=== PATIENT | male | born 1955 | race African-American/Black ===

== ENCOUNTER 2017-11-04 11:37 | Observation (INO) | payer OTHER ==
[2017-11-04] VITALS (8 sets, daily range): BP systolic 78–215; BP diastolic 49–110; PULSE 68–92; RESP 16–18; TEMP 98.7; O2SAT 96–99
[~2017-11-04 11:37] MED LIST: AMLO10 PO; BISA10SU8 PR; CIPR500T4 PO; DOCU1CAP39 PO
--- NOTE | 2017-11-04 13:06 | PD ---
HPI Chief Complaint: Pain: Acute or Chronic Time Seen by Provider: 13:04 Travel History International Travel<30 days: No Contact w/Intl Traveler<30days: No Traveled to known affect area: No History of Present Illness HPI 62-year-old male presents to the emergency department accompanied by his sister with complaint of discoloration in his toes and discoloration of his big toenails 5 months. Also reports foot pain for the last 5 months. He is a patient at the [facility] and has followed up in regards to this complaint. He said he received injections into his feet for his pain which helped. He tried to make an appointment at the [facility] today and was told to come to the ER. Denies injury. Is ambulatory on the affected extremities. Has a callus on his left foot at the joint of the first toe that he says is painful and worse when he wears shoes when it rubs up against the shoe. He denies paresthesias, loss of sensation, decreased range of motion, decreased strength to bilateral lower extremities. Denies history of neuropathy or diabetes. Has not taken any medication or tried any treatments to alleviate his symptoms. Worse with ambulation. Better at rest. Symptoms are mild in severity. History of stroke 4 years ago, cardiac stents, hypertension. His blood pressure is elevated in triage and he denies chest pain, shortness of breath, abdominal pain, vomiting, change in vision, diaphoresis, syncope. Says he has not been taking any of his medications for the past 5-6 months because his doctor told him to stop taking it. His primary care provider is Dr. Hua at the [facility]. No known allergies. Has no other medical complaints. No other modifying factors or associated signs and symptoms. PFSH Past Medical History Arthritis: No Asthma: No Autoimmune Disease: No Blood Disorders: No Heart Rhythm Problems: No Cancer: No Cardiac Catheterization: Yes Cardiovascular Problems: Yes High Cholesterol: Yes Chemotherapy: No Congestive Heart Failure: No COPD: No Cerebrovascular Accident: Yes Diabetes: Yes Diminished Hearing: No Endocrine: No Gastrointestinal Disorders: Yes GERD: No Genitourinary: Yes (BPH) Hiatal Hernia: No Hypertension: Yes Immune Disorder: No Kidney Stones: No Musculoskeletal: No Neurologic: No Psychiatric: No Reproductive: No Respiratory: No Myocardial Infarction: Yes Radiation Therapy: No Renal Failure: No Sickle Cell Disease: No Sleep Apnea: No Thyroid Disease: No Ulcer: No Past Surgical History Abdominal Surgery: No AICD: No Cardiac Surgery: Yes (angioplasty/stent) Coronary Stent: Yes Ear Surgery: No Endocrine Surgery: No Eye Surgery: No Genitourinary Surgery: No Gynecologic Surgery: No Insulin Pump: No Joint Replacement: No Oral Surgery: No Pacemaker: No Thoracic Surgery: No Other Surgery: Yes Social History Alcohol Use: No Tobacco Use: No (QUIT JUNE 2013) Substance Use: No Allergies-Medications (Allergen,Severity, Reaction): Coded Allergies: No Known Allergies (Verified Allergy, Unknown, 11/04/17) Reported Meds & Prescriptions Reported Meds & Active Scripts Active Review of Systems Except as stated in HPI: all other systems reviewed are Neg Physical Exam Narrative GENERAL: Thin, elderly, black male patient, in no acute distress SKIN: Warm and dry. HEAD: Atraumatic. Normocephalic. EYES: Pupils equal and round. No scleral icterus. No injection or drainage. ENT: Mucosa pink and moist. Airway patent. NECK: Trachea midline. CARDIOVASCULAR: Regular rate and rhythm. No murmur appreciated. RESPIRATORY: No accessory muscle use. Clear to auscultation. Breath sounds equal bilaterally. GASTROINTESTINAL: Abdomen soft, non-tender, nondistended. Hepatic and splenic margins not palpable. Bowel sounds are active 4 quadrants. MUSCULOSKELETAL: Bilateral feet are nonedematous, nonerythematous and without ecchymosis; without tenderness on palpation; toes are warm and was sensory intact; no cyanosis; 2+ pedal pulses; onychomycosis noted to bilateral great toenails. No obvious deformities. No clubbing. No cyanosis. No edema. NEUROLOGICAL: Awake and alert. Oriented 3. No obvious cranial nerve deficits. Motor grossly within normal limits. Normal speech. PSYCHIATRIC: Appropriate mood and affect; insight and judgment normal. Data Data Last Documented VS Vital Signs Date Time Temp Pulse Resp B/P (MAP) Pulse Ox O2 Delivery O2 Flow Rate FiO2 11/04/17 18:00 68 113/72 (86) 11/04/17 17:00 17 97 Room Air 11/04/17 12:19 98.7 Orders Orders Basic Metabolic Panel (Bmp) (11/04/17 13:47) Complete Blood Count With Diff (11/04/17 13:47) Iv Access Insert/Monitor (11/04/17 13:47) Sodium Chloride 0.9% Flush (Ns Flush) (11/04/17 14:00) Orthostatic Vital Signs (11/04/17 13:47) Magnesium (Mg) (11/04/17 13:47) Sodium Chlor 0.9% 1000 Ml Inj (Ns 1000 M (11/04/17 16:30) Admit Order (Ed Use Only) (11/04/17 17:58) Consult Podiatry (11/04/17 ) Labs Laboratory Tests Test 11/04/17 14:45 White Blood Count 8.3 TH/MM3 Red Blood Count 5.24 MIL/MM3 Hemoglobin 13.1 GM/DL Hematocrit 40.0 % Mean Corpuscular Volume 76.2 FL Mean Corpuscular Hemoglobin 25.0 PG Mean Corpuscular Hemoglobin Concent 32.9 % Red Cell Distribution Width 16.2 % Platelet Count 232 TH/MM3 Mean Platelet Volume 7.8 FL Neutrophils (%) (Auto) 66.2 % Lymphocytes (%) (Auto) 24.1 % Monocytes (%) (Auto) 8.4 % Eosinophils (%) (Auto) 0.5 % Basophils (%) (Auto) 0.8 % Neutrophils # (Auto) 5.5 TH/MM3 Lymphocytes # (Auto) 2.0 TH/MM3 Monocytes # (Auto) 0.7 TH/MM3 Eosinophils # (Auto) 0.0 TH/MM3 Basophils # (Auto) 0.1 TH/MM3 CBC Comment DIFF FINAL Differential Comment Blood Urea Nitrogen 24 MG/DL Creatinine 1.23 MG/DL Random Glucose 86 MG/DL Calcium Level 8.8 MG/DL Magnesium Level 2.4 MG/DL Sodium Level 141 MEQ/L Potassium Level 4.0 MEQ/L Chloride Level 107 MEQ/L Carbon Dioxide Level 29.2 MEQ/L Anion Gap 5 MEQ/L Estimat Glomerular Filtration Rate 72 ML/MIN [facility] Medical Decision Making Medical Screen Exam Complete: Yes Emergency Medical Condition: Yes Medical Record Reviewed: Yes Differential Diagnosis neuropathy, plantar fasciitis, callus, bunion, onychomycosis, orthostatic hypotension Narrative Course 62-year-old male with bilateral foot pain, onychomycosis, and a callus to the left foot. His blood pressure is elevated in triage and he is asymptomatic. On blood pressure recheck his blood pressure readings were right upper extremity 82/52; left upper extremity 71/43. He reports history of hypertension and says he has not taken any of his medications for the past 5-6 months. He denies lightheadedness, dizziness, syncope. I discussed the patient with Dr. Thomas and he recommended CBC, BMP, orthostatic vital signs. With orthostatic vital signs the patient blood pressure remains low and when he stands up reports dizziness. This was discussed with Dr. Thomas and he recommended a fluid bolus and recheck orthostatic vital signs after bolus and if continues to feel dizzy with standing up then to admit the patient for observation. Normal saline bolus ordered. 1614: CBC unremarkable. BMP unremarkable. BUN 24. Magnesium 2.4. 1757: I spoke with SABA Turcios and the patient will be admitted for 23 observation for hypotension. Report given. Consult podiatry ordered. Physician Communication Physician Communication SABA Turcios Diagnosis Primary Impression: Hypotension Qualified Codes: I95.9 - Hypotension, unspecified Additional Impressions: Foot pain, bilateral Callus of foot Onychomycosis of left great toe Onychomycosis of right great toe Admitting Information Admitting Physician Requests: Observation Referrals: [employer] Order Filler Roxie Angel Nov 04, 2017 13:06
[2017-11-04] MEDS ORDERED: SODIUM CHLORIDE 0.9% FLUSH 10 ML FLUSH IV FLUSH PRN ×2 (14:00→18:45)
[2017-11-04 15:28] LABS: AUTOMATED NEUTROPHIL # 5.5 TH/MM3 (1.8-7.7); BASOPHIL # 0.1 TH/MM3 (0-0.2); BASOPHIL % 0.8 % (0.0-2.0); EOSINOPHIL % 0.5 % (0.0-4.0); HEMOGLOBIN 13.1 GM/DL (13.0-17.0); LYMPH % 24.1 % (9.0-44.0); MEAN CELL VOLUME 76.2 FL (80.0-100.0); MEAN CORPUSCULAR HGB CONC 32.9 % (32.0-36.0); MEAN PLATELET VOLUME 7.8 FL (7.0-11.0); MONO % 8.4 % (0.0-8.0); MONOCYTE # 0.7 TH/MM3 (0-0.9); NEUT % 66.2 % (16.0-70.0); PLATELET COUNT 232 TH/MM3 (150-450); RED BLOOD COUNT 5.24 MIL/MM3 (4.50-5.90); RED CELL DISTRIBUTION WIDTH 16.2 % (11.6-17.2); WHITE BLOOD COUNT 8.3 TH/MM3 (4.0-11.0)
[2017-11-04 15:46] LABS: BICARBONATE 29.2 MEQ/L (21.0-32.0); CALCIUM 8.8 MG/DL (8.5-10.1); CREATININE 1.23 MG/DL (0.60-1.30); MAGNESIUM 2.4 MG/DL (1.5-2.5)
[2017-11-04] MEDS ORDERED: SODIUM CHLOR 0.9% 1000 ML INJ 1,000 ML IV ONE (16:30)
[2017-11-04] MEDS ORDERED: NALOXONE HCL 0.4 MG/ML AMP IV PUSH PRN (18:45)
[2017-11-04] MEDS ORDERED: SENNOSIDES 8.6 MG TAB PO PRN (18:45)
[2017-11-04] MEDS ORDERED: ONDANSETRON HCL 4 MG/2 ML VIAL IVP PRN (18:45)
[2017-11-04] MEDS ORDERED: ACETAMINOPHEN 325 MG TAB PO PRN (18:45)
[2017-11-04] MEDS ORDERED: LACTULOSE SYRUP 20 GM/30 ML CUP PO PRN (18:45)
[2017-11-04] MEDS ORDERED: BISACODYL 10 MG SUPP RECTAL PRN (18:45)
[2017-11-04] MEDS ORDERED: MAGNESIUM HYDROXIDE SUSP 30 ML CUP PO PRN (18:45)
[2017-11-04] MEDS: DOCUSATE SODIUM 50 MG/SENNA 8.6 MG TAB PO SCH (20:07)
[2017-11-04] MEDS: SODIUM CHLORIDE 0.9% FLUSH 10 ML FLUSH IV FLUSH SCH (20:07)
[2017-11-04] MEDS: SODIUM CHLOR 0.9% 1000 ML INJ 1,000 ML IV SCH (20:07)
[2017-11-04] MEDS ORDERED: LORazepam 2 MG/ML VIAL IV PUSH PRN ×4 (21:45)
[2017-11-04] MEDS ORDERED: LORazepam 2 MG TAB PO PRN (21:45)
[2017-11-04] MEDS ORDERED: FLUMAZENIL 0.5 MG/5 ML VIAL IV PUSH PRN (21:45)
[2017-11-04] MEDS ORDERED: LORazepam 1 MG TAB PO PRN (21:45)
--- NOTE | 2017-11-04 21:51 | HHI.HP ---
[facility] Service [facility] Primary Care Physician [facility] Admission Diagnosis Hypotension, bilateral foot pain Diagnoses: Travel History International Travel<30 Days: No Contact w/Intl Traveler <30 Da: No Traveled to Known Affected Are: No History of Present Illness 62-year-old male with a past medical history of previous CVA, CAD, history of hypertension presents to the emergency department for evaluation of bilateral foot pain. The patient reports that he has pain on the medial side of his left foot, worse near his toe and on the fifth digit of his right foot. He states the pain has gotten so great that he came to the emergency department for further evaluation. Upon arrival to the emergency department he was found to be hypertensive in triage. The patient was previously treated for hypertension however he reports he has not taken any antihypertensives and 4-5 months. In the emergency department he was found to be hypotensive with a blood pressure of 78/49. Multiple repeated measures were in the 80s systolic. The patient reports dizziness upon standing. He denies any chest pain, shortness of breath , nausea/vomiting, lateralizing signs/symptoms. 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 No fever/chills. Review of Systems Except as stated in HPI: all other systems reviewed are Neg Past Family Social History Past Medical History CVA in June 2014 Coronary artery disease History of hypertension Past Surgical History Stent placement in 1991 Reported Medications Reported Meds & Active Scripts Active Allergies: Coded Allergies: No Known Allergies (Verified Allergy, Unknown, 11/04/17) Family History Mother with diabetes mellitus Social History Sox proximally 1.5 packs per day. Drinks a 4 pack of 16 ounce beers daily. Denies illicit drugs. Physical Exam Vital Signs Vital Signs Date Time Temp Pulse Resp B/P (MAP) Pulse Ox O2 Delivery O2 Flow Rate FiO2 11/04/17 19:41 80 16 108/69 (82) 99 11/04/17 18:00 68 113/72 (86) 11/04/17 17:30 72 94/73 (80) 11/04/17 17:00 86 17 78/49 (59) 97 Room Air 11/04/17 16:00 74 17 102/82 (89) 98 Room Air 11/04/17 14:45 86 90/65 (73) 82 88/61 (70) 103 80/62 (68) 11/04/17 12:19 98.7 92 18 215/110 (145) 96 Physical Exam GENERAL: male lying in bed SKIN: No rashes, ecchymoses or lesions. Cool and dry. HEAD: Atraumatic. Normocephalic. No temporal or scalp tenderness. EYES: Pupils equal round and reactive. Extraocular motions intact. No scleral icterus. No injection or drainage. ENT: Nose without bleeding, purulent drainage or septal hematoma. Throat without erythema, tonsillar hypertrophy or exudate. Uvula midline. Airway patent. NECK: Trachea midline. No JVD or lymphadenopathy. Supple, nontender, no meningeal signs. CARDIOVASCULAR: Regular rate and rhythm without murmurs, gallops, or rubs. RESPIRATORY: Clear to auscultation. Breath sounds equal bilaterally. No wheezes , rales, or rhonchi. GASTROINTESTINAL: Abdomen soft, non-tender, nondistended. No hepato-splenomegaly , or palpable masses. No guarding. MUSCULOSKELETAL: Extremities without clubbing, cyanosis, or edema. No joint tenderness, effusion, or edema noted. No calf tenderness. Negative Homans sign bilaterally. NEUROLOGICAL: Awake and alert. Cranial nerves II through XII intact. Motor and sensory grossly within normal limits. Five out of 5 muscle strength in all muscle groups. Slurred speech, at baseline. Laboratory Laboratory Tests Test 11/04/17 14:45 White Blood Count 8.3 Red Blood Count 5.24 Hemoglobin 13.1 Hematocrit 40.0 Mean Corpuscular Volume 76.2 Mean Corpuscular Hemoglobin 25.0 Mean Corpuscular Hemoglobin Concent 32.9 Red Cell Distribution Width 16.2 Platelet Count 232 Mean Platelet Volume 7.8 Neutrophils (%) (Auto) 66.2 Lymphocytes (%) (Auto) 24.1 Monocytes (%) (Auto) 8.4 Eosinophils (%) (Auto) 0.5 Basophils (%) (Auto) 0.8 Neutrophils # (Auto) 5.5 Lymphocytes # (Auto) 2.0 Monocytes # (Auto) 0.7 Eosinophils # (Auto) 0.0 Basophils # (Auto) 0.1 CBC Comment DIFF FINAL Differential Comment Blood Urea Nitrogen 24 Creatinine 1.23 Random Glucose 86 Calcium Level 8.8 Magnesium Level 2.4 Sodium Level 141 Potassium Level 4.0 Chloride Level 107 Carbon Dioxide Level 29.2 Anion Gap 5 Estimat Glomerular Filtration Rate 72 Result Diagram: 11/04/17 1445 11/04/17 1445 Caprini VTE Risk Assessment Caprini VTE Risk Assessment: Mod/High Risk (score >= 2) Caprini Risk Assessment Model Point Value = 1 Point Value = 2 Point Value = 3 Point Value = 5 Age 41-60 Minor surgery BMI > 25 kg/m2 Swollen legs Varicose veins or History of unexplained or recurrent spontaneous Oral contraceptives or hormone replacement Sepsis (< 1 month) Serious lung disease, including pneumonia (< 1 month) Abnormal pulmonary function Acute myocardial infarction Congestive heart failure (< 1 month) History of inflammatory bowel disease Medical patient at bed rest Age 61-74 Arthroscopic surgery Major open surgery (> 45 min) Laparoscopic surgery (> 45 min) Malignancy Confined to bed (> 72 hours) Immobilizing plaster cast Central venous access Age >= 75 History of VTE Family history of VTE Factor V Leiden Prothrombin [id number] Lupus anticoagulant Anticardiolipin antibodies Elevated serum homocysteine Heparin-induced thrombocytopenia Other congenital or acquired thrombophilia Stroke (< 1 month) Elective arthroplasty Hip, pelvis, or leg fracture Acute spinal cord injury (< 1 month) Prophylaxis Regimen Total Risk Factor Score Risk Level Prophylaxis Regimen 0-1 Low Early ambulation 2 Moderate Order ONE of the following: *Sequential Compression Device (SCD) *Heparin 5000 units SQ BID 3-4 Higher Order ONE of the following medications: *Heparin 5000 units SQ TID *Enoxaparin/Lovenox 40 mg SQ daily (WT < 150 kg, CrCl > 30 mL/min) *Enoxaparin/Lovenox 30 mg SQ daily (WT < 150 kg, CrCl > 10-29 mL/min) *Enoxaparin/Lovenox 30 mg SQ BID (WT < 150 kg, CrCl > 30 mL/min) AND/OR *Sequential Compression Device (SCD) 5 or more Highest Order ONE of the following medications: *Heparin 5000 units SQ TID (Preferred with Epidurals) *Enoxaparin/Lovenox 40 mg SQ daily (WT < 150 kg, CrCl > 30 mL/min) *Enoxaparin/Lovenox 30 mg SQ daily (WT < 150 kg, CrCl > 10-29 mL/min) *Enoxaparin/Lovenox 30 mg SQ BID (WT < 150 kg, CrCl > 30 mL/min) AND *Sequential Compression Device (SCD) Assessment and Plan Assessment and Plan Assessment/plan: 1. Symptomatic hypotension Unclear etiology - may be secondary to alcohol abuse and dehydration Orthostatics pending PT consulted, appreciate recommendations IV fluids 2. Bilateral foot pain X-rays pending Podiatry consulted, appreciate recommendations 3. CAD Patient will follow-up with his PCP 4. Alcohol abuse Cessation counseling provided Thiamine/folate/multivitamin CIWA protocol FEN NS at 100 cc/hr Heart healthy diet Electrolytes: monitor and replete prn Heparin Grisel Torres MD Nov 04, 2017 21:51
--- NOTE | 2017-11-04 22:40 | RADRPT ---
EXAM DATE/TIME: 11/04/2017 21:52 [facility] COMPARISON: No previous studies available for comparison. INDICATIONS : Left foot pain with no injury for 2 weeks. MEDICAL HISTORY : Hypertension. Hypercholesterolemia. Myocardial infarction. CVA. SURGICAL HISTORY : Coronary artery stent. ENCOUNTER: Initial ACUITY: 2 weeks PAIN SCORE: 4/10 LOCATION: Left foot. FINDINGS: Three view examination of the left foot demonstrates no soft tissue swelling, dislocation, or fractur e. The tarsal bones appear intact. The interphalangeal and metatarsophalangeal joints are intact. Mild hallux obvious deformity with some sclerosis at the articular surface. The calcaneus is intact . Bony mineralization is normal. CONCLUSION: Mild hallux valgus. Otherwise negative exam. Tristan Cook MD on November 04, 2017 at 22:38 Board Certified Radiologist. This report was verified electronically.
--- NOTE | 2017-11-04 22:41 | RADRPT ---
EXAM DATE/TIME: 11/04/2017 21:57 [facility] COMPARISON: No previous studies available for comparison. INDICATIONS : Right foot pain with no injury for 2 week. MEDICAL HISTORY : Hypertension. Hypercholesterolemia. Myocardial infarction. CVA. SURGICAL HISTORY : Coronary artery stent. ENCOUNTER: Initial ACUITY: 2 weeks PAIN SCORE: 4/10 LOCATION: Right foot. FINDINGS: Three view examination of the right foot demonstrates no soft tissue swelling, dislocation, or fractu re. The tarsal bones appear intact. The interphalangeal and metatarsophalangeal joints are intact. The calcaneus is intact. Bony mineralization is mildly decreased. CONCLUSION: Negative exam. Tristan Cook MD on November 04, 2017 at 22:39 Board Certified Radiologist. This report was verified electronically.
[2017-11-04] MEDS: HEPARIN SODIUM - SQ 10,000 UNITS/ML VIAL SQ SCH (22:42)
[2017-11-05 03:21] VITALS: BP 110/86; PULSE 88; RESP 18; TEMP 98.5; O2SAT 99
[2017-11-05 04:17] LABS: AUTOMATED NEUTROPHIL # 3.9 TH/MM3 (1.8-7.7); BASOPHIL # 0.1 TH/MM3 (0-0.2); BASOPHIL % 1.4 % (0.0-2.0); EOSINOPHIL # 0.1 TH/MM3 (0-0.4); EOSINOPHIL % 0.9 % (0.0-4.0); HEMATOCRIT 36.1 % (39.0-51.0); HEMOGLOBIN 11.8 GM/DL (13.0-17.0); LYMPH % 35.1 % (9.0-44.0); LYMPHOCYTE # 2.6 TH/MM3 (1.0-4.8); MEAN CELL VOLUME 75.2 FL (80.0-100.0); MEAN CORPUSCULAR HEMOGLOBIN 24.6 PG (27.0-34.0); MEAN CORPUSCULAR HGB CONC 32.7 % (32.0-36.0); MEAN PLATELET VOLUME 7.3 FL (7.0-11.0); MONO % 9.5 % (0.0-8.0); MONOCYTE # 0.7 TH/MM3 (0-0.9); NEUT % 53.1 % (16.0-70.0); PLATELET COUNT 193 TH/MM3 (150-450); RED CELL DISTRIBUTION WIDTH 15.8 % (11.6-17.2); WHITE BLOOD COUNT 7.3 TH/MM3 (4.0-11.0)
[2017-11-05 04:35] LABS: ALBUMIN 3.2 GM/DL (3.4-5.0); ALT (GPT) 13 U/L (12-78); AST (GOT) 10 U/L (15-37); BICARBONATE 26.4 MEQ/L (21.0-32.0); BLOOD UREA NITROGEN 18 MG/DL (7-18); CALCIUM 8.4 MG/DL (8.5-10.1); CHLORIDE 112 MEQ/L (98-107); CREATININE 1.03 MG/DL (0.60-1.30); GLOMERULAR FILTRATION RATE 88 ML/MIN (>89); GLUCOSE,RANDOM 84 MG/DL (74-106); SODIUM (NA) 143 MEQ/L (136-145)
[2017-11-05 04:36] LABS: ALKALINE PHOSPHATASE 96 U/L (45-117); TOTAL BILIRUBIN ADULT 0.3 MG/DL (0.2-1.0); TOTAL PROTEIN 6.5 GM/DL (6.4-8.2)
[2017-11-05] MEDS: SODIUM CHLOR 0.9% 1000 ML INJ 1,000 ML IV SCH (05:06)
[2017-11-05] MEDS: HEPARIN SODIUM - SQ 10,000 UNITS/ML VIAL SQ SCH (05:08)
[2017-11-05 07:25] VITALS: BP 114/73; PULSE 81; RESP 20; TEMP 98.3; O2SAT 98
[2017-11-05] MEDS ORDERED: FOLIC ACID 1 MG TAB PO SCH (09:00)
[2017-11-05] MEDS ORDERED: THIAMINE HCL 100 MG TAB PO SCH (09:00)
[2017-11-05] MEDS ORDERED: MULTIVITAMINS/MINERALS THERAPEUTIC TAB PO SCH (09:00)
--- NOTE | 2017-11-05 09:00 | HHI.DCPOC ---
Discharge Care Plan Diagnosis: (1) Foot pain, bilateral (2) Hypotension Goals to Promote Your Health * To prevent worsening of your condition and complications * To maintain your health at the optimal level Directions to Meet Your Goals Take your medications as prescribed Follow your dietary instruction Follow activity as directed Keep your appointments as scheduled Take your immunizations and boosters as scheduled If your symptoms worsen call your PCP, if no PCP go to Urgent Care Center or Emergency Room Smoking is Dangerous to Your Health. Avoid second hand smoke Call the 24-hour hour crisis hotline for domestic abuse at Sofia Forde PA-C Nov 05, 2017 09:00
[2017-11-05] MEDS: DOCUSATE SODIUM 50 MG/SENNA 8.6 MG TAB PO SCH (09:21)
[2017-11-05] MEDS: SODIUM CHLORIDE 0.9% FLUSH 10 ML FLUSH IV FLUSH SCH (09:22)
[2017-11-05] MEDS ORDERED: INFLUENZA VIRUS VACCINE (QUADRIVALENT) 0.5 ML SYR IM ONE (10:00)
[2017-11-05 12:08] VITALS: BP 106/58; PULSE 74; RESP 20; TEMP 98.7; O2SAT 99
--- NOTE | 2017-11-05 13:47 | HHI.PR ---
Subjective Remarks Follow-up foot pain and hypotension. Patient has chronic bilateral foot pain from left bunion and right fifth toe. Dw RN Objective Vitals Vital Signs Date Time Temp Pulse Resp B/P (MAP) Pulse Ox O2 Delivery O2 Flow Rate FiO2 11/05/17 12:08 98.7 74 20 106/58 (74) 99 11/05/17 07:25 98.3 81 20 114/73 (87) 98 11/05/17 03:21 98.5 88 18 110/86 (94) 99 11/04/17 23:22 98.7 89 18 101/64 (76) 97 11/04/17 19:41 80 16 108/69 (82) 99 11/04/17 18:00 68 113/72 (86) 11/04/17 17:30 72 94/73 (80) 11/04/17 17:00 86 17 78/49 (59) 97 Room Air 11/04/17 16:00 74 17 102/82 (89) 98 Room Air 11/04/17 14:45 86 90/65 (73) 82 88/61 (70) 103 80/62 (68) Result Diagram: 11/05/17 0351 11/05/17 0351 Imaging Last Impressions Foot X-Ray 11/04/17 0000 Signed Impressions: Service Date/Time: Saturday, November 04, 2017 21:57 - CONCLUSION: Negative exam. Tristan Cook MD Objective Remarks GENERAL: male lying in bed SKIN: No rashes, ecchymoses or lesions. Cool and dry. CARDIOVASCULAR: Regular rate and rhythm without murmurs, gallops, or rubs. RESPIRATORY: Clear to auscultation. Breath sounds equal bilaterally. No wheezes , rales, or rhonchi. GASTROINTESTINAL: Abdomen soft, non-tender, nondistended. No guarding. MUSCULOSKELETAL: Extremities without clubbing, cyanosis, or edema. No joint tenderness, effusion, or edema noted. No calf tenderness. Negative Homans sign bilaterally. Bunion left foot and onychomycosis right fifth toenail which is digging into the skin no signs of cellulitis NEUROLOGICAL: Awake and alert. Cranial nerves II through XII intact. Motor and sensory grossly within normal limits. Five out of 5 muscle strength in all muscle groups. Slurred speech, at baseline. Procedures none A/P Problem List: (1) Hypotension ICD Code: I95.9 - Hypotension Status: Acute Assessment and Plan 1. Symptomatic hypotension from dehydration secondary to intermittent loose stools for 1 month. This is improved after IV hydration. Obtain stool studies. PT has cleared patient for discharge 2. Bilateral foot pain. X-rays negative for bony injuries. He has bunion on the left and onychomycosis involving the right fifth small toe. Will cancel podiatry consult patient can be seen outpatient 3. CAD. Stable 4. Alcohol abuse. Counseled Discharge Planning Discharge patient to home if stool studies negative and no diarrhea for 24 hours (none overnight) Condition on discharge: Improved Regular Diet as tolerated Ad Melva activity Rx written: None Follow-up with primary care physician and podiatry Problem Qualifiers (1) Hypotension: Qualified Codes: I95.9 - Hypotension, unspecified Daniel Pineda MD Nov 05, 2017 13:47
== END 2017-11-05 13:04 | disposition home or self-care (01) ==
LOC: NEPD 11:37 → NEDA 18:00 → NEPFCDU 20:05
PROVIDERS: ADMIT Internal Medicine; ATTEND Internal Medicine
DX: I95.9 Hypotension, unspecified (principal); M79.671 Pain in right foot; M79.672 Pain in left foot; L84 Corns and callosities; M21.612 Bunion of left foot; B35.1 Tinea unguium; E86.0 Dehydration; E11.9 Type 2 diabetes mellitus without complications; I10 Essential (primary) hypertension; I25.10 Atherosclerotic heart disease of native coronary artery without angina pectoris; N40.0 Benign prostatic hyperplasia without lower urinary tract symptoms; I25.2 Old myocardial infarction; F10.10 Alcohol abuse, uncomplicated; E78.00 Pure hypercholesterolemia, unspecified; Z86.73 Personal history of transient ischemic attack (TIA), and cerebral infarction without residual deficits; Z95.5 Presence of coronary angioplasty implant and graft; Z23 Encounter for immunization
CPT/HCPCS: 73630; 80048; 80053; 83735; 85025; 96360; 96361; 96372; 97162; 99285; G0008; G0378; G8987; G8988; J1644; J7030; Q2038; 90471; 90686

== ENCOUNTER 2018-01-17 17:59 | Inpatient (IN) | payer OTHER ==
[~2018-01-17] VITALS: Ht 165.1 cm; Wt 58.3 kg
[2018-01-17] MEDS ORDERED: GADODIAMIDE PF 287 MG/ML 5 ML VIAL (for RAD MRI) IVCONTRAST ONE (18:00)
[2018-01-17 18:16] VITALS: BP 100/54; PULSE 98; RESP 18; TEMP 98.6; O2SAT 99
[2018-01-17] MEDS ORDERED: SODIUM CHLORIDE 0.9% FLUSH 10 ML FLUSH IV FLUSH PRN (21:30)
[2018-01-17] MEDS ORDERED: CLINDAMYCIN 900 MG/NS PREMIX 50 ML IV ONE (21:30)
--- NOTE | 2018-01-17 21:35 | PD ---
HPI Chief Complaint: Skin Problem Time Seen by Provider: 21:20 Travel History International Travel<30 days: No Contact w/Intl Traveler<30days: No Traveled to known affect area: No History of Present Illness HPI 62-year-old male with history of CVA with left-sided weakness, here with his home health custom stock maker for evaluation of pain and swelling to left foot with purulent drainage. The patient has had pain to the base of his left great toe for over a month now. Pain significantly worsened since yesterday and today there is purulent drainage at the site. He was seen at the [place] and was advised to present to the emergency department for evaluation. Patient rates the pain is 15 out of 10, constant, sharp/pressure, worse with movements and palpation. He denies fevers or chills. No known trauma. He smokes about half pack of cigarettes daily. He was on antihypertensives, however no longer takes any medications. PFSH Past Medical History Arthritis: No Asthma: No Autoimmune Disease: No Blood Disorders: No Heart Rhythm Problems: No Cancer: No Cardiac Catheterization: Yes Cardiovascular Problems: Yes High Cholesterol: Yes Chemotherapy: No Chest Pain: Yes (few months ago) Congestive Heart Failure: No COPD: No Cerebrovascular Accident: Yes Diabetes: Yes Diminished Hearing: No Endocrine: No Gastrointestinal Disorders: Yes GERD: No Genitourinary: Yes (BPH) Headaches: Yes Hiatal Hernia: No Hypertension: Yes Immune Disorder: No Kidney Stones: No Musculoskeletal: No Neurologic: No Psychiatric: No Reproductive: No Respiratory: No Myocardial Infarction: Yes Radiation Therapy: No Renal Failure: No Seizures: Yes (cva) Sickle Cell Disease: No Sleep Apnea: No Thyroid Disease: No Ulcer: No Past Surgical History Abdominal Surgery: No AICD: No Arteriovenous Shunt: Yes (cardiac stent 1991) Cardiac Surgery: Yes (angioplasty/stent) Coronary Stent: Yes Ear Surgery: No Endocrine Surgery: No Eye Surgery: No Genitourinary Surgery: No Gynecologic Surgery: No Insulin Pump: No Joint Replacement: No Oral Surgery: No Pacemaker: No Thoracic Surgery: No Other Surgery: Yes Social History Alcohol Use: No Tobacco Use: No (QUIT JUNE 2013) Substance Use: No Allergies-Medications (Allergen,Severity, Reaction): Coded Allergies: No Known Allergies (Verified Allergy, Unknown, 11/04/17) Reported Meds & Prescriptions Reported Meds & Active Scripts Active Hydrocodone-Acetaminophen 5-325 mg Tab 1 Tab PO Q6H PRN Clindamycin (Clindamycin HCl) 150 Mg Cap 450 Mg PO Q6H 10 Days Review of Systems Except as stated in HPI: all other systems reviewed are Neg Physical Exam Narrative GENERAL: Well-developed, well-nourished, awake, alert, comfortable, no apparent distress. SKIN: Focused skin assessment warm/dry. Medial aspect of the base of the left great toe there is moderate edema with overlying warmth with moderate purulent drainage. This area is significantly tender. There is no crepitus. HEAD: Atraumatic. Normocephalic. EYES: Pupils equal and round. No scleral icterus. No injection or drainage. ENT: Mucous membranes pink and moist. NECK: Trachea midline. No JVD. CARDIOVASCULAR: Regular rate and rhythm. 1+ bilateral dorsalis pedis pulses. RESPIRATORY: No accessory muscle use. Clear to auscultation. Breath sounds equal bilaterally. GASTROINTESTINAL: Abdomen soft, non-tender, nondistended. MUSCULOSKELETAL: Skin exam as above. The rest of his joints and extremities are without deformity, without tenderness, with normal range of motion. NEUROLOGICAL: Awake and alert. No obvious cranial nerve deficits. Motor grossly within normal limits. Normal speech. PSYCHIATRIC: Appropriate mood and affect; insight and judgment normal. Data Data Last Documented VS Vital Signs Date Time Temp Pulse Resp B/P (MAP) Pulse Ox O2 Delivery O2 Flow Rate FiO2 01/18/18 01:32 98.9 88 20 170/68 (102) 99 Room Air Orders Orders Complete Blood Count With Diff (01/17/18 21:30) Comprehensive Metabolic Panel (01/17/18 21:30) Prothrombin Time / Inr (Pt) (01/17/18 21:30) Act Partial Throm Time (Ptt) (01/17/18 21:30) Iv Access Insert/Monitor (01/17/18 21:30) Ecg Monitoring (01/17/18 21:30) Oximetry (01/17/18 21:30) Sodium Chloride 0.9% Flush (Ns Flush) (01/17/18 21:30) Westergren Sedimentation Rate (01/17/18 21:30) C-Reactive Protein (Crp) (01/17/18 21:30) Blood Culture (01/17/18 21:30) Wound Culture And Gram Stain (01/17/18 21:30) Foot, Complete ([id number]) (01/17/18 ) Clindamycin 900 Mg/Ns Premix (Cleocin 90 (01/17/18 21:30) Morphine Inj (Morphine Inj) (01/17/18 22:00) Sodium Chlor 0.9% 1000 Ml Inj (Ns 1000 M (01/17/18 22:00) Mri Foot W&W/O Contrast (01/17/18 ) Morphine Inj (Morphine Inj) (01/17/18 23:45) Gadodiamide Pf Inj (Omniscan Pf Inj) (01/17/18 18:00) Labs Laboratory Tests Test 01/17/18 21:40 White Blood Count 14.5 TH/MM3 Red Blood Count 5.70 MIL/MM3 Hemoglobin 13.5 GM/DL Hematocrit 42.2 % Mean Corpuscular Volume 74.1 FL Mean Corpuscular Hemoglobin 23.8 PG Mean Corpuscular Hemoglobin Concent 32.1 % Red Cell Distribution Width 16.5 % Platelet Count 204 TH/MM3 Mean Platelet Volume 8.4 FL Neutrophils (%) (Auto) 70.6 % Lymphocytes (%) (Auto) 16.6 % Monocytes (%) (Auto) 11.8 % Eosinophils (%) (Auto) 0.2 % Basophils (%) (Auto) 0.8 % Neutrophils # (Auto) 10.3 TH/MM3 Lymphocytes # (Auto) 2.4 TH/MM3 Monocytes # (Auto) 1.7 TH/MM3 Eosinophils # (Auto) 0.0 TH/MM3 Basophils # (Auto) 0.1 TH/MM3 CBC Comment DIFF FINAL Differential Comment Erythrocyte Sedimentation Rate 4 mm/hr Prothrombin Time 10.9 SEC Prothromb Time International Ratio 1.1 RATIO Activated Partial Thromboplast Time 23.6 SEC Blood Urea Nitrogen 14 MG/DL Creatinine 1.18 MG/DL Random Glucose 80 MG/DL Total Protein 8.0 GM/DL Albumin 4.4 GM/DL Calcium Level 9.2 MG/DL Alkaline Phosphatase 80 U/L Aspartate Amino Transf (AST/SGOT) 32 U/L Alanine Aminotransferase (ALT/SGPT) 19 U/L Total Bilirubin 1.0 MG/DL Sodium Level 143 MEQ/L Potassium Level 4.0 MEQ/L Chloride Level 105 MEQ/L Carbon Dioxide Level 27.2 MEQ/L Anion Gap 11 MEQ/L Estimat Glomerular Filtration Rate 76 ML/MIN C-Reactive Protein 2.00 MG/DL MDM Medical Decision Making Medical Screen Exam Complete: Yes Emergency Medical Condition: Yes Differential Diagnosis Osteomyelitis, abscess, cellulitis, gouty arthritis Narrative Course Initial vital signs show heart rate 98, blood pressure 100/54, pulse ox 99% on room air, oral temperature 98.6F. CBC: WBC 14.5, hemoglobin 13.5, hematocrit 42.2, platelets 204, neutrophils 71%. CMP is unremarkable. CRP is 2. ESR is 4. Left foot x-ray: CONCLUSION: Suspected chronic deformity of the hindfoot. Patient was made aware of all findings. He still complaining of significant pain in his left forefoot medially at the base of his great toe despite receiving 4 mg of IV morphine. He was also provided 600 mg of clindamycin. He has significant tenderness and swelling with purulent drainage and a small open wound. MRI will be performed to evaluate for possible osteomyelitis. MRI of the left foot: CONCLUSION: 1. No definite evidence for osteomyelitis. No discrete abscess. 2. Unusual multifocal subchondral marrow edema throughout the left foot and ankle as above. The finding is nonspecific. It can be related to immobilization of the foot or limited use of the foot. Patient and the patient's custom stock maker were made aware of all findings. He is resting comfortably. Pain is improved with morphine. He was given a dose of 900 mg of clindamycin here in the emergency department. On initial presentation the patient has an area of tenderness and mild edema to the left medial foot at the base of the first toe with small amount of purulent drainage from a superficial/circular wound that is approximately 2 mm in diameter. There is no crepitus. No fluctuance or induration. The left foot seems well perfused. The patient and the patient's custom stock maker report that this drainage started today. He is afebrile. His ESR is less than 4. At this point he more than likely has cellulitis and less likely has osteomyelitis. The multifocal subchondral marrow edema makes sense as the patient has history of CVA with left upper and left lower extremity weakness as well as limited mobility secondary to the stroke, requiring home health care. Patient is stable for discharge home, the patient's custom stock maker feels comfortable taking care of him at home with strict return instructions. I will give her the information to the on -call payroll tax analyst with him to follow-up with this week. The patient can also follow-up with his primary care physician at the [place] [facility] this week. They were advised on when to return to the emergency department. They verbalized understanding and agreement with plan. Upon discharge the patient complains of worsening pain to his left foot particularly over the first MTP joint medially where he has the warmth and erythema as well as small open wound that presented initially with purulent drainage. Because of ongoing pain, the patient will be admitted for further antibiotic therapy for left foot infection/cellulitis, rule out osteomyelitis. Case discussed with hospitalist Dr. Saab who will admit the patient to her service. Diagnosis Primary Impression: Cellulitis of left foot Additional Impressions: Intractable pain R/O Osteomyelitis Admitting Information Admitting Physician Requests: Observation Referrals: Noah Hood DPM 3 days [facility] Primary Care Physician 3 days Additional Instructions: Follow-up with your primary care physician this week. Follow-up with payroll tax analyst Dr. Hood or a payroll tax analyst of your choice this week. Take antibiotic as prescribed. Return to the emergency department for worsening symptoms or any other concerns. Scripts Hydrocodone-Acetaminophen (Hydrocodone-Acetaminophen) 5-325 mg Tab 1 TAB PO Q6H Y for PAIN, #15 TAB 0 Refills Prov: Roberth Valdez MD 01/18/18 Clindamycin (Clindamycin) 150 Mg Cap 450 MG PO Q6H for Infection for 10 Days, #120 CAP 0 Refills Prov: Roberth Valdez MD 01/18/18 Roberth Valdez MD January 17, 2018 21:35
[2018-01-17 21:59] LABS: AUTOMATED NEUTROPHIL # 10.3 TH/MM3 (1.8-7.7); BASOPHIL # 0.1 TH/MM3 (0-0.2); BASOPHIL % 0.8 % (0.0-2.0); EOSINOPHIL % 0.2 % (0.0-4.0); HEMATOCRIT 42.2 % (39.0-51.0); HEMOGLOBIN 13.5 GM/DL (13.0-17.0); LYMPH % 16.6 % (9.0-44.0); LYMPHOCYTE # 2.4 TH/MM3 (1.0-4.8); MEAN CELL VOLUME 74.1 FL (80.0-100.0); MEAN CORPUSCULAR HEMOGLOBIN 23.8 PG (27.0-34.0); MEAN CORPUSCULAR HGB CONC 32.1 % (32.0-36.0); MEAN PLATELET VOLUME 8.4 FL (7.0-11.0); MONO % 11.8 % (0.0-8.0); MONOCYTE # 1.7 TH/MM3 (0-0.9); NEUT % 70.6 % (16.0-70.0); PLATELET COUNT 204 TH/MM3 (150-450); RED CELL DISTRIBUTION WIDTH 16.5 % (11.6-17.2); WHITE BLOOD COUNT 14.5 TH/MM3 (4.0-11.0)
[2018-01-17] MEDS ORDERED: SODIUM CHLOR 0.9% 1000 ML INJ 1,000 ML IV ONE (22:00)
[2018-01-17] MEDS ORDERED: MORPHINE SULFATE 4 MG/ML INJ IV PUSH ONE ×2 (22:00→23:45)
[2018-01-17 22:31] LABS: INTERNATIONAL NORMALIZED RATIO 1.1 RATIO; PROTHROMBIN TIME - PATIENT 10.9 SEC (9.8-11.6)
--- NOTE | 2018-01-17 22:31 | RADRPT ---
EXAM DATE/TIME: 01/17/2018 21:46 [facility] COMPARISON: FOOT LEFT COMPLETE ([id number]), November 04, 2017, 21:52. INDICATIONS : Pain. MEDICAL HISTORY : Hypertension. Hypercholesterolemia. Myocardial infarction. CVA. SURGICAL HISTORY : Coronary artery stent. ENCOUNTER: Initial ACUITY: 1 week PAIN SCORE: 5/10 LOCATION: Left entire foot. FINDINGS: The sub-talar joint is not visualized. Some degree of collapse of the calcaneus may be present. The c onfiguration of the hindfoot is unchanged from the prior exam. The mid and forefoot appear grossly no rmal. There is a minimal hallux valgus deformity. CONCLUSION: Suspected chronic deformity of the hindfoot. Lonnie Cordon MD on January 17, 2018 at 22:27 Board Certified Radiologist. This report was verified electronically.
[2018-01-17 22:35] LABS: ALT (GPT) 19 U/L (12-78)
[2018-01-17 22:37] LABS: ALKALINE PHOSPHATASE 80 U/L (45-117)
[2018-01-17 22:38] LABS: ALBUMIN 4.4 GM/DL (3.4-5.0); AST (GOT) 32 U/L (15-37); BICARBONATE 27.2 MEQ/L (21.0-32.0); BLOOD UREA NITROGEN 14 MG/DL (7-18); CALCIUM 9.2 MG/DL (8.5-10.1); CHLORIDE 105 MEQ/L (98-107); CREATININE 1.18 MG/DL (0.60-1.30); GLOMERULAR FILTRATION RATE 76 ML/MIN (>89); GLUCOSE,RANDOM 80 MG/DL (74-106); SODIUM (NA) 143 MEQ/L (136-145)
--- NOTE | 2018-01-18 01:14 | RADRPT ---
EXAM DATE/TIME: 01/18/2018 00:12 [facility] COMPARISON: No previous studies available for comparison. INDICATIONS : Osteomyelitis. Left medial great toe wound by MTPJ. CONTRAST: 10 cc Omniscan (gadodiamide) IV MEDICAL HISTORY : Myocardial infarction. Stroke Hypertension. SURGICAL HISTORY : Coronary artery stent. ENCOUNTER: Initial ACUITY: 2 day PAIN SCORE: 10/10 LOCATION: Left great toe TECHNIQUE: Multiplanar, multisequence MRI examination was performed without contrast and after the intravenous a dministration of gadolinium. FINDINGS: There is multifocal subchondral bone marrow edema in the ankle and left foot. This includes in the di stal tibia and fibula and to a lesser extent in the talar dome. There is also focal involvement of th e proximal first metatarsal and minimally in the proximal second metatarsal. There is also multifocal edema involving the phalanges in the subchondral regions and in the second, third, fourth and fifth metatarsal heads. 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 Postcontrast images reveal some very minimal contrast enhancement in these areas of edema. No focal intense contrast-enhancement is identified at the first MCP. No definite evidence for osteomyelitis. CONCLUSION: 1. No definite evidence for osteomyelitis. No discrete abscess. 2. Unusual multifocal subchondral marrow edema throughout the left foot and ankle as above. The findi ng is nonspecific. It can be related to immobilization of the foot or limited use of the foot. Dewey Ramirez MD on January 18, 2018 at 0:52 Board Certified Radiologist. This report was verified electronically.
[2018-01-18] MEDS ORDERED: HYDR-3516 PO (01:26)
[2018-01-18] MEDS ORDERED: CLIN150C14 PO (01:26)
[2018-01-18 01:32] VITALS: BP 170/68; PULSE 88; RESP 20; TEMP 98.9; O2SAT 99
[2018-01-18] MEDS ORDERED: METOCLOPRAMIDE HCL 10 MG/2 ML VIAL IV PUSH PRN (02:00)
[2018-01-18] MEDS ORDERED: SODIUM CHLORIDE 0.9% FLUSH 10 ML FLUSH IV FLUSH PRN (02:00)
[2018-01-18] MEDS ORDERED: ACETAMINOPHEN 325 MG TAB PO PRN (02:00)
[2018-01-18] MEDS ORDERED: LACTULOSE SYRUP 20 GM/30 ML CUP PO PRN (02:00)
[2018-01-18] MEDS ORDERED: BISACODYL 10 MG SUPP RECTAL PRN (02:00)
[2018-01-18] MEDS ORDERED: MAGNESIUM HYDROXIDE SUSP 30 ML CUP PO PRN (02:00)
[2018-01-18] MEDS ORDERED: SENNOSIDES 8.6 MG TAB PO PRN (02:00)
[2018-01-18] MEDS ORDERED: MORPHINE SULFATE 4 MG/ML INJ IV PUSH PRN (02:15)
--- NOTE | 2018-01-18 03:11 | HHI.HP ---
[facility] Service [facility] Primary Care Physician [facility] Admission Diagnosis Left foot cellulitis, intractable foot pain, R/O osteomyelitis Diagnoses: (1) Cellulitis of left foot Diagnosis: Principal (2) Intractable pain Diagnosis: Principal Travel History International Travel<30 Days: No Contact w/Intl Traveler <30 Da: No Traveled to Known Affected Are: No History of Present Illness This is a 62-year-old male with a PMH of HTN, Hyperlipidemia, BPH and h/o CVA w / Left-Sided Weakness who was brought to the ER for left foot pain and swelling. Notes ongoing swelling and tenderness to left great toe for approx 1mo, however symptoms progressively worse since yesterday. Now w/ foul- smelling drainage. Pain is constant, severe, 8/10, non-radiating, worse w/ ambulation. Seen at the [place] and referred to the ER for evaluation. Denies fever or chills. On arrival, BP 100/54, HR 98, O2 sat 99% RA, Afebrile. WBC 14.5. Chemistry unremarkable. CRP 2.0. INR 1.1. Foot X-ray suspected chronic deformity of hindfoot. MRI Foot with no definitive evidence of osteomyelitis however unusual multifocal marrow edema throughout left foot and ankle, nonspecific. S/p Clinda in ER in addition to multiple doses of pain medication w/ minimal improvement. Review of Systems Except as stated in HPI: all other systems reviewed are Neg ROS: 14 point review of systems otherwise negative. Past Family Social History Past Medical History PMH: HTN, Hyperlipidemia, BPH and h/o CVA w/ Left-Sided Weakness Past Surgical History PAST SURGICAL HISTORY: Cardiac Stent Allergies: Coded Allergies: No Known Allergies (Verified Allergy, Unknown, 11/04/17) Family History PAST FAMILY HISTORY: Reviewed. No h/o DM or CAD Social History PAST SOCIAL HISTORY: Negative for alcohol, tobacco or drugs. Physical Exam Vital Signs Vital Signs Date Time Temp Pulse Resp B/P (MAP) Pulse Ox O2 Delivery O2 Flow Rate FiO2 01/18/18 02:42 01/18/18 01:32 98.9 88 20 170/68 (102) 99 Room Air 01/17/18 18:16 98.6 98 18 100/54 (69) 99 Physical Exam PE: GENERAL: Very pleasant middle-aged black male in no acute distress. HEENT: PERRLA, EOMI. No scleral icterus or conjunctival pallor. No lid lag or facial droop. CARDIOVASCULAR: Regular rate and rhythm. No obvious murmurs to auscultation. No chest tenderness to palpation. RESPIRATORY: No obvious rhonchi or wheezing. Clear to auscultation. Breath sounds equal bilaterally. GASTROINTESTINAL: Abdomen soft, non-tender, nondistended. BS normal. MUSCULOSKELETAL: Extremities without clubbing, cyanosis, or edema. No obvious deformities. Left foot w/ +edema/warmth, +purulent drainage, +tenderness to palpation. NEUROLOGICAL: Awake, alert and oriented x4. No focal neurologic deficits. Moving both upper and lower extremities spontaneously. Laboratory Laboratory Tests Test 01/17/18 21:40 White Blood Count 14.5 Red Blood Count 5.70 Hemoglobin 13.5 Hematocrit 42.2 Mean Corpuscular Volume 74.1 Mean Corpuscular Hemoglobin 23.8 Mean Corpuscular Hemoglobin Concent 32.1 Red Cell Distribution Width 16.5 Platelet Count 204 Mean Platelet Volume 8.4 Neutrophils (%) (Auto) 70.6 Lymphocytes (%) (Auto) 16.6 Monocytes (%) (Auto) 11.8 Eosinophils (%) (Auto) 0.2 Basophils (%) (Auto) 0.8 Neutrophils # (Auto) 10.3 Lymphocytes # (Auto) 2.4 Monocytes # (Auto) 1.7 Eosinophils # (Auto) 0.0 Basophils # (Auto) 0.1 CBC Comment DIFF FINAL Differential Comment Erythrocyte Sedimentation Rate 4 Prothrombin Time 10.9 Prothromb Time International Ratio 1.1 Activated Partial Thromboplast Time 23.6 Blood Urea Nitrogen 14 Creatinine 1.18 Random Glucose 80 Total Protein 8.0 Albumin 4.4 Calcium Level 9.2 Alkaline Phosphatase 80 Aspartate Amino Transf (AST/SGOT) 32 Alanine Aminotransferase (ALT/SGPT) 19 Total Bilirubin 1.0 Sodium Level 143 Potassium Level 4.0 Chloride Level 105 Carbon Dioxide Level 27.2 Anion Gap 11 Estimat Glomerular Filtration Rate 76 C-Reactive Protein 2.00 Date/Time Source Procedure Growth Status 01/17/18 21:40 Blood Peripheral Aerobic Blood Culture Pending Received 01/17/18 21:40 Blood Peripheral Anaerobic Blood Culture Pending Received 01/17/18 21:30 Wound Foot Gram Stain Pending Received 01/17/18 21:30 Wound Foot Wound Culture Pending Received Result Diagram: 01/17/18213901/[id number]/182139 Timurrini VTE Risk Assessment Caprini VTE Risk Assessment: No/Low Risk (score <= 1) Caprini Risk Assessment Model Point Value = 1 Point Value = 2 Point Value = 3 Point Value = 5 Age 41-60 Minor surgery BMI > 25 kg/m2 Swollen legs Varicose veins or History of unexplained or recurrent spontaneous Oral contraceptives or hormone replacement Sepsis (< 1 month) Serious lung disease, including pneumonia (< 1 month) Abnormal pulmonary function Acute myocardial infarction Congestive heart failure (< 1 month) History of inflammatory bowel disease Medical patient at bed rest Age 61-74 Arthroscopic surgery Major open surgery (> 45 min) Laparoscopic surgery (> 45 min) Malignancy Confined to bed (> 72 hours) Immobilizing plaster cast Central venous access Age >= 75 History of VTE Family history of VTE Factor V Leiden Prothrombin [id number] Lupus anticoagulant Anticardiolipin antibodies Elevated serum homocysteine Heparin-induced thrombocytopenia Other congenital or acquired thrombophilia Stroke (< 1 month) Elective arthroplasty Hip, pelvis, or leg fracture Acute spinal cord injury (< 1 month) Prophylaxis Regimen Total Risk Factor Score Risk Level Prophylaxis Regimen 0-1 Low Early ambulation 2 Moderate Order ONE of the following: *Sequential Compression Device (SCD) *Heparin 5000 units SQ BID 3-4 Higher Order ONE of the following medications: *Heparin 5000 units SQ TID *Enoxaparin/Lovenox 40 mg SQ daily (WT < 150 kg, CrCl > 30 mL/min) *Enoxaparin/Lovenox 30 mg SQ daily (WT < 150 kg, CrCl > 10-29 mL/min) *Enoxaparin/Lovenox 30 mg SQ BID (WT < 150 kg, CrCl > 30 mL/min) AND/OR *Sequential Compression Device (SCD) 5 or more Highest Order ONE of the following medications: *Heparin 5000 units SQ TID (Preferred with Epidurals) *Enoxaparin/Lovenox 40 mg SQ daily (WT < 150 kg, CrCl > 30 mL/min) *Enoxaparin/Lovenox 30 mg SQ daily (WT < 150 kg, CrCl > 10-29 mL/min) *Enoxaparin/Lovenox 30 mg SQ BID (WT < 150 kg, CrCl > 30 mL/min) AND *Sequential Compression Device (SCD) Assessment and Plan Problem List: (1) Cellulitis of left foot ICD Code: L03.116 - Cellulitis of left lower limb Status: Acute (2) Intractable pain ICD Code: R52 - Pain, unspecified Status: Acute Assessment and Plan A/P: 1. Left Foot Cellulitis: x1 month, X-ray w/ suspected chronic deformity hindfoot, MRI Foot w/ no definite osteomyelitis, however unusual marrow edema throughout left foot and ankle, images reviewed by me. Consult Podiatry for further evaluation, possible intervention. S/p Clinda in ER, will continue w/ IV Abx. 2. Intractable Pain: secondary to above, continue analgesics/antiemetics as needed. 3. DVT Prophylaxis: Mechanical contraindication secondary to wound/cellulitis 4. Social work for d/c planning as needed. 5. Case discussed w/ ER physician at length, labs/records/imaging reviewed by me. Aga Saab MD January 18, 2018 03:11
[2018-01-18 03:14] VITALS: BP 116/68; PULSE 68; RESP 18; TEMP 99.1
[2018-01-18] MEDS ORDERED: CLINDAMYCIN 900 MG/NS PREMIX 50 ML IV SCH (06:00)
[2018-01-18 08:30] VITALS: BP 124/66; PULSE 68; RESP 16; TEMP 98; O2SAT 98
[2018-01-18] MEDS: DOCUSATE SODIUM 50 MG/SENNA 8.6 MG TAB PO SCH ×2 (09:00→20:36)
--- NOTE | 2018-01-18 09:13 | HHI.PR ---
Subjective Remarks Follow up for left foot wound/infection. The patient reports continue pain throughout the entire left foot, worse at the wound on the medial first MTP joint. Denies fevers/chills. He reports some white purulent drainage from the wound yesterday but none today. He reports some associated swelling and warmth of the left foot. Denies any other medical complaints. Objective Vitals Vital Signs Date Time Temp Pulse Resp B/P (MAP) Pulse Ox O2 Delivery O2 Flow Rate FiO2 01/18/18 08:30 98.0 68 16 124/66 (85) 98 01/18/18 03:14 99.1 68 18 116/68 (84) 01/18/18 02:42 01/18/18 01:32 98.9 88 20 170/68 (102) 99 Room Air 01/17/18 18:16 98.6 98 18 100/54 (69) 99 Result Diagram: 01/17/18213901/17/182139 Imaging Last Impressions Foot X-Ray 01/17/18 0000 Signed Impressions: Service Date/Time: Wednesday, January 17, 2018 21:46 - CONCLUSION: Suspected chronic deformity of the hindfoot. Lonnie Cordon MD Foot MRI 01/17/18 0000 Signed Impressions: Service Date/Time: Thursday, January 18, 2018 00:12 - CONCLUSION: 1. No definite evidence for osteomyelitis. No discrete abscess. 2. Unusual multifocal subchondral marrow edema throughout the left foot and ankle as above. The finding is nonspecific. It can be related to immobilization of the foot or limited use of the foot. Dewey Ramirez MD Objective Remarks GENERAL: Well-nourished, well-developed male patient in [facility]. SKIN: Warm and dry. No rash. HEENT: Normocephalic. Atraumatic. Pupils equal and round. Mucous membranes pink and moist. CARDIOVASCULAR: Regular rate and rhythm. No murmur appreciated. RESPIRATORY: No accessory muscle use. Clear to auscultation. Breath sounds equal bilaterally. GASTROINTESTINAL: Abdomen soft, non-tender, nondistended. Normoactive bowel sounds x4. MUSCULOSKELETAL: Superficial 1.5cm ulcer at left first medial MTP with induration and scabbed centrally. Left foot diffusely tender to touch with mild diffuse warmth and edema. NEUROLOGICAL: Awake and alert. No obvious cranial nerve deficits. Motor grossly within normal limits. Moving all extremities spontaneously. Normal speech. PSYCHIATRIC: Appropriate mood and affect; insight and judgment normal. Medications and IVs Current Medications Medications (Trade) Dose Ordered Sig/Ernesto Route Start Time Stop Time Status Last Admin (NS Flush) 2 ml UNSCH PRN IV FLUSH 01/18/18 02:00 (NS Flush) 2 ml BID IV FLUSH 01/18/18 09:00 01/18/18 12:06 (Reglan Inj) 5 mg Q6H PRN IV PUSH 01/18/18 02:00 (Tylenol) 650 mg Q6H PRN PO 01/18/18 02:00 ([place] 5-325 Mg) 1 tab Q4H PRN PO 01/18/18 02:00 (Morphine Inj) 2 mg Q3H PRN IV PUSH 01/18/18 02:15 01/18/18 12:07 (Janice-Colace) 1 tab BID PO 01/18/18 09:00 (Milk Of Magnesia Liq) 30 ml Q12H PRN PO 01/18/18 02:00 (Senokot) 17.2 mg Q12H PRN PO 01/18/18 02:00 (Dulcolax Supp) 10 mg DAILY PRN RECTAL 01/18/18 02:00 (Lactulose Liq) 30 ml DAILY PRN PO 01/18/18 02:00 Pharmacy Profile Note 0 ml @ 0 mls/hr UNSCH OTHER 01/18/18 10:45 Vancomycin HCl 1000 mg/Sodium Chloride 250 ml @ 250 mls/hr Q24H IV 01/18/18 12:00 01/18/18 12:07 ([facility] Ordered Lab Info) SPECIFIC LAB TO BE ... ONCE ONCE .XX 01/21/18 11:45 01/21/18 11:46 A/P Problem List: (1) Cellulitis of left foot ICD Code: L03.116 - Cellulitis of left lower limb Status: Acute (2) Intractable pain ICD Code: R52 - Pain, unspecified Status: Acute Assessment and Plan 62-year-old male with a PMH of HTN, HLD, BPH and h/o CVA w/ Left-Sided Weakness who was brought to the ER for left foot pain and swelling. Sepsis with Left Foot Cellulitis: Concern for septic joint vs osteomyelitis. Symptoms x1 month with worsening wound at left medial MTP and diffuse pain/ warmth/edema. WBC 14.5K, tachycardic, with suspected source-cellulitis vs septic joint. -X-ray reviewed, shows suspected chronic deformity hindfoot -MRI Foot reviewed, no definite osteomyelitis, however unusual marrow edema throughout left foot and ankle -Blood cultures collect with NGTD -Wound culture collected and pending -Consult Podiatry for further evaluation, possible intervention. -Discussed with Dr. Hood, recommends changing antibiotics from IV Clinda to IV Vanco (pharmacy consulted) -Check arterial doppler, uric acid, RF, TRISHA screen -Admit to inpatient, will continue to monitor Intractable Pain: secondary to above -continue analgesics/antiemetics as needed. All other medical conditions stable, continue home meds as appropriate. DVT Prophylaxis: Mechanical contraindication secondary to wound/cellulitis. Chemoprophylaxis on hold with possible upcoming procedure Sofia Forde PA-C January 18, 2018 09:13
[2018-01-18] MEDS ORDERED: Vancomycin Consult Pharmacy 1 EA OTHER SCH (10:45)
--- NOTE | 2018-01-18 10:57 | MB ---
cc: Noah Hood DPM DATE: 01/18/2018 REASON FOR CONSULTATION: Left first MPJ pain, cellulitis, rule out osteomyelitis. HISTORY OF PRESENT ILLNESS: This is a 62-year-old male who has a history of increasing pain for the greater part of 1 month of the left great toe. The pain is constant; however, it is decreased over the last 24 hours since he has been in the hospital. The patient's caregiver serves as a historian. Apparently, they were worked up for gout, cannot remember if there is any blood work, but that the pain has only been worsening up until just recently. PAST MEDICAL HISTORY: Positive for left-sided weakness, cardiac stenting, BPH, and CVA. ALLERGIES: NO KNOWN DRUG ALLERGIES. INPATIENT MEDICATIONS: Reviewed. The patient is receiving Clindamycin. PHYSICAL EXAMINATION: VITAL SIGNS: Temperature 98, pulse rate 68, respiratory rate 16, blood pressure 124/66. He is sating 98% on room air. GENERAL: This is an alert and oriented gentleman. It appears that he has somewhat slurred speech, but per caregiver, this is baseline. EXTREMITIES: The patient has mild contractures of the left foot and ankle. There appears to be significant pain. Mild induration of skin and a shallow scabbed superficial ulcer of the medial aspect of the first MPJ. Upon trying to touch this area, it is significantly tender. Upon palpating the midfoot, hindfoot and ankle, there is no obvious focal tenderness, erythema, inflammation or ulceration. Pulses are hard to palpate, but they are audible via Doppler. Sensation appears to be intact to light touch and deep pressure. There is limited range of motion of the hindfoot and ankle. Right lower extremity, there are no obvious open lesions of concern. LABORATORY STUDIES: WBC 14. Hemoglobin and hematocrit, 13 and 42. Platelet count 204. Chem-7: Sodium 143, potassium 4.0, chloride 105, CO2 of 27.2. BUN is 14. Random glucose is 80, creatinine 1.18. Coagulation profile: PT 10.9, INR 1.1. Microbial findings: Wound culture appears to show gram-positive cocci in pairs and clusters. Blood culture ordered and pending. IMAGING FINDINGS: Foot x-ray appears to be relatively within normal limits, without any obvious bony erosive process; however, there is obliteration of the subtalar joint, possible some kind of hindfoot fusion or coalition of some kind. MRI is more impressive. It shows significant edema, more multifocal within the distal tibia, base of the first metatarsal; metatarsal heads 2, 3, and 4. At the level of concern clinically, the first MPJ there is a very small pinhole ulcer that may communicate with the joint capsule, but at this level there is no obvious significant enhancement to show signs of a septic first MPJ or bony edema of the first MPJ. It is more a finding consistent with arthritis. ASSESSMENT AND PLAN: Left first metatarsophalangeal joint cellulitis, superficial wound. My recommendation is routine blood work, rule out gout and other rheumatoid type process. Continue IV antibiotics. Consider switching to vancomycin. We will discuss with medicine. A segmental arterial Doppler ordered. I do not anticipate the patient will need any debridement; however, early capsulitis or capsular infection or early septic first MPJ cannot be excluded at this point. I will continue to follow the patient. I will see him within the next day or so to monitor his clinical progress and advise. NANCY Stephens/AJITH , 09:58 AM , 10:56 AM VICTORIA
[2018-01-18] MEDS: SODIUM CHLORIDE 0.9% FLUSH 10 ML FLUSH IV FLUSH SCH ×2 (12:06→20:37)
[2018-01-18] MEDS: VANCOMYCIN 1,000 MG/NS 250 ML IV SCH ×2 (12:07)
--- NOTE | 2018-01-18 12:42 | RADRPT ---
EXAM DATE/TIME: 01/18/2018 00:00 [place] COMPARISON: No previous studies available for comparison. INDICATIONS : Left foot cellulitis TECHNIQUE: Five-station segmental examination of the lower extremities was performed. Pulsed-cuff waveform tracings and pressures were recorded. Ankle-brachial indices and toe-brachial indices were calculated. PRESSURES (mmHg): Brachial (arm): Right IV SITE Left 71 Lower Thigh: Right 60 Left 74 Calf: Right 32 Left 63 Ankle: Right 40 Left 54 Toe: Right 0 Left 0 [place]: Right 0.56 Left 0.76 TBI: Right 0.00 Left 0.00 PULSED CUFF WAVEFORMS: Severely reduced amplitude throughout the lower extremities, more pronounced on the right. CONCLUSION: 1. Findings consistent with severe right and moderate left lower extremity peripheral arterial disedenise Fontenot MD on January 18, 2018 at 12:39 Board Certified Radiologist. This report was verified electronically.
[2018-01-18 15:26] LABS: C-REACTIVE PROTEIN 12.1 MG/DL (0.00-0.30)
[2018-01-18 15:28] LABS: RHEUMATOID FACTOR SCREEN NEGATIVE (NEGATIVE)
[2018-01-18 15:30] VITALS: BP 95/51; PULSE 105; RESP 16; TEMP 98; O2SAT 98
[2018-01-18] MEDS: ACETAMINOPHEN/HYDROcodone 325 MG/5 MG TAB PO PRN ×2 (15:38→21:58)
[2018-01-18 20:01] VITALS: BP 96/69; PULSE 80; RESP 18; TEMP 99.7; O2SAT 98
[2018-01-18 20:18] VITALS: BP 105/59; PULSE 92; RESP 18; TEMP 99.4; O2SAT 95
[2018-01-19] VITALS (7 sets, daily range): BP systolic 83–113; BP diastolic 52–68; PULSE 67–94; RESP 17–20; TEMP 98.6–100.5; O2SAT 97–98
[2018-01-19] MEDS: ACETAMINOPHEN/HYDROcodone 325 MG/5 MG TAB PO PRN ×2 (04:52→10:55)
[2018-01-19 05:52] LABS: ALBUMIN 3.6 GM/DL (3.4-5.0); ALKALINE PHOSPHATASE 65 U/L (45-117); ALT (GPT) 15 U/L (12-78); AST (GOT) 19 U/L (15-37); BICARBONATE 25.5 MEQ/L (21.0-32.0); BLOOD UREA NITROGEN 16 MG/DL (7-18); CALCIUM 8.5 MG/DL (8.5-10.1); CHLORIDE 105 MEQ/L (98-107); CREATININE 1.08 MG/DL (0.60-1.30); GLOMERULAR FILTRATION RATE 84 ML/MIN (>89); GLUCOSE,RANDOM 87 MG/DL (74-106); SODIUM (NA) 140 MEQ/L (136-145); TOTAL BILIRUBIN ADULT 1.1 MG/DL (0.2-1.0); TOTAL PROTEIN 7.1 GM/DL (6.4-8.2)
[2018-01-19 07:08] LABS: AUTOMATED NEUTROPHIL # 11.7 TH/MM3 (1.8-7.7); BASOPHIL # 0.1 TH/MM3 (0-0.2); BASOPHIL % 0.4 % (0.0-2.0); EOSINOPHIL % 0.2 % (0.0-4.0); HEMATOCRIT 35.5 % (39.0-51.0); HEMOGLOBIN 11.7 GM/DL (13.0-17.0); LYMPHOCYTE # 2.4 TH/MM3 (1.0-4.8); MEAN CELL VOLUME 73.8 FL (80.0-100.0); MEAN CORPUSCULAR HEMOGLOBIN 24.4 PG (27.0-34.0); MEAN PLATELET VOLUME 8.2 FL (7.0-11.0); MONO % 11.2 % (0.0-8.0); MONOCYTE # 1.8 TH/MM3 (0-0.9); NEUT % 73.2 % (16.0-70.0); PLATELET COUNT 162 TH/MM3 (150-450); RED CELL DISTRIBUTION WIDTH 16.7 % (11.6-17.2)
[2018-01-19] MEDS: DOCUSATE SODIUM 50 MG/SENNA 8.6 MG TAB PO SCH ×2 (08:38→21:00)
[2018-01-19] MEDS: SODIUM CHLORIDE 0.9% FLUSH 10 ML FLUSH IV FLUSH SCH ×2 (08:38→22:22)
--- NOTE | 2018-01-19 11:20 | HHI.PR ---
Subjective Remarks This is a 62-year-old male with a PMH of HTN, Hyperlipidemia, BPH and h/o CVA w / Left-Sided Weakness who was brought to the ER for left foot pain and swelling. Notes ongoing swelling and tenderness to left great toe for approx 1mo, however symptoms progressively worse since yesterday. Now w/ foul- smelling drainage. Pain is constant, severe, 8/10, non-radiating, worse w/ ambulation. Seen at the [place] and referred to the ER for evaluation. Denies fever or chills. On arrival, BP 100/54, HR 98, O2 sat 99% RA, Afebrile. WBC 14.5. Chemistry unremarkable. CRP 2.0. INR 1.1. Foot X-ray suspected chronic deformity of hindfoot. MRI Foot with no definitive evidence of osteomyelitis however unusual multifocal marrow edema throughout left foot and ankle, nonspecific. S/p Clinda in ER in addition to multiple doses of pain medication w/ minimal improvement. 5-19 Follow up for left foot wound/infection. The patient reports continue pain throughout the entire left foot, worse at the wound on the medial first MTP joint. Denies fevers/chills. He reports some white purulent drainage from the wound yesterday but none today. He reports some associated swelling and warmth of the left foot. Denies any other medical complaints. 5-20 SEEN BY PODIATRY YESTERDAY [facility] AND RN AND PT [facility] STILL HAS PAIN IN LEFT FOOT AREA COMPLAINS OF LEFT FOOT PAIN Objective Vitals Vital Signs Date Time Temp Pulse Resp B/P (MAP) Pulse Ox O2 Delivery O2 Flow Rate FiO2 01/19/18 08:56 Room Air 01/19/18 08:00 98.6 67 20 113/64 (80) 98 01/19/18 04:00 99.3 93 19 109/68 (82) 97 01/19/18 00:01 99.6 88 19 111/67 (82) 97 01/19/18 00:00 Room Air 01/18/18 20:18 99.4 92 18 105/59 (74) 95 01/18/18 20:01 99.7 80 18 96/69 (78) 98 01/18/18 15:30 98.0 105 16 95/51 (66) 98 I/O 5/19/18 5/01/18/18 01/19/18 01/19/18 01/19/18 07:00 15:00 23:00 07:00 15:00 23:00 Intake Total 500 ml Balance 500 ml Intake Oral 500 ml # Voids 4 3 Result Diagram: 01/19/18 0416 01/19/18 0416 Other Results Laboratory Tests Test 01/17/18 21:40 01/18/18 13:54 01/19/18 04:16 White Blood Count 14.5 TH/MM3 16.0 TH/MM3 Red Blood Count 5.70 MIL/MM3 4.80 MIL/MM3 Hemoglobin 13.5 GM/DL 11.7 GM/DL Hematocrit 42.2 % 35.5 % Mean Corpuscular Volume 74.1 FL 73.8 FL Mean Corpuscular Hemoglobin 23.8 PG 24.4 PG Mean Corpuscular Hemoglobin Concent 32.1 % 33.0 % Red Cell Distribution Width 16.5 % 16.7 % Platelet Count 204 TH/MM3 162 TH/MM3 Mean Platelet Volume 8.4 FL 8.2 FL Neutrophils (%) (Auto) 70.6 % 73.2 % Lymphocytes (%) (Auto) 16.6 % 15.0 % Monocytes (%) (Auto) 11.8 % 11.2 % Eosinophils (%) (Auto) 0.2 % 0.2 % Basophils (%) (Auto) 0.8 % 0.4 % Neutrophils # (Auto) 10.3 TH/MM3 11.7 TH/MM3 Lymphocytes # (Auto) 2.4 TH/MM3 2.4 TH/MM3 Monocytes # (Auto) 1.7 TH/MM3 1.8 TH/MM3 Eosinophils # (Auto) 0.0 TH/MM3 0.0 TH/MM3 Basophils # (Auto) 0.1 TH/MM3 0.1 TH/MM3 CBC Comment DIFF FINAL DIFF FINAL Differential Comment Erythrocyte Sedimentation Rate 4 mm/hr Prothrombin Time 10.9 SEC Prothromb Time International Ratio 1.1 RATIO Activated Partial Thromboplast Time 23.6 SEC Blood Urea Nitrogen 14 MG/DL 16 MG/DL Creatinine 1.18 MG/DL 1.08 MG/DL Random Glucose 80 MG/DL 87 MG/DL Total Protein 8.0 GM/DL 7.1 GM/DL Albumin 4.4 GM/DL 3.6 GM/DL Calcium Level 9.2 MG/DL 8.5 MG/DL Alkaline Phosphatase 80 U/L 65 U/L Aspartate Amino Transf (AST/SGOT) 32 U/L 19 U/L Alanine Aminotransferase (ALT/SGPT) 19 U/L 15 U/L Total Bilirubin 1.0 MG/DL 1.1 MG/DL Sodium Level 143 MEQ/L 140 MEQ/L Potassium Level 4.0 MEQ/L 3.9 MEQ/L Chloride Level 105 MEQ/L 105 MEQ/L Carbon Dioxide Level 27.2 MEQ/L 25.5 MEQ/L Anion Gap 11 MEQ/L 10 MEQ/L Estimat Glomerular Filtration Rate 76 ML/MIN 84 ML/MIN C-Reactive Protein 2.00 MG/DL 12.10 MG/DL Uric Acid 5.3 MG/DL Rheumatoid Factor Screen NEGATIVE Rheumatoid Factor Titer IU/ML Imaging Last Impressions Foot X-Ray 01/17/18 0000 Signed Impressions: Service Date/Time: Wednesday, January 17, 2018 21:46 - CONCLUSION: Suspected chronic deformity of the hindfoot. Lonnie Cordon MD Foot MRI 01/17/18 0000 Signed Impressions: Service Date/Time: Thursday, January 18, 2018 00:12 - CONCLUSION: 1. No definite evidence for osteomyelitis. No discrete abscess. 2. Unusual multifocal subchondral marrow edema throughout the left foot and ankle as above. The finding is nonspecific. It can be related to immobilization of the foot or limited use of the foot. Dewey Ramirez MD Objective Remarks GENERAL: AWAKE alert and oriented 3 talkative and cooperative SKIN: Warm and dry. Some darker spots on the medial malleoli of the left foot HEAD: Atraumatic. Normocephalic. EYES: Pupils equal and round. No scleral icterus. No injection or drainage. Extraocular muscles intact ENT: No nasal bleeding or discharge. Mucous membranes pink and moist. Tongue is midline NECK: Trachea midline. No JVD. Supple CARDIOVASCULAR: Regular rate and rhythm. S1-S2 no S3 or S4 RESPIRATORY: No accessory muscle use. Clear to auscultation. Breath sounds equal bilaterally. GASTROINTESTINAL: Abdomen soft, non-tender, nondistended. Hepatic and splenic margins not palpable. MUSCULOSKELETAL: Extremities without clubbing, cyanosis, or edema. No obvious deformities. Tender left foot area NEUROLOGICAL: Awake and alert. No obvious cranial nerve deficits. Motor grossly within normal limits. Five out of 5 muscle strength in the arms and legs. Normal speech. PSYCHIATRIC: Appropriate mood and affect; insight and judgment normal. Medications and IVs Current Medications Sodium Chloride (NS Flush) 2 ml UNSCH PRN IV FLUSH FLUSH AFTER USING IV ACCESS ; Start 01/17/18 at 21:30; Stop 01/18/18 at 02:05; Status DC Clindamycin/ Sodium Chloride 50 ml @ 100 mls/hr ONCE ONCE IV Last administered on 01/17/18at 22:28; Start 01/17/18 at 21:30; Stop 01/17/18 at 21:59 ; Status DC Morphine Sulfate (Morphine Inj) 4 mg ONCE ONCE IV PUSH Last administered on at 22:18; Start 01/17/18 at 22:00; Stop 01/17/18 at 22:01; Status DC Sodium Chloride 1,000 ml @ 999 mls/hr BOLUS ONCE IV Last administered on 01/17at 22:18; Start 01/17/18 at 22:00; Stop 01/17/18 at 23:01; Status DC Morphine Sulfate (Morphine Inj) 4 mg ONCE ONCE IV PUSH Last administered on at 23:35; Start 01/17/18 at 23:45; Stop 01/17/18 at 23:46; Status DC Gadodiamide (Omniscan Pf Inj) 10 ml STK-MED ONCE IVCONTRAST Last administered on 01/18/18at 00:36; Start 01/17/18 at 18:00; Stop 01/18/18 at 00:35; Status DC Clindamycin/ Sodium Chloride 50 ml @ 100 mls/hr Q8H IV Last administered on at 05:50; Start 01/18/18 at 06:00; Stop 01/18/18 at 10:37; Status DC Sodium Chloride (NS Flush) 2 ml UNSCH PRN IV FLUSH FLUSH AFTER USING IV ACCESS ; Start 01/18/18 at 02:00 Sodium Chloride (NS Flush) 2 ml BID IV FLUSH Last administered on 01/19/18at 08: 38; Start 01/18/18 at 09:00 Metoclopramide HCl (Reglan Inj) 5 mg Q6H PRN IV PUSH NAUSEA OR VOMITING; Start 01/18/18 at 02:00 Acetaminophen (Tylenol) 650 mg Q6H PRN PO FEVER/PAIN SCALE 1 TO 2; Start at 02:00 Acetaminophen/ Hydrocodone Bitart ([place] 5-325 Mg) 1 tab Q4H PRN PO PAIN SCALE 3 TO 5 Last administered on 01/19/18at 10:55; Start 01/18/18 at 02:00 Morphine Sulfate (Morphine Inj) 2 mg Q3H PRN IV PUSH Pain 6-10 Last administered on 01/18/18at 12:07; Start 01/18/18 at 02:15 Senna/Docusate Sodium (Janice-Colace) 1 tab BID PO ; Start 01/18/18 at 09:00 Magnesium Hydroxide (Milk Of Magnesia Liq) 30 ml Q12H PRN PO Mild constipation ; Start 01/18/18 at 02:00 Sennosides (Senokot) 17.2 mg Q12H PRN PO Moderate constipation; Start 01/18/18 at 02:00 Bisacodyl (Dulcolax Supp) 10 mg DAILY PRN RECTAL SEVERE CONSITIPATION; Start at 02:00 Lactulose (Lactulose Liq) 30 ml DAILY PRN PO SEVERE CONSITIPATION; Start at 02:00 Pharmacy Profile Note 0 ml @ 0 mls/hr UNSCH OTHER ; Start 01/18/18 at 10:45 Vancomycin HCl 1000 mg/Sodium Chloride 250 ml @ 250 mls/hr Q24H IV Last administered on 01/18/18at 12:07; Start 01/18/18 at 12:00 Miscellaneous Information ([facility] Ordered Lab Info) SPECIFIC LAB TO BE ... ONCE ONCE .XX ; Start 01/21/18 at 11:45; Stop 01/21/18 at 11:46 A/P Problem List: (1) Cellulitis of left foot ICD Code: L03.116 - Cellulitis of left lower limb Status: Acute (2) Intractable pain ICD Code: R52 - Pain, unspecified Status: Acute Assessment and Plan 62-year-old male with a PMH of HTN, HLD, BPH and h/o CVA w/ Left-Sided Weakness who was brought to the ER for left foot pain and swelling. Sepsis with Left Foot Cellulitis: Concern for septic joint vs osteomyelitis. Symptoms x1 month with worsening wound at left medial MTP and diffuse pain/ warmth/edema. WBC 14.5K, tachycardic, with suspected source-cellulitis vs septic joint. -X-ray reviewed, shows suspected chronic deformity hindfoot -MRI Foot reviewed, no definite osteomyelitis, however unusual marrow edema throughout left foot and ankle -Blood cultures collect with NGTD -Wound culture collected and pending -Consult Podiatry for further evaluation, possible intervention. -Discussed with Dr. Hood, recommends changing antibiotics from IV Clinda to IV Vanco (pharmacy consulted) -Check arterial doppler, uric acid, RF, TRISHA screen -Admit to inpatient, will continue to monitor Intractable Pain: secondary to above -continue analgesics/antiemetics as needed. All other medical conditions stable, continue home meds as appropriate. DVT Prophylaxis: Mechanical contraindication secondary to wound/cellulitis. Chemoprophylaxis on hold with possible upcoming procedure Staph aureus. Per cultures await sensitivities Not seen by infectious disease yet we await their evaluate Discharge Planning Pending podiatry clearance and improvement of the foot Willis Lazo DO January 19, 2018 11:20
[2018-01-19] MEDS: VANCOMYCIN 1,000 MG/NS 250 ML IV SCH ×2 (11:48)
--- NOTE | 2018-01-19 13:54 | PD.POD ---
Subjective Pain score: 5 Remarks Left foot pain continues only some improvement no events overnight Past Med/Surg/Social History Past Medical History Cardiovascular: REPORTS HX OF: Hypertension Psychiatric: REPORTS HX OF: Other psychiatric history (substance abuse) Social History Smoking Status: Current Every Day Smoker Objective Vital Signs Vital Signs Date Time Temp Pulse Resp B/P (MAP) Pulse Ox O2 Delivery O2 Flow Rate FiO2 01/19/18 08:56 Room Air 01/19/18 08:00 98.6 67 20 113/64 (80) 98 01/19/18 04:00 99.3 93 19 109/68 (82) 97 01/19/18 00:01 99.6 88 19 111/67 (82) 97 01/19/18 00:00 Room Air 01/18/18 20:18 99.4 92 18 105/59 (74) 95 01/18/18 20:01 99.7 80 18 96/69 (78) 98 01/18/18 15:30 98.0 105 16 95/51 (66) 98 Coded Allergies: No Known Allergies (Verified Allergy, Unknown, 11/04/17) Medications and IVs Administered Medications Medications (Trade) Dose Ordered Sig/Ernesto Route PRN Reason Start Time Stop Time Status Last Admin Dose Admin Sodium Chloride (NS Flush) 2 ml BID IV FLUSH 01/18/18 09:00 01/19/18 08:38 Acetaminophen/ Hydrocodone Bitart ([place] 5-325 Mg) 1 tab Q4H PRN PO PAIN SCALE 3 TO 5 01/18/18 02:00 01/19/18 10:55 Morphine Sulfate (Morphine Inj) 2 mg Q3H PRN IV PUSH Pain 6-10 01/18/18 02:15 01/18/18 12:07 Vancomycin HCl 1000 mg/Sodium Chloride 250 ml @ 250 mls/hr Q24H IV 01/18/18 12:00 01/19/18 11:48 Other Results Laboratory Tests Test 01/17/18 21:40 01/19/18 04:16 White Blood Count 14.5 TH/MM3 16.0 TH/MM3 Red Blood Count 5.70 MIL/MM3 4.80 MIL/MM3 Hemoglobin 13.5 GM/DL 11.7 GM/DL Hematocrit 42.2 % 35.5 % Mean Corpuscular Volume 74.1 FL 73.8 FL Mean Corpuscular Hemoglobin 23.8 PG 24.4 PG Mean Corpuscular Hemoglobin Concent 32.1 % 33.0 % Red Cell Distribution Width 16.5 % 16.7 % Platelet Count 204 TH/MM3 162 TH/MM3 Mean Platelet Volume 8.4 FL 8.2 FL Neutrophils (%) (Auto) 70.6 % 73.2 % Lymphocytes (%) (Auto) 16.6 % 15.0 % Monocytes (%) (Auto) 11.8 % 11.2 % Eosinophils (%) (Auto) 0.2 % 0.2 % Basophils (%) (Auto) 0.8 % 0.4 % Neutrophils # (Auto) 10.3 TH/MM3 11.7 TH/MM3 Lymphocytes # (Auto) 2.4 TH/MM3 2.4 TH/MM3 Monocytes # (Auto) 1.7 TH/MM3 1.8 TH/MM3 Eosinophils # (Auto) 0.0 TH/MM3 0.0 TH/MM3 Basophils # (Auto) 0.1 TH/MM3 0.1 TH/MM3 CBC Comment DIFF FINAL DIFF FINAL Differential Comment Erythrocyte Sedimentation Rate 4 mm/hr Laboratory Tests Test 01/17/18 21:40 01/18/18 13:54 01/19/18 04:16 Blood Urea Nitrogen 14 MG/DL 16 MG/DL Creatinine 1.18 MG/DL 1.08 MG/DL Random Glucose 80 MG/DL 87 MG/DL Total Protein 8.0 GM/DL 7.1 GM/DL Albumin 4.4 GM/DL 3.6 GM/DL Calcium Level 9.2 MG/DL 8.5 MG/DL Alkaline Phosphatase 80 U/L 65 U/L Aspartate Amino Transf (AST/SGOT) 32 U/L 19 U/L Alanine Aminotransferase (ALT/SGPT) 19 U/L 15 U/L Total Bilirubin 1.0 MG/DL 1.1 MG/DL Sodium Level 143 MEQ/L 140 MEQ/L Potassium Level 4.0 MEQ/L 3.9 MEQ/L Chloride Level 105 MEQ/L 105 MEQ/L Carbon Dioxide Level 27.2 MEQ/L 25.5 MEQ/L Anion Gap 11 MEQ/L 10 MEQ/L Estimat Glomerular Filtration Rate 76 ML/MIN 84 ML/MIN C-Reactive Protein 2.00 MG/DL 12.10 MG/DL Uric Acid 5.3 MG/DL Microbiology Date/Time Source Procedure Growth Status 01/18/18 17:24 Blood Peripheral Aerobic Blood Culture - Preliminary NO GROWTH IN 1 DAY Resulted 01/18/18 17:24 Blood Peripheral Anaerobic Blood Culture - Preliminary NO GROWTH IN 1 DAY Resulted 01/17/18 21:40 Blood Peripheral Aerobic Blood Culture - Preliminary NO GROWTH IN 2 DAYS Resulted 01/17/18 21:40 Anaerobic Blood Culture - Preliminary Staphylococcus Aureus Resulted 01/17/18 21:30 Blood Peripheral Aerobic Blood Culture - Preliminary NO GROWTH IN 2 DAYS Resulted 01/17/18 21:30 Blood Peripheral Anaerobic Blood Culture - Preliminary NO GROWTH IN 2 DAYS Resulted 01/17/18 21:30 Wound Foot Gram Stain - Final Complete 01/17/18 21:30 Wound Culture - Final Staphylococcus Aureus Complete Last 72 hours Impressions Foot X-Ray 01/17/18 0000 Signed Impressions: Service Date/Time: Wednesday, January 17, 2018 21:46 - CONCLUSION: Suspected chronic deformity of the hindfoot. Lonnie Cordon MD Foot MRI 01/17/18 0000 Signed Impressions: Service Date/Time: Thursday, January 18, 2018 00:12 - CONCLUSION: 1. No definite evidence for osteomyelitis. No discrete abscess. 2. Unusual multifocal subchondral marrow edema throughout the left foot and ankle as above. The finding is nonspecific. It can be related to immobilization of the foot or limited use of the foot. MD ROSALBA Dominique,RAFA PINEDA JR Signed EXAM DATE/TIME: 01/18/2018 00:00 [facility] COMPARISON: No previous studies available for comparison. INDICATIONS : Left foot cellulitis TECHNIQUE: Five-station segmental examination of the lower extremities was performed. Pulsed-cuff waveform tracings and pressures were recorded. Ankle-brachial indices and toe-brachial indices were calculated. PRESSURES (mmHg): Brachial (arm): Right IV SITE Left 71 Lower Thigh: Right 60 Left 74 Calf: Right 32 Left 63 Ankle: Right 40 Left 54 Toe: Right 0 Left 0 [place]A: Right 0.56 Left 0.76 TBI: Right 0.00 Left 0.00 PULSED CUFF WAVEFORMS: Severely reduced amplitude throughout the lower extremities, more pronounced on the right. CONCLUSION: 1. Findings consistent with severe right and moderate left lower extremity peripheral arterial disease. Jasvir Fontenot MD on January 18, 2018 at 12:39 Board Certified Radiologist. This report was verified electronically. Exam-Podiatry Remarks Left foot moderate swelling mild darkness of the medial first MPJ slight decrease in swelling no obvious drainage limited range of motion of the foot and ankle pulses hard to palpate sensation appears to be intact, mild clinical improvement noted Physical Exam General appearance: uncomfortable Nutritional status: underweight Orientation: alert and oriented x3 Neck: FINDINGS: normal Chest appearance: normal Respiratory effort: FINDINGS: normal Mental status: grossly normal Affect: normal Assessment & Plan A/P Left foot first MPJ capsulitis with likely infection some improvement, PVD. Patient's clinical findings show some improvement however laboratory findings are concerning increasing WBC with MSSA . Continue IV antibiotics recommend vascular evaluation. Will hold off on any surgical intervention at this time continue to follow. Will Follow 2-3 days- Dr Camacho to follow. Noah Hood DPM January 19, 2018 13:54
--- NOTE | 2018-01-19 15:04 | PD.CAR.PN ---
CVT Progress Note Subjective/Hospital Course: Patient seen Full consult dictated CTA with runoff ordered and pending Thanks J Objective: Vital Signs Date Time Temp Pulse Resp B/P (MAP) Pulse Ox O2 Delivery O2 Flow Rate FiO2 01/19/18 08:56 Room Air 01/19/18 08:00 98.6 67 20 113/64 (80) 98 01/19/18 04:00 99.3 93 19 109/68 (82) 97 01/19/18 00:01 99.6 88 19 111/67 (82) 97 01/19/18 00:00 Room Air 01/18/18 20:18 99.4 92 18 105/59 (74) 95 01/18/18 20:01 99.7 80 18 96/69 (78) 98 01/18/18 15:30 98.0 105 16 95/51 (66) 98 Labs: Laboratory Tests Test 01/19/18 04:16 White Blood Count 16.0 TH/MM3 (4.0-11.0) Red Blood Count 4.80 MIL/MM3 (4.50-5.90) Hemoglobin 11.7 GM/DL (13.0-17.0) Hematocrit 35.5 % (39.0-51.0) Mean Corpuscular Volume 73.8 FL (80.0-100.0) Mean Corpuscular Hemoglobin 24.4 PG (27.0-34.0) Mean Corpuscular Hemoglobin Concent 33.0 % (32.0-36.0) Red Cell Distribution Width 16.7 % (11.6-17.2) Platelet Count 162 TH/MM3 (150-450) Mean Platelet Volume 8.2 FL (7.0-11.0) Neutrophils (%) (Auto) 73.2 % (16.0-70.0) Lymphocytes (%) (Auto) 15.0 % (9.0-44.0) Monocytes (%) (Auto) 11.2 % (0.0-8.0) Eosinophils (%) (Auto) 0.2 % (0.0-4.0) Basophils (%) (Auto) 0.4 % (0.0-2.0) Neutrophils # (Auto) 11.7 TH/MM3 (1.8-7.7) Lymphocytes # (Auto) 2.4 TH/MM3 (1.0-4.8) Monocytes # (Auto) 1.8 TH/MM3 (0-0.9) Eosinophils # (Auto) 0.0 TH/MM3 (0-0.4) Basophils # (Auto) 0.1 TH/MM3 (0-0.2) CBC Comment DIFF FINAL Differential Comment Blood Urea Nitrogen 16 MG/DL (7-18) Creatinine 1.08 MG/DL (0.60-1.30) Random Glucose 87 MG/DL (74-106) Total Protein 7.1 GM/DL (6.4-8.2) Albumin 3.6 GM/DL (3.4-5.0) Calcium Level 8.5 MG/DL (8.5-10.1) Alkaline Phosphatase 65 U/L (45-117) Aspartate Amino Transf (AST/SGOT) 19 U/L (15-37) Alanine Aminotransferase (ALT/SGPT) 15 U/L (12-78) Total Bilirubin 1.1 MG/DL (0.2-1.0) Sodium Level 140 MEQ/L (136-145) Potassium Level 3.9 MEQ/L (3.5-5.1) Chloride Level 105 MEQ/L (98-107) Carbon Dioxide Level 25.5 MEQ/L (21.0-32.0) Anion Gap 10 MEQ/L (5-15) Estimat Glomerular Filtration Rate 84 ML/MIN (>89) Result Diagram: 01/19/18 0416 01/19/18 0416 Karine Lamb MD January 19, 2018 15:04
--- NOTE | 2018-01-19 15:37 | MB ---
cc: Karine Lamb MD DATE: 01/19/2018 REASON FOR CONSULTATION: Ischemia of both legs, coronary artery disease, hypertension, peripheral vascular disease and incipient gangrene of the left toe. HISTORY OF PRESENT ILLNESS: This unfortunate 62-year-old black male with multiple medical problems presents to the hospital with several weeks of left foot pain and swelling over the left hallux. The patient states that this is getting worse for the last few days and some foul drainage from it is noted. Questions arise about his vascular status and hence the consultation. PAST MEDICAL HISTORY: Hypertension, hyperlipidemia, stroke with left-sided hemiparesis, coronary artery disease. PAST SURGICAL HISTORY: Coronary artery angioplasty and stenting. MEDICATIONS: Can be found in the record. SOCIAL HISTORY: The patient is home. He smoked about a pack a day most of his adult life. 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 In addition, it should be noted that the patient is not mobile outside home. He can move himself from bed to chair and from chair to a wheelchair and walks several steps with a walker; however, has not walked outside, according to himself, for about 3 years. PHYSICAL EXAMINATION: GENERAL: Reveals pleasant 62-year-old. HEENT: Normocephalic. No trauma the head. Pupils are equal, reactive. Extraocular muscles intact. NECK: Supple. Bilateral carotid pulses. No bruits. CHEST: Bilateral breath sounds, decreased over both lung lane, consistent with moderate degree of COPD and moderate degree of pulmonary cachexia with chest wall musculature loss. HEART: Regular rate and rhythm. ABDOMEN: Soft, patulous. No rebound, no guarding, no masses. EXTREMITIES: The patient has weak palpable left femoral pulse, no palpable right femoral pulse and also very calcified vessels, which feel like lead to pipes in the groin. Distal pulses are not palpable; however, I can Doppler bilateral weak popliteal pulses and then left posterior tibial, and right dorsalis pedis pulse. The patient indeed has a draining ulcer of the left hallux at the metatarsophalangeal junction and some white milky white fluid is escaping. NEUROLOGIC: The patient is impaired due to previous stroke. He has a left-sided hemiparesis, although moves his arms and legs. IMPRESSION AND RECOMMENDATION: I reviewed laboratory and diagnostic procedures. The patient has a significant degree of vascular disease based on exam. He has never had a CTA with runoff, but his segmental Doppler confirms the same with ABIs which are critically decreased. In my opinion patient probably has a very significant inflow disease especially on the right and outflow disease on both sides probably just about equal with likely SFA occlusions and one vessel runoff to the foot on each side. CTA with runoff is ordered. We will see what the patient has and how we can help him. Obviously, everything we do has to be within the reason what the patient can tolerate and be tailored specifically to his care. Thank you very much for referral. I will continue to follow the patient with you. MD ARYA Treviño/AJITH , 02:59 PM , 03:36 PM VICTORIA
[2018-01-19] MEDS ORDERED: IOHEXOL 350 MG/ML 10 ML VIAL (for RAD DIAG) IVCONTRAST ONE (17:19)
--- NOTE | 2018-01-19 19:36 | PD.ID.CON ---
History of Present Illness Service ID Consult Requested By Dr Forde Reason for Consult MSSA bacteremia and foot infection Primary Care Physician [facility] Diagnoses: History of Present Illness 62 yo male tobacco+, poor historian, h/o stroke he told me yolanda t he has a wound on L 1st metatarsal area for a while he presented with worsnening pain, swelling redness and inability to weight bear on his L foot He grew MSSA from the wound asnd from 09/05 blood clx MRI not cw osteo Arterila studies with severe right and moderate left lower extremity peripheral arterial disease. Dr Lamb is planning CTA Review of Systems ROS Limitations: Poor Historian Past Family Social History Allergies: Coded Allergies: No Known Allergies (Verified Allergy, Unknown, 11/04/17) Past Medical History CVA with residual left-sided weakness, cardiac stenting, BPH, and CVA. Past Surgical History cardiac stents Active Ordered Medications Medications where reviewed in EMR Antibiotics Include: vancomycin Family History poor historian Social History + tobacco positive 09/03 ppd no ETOH' no drugs no IVDU Physical Exam Vital Signs Vital Signs Date Time Temp Pulse Resp B/P (MAP) Pulse Ox O2 Delivery O2 Flow Rate FiO2 01/19/18 16:56 108/67 (81) 01/19/18 16:00 100.5 75 20 108/67 (81) 97 01/19/18 12:00 98.7 94 20 83/52 (62) 97 01/19/18 08:56 Room Air 01/19/18 08:00 98.6 67 20 113/64 (80) 98 01/19/18 04:00 99.3 93 19 109/68 (82) 97 01/19/18 00:01 99.6 88 19 111/67 (82) 97 01/19/18 00:00 Room Air 01/18/18 20:18 99.4 92 18 105/59 (74) 95 01/18/18 20:01 99.7 80 18 96/69 (78) 98 Physical Exam CONSTITUTIONAL/GENERAL: This is a thin elderly male patient, in no apparent distress. TUBES/LINES/DRAINS: SKIN: No jaundice, rashes, or lesions. Ecchymoses on upper extremities. No wounds seen anteriorly. Skin temperature appropriate. Not diaphoretic. HEAD: Atraumatic. Normocephalic. EYES: Pupils equal and round and reactive. Extraocular motions intact. No scleral icterus. No injection or drainage. Fundi not examined. ENT: Hearing grossly normal. Nose without bleeding or purulent drainage. Throat without visible erythema, exudates, masses, or lesions. NECK: Trachea midline. Supple, nontender. No palpable thyroid enlargement or nodularity. CARDIOVASCULAR: Regular rate and rhythm without murmurs, gallops, or rubs. No JVD. Peripheral pulses symmetric. RESPIRATORY/CHEST: Symmetric, unlabored respirations. Clear to auscultation. Breath sounds equal bilaterally. No wheezes, rales, or rhonchi. GASTROINTESTINAL: Abdomen soft, non-tender, nondistended. No hepato-splenomegaly , or palpable masses. No guarding. Bowel sounds present. GENITOURINARY: Without palpable bladder distension. MUSCULOSKELETAL: Extremities without clubbing, cyanosis, L foot with prominent edema of great toe and 1 st MT area, dark discoloratiom, prominent tenderness to palpatio and open wound with no active draiange. Forefoot is milfldly edematous, but no ascending cellulitis, lymphangitis Pedal pulses non palpable No joint tenderness or effusion noted. No calf tenderness. No mottling or clubbing. LYMPHATICS: No palpable cervical or supraclavicular adenopathy. NEUROLOGICAL: Awake and alert. Baseline L hemiparesis . Follows commands. Confused. Moves all extremities. PSYCHIATRIC: No obvious anxiety/depression. no apparent hallucinations or other psychotic thought process. Laboratory Laboratory Tests Test 01/19/18 04:16 White Blood Count 16.0 Red Blood Count 4.80 Hemoglobin 11.7 Hematocrit 35.5 Mean Corpuscular Volume 73.8 Mean Corpuscular Hemoglobin 24.4 Mean Corpuscular Hemoglobin Concent 33.0 Red Cell Distribution Width 16.7 Platelet Count 162 Mean Platelet Volume 8.2 Neutrophils (%) (Auto) 73.2 Lymphocytes (%) (Auto) 15.0 Monocytes (%) (Auto) 11.2 Eosinophils (%) (Auto) 0.2 Basophils (%) (Auto) 0.4 Neutrophils # (Auto) 11.7 Lymphocytes # (Auto) 2.4 Monocytes # (Auto) 1.8 Eosinophils # (Auto) 0.0 Basophils # (Auto) 0.1 CBC Comment DIFF FINAL Differential Comment Blood Urea Nitrogen 16 Creatinine 1.08 Random Glucose 87 Total Protein 7.1 Albumin 3.6 Calcium Level 8.5 Alkaline Phosphatase 65 Aspartate Amino Transf (AST/SGOT) 19 Alanine Aminotransferase (ALT/SGPT) 15 Total Bilirubin 1.1 Sodium Level 140 Potassium Level 3.9 Chloride Level 105 Carbon Dioxide Level 25.5 Anion Gap 10 Estimat Glomerular Filtration Rate 84 Date/Time Source Procedure Growth Status 01/18/18 17:24 Blood Peripheral Aerobic Blood Culture - Preliminary NO GROWTH IN 1 DAY Resulted 01/18/18 17:24 Blood Peripheral Anaerobic Blood Culture - Preliminary NO GROWTH IN 1 DAY Resulted 01/17/18 21:30 Wound Foot Gram Stain - Final Complete 01/17/18 21:30 Wound Culture - Final Staphylococcus Aureus Complete Result Diagram: 01/19/18 0416 01/19/18 0416 Imaging Last Impressions Foot X-Ray 01/17/18 0000 Signed Impressions: Service Date/Time: Wednesday, January 17, 2018 21:46 - CONCLUSION: Suspected chronic deformity of the hindfoot. Lonnie Cordon MD Foot MRI 01/17/18 0000 Signed Impressions: Service Date/Time: Thursday, January 18, 2018 00:12 - CONCLUSION: 1. No definite evidence for osteomyelitis. No discrete abscess. 2. Unusual multifocal subchondral marrow edema throughout the left foot and ankle as above. The finding is nonspecific. It can be related to immobilization of the foot or limited use of the foot. Dewey Ramirez MD Assessment and Plan Assessment and Plan MSSA infected 1st MT wound ? gout MSSA sepsis - 2/2 foot infection Underlying moderate to severe PVD cefaozlin dc vancomycin repeat BC 2 D echo Olya Stokes MD January 19, 2018 19:36
--- NOTE | 2018-01-19 21:06 | RADRPT ---
EXAM DATE/TIME: 01/19/2018 17:02 [facility] COMPARISON: No previous studies available for comparison. INDICATIONS : Left foot pain for one year. IV CONTRAST: 99 cc Omnipaque 350 (iohexol) IV RADIATION DOSE: 17.32 CTDIvol (mGy) MEDICAL HISTORY : Stroke. Hypertension. Cardiovascular disease SURGICAL HISTORY : AV shunt placement, angioplasty, stent placement ENCOUNTER: Initial ACUITY: 1 yr PAIN SCALE: 7/10 LOCATION: Left foot TECHNIQUE: Volumetric scanning was performed using a multi-row detector CT scanner. The data was post processed with a variety of visualization algorithms including full volume maximum intensity projection, multi -planar sliding thin slab reformation, curved planar reformation, and surface rendering techniques. Using automated exposure control and adjustment of the mA and/or kV according to patient size, radiat ion dose was kept as low as reasonably achievable to obtain optimal diagnostic quality images. DICO M format image data is available electronically for review and comparison. FINDINGS: AORTA: Moderate distal aortic calcifications without significant flow-limiting stenosis. VISCERAL ARTERIES: Single bilateral renal arteries without significant stenosis. Moderate stenosis of the celiac origin. SMA is patent. PATRICK is patent. RIGHT LEG: INFLOW: Occlusion of the proximal right common iliac artery just beyond the origin. Reconstitution of the rig ht common femoral artery via inferior epigastric and circumflex collaterals. Heavily calcified distal common femoral artery at the bifurcation with resultant severe distal stenosis. OUTFLOW: Critical stenosis of the profunda origin. Severe stenosis versus focal occlusion of the SFA origin se condary to heavy calcified plaque. SFA is diffusely diseased in the mid to distal thigh with multiple tandem severe stenoses particularly at the adductor canal. Popliteal artery is patent. RUNOFF: Anterior tibial artery is the dominant runoff vessel. The appear truncated heavily diseased and likel y occluded distally. There is reconstitution of the posterior to the artery at the origin which exten ds to the plantar arch. Peroneal artery is occluded. LEFT LEG: INFLOW: Heavily calcified common iliac artery with long segment oderate stenosis. Internal iliac is patent bu t diffusely diseased. Moderate stenosis of the proximal external iliac artery secondary to mixed plaq ue. Bulky calcifications in the distal common femoral artery with resultant tandem moderate stenoses. OUTFLOW: Diffusely diseased profunda with severe stenosis at the origin. Diffusely diseased SFA with short seg ment occlusion in the distal thigh near the adductor canal. Popliteal artery is patent. RUNOFF: Anterior tibial artery is occluded just beyond the origin. Tibioperoneal trunk is patent. There is mo derate to severe focal stenosis of the posterior tibial artery origin secondary to eccentric plaque. Posterior tibial artery extends to the plantar arch. GENERAL FINDINGS: Visualized lung bases are clear. Evaluation of the abdominal viscera is limited due to arterial phase technique. Liver, spleen, adrenal glands, gallbladder, and pancreas are grossly unremarkable. Kidney s demonstrate symmetrical enhancement without evidence for radiopaque renal calculi or hydronephrosis . No significant renal mass. The bowel appears unremarkable without evidence for obstruction. No sign ificant free fluid or drainable fluid collection. Bladder is severely distended. Prostate and seminal vesicles are within normal limits. Degenerative s pondylosis of the lumbar spine. CONCLUSION: 1. Bladder is severely distended which may reflect bladder outlet obstruction or neurogenic bladder. Patient may benefit from [place] decompression. 2. No significant aortic stenosis. 3. Occluded right common iliac origin with reconstitution of the common femoral artery. 4. Moderate long segment stenosis of the left common iliac artery and proximal left external iliac ar yemi. 5. Heavily calcified common femoral bifurcations bilaterally with diffusely diseased profunda. 6. Diffusely diseased bilateral SFA with multiple severe stenoses of the right SFA in the mid to dist al thigh and short segment occlusion of the left SFA at the adductor canal. 7. Limited two-vessel runoff bilaterally, as above. Jasvir Fontenot MD on January 19, 2018 at 20:54 Board Certified Radiologist. This report was verified electronically.
[2018-01-19] MEDS: ceFAZolin 2 GM PREMIX 100 ML IV SCH (22:23)
[2018-01-20] VITALS (7 sets, daily range): BP systolic 93–130; BP diastolic 42–74; PULSE 66–98; RESP 15–20; TEMP 98–99.4; O2SAT 96–100
[2018-01-20] MEDS: ACETAMINOPHEN/HYDROcodone 325 MG/5 MG TAB PO PRN ×2 (01:00→22:19)
[2018-01-20 03:23] LABS: AUTOMATED NEUTROPHIL # 10.5 TH/MM3 (1.8-7.7); BASOPHIL # 0.2 TH/MM3 (0-0.2); BASOPHIL % 1.1 % (0.0-2.0); EOSINOPHIL # 0.1 TH/MM3 (0-0.4); EOSINOPHIL % 0.5 % (0.0-4.0); HEMATOCRIT 36.6 % (39.0-51.0); HEMOGLOBIN 12.2 GM/DL (13.0-17.0); LYMPH % 17.2 % (9.0-44.0); LYMPHOCYTE # 2.5 TH/MM3 (1.0-4.8); MEAN CELL VOLUME 73.2 FL (80.0-100.0); MEAN CORPUSCULAR HEMOGLOBIN 24.3 PG (27.0-34.0); MEAN CORPUSCULAR HGB CONC 33.2 % (32.0-36.0); MONO % 10.5 % (0.0-8.0); MONOCYTE # 1.6 TH/MM3 (0-0.9); NEUT % 70.7 % (16.0-70.0); PLATELET COUNT 172 TH/MM3 (150-450); RED CELL DISTRIBUTION WIDTH 16.5 % (11.6-17.2); WHITE BLOOD COUNT 14.8 TH/MM3 (4.0-11.0)
[2018-01-20 03:49] LABS: ALBUMIN 3.4 GM/DL (3.4-5.0); ALT (GPT) 18 U/L (12-78); AST (GOT) 19 U/L (15-37); BLOOD UREA NITROGEN 13 MG/DL (7-18); CALCIUM 8.8 MG/DL (8.5-10.1); CHLORIDE 104 MEQ/L (98-107); CREATININE 1.11 MG/DL (0.60-1.30); GLOMERULAR FILTRATION RATE 81 ML/MIN (>89); GLUCOSE,RANDOM 100 MG/DL (74-106); MAGNESIUM 2.1 MG/DL (1.5-2.5); PHOSPHORUS 3.9 MG/DL (2.5-4.9); SODIUM (NA) 140 MEQ/L (136-145)
[2018-01-20 03:58] LABS: ALKALINE PHOSPHATASE 63 U/L (45-117); FREE T4 1.15 NG/DL (0.76-1.46); TOTAL BILIRUBIN ADULT 0.4 MG/DL (0.2-1.0); TOTAL PROTEIN 7.3 GM/DL (6.4-8.2)
[2018-01-20] MEDS: ceFAZolin 2 GM PREMIX 100 ML IV SCH ×3 (05:17→20:16)
[2018-01-20] MEDS: DOCUSATE SODIUM 50 MG/SENNA 8.6 MG TAB PO SCH (08:16)
[2018-01-20] MEDS: SODIUM CHLORIDE 0.9% FLUSH 10 ML FLUSH IV FLUSH SCH ×2 (08:17→20:17)
--- NOTE | 2018-01-20 08:51 | HHI.PR ---
Subjective Remarks in no acute distress. pain is controlled. Tmax 100.5. d/w the RN and no acute issues over night. Objective Vitals Vital Signs Date Time Temp Pulse Resp B/P (MAP) Pulse Ox O2 Delivery O2 Flow Rate FiO2 01/20/18 04:00 98.0 66 15 118/74 (89) 99 01/20/18 00:00 98.6 90 16 115/61 (79) 98 01/19/18 20:00 100.0 81 17 97/68 (78) 98 01/19/18 20:00 Room Air 01/19/18 16:56 108/67 (81) 01/19/18 16:00 100.5 75 20 108/67 (81) 97 01/19/18 12:00 98.7 94 20 83/52 (62) 97 01/19/18 08:56 Room Air I/O 01/19/18 01/19/18 01/19/18 01/20/18 01/20/18 01/20/18 07:00 15:00 23:00 07:00 15:00 23:00 Intake Total 600 ml 420 ml Balance 600 ml 420 ml Intake Oral 600 ml 420 ml # Voids 3 2 2 # Bowel Movements 0 3 Result Diagram: 01/20/18 0311 01/20/18 0311 Imaging Last Impressions Aorta w/Runoff CTA 01/19/18 0000 Signed Impressions: Service Date/Time: Friday, January 19, 2018 17:02 - CONCLUSION: 1. Bladder is severely distended which may reflect bladder outlet obstruction or neurogenic bladder. Patient may benefit from Quesada decompression. 2. No significant aortic stenosis. 3. Occluded right common iliac origin with reconstitution of the common femoral artery. 4. Moderate long segment stenosis of the left common iliac artery and proximal left external iliac artery. 5. Heavily calcified common femoral bifurcations bilaterally with diffusely diseased profunda. 6. Diffusely diseased bilateral SFA with multiple severe stenoses of the right SFA in the mid to distal thigh and short segment occlusion of the left SFA at the adductor canal. 7. Limited two-vessel runoff bilaterally, as above. Jasvir Fontenot MD Foot X-Ray 01/17/18 0000 Signed Impressions: Service Date/Time: Wednesday, January 17, 2018 21:46 - CONCLUSION: Suspected chronic deformity of the hindfoot. Lonnie Cordon MD Foot MRI 01/17/18 0000 Signed Impressions: Service Date/Time: Thursday, January 18, 2018 00:12 - CONCLUSION: 1. No definite evidence for osteomyelitis. No discrete abscess. 2. Unusual multifocal subchondral marrow edema throughout the left foot and ankle as above. The finding is nonspecific. It can be related to immobilization of the foot or limited use of the foot. Dewey Ramirez MD Objective Remarks GENERAL: This is a well-nourished, well-developed patient, in no apparent distress. CARDIOVASCULAR: Regular rate and regular rhythm without murmurs, gallops, or rubs. RESPIRATORY: Clear to auscultation. Breath sounds equal bilaterally. No wheezes , rales, or rhonchi. GASTROINTESTINAL: Abdomen soft, non-tender, nondistended. Normal, active bowel sounds MUSCULOSKELETAL: left foot is swollen. NEURO: Alert & Oriented x4 to person, place, time, situation. Moves all ext x4 Medications and IVs Inpatient Medications Acetaminophen (Tylenol) 650 mg Q6H PRN PO FEVER/PAIN SCALE 1 TO 2; Start at 02:00 Acetaminophen/ Hydrocodone Bitart ([place] 5-325 Mg) 1 tab Q4H PRN PO PAIN SCALE 3 TO 5 Last administered on 01/20/18at 01:00; Start 01/18/18 at 02:00 Bisacodyl (Dulcolax Supp) 10 mg DAILY PRN RECTAL SEVERE CONSITIPATION; Start at 02:00 Cefazolin/Sodium Chloride 100 ml @ 200 mls/hr Q8H IV Last administered on 01/20at 05:17; Start 01/19/18 at 20:00 Clindamycin/ Sodium Chloride 50 ml @ 100 mls/hr Q8H IV Last administered on at 05:50; Start 01/18/18 at 06:00; Stop 01/18/18 at 10:37; Status DC Lactulose (Lactulose Liq) 30 ml DAILY PRN PO SEVERE CONSITIPATION; Start at 02:00 Magnesium Hydroxide (Milk Of Magnesia Liq) 30 ml Q12H PRN PO Mild constipation ; Start 01/18/18 at 02:00 Metoclopramide HCl (Reglan Inj) 5 mg Q6H PRN IV PUSH NAUSEA OR VOMITING; Start 01/18/18 at 02:00 Miscellaneous Information ([facility] Ordered Lab Info) SPECIFIC LAB TO BE ... ONCE ONCE .XX ; Start 01/21/18 at 11:45; Stop 01/21/18 at 11:45; Status DC Morphine Sulfate (Morphine Inj) 2 mg Q3H PRN IV PUSH Pain 6-10 Last administered on 01/18/18at 12:07; Start 01/18/18 at 02:15 Pharmacy Profile Note 0 ml @ 0 mls/hr UNSCH OTHER ; Start 01/18/18 at 10:45; Stop 01/19/18 at 19:38; Status DC Senna/Docusate Sodium (Janice-Colace) 1 tab BID PO ; Start 01/18/18 at 09:00 Sennosides (Senokot) 17.2 mg Q12H PRN PO Moderate constipation; Start 01/18/18 at 02:00 Sodium Chloride (NS Flush) 2 ml BID IV FLUSH Last administered on 01/20/18at 08: 17; Start 01/18/18 at 09:00 Vancomycin HCl 1000 mg/Sodium Chloride 250 ml @ 250 mls/hr Q24H IV Last administered on 01/19/18at 11:48; Start 01/18/18 at 12:00; Stop 01/19/18 at 19:38 ; Status DC A/P Problem List: (1) Cellulitis of left foot ICD Code: L03.116 - Cellulitis of left lower limb Status: Acute (2) Intractable pain ICD Code: R52 - Pain, unspecified Status: Acute Assessment and Plan Sepsis with Left Foot Cellulitis: Concern for septic joint vs osteomyelitis. Symptoms x1 month with worsening wound at left medial MTP and diffuse pain/ warmth/edema. WBC 14.5K, tachycardic, with suspected source-cellulitis vs septic joint. -X-ray reviewed, shows suspected chronic deformity hindfoot -MRI Foot reviewed, no definite osteomyelitis, however unusual marrow edema throughout left foot and ankle -initial Blood cultures with one bottle positive for staph Aureus -Wound culture with MSSA -podiatry consult appreciated and no plan for surgical intervention at this time. -will follow the repeated blood cultures and echo. -ID following. PVD - CTA runoff as noted above. -awaiting vascular surgery evaluation/recommendations. All other medical conditions stable, continue home meds as appropriate. DVT Prophylaxis: Mechanical contraindication secondary to wound/cellulitis. Chemoprophylaxis on hold with possible upcoming procedure Anuj Cabrera MD January 20, 2018 08:51
--- NOTE | 2018-01-20 15:13 | PD.CAR.PN ---
CVT Progress Note Subjective/Hospital Course: Patient seen Full consult dictated CTA with runoff ordered and pending Thanks Carola 01/20/2018 CTA with a runoff was performed and reviewed it. CTA confirms the clinical findings and gives more detail as to the nature of patient's disease Patient has severe peripheral vascular disease with inflow and outflow occlusive problems. Right common iliac artery is occluded and then reconstitutes as external iliac artery to run into the groin. Right common iliac profunda and SFA are occluded proximally and then there are several narrowings distally in the SFA Patient has one-vessel runoff to the foot on the right the anterior tibial artery Left external iliac is significantly stenosed but patent and then in the groin there is common femoral deep femoral and SFA near occlusion Distal SFA is occluded in the adductor canal and patient has again one-vessel runoff to the foot via a posterior tibial Summarized patient has severe peripheral vascular disease bilateral and in a deal case scenario patient with undergo aortobifemoral bypass with femoral endarterectomies and possible angioplasties of SFA. Patient is clearly not a candidate for a surgical procedure of this size and extent. Therefore patient will be taken to the operating room for a bilateral femoral endarterectomy and femorofemoral bypass with left external iliac balloon angioplasty and stent and left SFA balloon angioplasty We will take patient to the operating room on Saturday and I have explained the risks and benefits to the patient. Objective: Vital Signs Date Time Temp Pulse Resp B/P (MAP) Pulse Ox O2 Delivery O2 Flow Rate FiO2 01/20/18 12:30 98.5 76 18 130/71 (90) 100 01/20/18 08:20 98.9 98 20 126/60 (82) 100 01/20/18 08:00 Room Air 01/20/18 04:00 98.0 66 15 118/74 (89) 99 01/20/18 00:00 98.6 90 16 115/61 (79) 98 01/19/18 20:00 100.0 81 17 97/68 (78) 98 01/19/18 20:00 Room Air 01/19/18 16:56 108/67 (81) 01/19/18 16:00 100.5 75 20 108/67 (81) 97 Result Diagram: 01/20/181 01/20/18310 Karine Lamb MD January 20, 2018 15:13
[2018-01-20 15:45] LABS: HEMOGLOBIN A1C 5.8 % (4.3-6.0)
[2018-01-21] MEDS: ceFAZolin 2 GM PREMIX 100 ML IV SCH ×3 (04:00→20:46)
[2018-01-21 04:15] VITALS: BP 117/64; PULSE 75; RESP 16; TEMP 99; O2SAT 98
[2018-01-21] MEDS: SODIUM CHLORIDE 0.9% FLUSH 10 ML FLUSH IV FLUSH SCH ×2 (07:00→20:46)
[2018-01-21 08:20] VITALS: BP 98/55; PULSE 63; RESP 20; TEMP 98; O2SAT 99
--- NOTE | 2018-01-21 11:27 | HHI.PR ---
Subjective Remarks in no acute distress. denies pain. no fever. no new complaints. Objective Vitals Vital Signs Date Time Temp Pulse Resp B/P (MAP) Pulse Ox O2 Delivery O2 Flow Rate FiO2 01/21/18 08:20 98.0 63 20 98/55 (69) 99 01/21/18 04:15 99.0 75 16 117/64 (81) 98 01/20/18 23:50 98.9 66 16 129/61 (83) 99 01/20/18 23:33 18 01/20/18 20:32 99.2 91 16 109/42 (64) 96 01/20/18 20:00 Room Air 01/20/18 16:19 99.4 98 18 93/58 (70) 98 01/20/18 12:30 98.5 76 18 130/71 (90) 100 I/O 01/20/18 01/20/18 01/20/18 01/21/18 01/21/18 01/21/18 07:00 15:00 23:00 07:00 15:00 23:00 Intake Total 420 ml 100 ml 600 ml 320 ml Output Total 100 ml Balance 420 ml 100 ml 600 ml 220 ml Intake Oral 420 ml 600 ml 120 ml IV Total 100 ml 200 ml Output Urine Total 100 ml # Voids 2 2 # Bowel Movements 3 2 1 Result Diagram: 01/20/18 0311 01/20/18 0311 Imaging Last Impressions Aorta w/Runoff CTA 01/19/18 0000 Signed Impressions: Service Date/Time: Friday, January 19, 2018 17:02 - CONCLUSION: 1. Bladder is severely distended which may reflect bladder outlet obstruction or neurogenic bladder. Patient may benefit from Quesada decompression. 2. No significant aortic stenosis. 3. Occluded right common iliac origin with reconstitution of the common femoral artery. 4. Moderate long segment stenosis of the left common iliac artery and proximal left external iliac artery. 5. Heavily calcified common femoral bifurcations bilaterally with diffusely diseased profunda. 6. Diffusely diseased bilateral SFA with multiple severe stenoses of the right SFA in the mid to distal thigh and short segment occlusion of the left SFA at the adductor canal. 7. Limited two-vessel runoff bilaterally, as above. Jasvir Fontenot MD Foot X-Ray 01/17/18 0000 Signed Impressions: Service Date/Time: Antony, January 17, 2018 21:46 - CONCLUSION: Suspected chronic deformity of the hindfoot. Lonnie Cordon MD Foot MRI 01/17/18 0000 Signed Impressions: Service Date/Time: Thursday, January 18, 2018 00:12 - CONCLUSION: 1. No definite evidence for osteomyelitis. No discrete abscess. 2. Unusual multifocal subchondral marrow edema throughout the left foot and ankle as above. The finding is nonspecific. It can be related to immobilization of the foot or limited use of the foot. Dewey Ramirez MD Objective Remarks GENERAL: This is a well-nourished, well-developed patient, in no apparent distress. CARDIOVASCULAR: Regular rate and regular rhythm without murmurs, gallops, or rubs. RESPIRATORY: Clear to auscultation. Breath sounds equal bilaterally. No wheezes , rales, or rhonchi. GASTROINTESTINAL: Abdomen soft, non-tender, nondistended. Normal, active bowel sounds MUSCULOSKELETAL: left foot is swollen. NEURO: Alert & Oriented x4 to person, place, time, situation. Moves all ext x4 Medications and IVs Inpatient Medications Acetaminophen (Tylenol) 650 mg Q6H PRN PO FEVER/PAIN SCALE 1 TO 2; Start at 02:00 Acetaminophen/ Hydrocodone Bitart ([place] 5-325 Mg) 1 tab Q4H PRN PO PAIN SCALE 3 TO 5 Last administered on 01/20/18at 22:19; Start 01/18/18 at 02:00 Bisacodyl (Dulcolax Supp) 10 mg DAILY PRN RECTAL SEVERE CONSITIPATION; Start at 02:00 Cefazolin/Sodium Chloride 100 ml @ 200 mls/hr Q8H IV Last administered on 01/21at 04:00; Start 01/19/18 at 20:00 Clindamycin/ Sodium Chloride 50 ml @ 100 mls/hr Q8H IV Last administered on at 05:50; Start 01/18/18 at 06:00; Stop 01/18/18 at 10:37; Status DC Lactulose (Lactulose Liq) 30 ml DAILY PRN PO SEVERE CONSITIPATION; Start at 02:00 Magnesium Hydroxide (Milk Of Magnesia Liq) 30 ml Q12H PRN PO Mild constipation ; Start 01/18/18 at 02:00 Metoclopramide HCl (Reglan Inj) 5 mg Q6H PRN IV PUSH NAUSEA OR VOMITING; Start 01/18/18 at 02:00 Miscellaneous Information ([facility] Ordered Lab Info) SPECIFIC LAB TO BE ... ONCE ONCE .XX ; Start 01/21/18 at 11:45; Stop 01/21/18 at 11:45; Status DC Morphine Sulfate (Morphine Inj) 2 mg Q3H PRN IV PUSH Pain 6-10 Last administered on 01/18/18at 12:07; Start 01/18/18 at 02:15 Pharmacy Profile Note 0 ml @ 0 mls/hr UNSCH OTHER ; Start 01/18/18 at 10:45; Stop 01/19/18 at 19:38; Status DC Senna/Docusate Sodium (Janice-Colace) 1 tab BID PO ; Start 01/18/18 at 09:00; Status Future Hold Sennosides (Senokot) 17.2 mg Q12H PRN PO Moderate constipation; Start 01/18/18 at 02:00 Sodium Chloride (NS Flush) 2 ml BID IV FLUSH Last administered on 01/21/18at 07: 00; Start 01/18/18 at 09:00 Vancomycin HCl 1000 mg/Sodium Chloride 250 ml @ 250 mls/hr Q24H IV Last administered on 01/19/18at 11:48; Start 01/18/18 at 12:00; Stop 01/19/18 at 19:38 ; Status DC A/P Problem List: (1) Cellulitis of left foot ICD Code: L03.116 - Cellulitis of left lower limb Status: Acute (2) Intractable pain ICD Code: R52 - Pain, unspecified Status: Acute Assessment and Plan Sepsis with Left Foot Cellulitis: Concern for septic joint vs osteomyelitis. Symptoms x1 month with worsening wound at left medial MTP and diffuse pain/ warmth/edema. WBC 14.5K, tachycardic, with suspected source-cellulitis vs septic joint. -X-ray reviewed, shows suspected chronic deformity hindfoot -MRI Foot reviewed, no definite osteomyelitis, however unusual marrow edema throughout left foot and ankle -initial Blood cultures with one bottle positive for staph Aureus -Wound culture with MSSA -podiatry consult appreciated and no plan for surgical intervention at this time. -will follow the repeated blood cultures and echo. -ID following. PVD - CTA runoff as noted above. -vascular surgery f/u appreciated and plan for vascular intervention tomorrow. All other medical conditions stable, continue home meds as appropriate. DVT Prophylaxis: Mechanical contraindication secondary to wound/cellulitis. Chemoprophylaxis on hold with upcoming procedure Discharge Planning for vascular intervention tomorrow. Anuj Cabrera MD January 21, 2018 11:27
[2018-01-21] MEDS ORDERED: PHARMACY ORDERED LAB ONE (11:45)
[2018-01-21 12:22] VITALS: BP 91/63; PULSE 86; RESP 20; TEMP 97.6; O2SAT 98
[2018-01-21 16:05] VITALS: BP 103/56; PULSE 81; RESP 20; TEMP 98.8; O2SAT 97
--- NOTE | 2018-01-21 16:32 | EKG ---
Date Performed: 01/20/2018 Time Performed: 16:12:56 PTAGE: 62 years EKG: Sinus rhythm POSSIBLE RIGHT ATRIAL ENLARGEMENT POSSIBLE LEFT ATRIAL ENLARGEMENT POSSIBLE RIGHT VENTRICULAR CONDUC TION DELAY LEFT ANTERIOR FASCICULAR BLOCK POSSIBLE SEPTAL MYOCARDIAL INFARCTION , OF INDETERMINATE AG E MODERATE T-WAVE ABNORMALITY, CONSIDER LATERAL ISCHEMIA MODERATE T-WAVE ABNORMALITY, CONSIDER INFERI OR ISCHEMIA ABNORMAL ECG compared to prior ekg, right bundle branch block is no longer present. PREVIOUS TRACING : 11/11/2014 17.29 DOCTOR: Lalitha Andres Interpretating Date/Time 01/21/2018 16:30:36
--- NOTE | 2018-01-21 17:46 | PD.CAR.PN ---
CVT Progress Note Subjective/Hospital Course: Patient seen Full consult dictated CTA with runoff ordered and pending Thanks Carola 01/20/2018 CTA with a runoff was performed and reviewed it. CTA confirms the clinical findings and gives more detail as to the nature of patient's disease Patient has severe peripheral vascular disease with inflow and outflow occlusive problems. Right common iliac artery is occluded and then reconstitutes as external iliac artery to run into the groin. Right common iliac profunda and SFA are occluded proximally and then there are several narrowings distally in the SFA Patient has one-vessel runoff to the foot on the right the anterior tibial artery Left external iliac is significantly stenosed but patent and then in the groin there is common femoral deep femoral and SFA near occlusion Distal SFA is occluded in the adductor canal and patient has again one-vessel runoff to the foot via a posterior tibial Summarized patient has severe peripheral vascular disease bilateral and in a deal case scenario patient with undergo aortobifemoral bypass with femoral endarterectomies and possible angioplasties of SFA. Patient is clearly not a candidate for a surgical procedure of this size and extent. Therefore patient will be taken to the operating room for a bilateral femoral endarterectomy and femorofemoral bypass with left external iliac balloon angioplasty and stent and left SFA balloon angioplasty We will take patient to the operating room on Saturday and I have explained the risks and benefits to the patient. 01/21/2018 As above noted patient has right common iliac occlusion and reconstitution distal to it while on the left side which is symptomatic patient has a severe stenosis throughout the short segment occlusion of SFA We will take to the operating room tomorrow for femoral endarterectomy and common external iliac balloon angioplasty stents and SFA angioplasty Objective: Vital Signs Date Time Temp Pulse Resp B/P (MAP) Pulse Ox O2 Delivery O2 Flow Rate FiO2 01/21/18 16:05 98.8 81 20 103/56 (72) 97 01/21/18 12:22 97.6 86 20 91/63 (72) 98 01/21/18 08:20 98.0 63 20 98/55 (69) 99 01/21/18 04:15 99.0 75 16 117/64 (81) 98 01/20/18 23:50 98.9 66 16 129/61 (83) 99 01/20/18 23:33 18 01/20/18 20:32 99.2 91 16 109/42 (64) 96 5/21/18 20:00 Room Air Result Diagram: 01/20/18 0311 01/20/18 0311 Karine Lamb MD January 21, 2018 17:46
--- NOTE | 2018-01-21 19:01 | HHI.IDPN ---
Subjective Subjective Remarks Pt was found to have right common iliac occlusion and reconstitution distal to it while on the left side which is symptomatic patient has a severe stenosis throughout the short segment occlusion of SFA He will be taken to operating room tomorrow for femoral endarterectomy and common external iliac balloon angioplasty stents and SFA angioplasty MSSA in blood, L foot wound Repeat blood clx are negative Antibiotics cefazoline Allergies: Coded Allergies: No Known Allergies (Verified Allergy, Unknown, 11/04/17) Objective . Vital Signs Date Time Temp Pulse Resp B/P (MAP) Pulse Ox O2 Delivery O2 Flow Rate FiO2 01/21/18 16:05 98.8 81 20 103/56 (72) 97 01/21/18 12:22 97.6 86 20 91/63 (72) 98 01/21/18 08:20 98.0 63 20 98/55 (69) 99 01/21/18 04:15 99.0 75 16 117/64 (81) 98 01/20/18 23:50 98.9 66 16 129/61 (83) 99 01/20/18 23:33 18 01/20/18 20:32 99.2 91 16 109/42 (64) 96 01/20/18 20:00 Room Air . Laboratory Tests Test 01/20/18 03:11 White Blood Count 14.8 TH/MM3 Red Blood Count 5.00 MIL/MM3 Hemoglobin 12.2 GM/DL Hematocrit 36.6 % Mean Corpuscular Volume 73.2 FL Mean Corpuscular Hemoglobin 24.3 PG Mean Corpuscular Hemoglobin Concent 33.2 % Red Cell Distribution Width 16.5 % Platelet Count 172 TH/MM3 Mean Platelet Volume 8.0 FL Neutrophils (%) (Auto) 70.7 % Lymphocytes (%) (Auto) 17.2 % Monocytes (%) (Auto) 10.5 % Eosinophils (%) (Auto) 0.5 % Basophils (%) (Auto) 1.1 % Neutrophils # (Auto) 10.5 TH/MM3 Lymphocytes # (Auto) 2.5 TH/MM3 Monocytes # (Auto) 1.6 TH/MM3 Eosinophils # (Auto) 0.1 TH/MM3 Basophils # (Auto) 0.2 TH/MM3 CBC Comment DIFF FINAL Differential Comment Laboratory Tests Test 01/20/18 03:11 Blood Urea Nitrogen 13 MG/DL Creatinine 1.11 MG/DL Random Glucose 100 MG/DL Total Protein 7.3 GM/DL Albumin 3.4 GM/DL Calcium Level 8.8 MG/DL Phosphorus Level 3.9 MG/DL Magnesium Level 2.1 MG/DL Alkaline Phosphatase 63 U/L Aspartate Amino Transf (AST/SGOT) 19 U/L Alanine Aminotransferase (ALT/SGPT) 18 U/L Total Bilirubin 0.4 MG/DL Sodium Level 140 MEQ/L Potassium Level 3.9 MEQ/L Chloride Level 104 MEQ/L Carbon Dioxide Level 27.0 MEQ/L Anion Gap 9 MEQ/L Estimat Glomerular Filtration Rate 81 ML/MIN Hemoglobin A1c 5.8 % Lactic Acid Level 0.9 mmol/L Free Thyroxine 1.15 NG/DL Thyroid Stimulating Hormone 3rd Gen 1.020 uIU/ML Microbiology Date/Time Source Procedure Growth Status 01/20/18 03:28 Blood Peripheral Aerobic Blood Culture - Preliminary NO GROWTH IN 1 DAY Resulted 01/20/18 03:28 Blood Peripheral Anaerobic Blood Culture - Preliminary NO GROWTH IN 1 DAY Resulted 01/20/18 03:11 Blood Peripheral Aerobic Blood Culture - Preliminary NO GROWTH IN 1 DAY Resulted 01/20/18 03:11 Blood Peripheral Anaerobic Blood Culture - Preliminary NO GROWTH IN 1 DAY Resulted Imaging Last Impressions Aorta w/Runoff CTA 01/19/18 0000 Signed Impressions: Service Date/Time: Friday, January 19, 2018 17:02 - CONCLUSION: 1. Bladder is severely distended which may reflect bladder outlet obstruction or neurogenic bladder. Patient may benefit from Quesada decompression. 2. No significant aortic stenosis. 3. Occluded right common iliac origin with reconstitution of the common femoral artery. 4. Moderate long segment stenosis of the left common iliac artery and proximal left external iliac artery. 5. Heavily calcified common femoral bifurcations bilaterally with diffusely diseased profunda. 6. Diffusely diseased bilateral SFA with multiple severe stenoses of the right SFA in the mid to distal thigh and short segment occlusion of the left SFA at the adductor canal. 7. Limited two-vessel runoff bilaterally, as above. Jasvir Fontenot MD Foot X-Ray 01/17/18 0000 Signed Impressions: Service Date/Time: Wednesday, January 17, 2018 21:46 - CONCLUSION: Suspected chronic deformity of the hindfoot. Lonnie Cordon MD Foot MRI 01/17/18 0000 Signed Impressions: Service Date/Time: Thursday, January 18, 2018 00:12 - CONCLUSION: 1. No definite evidence for osteomyelitis. No discrete abscess. 2. Unusual multifocal subchondral marrow edema throughout the left foot and ankle as above. The finding is nonspecific. It can be related to immobilization of the foot or limited use of the foot. Dewey Ramirez MD Physical Exam CONSTITUTIONAL/GENERAL: This is a thin elderly male patient, in no apparent distress. TUBES/LINES/DRAINS: SKIN: No jaundice, rashes, or lesions. Ecchymoses on upper extremities. No wounds seen anteriorly. Skin temperature appropriate. Not diaphoretic. CARDIOVASCULAR: Regular rate and rhythm without murmurs, gallops, or rubs. No JVD. Peripheral pulses symmetric. RESPIRATORY/CHEST: Symmetric, unlabored respirations. Clear to auscultation. Breath sounds equal bilaterally. No wheezes, rales, or rhonchi. GASTROINTESTINAL: Abdomen soft, non-tender, nondistended. No hepato-splenomegaly , or palpable masses. No guarding. Bowel sounds present. GENITOURINARY: Without palpable bladder distension. MUSCULOSKELETAL: Extremities without clubbing, cyanosis, L foot with prominent edema of great toe and 1 st MT area, dark discoloratiom, prominent tenderness to palpatio and open wound with no active draiange. Forefoot is milfldly edematous, but no ascending cellulitis, lymphangitis Very tender. Essentailly unchanged Pedal pulses non palpable No joint tenderness or effusion noted. No calf tenderness. No mottling or clubbing. NEUROLOGICAL: Awake and alert. Baseline L hemiparesis . Follows commands. Confused. Moves all extremities. PSYCHIATRIC: No obvious anxiety/depression. no apparent hallucinations or other psychotic thought process. Assessment & Plan Remarks MSSA infected 1st MT wound ? gout MSSA sepsis - 2/2 foot infection Underlying moderate to severe PVD ? Bladder outlet obstruction cont cefaozlin fu repeat BC 2 D echo post void residuals Olya Stokes MD January 21, 2018 19:01
[2018-01-21 20:39] VITALS: BP 96/61; PULSE 81; RESP 16; TEMP 98.6; O2SAT 100
[2018-01-21 23:48] VITALS: BP 138/73; PULSE 113; RESP 16; TEMP 98.5; O2SAT 99
[2018-01-22 04:07] VITALS: BP 106/77; PULSE 76; RESP 16; TEMP 98.5; O2SAT 100
[2018-01-22] MEDS: ceFAZolin 2 GM PREMIX 100 ML IV SCH ×2 (04:34→12:00)
[2018-01-22] MEDS: SODIUM CHLORIDE 0.9% FLUSH 10 ML FLUSH IV FLUSH SCH ×2 (07:15→21:00)
--- NOTE | 2018-01-22 07:33 | HHI.PR ---
Subjective Remarks in no acute distress. resting comfortably. no fever. awaiting vascular intervention today. Objective Vitals Vital Signs Date Time Temp Pulse Resp B/P (MAP) Pulse Ox O2 Delivery O2 Flow Rate FiO2 01/22/18 04:07 98.5 76 16 106/77 (87) 100 01/21/18 23:48 98.5 113 16 138/73 (94) 99 01/21/18 20:39 98.6 81 16 96/61 (73) 100 01/21/18 20:30 Room Air 01/21/18 16:05 98.8 81 20 103/56 (72) 97 01/21/18 12:22 97.6 86 20 91/63 (72) 98 01/21/18 08:20 98.0 63 20 98/55 (69) 99 I/O 01/21/18 01/21/18 01/21/18 01/22/18 01/22/18 01/22/18 07:00 15:00 23:00 07:00 15:00 23:00 Intake Total 320 ml 940 ml 340 ml Output Total 100 ml 200 ml 600 ml Balance 220 ml 740 ml -260 ml Intake Oral 120 ml 840 ml 240 ml IV Total 200 ml 100 ml 100 ml Output Urine Total 100 ml 200 ml 600 ml # Voids 1 # Bowel Movements 1 1 4 Result Diagram: 01/20/18 0311 01/20/18 0311 Imaging Last Impressions Aorta w/Runoff CTA 01/19/18 0000 Signed Impressions: Service Date/Time: Friday, January 19, 2018 17:02 - CONCLUSION: 1. Bladder is severely distended which may reflect bladder outlet obstruction or neurogenic bladder. Patient may benefit from Quesada decompression. 2. No significant aortic stenosis. 3. Occluded right common iliac origin with reconstitution of the common femoral artery. 4. Moderate long segment stenosis of the left common iliac artery and proximal left external iliac artery. 5. Heavily calcified common femoral bifurcations bilaterally with diffusely diseased profunda. 6. Diffusely diseased bilateral SFA with multiple severe stenoses of the right SFA in the mid to distal thigh and short segment occlusion of the left SFA at the adductor canal. 7. Limited two-vessel runoff bilaterally, as above. Jasvir Fontenot MD Foot X-Ray 01/17/18 0000 Signed Impressions: Service Date/Time: Wednesday, January 17, 2018 21:46 - CONCLUSION: Suspected chronic deformity of the hindfoot. Lonnie Cordon MD Foot MRI 01/17/18 0000 Signed Impressions: Service Date/Time: Thursday, January 18, 2018 00:12 - CONCLUSION: 1. No definite evidence for osteomyelitis. No discrete abscess. 2. Unusual multifocal subchondral marrow edema throughout the left foot and ankle as above. The finding is nonspecific. It can be related to immobilization of the foot or limited use of the foot. Dewey Ramirez MD Objective Remarks GENERAL: This is a well-nourished, well-developed patient, in no apparent distress. CARDIOVASCULAR: Regular rate and regular rhythm without murmurs, gallops, or rubs. RESPIRATORY: Clear to auscultation. Breath sounds equal bilaterally. No wheezes , rales, or rhonchi. GASTROINTESTINAL: Abdomen soft, non-tender, nondistended. Normal, active bowel sounds MUSCULOSKELETAL: left foot is swollen. NEURO: Alert & Oriented x4 to person, place, time, situation. Moves all ext x4 Medications and IVs Inpatient Medications Acetaminophen (Tylenol) 650 mg Q6H PRN PO FEVER/PAIN SCALE 1 TO 2; Start at 02:00 Acetaminophen/ Hydrocodone Bitart ([place] 5-325 Mg) 1 tab Q4H PRN PO PAIN SCALE 3 TO 5 Last administered on 01/20/18at 22:19; Start 01/18/18 at 02:00 Bisacodyl (Dulcolax Supp) 10 mg DAILY PRN RECTAL SEVERE CONSITIPATION; Start at 02:00 Cefazolin/Sodium Chloride 100 ml @ 200 mls/hr Q8H IV Last administered on 01/22at 04:34; Start 01/19/18 at 20:00 Clindamycin/ Sodium Chloride 50 ml @ 100 mls/hr Q8H IV Last administered on at 05:50; Start 01/18/18 at 06:00; Stop 01/18/18 at 10:37; Status DC Lactulose (Lactulose Liq) 30 ml DAILY PRN PO SEVERE CONSITIPATION; Start at 02:00 Magnesium Hydroxide (Milk Of Magnesia Liq) 30 ml Q12H PRN PO Mild constipation ; Start 01/18/18 at 02:00 Metoclopramide HCl (Reglan Inj) 5 mg Q6H PRN IV PUSH NAUSEA OR VOMITING; Start 01/18/18 at 02:00 Miscellaneous Information ([facility] [place] [place] [facility] Ordered Lab Info) SPECIFIC LAB TO BE ... ONCE ONCE .XX ; Start 01/21/18 at 11:45; Stop 01/21/18 at 11:45; Status DC Morphine Sulfate (Morphine Inj) 2 mg Q3H PRN IV PUSH Pain 6-10 Last administered on 01/18/18at 12:07; Start 01/18/18 at 02:15 Pharmacy Profile Note 0 ml @ 0 mls/hr UNSCH OTHER ; Start 01/18/18 at 10:45; Stop 01/19/18 at 19:38; Status DC Senna/Docusate Sodium (Janice-Colace) 1 tab BID PO ; Start 01/18/18 at 09:00; Status Future Hold Sennosides (Senokot) 17.2 mg Q12H PRN PO Moderate constipation; Start 01/18/18 at 02:00 Sodium Chloride (NS Flush) 2 ml BID IV FLUSH Last administered on 01/22/18at 07: 15; Start 01/18/18 at 09:00 Vancomycin HCl 1000 mg/Sodium Chloride 250 ml @ 250 mls/hr Q24H IV Last administered on 01/19/18at 11:48; Start 01/18/18 at 12:00; Stop 01/19/18 at 19:38 ; Status DC A/P Problem List: (1) Cellulitis of left foot ICD Code: L03.116 - Cellulitis of left lower limb Status: Acute (2) Intractable pain ICD Code: R52 - Pain, unspecified Status: Acute Assessment and Plan Sepsis with Left Foot Cellulitis: Concern for septic joint vs osteomyelitis. Symptoms x1 month with worsening wound at left medial MTP and diffuse pain/ warmth/edema. WBC 14.5K, tachycardic, with suspected source-cellulitis vs septic joint. -X-ray reviewed, shows suspected chronic deformity hindfoot -MRI Foot reviewed, no definite osteomyelitis, however unusual marrow edema throughout left foot and ankle -initial Blood cultures with one bottle positive for staph Aureus -Wound culture with MSSA -podiatry consult appreciated and no plan for surgical intervention at this time. -will follow the repeated blood cultures and echo. -ID following. PVD - CTA runoff as noted above. -vascular surgery f/u appreciated and plan for vascular intervention today. All other medical conditions stable, continue home meds as appropriate. DVT Prophylaxis: Mechanical contraindication secondary to wound/cellulitis. Chemoprophylaxis on hold with upcoming procedure Discharge Planning for vascular intervention today. Anuj Cabrera MD January 22, 2018 07:33
[2018-01-22 08:08] VITALS: BP 113/88; PULSE 86; RESP 17; TEMP 98.1; O2SAT 100
[2018-01-22] MEDS ORDERED: LIDOCAINE HCL 1% PF 5 ML SYRINGE OTHER ONE (12:00)
[2018-01-22] MEDS ORDERED: NEOSTIGMINE 5 MG/5 ML SYRINGE IV PUSH ONE (12:00)
[2018-01-22] MEDS ORDERED: PHENYLEPHRINE HCL 10 MG/ML VIAL IV ONE (12:00)
[2018-01-22] MEDS ORDERED: PHENYLEPH/NS 1000 MCG/10 ML SYR IV ONE (12:00)
[2018-01-22] MEDS ORDERED: GLYCOPYRROLATE 1 MG/5 ML SYRINGE IV PUSH ONE (12:00)
[2018-01-22] MEDS ORDERED: ROCURONIUM INJ 50 MG/5 ML SYRINGE IV PUSH ONE (12:00)
[2018-01-22] MEDS ORDERED: ONDANSETRON HCL 4 MG/2 ML VIAL IV PUSH ONE (12:00)
[2018-01-22] MEDS ORDERED: PROPOFOL 200 MG/20 ML AMP IV ONE (12:00)
[2018-01-22] MEDS ORDERED: METOPROLOL TARTRATE 5 MG/5 ML VIAL IV ONE (12:00)
[2018-01-22] MEDS ORDERED: ePHEDrine/NS 25 MG/5 ML SYRINGE IV ONE (12:00)
[2018-01-22] MEDS ORDERED: HEPARIN SODIUM - IV 10,000 UNITS/10 ML VIAL ONE (12:44)
[2018-01-22] MEDS ORDERED: PROTAMINE SULFATE 50 MG/5 ML VIAL ONE (12:44)
[2018-01-22] MEDS ORDERED: HEPARIN-NS/PF INJ 500 ML ONE (12:45)
[2018-01-22] MEDS ORDERED: BUPIVACAINE/EPINEPHRINE 0.5% PF 30 ML VIAL ONE (12:45)
[2018-01-22] MEDS ORDERED: ceFAZolin 2 GM PREMIX 50 ML ONE (12:45)
[2018-01-22] MEDS ORDERED: DO NOT ADM ANY ANTICOAGULANT DRUGS PRN (18:42)
[2018-01-22] MEDS ORDERED: MIDAZOLAM HCL 2 MG/2 ML VIAL ONE (18:56)
[2018-01-22] MEDS ORDERED: fentaNYL CITRATE 250 MCG/5 ML AMP ONE (18:57)
[2018-01-22] MEDS ORDERED: MORPHINE SULFATE 4 MG/ML INJ ONE (18:57)
[2018-01-22 20:00] VITALS: BP 88/62; PULSE 74; RESP 12; TEMP 97.6; O2SAT 100
[2018-01-22] MEDS: CLOPIDOGREL 75 MG TAB PO SCH (20:58)
--- NOTE | 2018-01-22 21:10 | HHI.PR ---
Subjective Remarks Patient seen bedside with family present. Reports mild pain to left first MPJ Objective Vital Signs Date Time Temp Pulse Resp B/P (MAP) Pulse Ox O2 Delivery O2 Flow Rate FiO2 01/22/18 19:30 97.5 83 17 97/60 (72) 99 Nasal Cannula 2 01/22/18 19:15 82 15 98/54 (69) 99 Nasal Cannula 2 01/22/18 19:00 75 23 113/58 (76) 99 Nasal Cannula 2 01/22/18 18:46 73 15 126/75 (92) 98 Nasal Cannula 2 01/22/18 18:45 96.4 73 15 119/89 (99) 97 Nasal Cannula 2 01/22/18 08:08 98.1 86 17 113/88 (96) 100 01/22/18 04:07 98.5 76 16 106/77 (87) 100 01/21/18 23:48 98.5 113 16 138/73 (94) 99 I/O 01/21/18 01/21/18 01/21/18 01/22/18 01/22/18 01/22/18 07:00 15:00 23:00 07:00 15:00 23:00 Intake Total 320 ml 940 ml 340 ml 1400 ml Output Total 100 ml 200 ml 600 ml 450 ml Balance 220 ml 740 ml -260 ml 950 ml Intake Oral 120 ml 840 ml 240 ml IV Total 200 ml 100 ml 100 ml Other 1400 ml Output Urine Total 100 ml 200 ml 600 ml 400 ml Estimated Blood Loss 50 ml # Voids 1 # Bowel Movements 1 1 4 Result Diagram: 01/20/18 0311 01/20/18 0311 Imaging Last Impressions Aorta w/Runoff CTA 01/19/18 0000 Signed Impressions: Service Date/Time: Friday, January 19, 2018 17:02 - CONCLUSION: 1. Bladder is severely distended which may reflect bladder outlet obstruction or neurogenic bladder. Patient may benefit from Quesada decompression. 2. No significant aortic stenosis. 3. Occluded right common iliac origin with reconstitution of the common femoral artery. 4. Moderate long segment stenosis of the left common iliac artery and proximal left external iliac artery. 5. Heavily calcified common femoral bifurcations bilaterally with diffusely diseased profunda. 6. Diffusely diseased bilateral SFA with multiple severe stenoses of the right SFA in the mid to distal thigh and short segment occlusion of the left SFA at the adductor canal. 7. Limited two-vessel runoff bilaterally, as above. Jasvir Fontenot MD Foot X-Ray 01/17/18 0000 Signed Impressions: Service Date/Time: Wednesday, January 17, 2018 21:46 - CONCLUSION: Suspected chronic deformity of the hindfoot. Lonnie Cordon MD Foot MRI 01/17/18 0000 Signed Impressions: Service Date/Time: Thursday, January 18, 2018 00:12 - CONCLUSION: 1. No definite evidence for osteomyelitis. No discrete abscess. 2. Unusual multifocal subchondral marrow edema throughout the left foot and ankle as above. The finding is nonspecific. It can be related to immobilization of the foot or limited use of the foot. Dewey Ramirez MD Other Results Microbiology Date/Time Source Procedure Growth Status 01/20/18 03:28 Blood Peripheral Aerobic Blood Culture - Preliminary NO GROWTH IN 2 DAYS Resulted 01/20/18 03:28 Blood Peripheral Anaerobic Blood Culture - Preliminary NO GROWTH IN 2 DAYS Resulted 01/17/18 21:30 Wound Foot Gram Stain - Final Complete 01/17/18 21:30 Wound Culture - Final Staphylococcus Aureus Complete Objective Remarks Left first MPJ with noted discoloration, no erythema noted, edema noted, superficial medial eminence wound noted with fibronecrotic base, no drainage noted, no purulent drainage upon compression, reported mild pain on range of motion and palpation. No clinical signs of infection. Medications and IVs Current Medications Medications (Trade) Dose Ordered Sig/Ernesto Route Start Time Stop Time Status Last Admin (NS Flush) 2 ml UNSCH PRN IV FLUSH 01/18/18 02:00 01/20/18 05:18 (NS Flush) 2 ml BID IV FLUSH 01/18/18 09:00 01/22/18 21:00 (Reglan Inj) 5 mg Q6H PRN IV PUSH 01/18/18 02:00 (Tylenol) 650 mg Q6H PRN PO 01/18/18 02:00 ([place] 5-325 Mg) 1 tab Q4H PRN PO 01/18/18 02:00 01/20/18 22:19 (Morphine Inj) 2 mg Q3H PRN IV PUSH 01/18/18 02:15 01/18/18 12:07 (Janice-Colace) 1 tab BID PO 01/18/18 09:00 Future Hold (Milk Of Magnesia Liq) 30 ml Q12H PRN PO 01/18/18 02:00 (Senokot) 17.2 mg Q12H PRN PO 01/18/18 02:00 (Dulcolax Supp) 10 mg DAILY PRN RECTAL 01/18/18 02:00 (Lactulose Liq) 30 ml DAILY PRN PO 01/18/18 02:00 ([facility] [place] [facility] [place]) ALL NURSING DEPARTME... UNSCH PRN .XX 01/22/18 18:42 01/23/18 18:41 (Plavix) 75 mg DAILY PO 01/22/18 20:00 01/22/18 20:58 Cefazolin Sodium/ Dextrose 50 ml @ 100 mls/hr Q8H IV 01/22/18 21:00 Assessment and Plan Assessment and Plan 61-year-old male status post revascularization with left medial eminence superficial ulcer Patient examined evaluated with all questions answered Apply Betadine and dry sterile dressing to first MPJ Recommended accommodative diabetic shoes although patient is not diabetic to avoid pressure ulcer to medial eminence of left foot Discussed with family at bedside Follow-up with [place] [facility] Stable per podiatry -okay to DC per Reconsult as needed Armida Camacho DPM January 22, 2018 21:10
[2018-01-22] MEDS: SODIUM CHLOR 0.9% 1000 ML INJ 1,000 ML IV SCH (21:45)
[2018-01-22] MEDS: ceFAZolin 2 GM PREMIX 50 ML IV SCH (21:49)
--- NOTE | 2018-01-22 21:56 | MP ---
cc: Karine Lamb MD, Slobodan MD DATE OF OPERATION: 01/22/2018 PREOPERATIVE DIAGNOSIS: Ischemia of both legs, occlusion of the right common iliac artery, near occlusion of the left common iliac and external iliac arteries, near occlusion of the bilateral common femoral arteries and left superficial femoral artery distal occlusion. POSTOPERATIVE DIAGNOSIS: Ischemia of both legs, occlusion of the right common iliac artery, near occlusion of the left common iliac and external iliac arteries, near occlusion of the bilateral common femoral arteries and left superficial femoral artery distal occlusion. OPERATIVE PROCEDURE: Left common iliac and external iliac balloon angioplasty and stent, left SFA [place] 1 endarterectomy and balloon angioplasty, left external iliac and common femoral endarterectomy patch angioplasty, right external iliac and common femoral endarterectomy with patch angioplasty and femoral-femoral bypass. SURGEON: Karine Lamb INTERNAL RADIOLOGIST AND CO-SURGEON: Dr. Angus Sanchez. ANESTHESIA: General. ESTIMATED BLOOD LOSS: 200 mL PROCEDURE IN DETAIL: The patient was prepped and draped in usual fashion and both groins are exposed through oblique incisions. Common femoral deep and superficial femoral arteries are isolated, as arteries like lead. These are filled with plaque and very firm. There is barely any pulse in the right common femoral artery and the left has a very weak pulse as well. Vessel loops are placed around each vessel respectively. The patient is given 5000 units of heparin and now retrograde the common femoral artery is cannulated into the external iliac by placing first a needle then a Glidewire. Over the Glidewire, the 7 sheath is placed. Arteriogram is obtained. Arteriogram reveals stenosis of the common femoral and external iliac arteries as noted above and this was seen by the CT angiogram. A Glidewire is now passed into the aorta and then position is checked with superimposed imaging. The 8 mm x 6 cm stent is now introduced and deployed. Arteriogram is obtained. There is one area of narrow stent and this one is balloon dilated. The final x-ray is obtained and there is excellent flow down into the external iliac artery and the groin. The 7-[place]and[place] introducer sheath and the dilator are now reversed and placed downward into the superficial femoral artery and then a Glidewire is passed down. The patient has an arteriogram obtained. The patient has an occlusion of the superficial femoral artery in the adductor canal with some large branches coming off. The occlusion is crossed with a roadrunner wire and then the Hulk 1 arthrectomy device is used to clean this vessel out. A large amount of debris is withdrawn into the basket. This is done about 3 times and then the final arteriogram is obtained which shows excellent flow through the vessel. A 5 mm x 4 cm balloon is introduced and vessel is tapped down where the atherectomy was performed and final arteriogram shows excellent flow. This terminated this part of the procedure. The open part of the procedure was done by me. For the endovascular part of the procedure, see details by Dr. Sanchez. Open part of the procedure is now performed. The left common femoral and external iliac artery is exposed and then observed. Clamps applied Satinsky proximally. profunda clamp to profunda and distally the superficial femoral artery vessel is opened longitudinally with Martins scissors and observe. The patient has a huge plaque in the left common femoral and external iliac artery, which is rock hard. This one is dissected in the media plane with a freer dissector and then removed. The surface of the vessel is smoothened out with heparinized saline. Small debris is removed. The right common femoral and external iliac arteries are now attended. Again, Satinsky clamp is placed fairly high on the vessel where it is nice and soft and the vessel is opened with Martins scissors. There is a huge plaque in there that is worse on the right than on the left, almost occludes the vessel completely. This one is dissected in a media plane and removed in 2 pieces. Profundoplasty performed which results in nice backbleeding. Again, vessel is irrigated with copious amounts of heparinized saline and washed out. Small debris is removed. An 8 mm ringed [place] graft is now passed through suprapubic tunnel from right to left [facility] tunneler and then cut to size, first on the right groin under very steep angle to use the distal anastomosis in the form of patch angioplasty. The graft is sewn into the vessel and anastomosis created with 5-0 running Prolene. Then, the clamps are removed from the vessel. The graft is flushed with heparinized saline and then clamp applied only to the graft allowing the blood flow in the right leg to continue. The graft is now cut to size under oblique angle with an 11-blade and used again to create anastomosis, which at the same time serves as patch angioplasty. Graft is sewn in with a running 5-0 Prolene and then blood flow reestablished. At the end of procedure, the patient has bounding pulses in both groins and feet readily warm up. Area irrigated with saline. A piece of Surgicel placed on each side. Incision closed with 0 Vicryl in layers with 4-0 Monocryl. The patient tolerated the procedure well. MD ARYA Treviño/ , 09:22 PM , 09:55 PM
[2018-01-22 22:00] VITALS: PULSE 88
[2018-01-23] VITALS (12 sets, daily range): BP systolic 72–100; BP diastolic 50–63; PULSE 68–96; RESP 12–24; TEMP 98.1–99.5; O2SAT 98–100
[2018-01-23] MEDS ORDERED: ALBUMIN 5% INJ 500 ML IV SCH (01:45)
[2018-01-23] MEDS: ceFAZolin 2 GM PREMIX 50 ML IV SCH ×3 (05:21→20:46)
[2018-01-23] MEDS: SODIUM CHLORIDE 0.9% FLUSH 10 ML FLUSH IV FLUSH SCH ×2 (08:54→20:47)
[2018-01-23] MEDS: SODIUM CHLOR 0.9% 1000 ML INJ 1,000 ML IV SCH (08:54)
[2018-01-23] MEDS: CLOPIDOGREL 75 MG TAB PO SCH (08:55)
--- NOTE | 2018-01-23 11:23 | PD.CAR.PN ---
CVT Progress Note Subjective/Hospital Course: Patient seen Full consult dictated CTA with runoff ordered and pending Thanks Carola 01/20/2018 CTA with a runoff was performed and reviewed it. CTA confirms the clinical findings and gives more detail as to the nature of patient's disease Patient has severe peripheral vascular disease with inflow and outflow occlusive problems. Right common iliac artery is occluded and then reconstitutes as external iliac artery to run into the groin. Right common iliac profunda and SFA are occluded proximally and then there are several narrowings distally in the SFA Patient has one-vessel runoff to the foot on the right the anterior tibial artery Left external iliac is significantly stenosed but patent and then in the groin there is common femoral deep femoral and SFA near occlusion Distal SFA is occluded in the adductor canal and patient has again one-vessel runoff to the foot via a posterior tibial Summarized patient has severe peripheral vascular disease bilateral and in a deal case scenario patient with undergo aortobifemoral bypass with femoral endarterectomies and possible angioplasties of SFA. Patient is clearly not a candidate for a surgical procedure of this size and extent. Therefore patient will be taken to the operating room for a bilateral femoral endarterectomy and femorofemoral bypass with left external iliac balloon angioplasty and stent and left SFA balloon angioplasty We will take patient to the operating room on Saturday and I have explained the risks and benefits to the patient. 01/21/2018 As above noted patient has right common iliac occlusion and reconstitution distal to it while on the left side which is symptomatic patient has a severe stenosis throughout the short segment occlusion of SFA We will take to the operating room tomorrow for femoral endarterectomy and common external iliac balloon angioplasty stents and SFA angioplasty 01/23/2018 Patient status post revascularization of the left leg by balloon angioplasty stenting of the inflow and outflow tracts, SFA arthrectomy and right leg endarterectomy and femorofemoral bypass Patient is awake alert oriented Excellent palpable femoral pulses bilateral Incisions are clean and dry Feet are nice and warm Patient can be transferred to floor from my point and further care per Dr. Camacho, and medicine Objective: Vital Signs Date Time Temp Pulse Resp B/P (MAP) Pulse Ox O2 Delivery O2 Flow Rate FiO2 01/23/18 10:00 87 01/23/18 08:00 68 01/23/18 08:00 99.5 94 23 72/54 (60) 100 Automatic Cuff 01/23/18 07:00 100 Room Air 01/23/18 06:00 94 01/23/18 04:00 98.5 86 16 89/52 (64) 100 01/23/18 04:00 86 01/23/18 02:00 96 01/23/18 00:00 90 01/23/18 00:00 98.1 90 12 86/63 (71) 98 01/22/18 22:00 88 01/22/18 20:00 74 01/22/18 20:00 97.6 74 12 88/62 (71) 100 01/22/18 19:30 97.5 83 17 97/60 (72) 99 Nasal Cannula 2 01/22/18 19:15 82 15 98/54 (69) 99 Nasal Cannula 2 01/22/18 19:00 75 23 113/58 (76) 99 Nasal Cannula 2 01/22/18 19:00 97 Nasal Cannula 2.00 01/22/18 18:46 73 15 126/75 (92) 98 Nasal Cannula 2 01/22/18 18:45 96.4 73 15 119/89 (99) 97 Nasal Cannula 2 Result Diagram: 01/20/1831001/20/18310 Karine Lamb MD January 23, 2018 11:23
--- NOTE | 2018-01-23 12:04 | HHI.PR ---
Subjective Remarks in no acute distress. pain is controlled. no fever. BP trend noted but the patient is asymptomatic. d/w the RN. Objective Vitals Vital Signs Date Time Temp Pulse Resp B/P (MAP) Pulse Ox O2 Delivery O2 Flow Rate FiO2 01/23/18 10:00 87 01/23/18 08:00 68 01/23/18 08:00 99.5 94 23 72/54 (60) 100 Automatic Cuff 01/23/18 07:00 100 Room Air 01/23/18 06:00 94 01/23/18 04:00 98.5 86 16 89/52 (64) 100 01/23/18 04:00 86 01/23/18 02:00 96 01/23/18 00:00 90 01/23/18 00:00 98.1 90 12 86/63 (71) 98 01/22/18 22:00 88 01/22/18 20:00 74 01/22/18 20:00 97.6 74 12 88/62 (71) 100 01/22/18 19:30 97.5 83 17 97/60 (72) 99 Nasal Cannula 2 01/22/18 19:15 82 15 98/54 (69) 99 Nasal Cannula 2 01/22/18 19:00 75 23 113/58 (76) 99 Nasal Cannula 2 01/22/18 19:00 97 Nasal Cannula 2.00 01/22/18 18:46 73 15 126/75 (92) 98 Nasal Cannula 2 01/22/18 18:45 96.4 73 15 119/89 (99) 97 Nasal Cannula 2 I/O 01/22/18 01/22/18 01/22/18 01/23/18 01/23/18 01/23/18 07:00 15:00 23:00 07:00 15:00 23:00 Intake Total 340 ml 1450 ml 790 ml 487 ml Output Total 600 ml 450 ml 500 ml Balance -260 ml 1000 ml 290 ml 487 ml Intake Oral 240 ml 240 ml IV Total 100 ml 50 ml 550 ml 487 ml Other 1400 ml Output Urine Total 600 ml 400 ml 500 ml Estimated Blood Loss 50 ml # Bowel Movements 4 0 Result Diagram: 01/20/18 0311 01/20/18 0311 Imaging Last Impressions Aorta w/Runoff CTA 01/19/18 0000 Signed Impressions: Service Date/Time: Friday, January 19, 2018 17:02 - CONCLUSION: 1. Bladder is severely distended which may reflect bladder outlet obstruction or neurogenic bladder. Patient may benefit from Quesada decompression. 2. No significant aortic stenosis. 3. Occluded right common iliac origin with reconstitution of the common femoral artery. 4. Moderate long segment stenosis of the left common iliac artery and proximal left external iliac artery. 5. Heavily calcified common femoral bifurcations bilaterally with diffusely diseased profunda. 6. Diffusely diseased bilateral SFA with multiple severe stenoses of the right SFA in the mid to distal thigh and short segment occlusion of the left SFA at the adductor canal. 7. Limited two-vessel runoff bilaterally, as above. Jasvir Fontenot MD Foot X-Ray 01/17/18 0000 Signed Impressions: Service Date/Time: Wednesday, January 17, 2018 21:46 - CONCLUSION: Suspected chronic deformity of the hindfoot. Lonnie Cordon MD Foot MRI 01/17/18 0000 Signed Impressions: Service Date/Time: Thursday, January 18, 2018 00:12 - CONCLUSION: 1. No definite evidence for osteomyelitis. No discrete abscess. 2. Unusual multifocal subchondral marrow edema throughout the left foot and ankle as above. The finding is nonspecific. It can be related to immobilization of the foot or limited use of the foot. Dewey Ramirez MD Objective Remarks GENERAL: This is a well-nourished, well-developed patient, in no apparent distress. CARDIOVASCULAR: Regular rate and regular rhythm without murmurs, gallops, or rubs. RESPIRATORY: Clear to auscultation. Breath sounds equal bilaterally. No wheezes , rales, or rhonchi. GASTROINTESTINAL: Abdomen soft, non-tender, nondistended. Normal, active bowel sounds MUSCULOSKELETAL: left foot is swollen-seems to be improving. NEURO: Alert & Oriented x4 to person, place, time, situation. Moves all ext x4 Procedures Left common iliac and external iliac balloon angioplasty and stent, left SFA Hawk 1 endarterectomy and balloon angioplasty, left external iliac and common femoral endarterectomy patch angioplasty, right external iliac and common femoral endarterectomy with patch angioplasty and femoral-femoral bypass. Medications and IVs Inpatient Medications Acetaminophen (Tylenol) 650 mg Q6H PRN PO FEVER/PAIN SCALE 1 TO 2; Start at 02:00 Acetaminophen/ Hydrocodone Bitart ([place] 5-325 Mg) 1 tab Q4H PRN PO PAIN SCALE 3 TO 5 Last administered on 01/20/18at 22:19; Start 01/18/18 at 02:00 Albumin Human 500 ml @ 250 mls/hr NOW IV Last administered on 01/23/18at 01:39 ; Start 01/23/18 at 01:45; Stop 01/23/18 at 03:44; Status DC Bisacodyl (Dulcolax Supp) 10 mg DAILY PRN RECTAL SEVERE CONSITIPATION; Start at 02:00 Cefazolin Sodium/ Dextrose 50 ml @ 100 mls/hr Q8H IV Last administered on 01/23at 05:21; Start 01/22/18 at 21:00 Cefazolin/Sodium Chloride 100 ml @ 200 mls/hr Q8H IV Last administered on 01/22at 04:34; Start 01/19/18 at 20:00; Stop 01/22/18 at 21:06; Status DC Clindamycin/ Sodium Chloride 50 ml @ 100 mls/hr Q8H IV Last administered on at 05:50; Start 01/18/18 at 06:00; Stop 01/18/18 at 10:37; Status DC Clopidogrel Bisulfate (Plavix) 75 mg DAILY PO Last administered on 01/23/18at 08 :55; Start 01/22/18 at 20:00 Lactulose (Lactulose Liq) 30 ml DAILY PRN PO SEVERE CONSITIPATION; Start at 02:00 Magnesium Hydroxide (Milk Of Magnesia Liq) 30 ml Q12H PRN PO Mild constipation ; Start 01/18/18 at 02:00 Metoclopramide HCl (Reglan Inj) 5 mg Q6H PRN IV PUSH NAUSEA OR VOMITING; Start 01/18/18 at 02:00 Miscellaneous Information ([facility] Nursing Information) ALL NURSING DEPARTME... UNSCH PRN .XX SEE LABEL COMMENTS; Start 01/22/18 at 18:42; Stop 01/23/18 at 18: 41 Miscellaneous Information ([facility] Ordered Lab Info) SPECIFIC LAB TO BE LOLIS... ONCE ONCE .XX ; Start 01/21/18 at 11:45; Stop 01/21/18 at 11:45; Status DC Morphine Sulfate (Morphine Inj) 2 mg Q3H PRN IV PUSH Pain 6-10 Last administered on 01/18/18at 12:07; Start 01/18/18 at 02:15 Pharmacy Profile Note 0 ml @ 0 mls/hr UNSCH OTHER ; Start 01/18/18 at 10:45; Stop 01/19/18 at 19:38; Status DC Senna/Docusate Sodium (Janice-Colace) 1 tab BID PO ; Start 01/18/18 at 09:00; Status Future Hold Sennosides (Senokot) 17.2 mg Q12H PRN PO Moderate constipation; Start 01/18/18 at 02:00 Sodium Chloride 1,000 ml @ 100 mls/hr Q10H IV Last administered on 01/23/18at 08:54; Start 01/22/18 at 21:45 Sodium Chloride (NS Flush) 2 ml BID IV FLUSH Last administered on 01/22/18at 21: 00; Start 01/18/18 at 09:00 Vancomycin HCl 1000 mg/Sodium Chloride 250 ml @ 250 mls/hr Q24H IV Last administered on 01/19/18at 11:48; Start 01/18/18 at 12:00; Stop 01/19/18 at 19:38 ; Status DC A/P Problem List: (1) Cellulitis of left foot ICD Code: L03.116 - Cellulitis of left lower limb Status: Acute (2) Intractable pain ICD Code: R52 - Pain, unspecified Status: Acute Assessment and Plan Sepsis with Left Foot Cellulitis: Concern for septic joint vs osteomyelitis. Symptoms x1 month with worsening wound at left medial MTP and diffuse pain/ warmth/edema. WBC 14.5K, tachycardic, with suspected source-cellulitis vs septic joint. -X-ray reviewed, shows suspected chronic deformity hindfoot -MRI Foot reviewed, no definite osteomyelitis, however unusual marrow edema throughout left foot and ankle -initial Blood cultures with one bottle positive for staph Aureus -Wound culture with MSSA -podiatry consult appreciated and no plan for surgical intervention at this time. -will follow the repeated blood cultures and echo. -ID following. PVD - CTA runoff as noted above. -s/p vascular intervention as noted above; management per vascular surgery. low BP's- continue with IV fluid- will monitor. All other medical conditions stable, continue home meds as appropriate. DVT Prophylaxis: Mechanical contraindication secondary to wound/cellulitis. Chemoprophylaxis on hold with upcoming procedure Anuj Cabrera MD January 23, 2018 12:03
[2018-01-23 12:42] LABS: AUTOMATED NEUTROPHIL # 8.6 TH/MM3 (1.8-7.7); BASOPHIL # 0.1 TH/MM3 (0-0.2); BASOPHIL % 0.7 % (0.0-2.0); EOSINOPHIL % 0.2 % (0.0-4.0); HEMOGLOBIN 9.8 GM/DL (13.0-17.0); LYMPHOCYTE # 1.4 TH/MM3 (1.0-4.8); MEAN CELL VOLUME 72.7 FL (80.0-100.0); MEAN CORPUSCULAR HEMOGLOBIN 23.7 PG (27.0-34.0); MEAN CORPUSCULAR HGB CONC 32.6 % (32.0-36.0); MEAN PLATELET VOLUME 7.7 FL (7.0-11.0); MONO % 8.9 % (0.0-8.0); NEUT % 77.2 % (16.0-70.0); PLATELET COUNT 187 TH/MM3 (150-450); RED BLOOD COUNT 4.13 MIL/MM3 (4.50-5.90); RED CELL DISTRIBUTION WIDTH 16.1 % (11.6-17.2); WHITE BLOOD COUNT 11.1 TH/MM3 (4.0-11.0)
[2018-01-23 13:10] LABS: BICARBONATE 25.1 MEQ/L (21.0-32.0); CALCIUM 8.4 MG/DL (8.5-10.1); CREATININE 1.1 MG/DL (0.60-1.30)
--- NOTE | 2018-01-23 17:26 | ECHRPT ---
Indication: AORTIC ILIAC OCCLUSION, PRE OP WORK UP CONCLUSIONS Normal left ventricular size. EF@65% Mild concentric left ventricular hypertrophy. The left ventricular systolic function is grossly normal on limited imaging. mild mitral valve regurgitation. There is trace tricuspid valve regurgitation. The estimated pulmonary arterial pressure is 33.6 mmHg. BP: 113 / 88 HR: 86 Rhythm: Sinus MEASUREMENTS (Male / Female) Normal Values Technical Quality:Fair 2D ECHO LV Diastolic Diameter PLAX 4.3 cm 4.2 - 5.9 / 3.9 - 5.3 cm LV Systolic Diameter PLAX 2.8 cm IVS Diastolic Thickness 1.2 cm 0.6 - 1.0 / 0.6 - 0.9 cm LVPW Diastolic Thickness 1.2 cm 0.6 - 1.0 / 0.6 - 0.9 cm LV Relative Wall Thickness 0.6 RV Internal Dim ED PLAX 2.2 cm LVOT Diameter 2.1 cm Aortic Root Diameter 3.1 cm LA Systolic Diameter LX 2.7 cm 3.0 - 4.0 / 2.7 - 3.8 cm M-MODE AV Cusp Separation MM 1.7 cm DOPPLER AV Peak Velocity 125.0 cm/s AV Peak Gradient 6.3 mmHg AV Mean Gradient 3.0 mmHg AV Velocity Time Integral 19.5 cm LVOT Peak Velocity 94.0 cm/s LVOT Peak Gradient 3.5 mmHg LVOT Velocity Time Integral 16.0 cm AV Area Cont Eq vti 2.8 cm AV Area Cont Eq pk 2.6 cm Mitral E Point Velocity 81.9 cm/s Mitral A Point Velocity 79.5 cm/s Mitral E to A Ratio 1.0 LV E' Lateral Velocity 8.3 cm/s Mitral E to LV E' Lateral Ratio 9.9 LV E' Septal Velocity 7.0 cm/s Mitral E to LV E' Septal Ratio 11.7 TR Peak Velocity 243.0 cm/s TR Peak Gradient 23.6 mmHg Right Atrial Pressure 10.0 mmHg Pulmonary Artery Systolic Pressu 33.6 mmHg Right Ventricular Systolic Press 33.6 mmHg PV Peak Velocity 82.7 cm/s PV Peak Gradient 2.7 mmHg FINDINGS LEFT VENTRICLE Normal left ventricular size. Mild concentric left ventricular hypertrophy. The left ventricular systolic function is grossly normal on limited imaging. RIGHT VENTRICLE Normal right ventricular size and systolic function. LEFT ATRIUM The left atrial size is normal. RIGHT ATRIUM The right atrial size is normal. ATRIAL SEPTUM No atrial level shunt is demonstrated by color flow Doppler interrogation. AORTA The aortic root and proximal ascending aorta are not well visualized. MITRAL VALVE [id number] mitral valve regurgitation. AORTIC VALVE Trileaflet aortic valve. No aortic valve stenosis or regurgitation. TRICUSPID VALVE There is trace tricuspid valve regurgitation. The estimated pulmonary arterial pressure is 33.6 mmHg. PULMONARY VALVE No pulmonary valve regurgitation or stenosis. VESSELS The inferior vena cava is normal in size. PERICARDIUM No pericardial effusion. Sanford Stokes MD, FACC, [facility] (Electronically Signed) Final Date:23 Jan 2018 17:24
[2018-01-24] VITALS (9 sets, daily range): BP systolic 114–145; BP diastolic 62–93; PULSE 80–96; RESP 15–26; TEMP 98.1–100.2; O2SAT 98–100
[2018-01-24] MEDS: ceFAZolin 2 GM PREMIX 50 ML IV SCH ×3 (05:01→21:01)
[2018-01-24] MEDS: CLOPIDOGREL 75 MG TAB PO SCH (09:19)
[2018-01-24] MEDS: SODIUM CHLORIDE 0.9% FLUSH 10 ML FLUSH IV FLUSH SCH ×2 (09:20→21:02)
--- NOTE | 2018-01-24 10:58 | HHI.PR ---
Subjective Remarks in no acute distress. pain is controlled. no fever. BP trend noted. d/w the RN. Objective Vitals Vital Signs Date Time Temp Pulse Resp B/P (MAP) Pulse Ox O2 Delivery O2 Flow Rate FiO2 01/24/18 06:00 82 01/24/18 04:00 82 01/24/18 04:00 98.6 82 23 115/73 (87) 100 01/24/18 02:00 80 01/24/18 00:00 98.7 86 25 114/66 (82) 98 01/24/18 00:00 86 01/23/18 22:00 90 01/23/18 20:00 98.4 84 24 100/55 (70) 99 01/23/18 20:00 84 01/23/18 19:00 98 Room Air 01/23/18 18:00 83 01/23/18 16:00 99.2 88 22 98/56 (70) 100 01/23/18 16:00 95 01/23/18 14:00 93 01/23/18 12:00 88 01/23/18 12:00 98.8 88 19 75/50 (58) 99 Arterial Line I/O 01/23/18 01/23/18 01/23/18 01/24/18 01/24/18 01/24/18 07:00 15:00 23:00 07:00 15:00 23:00 Intake Total 790 ml 487 ml 600 ml 350 ml Output Total 500 ml 50 ml 300 ml Balance 290 ml 487 ml 550 ml 50 ml Intake Oral 240 ml 500 ml 300 ml IV Total 550 ml 487 ml 100 ml 50 ml Output Urine Total 500 ml 50 ml 300 ml # Bowel Movements 0 0 0 Result Diagram: 01/23/18 1201 01/23/18 1201 Imaging Last Impressions Aorta w/Runoff CTA 01/19/18 0000 Signed Impressions: Service Date/Time: Friday, January 19, 2018 17:02 - CONCLUSION: 1. Bladder is severely distended which may reflect bladder outlet obstruction or neurogenic bladder. Patient may benefit from Quesada decompression. 2. No significant aortic stenosis. 3. Occluded right common iliac origin with reconstitution of the common femoral artery. 4. Moderate long segment stenosis of the left common iliac artery and proximal left external iliac artery. 5. Heavily calcified common femoral bifurcations bilaterally with diffusely diseased profunda. 6. Diffusely diseased bilateral SFA with multiple severe stenoses of the right SFA in the mid to distal thigh and short segment occlusion of the left SFA at the adductor canal. 7. Limited two-vessel runoff bilaterally, as above. Jasvir Fontenot MD Foot X-Ray 01/17/18 0000 Signed Impressions: Service Date/Time: Wednesday, January 17, 2018 21:46 - CONCLUSION: Suspected chronic deformity of the hindfoot. Lonnie Cordon MD Foot MRI 01/17/18 0000 Signed Impressions: Service Date/Time: Thursday, January 18, 2018 00:12 - CONCLUSION: 1. No definite evidence for osteomyelitis. No discrete abscess. 2. Unusual multifocal subchondral marrow edema throughout the left foot and ankle as above. The finding is nonspecific. It can be related to immobilization of the foot or limited use of the foot. Dewey Ramirez MD Objective Remarks GENERAL: This is a well-nourished, well-developed patient, in no apparent distress. CARDIOVASCULAR: Regular rate and regular rhythm without murmurs, gallops, or rubs. RESPIRATORY: Clear to auscultation. Breath sounds equal bilaterally. No wheezes , rales, or rhonchi. GASTROINTESTINAL: Abdomen soft, non-tender, nondistended. Normal, active bowel sounds MUSCULOSKELETAL: left foot is swollen-seems to be improving. NEURO: Alert & Oriented x4 to person, place, time, situation. Moves all ext x4 Procedures Left common iliac and external iliac balloon angioplasty and stent, left SFA Hawk 1 endarterectomy and balloon angioplasty, left external iliac and common femoral endarterectomy patch angioplasty, right external iliac and common femoral endarterectomy with patch angioplasty and femoral-femoral bypass. Medications and IVs Inpatient Medications Acetaminophen (Tylenol) 650 mg Q6H PRN PO FEVER/PAIN SCALE 1 TO 2; Start at 02:00 Acetaminophen/ Hydrocodone Bitart ([place] 5-325 Mg) 1 tab Q4H PRN PO PAIN SCALE 3 TO 5 Last administered on 01/20/18at 22:19; Start 01/18/18 at 02:00 Albumin Human 500 ml @ 250 mls/hr NOW IV Last administered on 01/23/18at 01:39 ; Start 01/23/18 at 01:45; Stop 01/23/18 at 03:44; Status DC Bisacodyl (Dulcolax Supp) 10 mg DAILY PRN RECTAL SEVERE CONSITIPATION; Start at 02:00 Cefazolin Sodium/ Dextrose 50 ml @ 100 mls/hr Q8H IV Last administered on 01/24at 05:01; Start 01/22/18 at 21:00 Cefazolin/Sodium Chloride 100 ml @ 200 mls/hr Q8H IV Last administered on 01/22at 04:34; Start 01/19/18 at 20:00; Stop 01/22/18 at 21:06; Status DC Clindamycin/ Sodium Chloride 50 ml @ 100 mls/hr Q8H IV Last administered on at 05:50; Start 01/18/18 at 06:00; Stop 01/18/18 at 10:37; Status DC Clopidogrel Bisulfate (Plavix) 75 mg DAILY PO Last administered on 01/24/18at 09 :19; Start 01/22/18 at 20:00 Lactulose (Lactulose Liq) 30 ml DAILY PRN PO SEVERE CONSITIPATION; Start at 02:00 Magnesium Hydroxide (Milk Of Magnesia Liq) 30 ml Q12H PRN PO Mild constipation ; Start 01/18/18 at 02:00 Metoclopramide HCl (Reglan Inj) 5 mg Q6H PRN IV PUSH NAUSEA OR VOMITING; Start 01/18/18 at 02:00 Miscellaneous Information ([facility] Information) ALL NURSING DEPARTME... UNSCH PRN .XX SEE LABEL COMMENTS; Start 01/22/18 at 18:42; Stop 01/23/18 at 18: 41; Status DC Miscellaneous Information ([facility] Ordered Lab Info) SPECIFIC LAB TO BE ... ONCE ONCE .XX ; Start 01/21/18 at 11:45; Stop 01/21/18 at 11:45; Status DC Morphine Sulfate (Morphine Inj) 2 mg Q3H PRN IV PUSH Pain 6-10 Last administered on 01/18/18at 12:07; Start 01/18/18 at 02:15 Pharmacy Profile Note 0 ml @ 0 mls/hr UNSCH OTHER ; Start 01/18/18 at 10:45; Stop 01/19/18 at 19:38; Status DC Senna/Docusate Sodium (Janice-Colace) 1 tab BID PO ; Start 01/18/18 at 09:00; Status Future Hold Sennosides (Senokot) 17.2 mg Q12H PRN PO Moderate constipation; Start 01/18/18 at 02:00 Sodium Chloride 1,000 ml @ 100 mls/hr Q10H IV Last administered on 01/23/18at 08:54; Start 01/22/18 at 21:45; Stop 01/23/18 at 14:16; Status DC Sodium Chloride (NS Flush) 2 ml BID IV FLUSH Last administered on 01/24/18at 09: 20; Start 01/18/18 at 09:00 Vancomycin HCl 1000 mg/Sodium Chloride 250 ml @ 250 mls/hr Q24H IV Last administered on 01/19/18at 11:48; Start 01/18/18 at 12:00; Stop 01/19/18 at 19:38 ; Status DC A/P Problem List: (1) Cellulitis of left foot ICD Code: L03.116 - Cellulitis of left lower limb Status: Acute (2) Intractable pain ICD Code: R52 - Pain, unspecified Status: Acute Assessment and Plan Sepsis with Left Foot Cellulitis: Concern for septic joint vs osteomyelitis. Symptoms x1 month with worsening wound at left medial MTP and diffuse pain/ warmth/edema. WBC 14.5K, tachycardic, with suspected source-cellulitis vs septic joint. -X-ray reviewed, shows suspected chronic deformity hindfoot -MRI Foot reviewed, no definite osteomyelitis, however unusual marrow edema throughout left foot and ankle -initial Blood cultures with one bottle positive for MSSA -Wound culture with MSSA -podiatry consult appreciated and no plan for surgical intervention at this time. -repeated blood cultures negative and echo with no vegetation -ID following. PVD - CTA runoff as noted above. -s/p vascular intervention as noted above; management per vascular surgery. low BP's-BP improved- will monitor. All other medical conditions stable, continue home meds as appropriate. DVT Prophylaxis: Mechanical contraindication secondary to wound/cellulitis. chemical prophylaxis when ok with surgery. for transfer to floor. Discharge Planning when cleared by ID and vascular surgery. Anuj Cabrera MD January 24, 2018 10:58
--- NOTE | 2018-01-24 15:39 | PD.CAR.PN ---
CVT Progress Note Subjective/Hospital Course: Patient seen Full consult dictated CTA with runoff ordered and pending Thanks Carola 01/20/2018 CTA with a runoff was performed and reviewed it. CTA confirms the clinical findings and gives more detail as to the nature of patient's disease Patient has severe peripheral vascular disease with inflow and outflow occlusive problems. Right common iliac artery is occluded and then reconstitutes as external iliac artery to run into the groin. Right common iliac profunda and SFA are occluded proximally and then there are several narrowings distally in the SFA Patient has one-vessel runoff to the foot on the right the anterior tibial artery Left external iliac is significantly stenosed but patent and then in the groin there is common femoral deep femoral and SFA near occlusion Distal SFA is occluded in the adductor canal and patient has again one-vessel runoff to the foot via a posterior tibial Summarized patient has severe peripheral vascular disease bilateral and in a deal case scenario patient with undergo aortobifemoral bypass with femoral endarterectomies and possible angioplasties of SFA. Patient is clearly not a candidate for a surgical procedure of this size and extent. Therefore patient will be taken to the operating room for a bilateral femoral endarterectomy and femorofemoral bypass with left external iliac balloon angioplasty and stent and left SFA balloon angioplasty We will take patient to the operating room on Saturday and I have explained the risks and benefits to the patient. 01/21/2018 As above noted patient has right common iliac occlusion and reconstitution distal to it while on the left side which is symptomatic patient has a severe stenosis throughout the short segment occlusion of SFA We will take to the operating room tomorrow for femoral endarterectomy and common external iliac balloon angioplasty stents and SFA angioplasty 01/23/2018 Patient status post revascularization of the left leg by balloon angioplasty stenting of the inflow and outflow tracts, SFA arthrectomy and right leg endarterectomy and femorofemoral bypass Patient is awake alert oriented Excellent palpable femoral pulses bilateral Incisions are clean and dry Feet are nice and warm Patient can be transferred to floor from my point and further care per Dr. Camacho, and medicine 01/24/2018 Status post bilateral open and endovascular leg revascularization femorofemoral bypass Incisions clean and dry Patient doing very well at this time Can be discharged from my point any time Objective: Vital Signs Date Time Temp Pulse Resp B/P (MAP) Pulse Ox O2 Delivery O2 Flow Rate FiO2 01/24/18 07:00 97 Room Air 5/25/18 06:00 82 01/24/18 04:00 82 01/24/18 04:00 98.6 82 23 115/73 (87) 100 01/24/18 02:00 80 01/24/18 00:00 98.7 86 25 114/66 (82) 98 01/24/18 00:00 86 01/23/18 22:00 90 01/23/18 20:00 98.4 84 24 100/55 (70) 99 01/23/18 20:00 84 01/23/18 19:00 98 Room Air 01/23/18 18:00 83 01/23/18 16:00 99.2 88 22 98/56 (70) 100 01/23/18 16:00 95 Result Diagram: 01/23/18 1201 01/23/18 1201 Karine Lamb MD January 24, 2018 15:39
--- NOTE | 2018-01-24 18:30 | RADRPT ---
EXAM DATE: 01/24/2018 4:59 PM EDT AGE/SEX: 62 years / Male INDICATIONS: Patient with history of bilateral peripheral vascular disease in need of angiogram with interventions. CLINICAL DATA: This is the patient's initial encounter. Patient reports that signs and symptoms have been present for 4 - 6 days and indicates a pain score of 7/10. MEDICAL/SURGICAL HISTORY: Stroke. Hypertension. Cardiovascular disease. HLD GERD BPH Coronar y angioplasty and stent COMPARISON: No prior [facility] exams available for comparison. IMAGE SERIES: 11 ACCESS SITE: Anesthesia and pain control was provided by the Anesthesia department. DEVICE(S): Left common iliac artery stent (self expanding) 8MM Left popliteal artery atherectomy device Silver hawk Left popliteal artery FURNITURE MECHANIC balloon 5MM Left superficial femoral artery atherectomy device Silver hawk Left superficial femoral artery FURNITURE MECHANIC balloon 5MM Left popliteal artery SpideRX embolic protection . . PROCEDURE : 1. Angiography of the left common iliac 2. Angiography of the left SFA/popliteal 3. Stent and balloon angioplasty, left common iliac. 4. LS atherectomy and 5 mm balloon angioplasty, left SFA/above-knee popliteal The risks, benefits and alternatives to the procedure were explained and verbal and written consent w as obtained. The site was prepped in sterile fashion. Full sterile technique was used, including ca p, mask, sterile gloves and gown and a large sterile sheet. Hand hygiene and 2% chlorhexidine and/or betadine/alcohol prep was utilized per protocol for cutaneous antisepsis. Procedure was done in conjunction with Dr. Karine Lamb MD. from the vascular service. Dr. Amina pena performed cutdowns on the common femoral arteries bilaterally in preparation for an extra xavier omic femorofemoral bypass graft. However, patient had sequential stenosis in the left common/external iliac artery with short segment high-grade stenosis and occlusions in the adductor hiatus at the SFA /popliteal junction also in the left lower extremity. Initially, a retrograde access was obtained with a 21-gauge micropuncture needle. The L1 8 wire was a dvanced through the needle over which the 3-4 dilator was placed. Through the outer 4 Romanian dilator, an 035 wire was advanced into the distal aorta. 7 Romanian side port sheath was advanced over the wire , contrast injection showed atherosclerotic irregularity of the mid common iliac and proximal externa l iliac artery with stenosis approaching 50%. Since this was going to be sole supply to both lower ex tremities, we felt to be prudent to maximize inflow. Therefore, an 8 mm x 6 cm self-expanding stent w as placed across the areas of stenosis and balloon angioplastied to 7 mm with an excellent angiograph ic result. With Dr. Lamb's assistance, the 7 Romanian sheath was removed and replaced in a antegrade fashion. Contrast injection confirmed the short segment occlusion and high-grade stenosis near the adductor h iatus in the distal SFA and proximal popliteal. The abnormal area was successfully traversed with a h ockey-stick catheter and Roadrunner wire. Through the hockey-stick catheter, a 5 mm spider-X basket w as advanced into the juxta-articular portion of the popliteal. Multiple passes with the LS atherectom y device were then performed with marked improvement in the luminal diameter. The area was then ballo on dilated to 5 mm. Final angiographic run showed shinto of brisk flow through the SFA/popliteal with no embolic event. Dominant runoff is via the posterior tibial and peroneal proximal occlusion of the anterior tibial. The spider X basket was removed with the removal sheath provided. The puncture site was closed with manual pressure and hemostasis was obtained. The patient tolerated the procedure well and there were no complications. Anesthesia was provided by the anesthesia department. CONCLUSION: 1. Segmental inflow stenosis in the left common iliac and proximal external iliac treated with 8 mm stent and 7 mm balloon angioplasty. 2. Short segment occlusion with multiple segments of high-grade stenosis at the adductor hiatus brid ging the distal SFA and proximal above-knee popliteal. This area was successfully treated with LS ath erectomy and 5 mm balloon angioplasty as detailed above. Electronically signed by: Angus Sanchez MD 01/24/2018 6:29 PM EDT
--- NOTE | 2018-01-24 19:31 | HHI.IDPN ---
Subjective Subjective Remarks doing fimne tolerates abx OK no c/o arfebrile Antibiotics cefazoline Allergies: Coded Allergies: No Known Allergies (Verified Allergy, Unknown, 11/04/17) Objective . Vital Signs Date Time Temp Pulse Resp B/P (MAP) Pulse Ox O2 Delivery O2 Flow Rate FiO2 01/24/18 07:00 97 Room Air 01/24/18 06:00 82 01/24/18 04:00 82 01/24/18 04:00 98.6 82 23 115/73 (87) 100 01/24/18 02:00 80 01/24/18 00:00 98.7 86 25 114/66 (82) 98 01/24/18 00:00 86 01/23/18 22:00 90 01/23/18 20:00 98.4 84 24 100/55 (70) 99 01/23/18 20:00 84 . Laboratory Tests Test 01/23/18 12:01 White Blood Count 11.1 TH/MM3 Red Blood Count 4.13 MIL/MM3 Hemoglobin 9.8 GM/DL Hematocrit 30.0 % Mean Corpuscular Volume 72.7 FL Mean Corpuscular Hemoglobin 23.7 PG Mean Corpuscular Hemoglobin Concent 32.6 % Red Cell Distribution Width 16.1 % Platelet Count 187 TH/MM3 Mean Platelet Volume 7.7 FL Neutrophils (%) (Auto) 77.2 % Lymphocytes (%) (Auto) 13.0 % Monocytes (%) (Auto) 8.9 % Eosinophils (%) (Auto) 0.2 % Basophils (%) (Auto) 0.7 % Neutrophils # (Auto) 8.6 TH/MM3 Lymphocytes # (Auto) 1.4 TH/MM3 Monocytes # (Auto) 1.0 TH/MM3 Eosinophils # (Auto) 0.0 TH/MM3 Basophils # (Auto) 0.1 TH/MM3 CBC Comment DIFF FINAL Differential Comment Laboratory Tests Test 01/23/18 12:01 Blood Urea Nitrogen 8 MG/DL Creatinine 1.10 MG/DL Random Glucose 129 MG/DL Calcium Level 8.4 MG/DL Sodium Level 140 MEQ/L Potassium Level 3.7 MEQ/L Chloride Level 106 MEQ/L Carbon Dioxide Level 25.1 MEQ/L Anion Gap 9 MEQ/L Estimat Glomerular Filtration Rate 82 ML/MIN Imaging Last Impressions Lower Extremity Angiography 01/22/18 0000 Signed Impressions: CONCLUSION: 1. Segmental inflow stenosis in the left common iliac and proximal external il iac treated with 8 mm stent and 7 mm balloon angioplasty. 2. Short segment occlusion with multiple segments of high-grade stenosis at th e adductor hiatus bridging the distal SFA and proximal above-knee popliteal. Th is area was successfully treated with LS atherectomy and 5 mm balloon angioplas ty as detailed above. Aorta w/Runoff CTA 01/19/18 0000 Signed Impressions: Service Date/Time: Friday, January 19, 2018 17:02 - CONCLUSION: 1. Bladder is severely distended which may reflect bladder outlet obstruction or neurogenic bladder. Patient may benefit from Quesada decompression. 2. No significant aortic stenosis. 3. Occluded right common iliac origin with reconstitution of the common femoral artery. 4. Moderate long segment stenosis of the left common iliac artery and proximal left external iliac artery. 5. Heavily calcified common femoral bifurcations bilaterally with diffusely diseased profunda. 6. Diffusely diseased bilateral SFA with multiple severe stenoses of the right SFA in the mid to distal thigh and short segment occlusion of the left SFA at the adductor canal. 7. Limited two-vessel runoff bilaterally, as above. Jasvir Fontenot MD Foot X-Ray 01/17/18 0000 Signed Impressions: Service Date/Time: Wednesday, January 17, 2018 21:46 - CONCLUSION: Suspected chronic deformity of the hindfoot. Lonnie Cordon MD Foot MRI 01/17/18 0000 Signed Impressions: Service Date/Time: Thursday, January 18, 2018 00:12 - CONCLUSION: 1. No definite evidence for osteomyelitis. No discrete abscess. 2. Unusual multifocal subchondral marrow edema throughout the left foot and ankle as above. The finding is nonspecific. It can be related to immobilization of the foot or limited use of the foot. Dewey Ramirez MD Physical Exam CONSTITUTIONAL/GENERAL: This is a thin elderly male patient, in no apparent distress. TUBES/LINES/DRAINS: SKIN: No jaundice, rashes, or lesions. Ecchymoses on upper extremities. No wounds seen anteriorly. Skin temperature appropriate. Not diaphoretic. CARDIOVASCULAR: Regular rate and rhythm without murmurs, gallops, or rubs. No JVD. Peripheral pulses symmetric. RESPIRATORY/CHEST: Symmetric, unlabored respirations. Clear to auscultation. Breath sounds equal bilaterally. No wheezes, rales, or rhonchi. GASTROINTESTINAL: Abdomen soft, non-tender, nondistended. No hepato-splenomegaly , or palpable masses. No guarding. Bowel sounds present. GENITOURINARY: Without palpable bladder distension. MUSCULOSKELETAL: Extremities without clubbing, cyanosis, Fett are warm Non tender ! MT lesion is dry, edema , erythema resolved NEUROLOGICAL: Awake and alert. Baseline L hemiparesis . Follows commands. Confused. Moves all extremities. PSYCHIATRIC: No obvious anxiety/depression. no apparent hallucinations or other psychotic thought process. Assessment & Plan Remarks MSSA infected 1st MT wound ? gout MSSA sepsis - 2/2 foot infection 2 D echo w/o vegetations Underlying moderate to severe PVD ? Bladder outlet obstruction cont cefazolin fu repeat BC post void residuals complete 4 weeks of abx Olya Stokes MD January 24, 2018 19:31
--- NOTE | 2018-01-24 19:32 | HHI.FF ---
Infusion Therapy Location of Infusion Therapy: Home [facility] IV Infusion Order Patient Information Patient Weight 59.9 kg Diagnosis: Coded Allergies: No Known Allergies (Verified Allergy, Unknown, 11/04/17) Administer Medication Cefazolin 2 grams IV q 8 hours Start Treatment: January 24, 2018 Stop Treatment: Feb 14, 2018 Additional Information Venous access: PICC Line Additional Instructions [x] Peripheral flush and dressing changes per protocol [x] Implanted port and central track liner operator: * Implanted port: 10 ml Normal Saline followed by 5 ml Heparin 100 units/ml Heparin flush after each use and monthly to maintain. [] May leave port accessed during therapy. [] May leave peripheral site accessed for duration of therapy. [x] If patient has SOB or respiratory distress, check oxygen saturation. If less than 90% or clinical signs of respiratory distress, administer oxygen at 2 L/min. via nasal cannula and notify physician. [x] Anaphylaxis/Reaction orders: * Stop infusion. * Keep IV line open with saline flush. * Notify physician. * Monitor vital signs every 15 minutes until symptoms resolve. * Check Oxygen saturation; Oxygen at 2 L/min. via nasal cannula if less than 90% or clinical signs of respiratory distress. * Administer diphenhydramine (Benadryl) 25 mg IV STAT, (unless patient has received as pre-med). May repeat once, if necessary. * Solu-Cortef 250 mg IVP over 30-60 seconds, use 100 mg vials for each dissolution. * Epinephrine (1mg/1 ml) 0.3 mg subcutaneously or IVP now with any signs of respiratory distress. * Check with physician for new additional pre-med orders if patient is re- challenged or re-treated. [x] May remove PICC line when treatment complete, after confirming with Physician. [x] If the patient is admitted to the hospital, the ED, or transferred via [facility] , complete transfer form including medication reconciliation order sheet. Laboratory Tests Weekly Labs: CBC w/diff, Creatinine Olya Stokes MD January 24, 2018 19:32
[2018-01-24] MEDS ORDERED: EPIN1INJ21 IV PUSH (19:34)
[2018-01-24] MEDS ORDERED: SOLU250I IV PUSH (19:34)
[2018-01-24] MEDS ORDERED: EPIN1INJ21 SQ (19:34)
[2018-01-24] MEDS ORDERED: CEFA2SOL IV (19:34)
[2018-01-25] VITALS (8 sets, daily range): BP systolic 87–128; BP diastolic 50–72; PULSE 75–97; RESP 18; TEMP 98.3–99.2; O2SAT 98–99
[2018-01-25] MEDS: ceFAZolin 2 GM PREMIX 50 ML IV SCH ×3 (06:14→20:10)
[2018-01-25] MEDS: SODIUM CHLORIDE 0.9% FLUSH 10 ML FLUSH IV FLUSH SCH ×2 (08:57→20:10)
[2018-01-25] MEDS: ACETAMINOPHEN/HYDROcodone 325 MG/5 MG TAB PO PRN (08:58)
[2018-01-25] MEDS: CLOPIDOGREL 75 MG TAB PO SCH (08:58)
[2018-01-25] MEDS ORDERED: SODIUM CHLORID 0.9% IV STA (12:19)
--- NOTE | 2018-01-25 12:21 | HHI.PR ---
Subjective Remarks No overnight events, however has been hypotensive for the last 3 hours. Asymptomatic, no headache, dizziness or lightheadedness. Objective Vitals Vital Signs Date Time Temp Pulse Resp B/P (MAP) Pulse Ox O2 Delivery O2 Flow Rate FiO2 01/25/18 11:50 87/54 (65) 01/25/18 11:49 99.1 91 18 88/50 (63) 99 01/25/18 09:06 Room Air 01/25/18 07:43 98.3 78 18 98/72 (81) 99 01/25/18 04:30 98.8 75 18 128/53 (78) 98 01/25/18 00:50 98.9 01/24/18 22:50 Room Air 01/24/18 22:00 100.2 85 17 133/78 (96) 100 01/24/18 20:00 86 01/24/18 20:00 98.5 86 26 139/93 (108) 100 01/24/18 19:00 100 Room Air 01/24/18 16:00 98.1 94 15 131/86 (101) 99 01/24/18 16:00 94 I/O 01/24/18 01/24/18 01/24/18 01/25/18 01/25/18 01/25/18 07:00 15:00 23:00 07:00 15:00 23:00 Intake Total 350 ml 520 ml 400 ml Output Total 300 ml 1125 ml 1000 ml Balance 50 ml -605 ml -600 ml Intake Oral 300 ml 520 ml 400 ml IV Total 50 ml Output Urine Total 300 ml 1125 ml 1000 ml Bladder Scan Volume Amount 555 ml # Bowel Movements 0 0 0 Result Diagram: 01/23/18 1201 01/23/18 1201 Imaging Last Impressions Lower Extremity Angiography 01/22/18 0000 Signed Impressions: CONCLUSION: 1. Segmental inflow stenosis in the left common iliac and proximal external il iac treated with 8 mm stent and 7 mm balloon angioplasty. 2. Short segment occlusion with multiple segments of high-grade stenosis at th e adductor hiatus bridging the distal SFA and proximal above-knee popliteal. Th is area was successfully treated with LS atherectomy and 5 mm balloon angioplas ty as detailed above. Aorta w/Runoff CTA 01/19/18 0000 Signed Impressions: Service Date/Time: Friday, January 19, 2018 17:02 - CONCLUSION: 1. Bladder is severely distended which may reflect bladder outlet obstruction or neurogenic bladder. Patient may benefit from Quesada decompression. 2. No significant aortic stenosis. 3. Occluded right common iliac origin with reconstitution of the common femoral artery. 4. Moderate long segment stenosis of the left common iliac artery and proximal left external iliac artery. 5. Heavily calcified common femoral bifurcations bilaterally with diffusely diseased profunda. 6. Diffusely diseased bilateral SFA with multiple severe stenoses of the right SFA in the mid to distal thigh and short segment occlusion of the left SFA at the adductor canal. 7. Limited two-vessel runoff bilaterally, as above. Jasvir Fontenot MD Foot X-Ray 01/17/18 0000 Signed Impressions: Service Date/Time: Wednesday, January 17, 2018 21:46 - CONCLUSION: Suspected chronic deformity of the hindfoot. Lonnie Cordon MD Foot MRI 01/17/18 0000 Signed Impressions: Service Date/Time: Thursday, January 18, 2018 00:12 - CONCLUSION: 1. No definite evidence for osteomyelitis. No discrete abscess. 2. Unusual multifocal subchondral marrow edema throughout the left foot and ankle as above. The finding is nonspecific. It can be related to immobilization of the foot or limited use of the foot. Dewey Rmairez MD Objective Remarks GENERAL: This is a well-nourished, well-developed patient, in no apparent distress. CARDIOVASCULAR: Regular rate and regular rhythm without murmurs, gallops, or rubs. RESPIRATORY: Clear to auscultation. Breath sounds equal bilaterally. No wheezes , rales, or rhonchi. GASTROINTESTINAL: Abdomen soft, non-tender, nondistended. Normal, active bowel sounds MUSCULOSKELETAL: Left foot swelling improved, bilateral inguinal area, no significant hematoma. NEURO: Alert & Oriented x4 to person, place, time, situation. Moves all ext x4 Procedures Left common iliac and external iliac balloon angioplasty and stent, left SFA Hawk 1 endarterectomy and balloon angioplasty, left external iliac and common femoral endarterectomy patch angioplasty, right external iliac and common femoral endarterectomy with patch angioplasty and femoral-femoral bypass. A/P Problem List: (1) Cellulitis of left foot ICD Code: L03.116 - Cellulitis of left lower limb Status: Acute (2) Intractable pain ICD Code: R52 - Pain, unspecified Status: Acute Assessment and Plan Sepsis with Left Foot Cellulitis: Concern for septic joint vs osteomyelitis. Symptoms x1 month with worsening wound at left medial MTP and diffuse pain/ warmth/edema. WBC 14.5K, tachycardic, with suspected source-cellulitis vs septic joint. -X-ray reviewed, shows suspected chronic deformity hindfoot -MRI Foot reviewed, no definite osteomyelitis, however unusual marrow edema throughout left foot and ankle -initial Blood cultures with one bottle positive for MSSA -Wound culture with MSSA -podiatry consult appreciated and no plan for surgical intervention at this time. -repeated blood cultures negative and echo with no vegetation -ID following, continue cefazolin for 4 weeks. PVD - CTA runoff as noted above. -s/p bilateral femoral-femoral bypass, treated with vascular surgery. Continue Plavix. Hypotension-unknown etiology, rule out sepsis, check lactic acid, recheck CBC, recheck blood cultures, check urinalysis. Could also be secondary to bladder outlet obstruction, insert Quesada catheter / straight cath, start normal saline 500 cc bolus. All other medical conditions stable, continue home meds as appropriate. DVT Prophylaxis: Mechanical contraindication secondary to wound/cellulitis. chemical prophylaxis tomorrow when stable. John Nowak MD January 25, 2018 12:21
[2018-01-25] MEDS ORDERED: SODIUM CHLORID 0.9% IV ONE (12:30)
[2018-01-25 13:15] LABS: AUTOMATED NEUTROPHIL # 10.2 TH/MM3 (1.8-7.7); BASOPHIL # 0.1 TH/MM3 (0-0.2); BASOPHIL % 0.6 % (0.0-2.0); EOSINOPHIL # 0.1 TH/MM3 (0-0.4); EOSINOPHIL % 0.7 % (0.0-4.0); HEMATOCRIT 30.6 % (39.0-51.0); HEMOGLOBIN 9.9 GM/DL (13.0-17.0); LYMPH % 13.2 % (9.0-44.0); LYMPHOCYTE # 1.8 TH/MM3 (1.0-4.8); MEAN CELL VOLUME 73.1 FL (80.0-100.0); MEAN CORPUSCULAR HEMOGLOBIN 23.7 PG (27.0-34.0); MEAN CORPUSCULAR HGB CONC 32.4 % (32.0-36.0); MEAN PLATELET VOLUME 7.4 FL (7.0-11.0); MONO % 9.5 % (0.0-8.0); MONOCYTE # 1.3 TH/MM3 (0-0.9); PLATELET COUNT 249 TH/MM3 (150-450); RED BLOOD COUNT 4.18 MIL/MM3 (4.50-5.90); RED CELL DISTRIBUTION WIDTH 16.2 % (11.6-17.2); WHITE BLOOD COUNT 13.4 TH/MM3 (4.0-11.0)
[2018-01-25 13:36] LABS: ALBUMIN 2.9 GM/DL (3.4-5.0); AST (GOT) 19 U/L (15-37); BICARBONATE 28.5 MEQ/L (21.0-32.0); BLOOD UREA NITROGEN 13 MG/DL (7-18); CALCIUM 8.3 MG/DL (8.5-10.1); CHLORIDE 106 MEQ/L (98-107); CREATININE 0.99 MG/DL (0.60-1.30); GLOMERULAR FILTRATION RATE 93 ML/MIN (>89); GLUCOSE,RANDOM 133 MG/DL (74-106); SODIUM (NA) 142 MEQ/L (136-145)
[2018-01-25 13:38] LABS: ALKALINE PHOSPHATASE 62 U/L (45-117); ALT (GPT) 11 U/L (12-78); TOTAL BILIRUBIN ADULT 0.4 MG/DL (0.2-1.0); TOTAL PROTEIN 6.8 GM/DL (6.4-8.2)
[2018-01-25 15:28] LABS: BILIRUBIN, URINE NEG (NEG); BLOOD, URINE SMALL (NEG); GLUCOSE,URINE NEG (NEG); KETONE, URINE NEG (NEG); NITRITE,URINE NEG (NEG); SQUAMOUS EPITHELIAL CELL URINE 3 /hpf (0-5); URINE COLOR YELLOW (YELLW/STRAW); URINE LEUKOCYTE ESTERASE MOD (NEG)
[2018-01-26] VITALS (8 sets, daily range): BP systolic 81–137; BP diastolic 52–95; PULSE 78–95; RESP 18; TEMP 97.4–99.6; O2SAT 95–99
[2018-01-26] MEDS: ceFAZolin 2 GM PREMIX 50 ML IV SCH ×3 (04:54→21:15)
[2018-01-26 07:32] LABS: HEMATOCRIT 32.6 % (39.0-51.0); HEMOGLOBIN 10.4 GM/DL (13.0-17.0); MEAN CELL VOLUME 73.4 FL (80.0-100.0); MEAN CORPUSCULAR HEMOGLOBIN 23.5 PG (27.0-34.0); MEAN PLATELET VOLUME 7.5 FL (7.0-11.0); PLATELET COUNT 288 TH/MM3 (150-450); RED BLOOD COUNT 4.44 MIL/MM3 (4.50-5.90); RED CELL DISTRIBUTION WIDTH 16.3 % (11.6-17.2); WHITE BLOOD COUNT 11.4 TH/MM3 (4.0-11.0)
[2018-01-26] MEDS: CLOPIDOGREL 75 MG TAB PO SCH (08:00)
[2018-01-26] MEDS: SODIUM CHLORIDE 0.9% FLUSH 10 ML FLUSH IV FLUSH SCH ×2 (08:58→21:16)
--- NOTE | 2018-01-26 11:23 | HHI.PR ---
Subjective Remarks Follow-up for hypertension, urinary retention Yesterday, patient was hypotensive in the 80s systolic, improved to 100s after fluid bolus and urinary drainage. Bladder scan was done showed 550 cc of urine , a Quesada catheter was inserted, 1100 cc of bloody urine was drained, intermittent irrigation was done, urine is now more clear, yellowish. Patient denies any suprapubic point at this point, no fever or chills. Hemoglobin is stable. Objective Vitals Vital Signs Date Time Temp Pulse Resp B/P (MAP) Pulse Ox O2 Delivery O2 Flow Rate FiO2 01/26/18 08:02 97.4 78 18 107/69 (82) 98 01/26/18 07:15 Room Air 01/26/18 05:53 99.0 90 18 123/95 (104) 99 01/26/18 00:39 99.0 91 18 105/75 (85) 98 01/25/18 20:10 Room Air 01/25/18 20:05 99.2 97 18 112/62 (79) 99 01/25/18 16:03 98.9 77 18 100/66 (77) 99 01/25/18 13:51 99/64 (76) 01/25/18 11:50 87/54 (65) 01/25/18 11:49 99.1 91 18 88/50 (63) 99 I/O 01/25/18 01/25/18 01/25/18 01/26/18 01/26/18 01/26/18 07:00 15:00 23:00 07:00 15:00 23:00 Intake Total 400 ml 550 ml Output Total 1000 ml 1325 ml 550 ml 575 ml Balance -600 ml 550 ml -1325 ml -550 ml -575 ml Intake Oral 400 ml IV Total 550 ml Output Urine Total 1000 ml 1325 ml 550 ml 575 ml Bladder Scan Volume Amount 555 ml # Bowel Movements 0 1 6 Result Diagram: 01/26/18 0700 01/25/18 1300 Objective Remarks GENERAL: Not in distress CARDIOVASCULAR: Regular rate and regular rhythm without murmurs, gallops, or rubs. RESPIRATORY: Clear to auscultation. Breath sounds equal bilaterally. No wheezes , rales, or rhonchi. GASTROINTESTINAL: Abdomen soft, mild suprapubic tenderness, Quesada catheter in place, draining yellowish urine, previously bloody. MUSCULOSKELETAL: Left foot swelling improved, bilateral inguinal area, no significant hematoma. NEURO: Alert & Oriented x4 to person, place, time, situation. Left hemiparesis , Procedures Left common iliac and external iliac balloon angioplasty and stent, left SFA Hawk 1 endarterectomy and balloon angioplasty, left external iliac and common femoral endarterectomy patch angioplasty, right external iliac and common femoral endarterectomy with patch angioplasty and femoral-femoral bypass. A/P Problem List: (1) Cellulitis of left foot ICD Code: L03.116 - Cellulitis of left lower limb Status: Acute (2) Intractable pain ICD Code: R52 - Pain, unspecified Status: Acute Assessment and Plan This is a 62-year-old male with a PMH of HTN, Hyperlipidemia, BPH and h/o CVA w / Left-Sided Weakness who was brought to the ER for left foot pain and swelling. Sepsis with Left Foot Cellulitis: Concern for septic joint vs osteomyelitis. Symptoms x1 month with worsening wound at left medial MTP and diffuse pain/ warmth/edema. X-ray reviewed, shows suspected chronic deformity hindfoot. MRI Foot reviewed, no definite osteomyelitis, however unusual marrow edema throughout left foot and ankle. Wound culture and blood culture grew MSSA. Podiatry was consulted, no surgical intervention at this point. Infectious disease was consulted, recommended cefazolin for 4 weeks. PVD-secondary to concern of peripheral vascular disease, vascular surgery was consulted, CTA runoff was done, showed occluded right common iliac origin, moderate long segment stenosis of the left common iliac artery and proximal left external iliac with heavy calcification of the common femoral bifurcation bilaterally. Patient went for bilateral femoral-femoral bypass, started on Plavix. Hypotension-unknown etiology, rule out worsening sepsis, blood cultures were repeated, CBC was unremarkable, WBC elevated but unchanged. Lactic acid was normal. Urinalysis was suspicious, follow-up urine culture. Blood pressure is now better, continue cefazolin, will discuss with infectious disease. Acute urinary retention-bladder scan showed urinary retention about 500 cc, after Quesada catheter placement, there was 1100 cc of drainable urine, mostly bloody, intermittent irrigation was done, urine is now more clear, consult urology. Recent CT scan of the abdomen was done, bladder distention was noted, will defer further imaging to urology. All other medical conditions stable, continue home meds as appropriate. DVT Prophylaxis: Mechanical contraindication secondary to wound/cellulitis. chemical prophylaxis when bleeding from the urinary tract is stable. John Nowak MD January 26, 2018 11:23
[2018-01-26] MEDS ORDERED: POTASSIUM CHLORIDE 20 MEQ PWD PACKET PO ONE (11:45)
[2018-01-27 00:56] VITALS: BP 98/58; PULSE 81; RESP 18; TEMP 99.4; O2SAT 97
[2018-01-27 04:53] VITALS: BP 103/57; PULSE 78; RESP 18; TEMP 98.8; O2SAT 98
[2018-01-27] MEDS: ceFAZolin 2 GM PREMIX 50 ML IV SCH ×3 (06:29→22:09)
[2018-01-27 07:31] LABS: AUTOMATED NEUTROPHIL # 5.7 TH/MM3 (1.8-7.7); BASOPHIL % 0.4 % (0.0-2.0); EOSINOPHIL # 0.1 TH/MM3 (0-0.4); EOSINOPHIL % 1.3 % (0.0-4.0); HEMATOCRIT 33.4 % (39.0-51.0); LYMPH % 27.6 % (9.0-44.0); LYMPHOCYTE # 2.7 TH/MM3 (1.0-4.8); MEAN CORPUSCULAR HEMOGLOBIN 23.9 PG (27.0-34.0); MEAN CORPUSCULAR HGB CONC 32.7 % (32.0-36.0); MEAN PLATELET VOLUME 7.4 FL (7.0-11.0); MONO % 11.6 % (0.0-8.0); MONOCYTE # 1.1 TH/MM3 (0-0.9); NEUT % 59.1 % (16.0-70.0); PLATELET COUNT 304 TH/MM3 (150-450); RED BLOOD COUNT 4.58 MIL/MM3 (4.50-5.90); RED CELL DISTRIBUTION WIDTH 16.1 % (11.6-17.2); WHITE BLOOD COUNT 9.6 TH/MM3 (4.0-11.0)
[2018-01-27 09:00] VITALS: BP 119/80; PULSE 76; RESP 15; TEMP 98.1; O2SAT 99
--- NOTE | 2018-01-27 10:25 | MB ---
cc: Joshua Arroyo MD DATE: 01/27/2018 REASON FOR CONSULTATION: 1. Urinary retention. 2. Benign prostatic hypertrophy. HISTORY OF PRESENT ILLNESS: The patient is a 62-year-old male with a history of a previous stroke in the past and known BPH, who was admitted to [facility] on 01/18/2018 with increasing pain for over a month of his left great toe. During evaluation, he had a CTA with runoff, which showed a severely distended bladder, but no evidence of any hydronephrosis. His urine had been intermittent on and off for the last 8 days a week. He has been wearing a condom catheter with decreasing output. Eventually, due to the CT scan findings, he had a Quesada catheter placed with over 1100 mL of pink-tinged urine returned. However, once his catheter was placed, the patient states he initially felt some relief in his lower abdominal area. The patient states he has had trouble voiding for months urinating quite frequently, especially at night going 4-5 times with a weak stream and occasionally leaking on himself. He denies a history of hematuria, dysuria, fevers, chills, abdominal pain, or flank pain. Denies a history of kidney stones or urinary tract infections. He denies prior surgery on his prostate as well. REVIEW OF SYSTEMS: See HPI, otherwise all systems reviewed, otherwise were negative. PAST MEDICAL HISTORY: Significant for hypertension, hyperlipidemia, BPH, history of stroke with left-sided weakness. PAST SURGICAL HISTORY: He has had cardiac stents and circumcision. ALLERGIES: NO KNOWN DRUG ALLERGIES. FAMILY HISTORY: Denies urolithiasis or genitourinary malignancy. SOCIAL HISTORY: Negative for alcohol, tobacco or illicit drugs. MEDICATIONS: 1. Plavix 75 mg daily. 2. Reglan 5 mg IV. 3. Hydrocodone. 4. Ancef. PHYSICAL EXAMINATION: VITAL SIGNS: Temperature 98.1, pulse 76, respiration rate 15, BP 119/80, saturating 99% on room air. GENERAL: He is alert and oriented x 3 in no apparent distress, pleasant and cooperative gentleman who appears his stated age. HEAD: head is normocephalic, atraumatic. NECK: Supple. Trachea is midline. No JVD. EYES: No sclerae icterus. Extraocular muscles intact. External auditory hearing is normal. External nares are normal. LUNGS: Clear to auscultation bilaterally. No wheezes, rales, rhonchi. HEART: Regular rhythm. No murmurs, gallops or rubs. ABDOMEN: Soft, nontender, nondistended, positive bowel sounds. GENITOURINARY: His penis is circumcised. Testes descended bilaterally, normal size and consistency without mass. Quesada catheter draining clear yellow urine. RECTAL: Exam not indicated. EXTREMITIES: Nontender. No clubbing, cyanosis or edema. NEUROLOGIC: Cranial nerves II through XII intact. Strength 3/5 in the left upper and lower extremities, 5/5 in right upper and lower extremities. SKIN: No ulcers or rashes visible. Mucus membranes are warm and moist. PSYCHIATRIC: Slightly flat affect. Answers questions appropriately. LABORATORY DATA: White count 9.6, hemoglobin 11.0, hematocrit 33.4, platelet count 304. Sodium 142, potassium 3.3, chloride 106, bicarbonate 28.5, BUN 13, creatinine 0.99, glucose 133, calcium 8.3. His urine showed small blood. IMAGING STUDIES: CTA with runoff images were reviewed and interpreted on my own. He does have a severely distended bladder with a thickened muscular wall, but no evidence of any hydronephrosis, no evidence of any kidney stones or renal masses. ASSESSMENT: The patient is a 62-year-old male with a history of a stroke in the past with residual left-sided weakness, BPH with lower urinary tract symptoms who presents with urinary retention. PLAN: We will start the patient on Flomax 0.4 mg daily. Recommend continuing the Quesada catheter and will void trial on an outpatient basis. He will possibly need urodynamics and a cystoscopy in the future due to his prior history of neurologic disease. Thank you for this consult. Please call with any questions. I will be available as needed. MD PATRICIO Mora/PJ , 09:58 AM , 10:24 AM
[2018-01-27] MEDS: SODIUM CHLORIDE 0.9% FLUSH 10 ML FLUSH IV FLUSH SCH ×2 (11:31→22:09)
[2018-01-27] MEDS: CLOPIDOGREL 75 MG TAB PO SCH (11:31)
[2018-01-27] MEDS: TAMSULOSIN HCL 0.4 MG CAP PO SCH (11:37)
[2018-01-27 12:00] VITALS: BP 129/73; PULSE 89; RESP 18; TEMP 97.7; O2SAT 99
--- NOTE | 2018-01-27 13:04 | HHI.IDPN ---
Subjective Subjective Remarks afebrile 555 bladder residuals, now with sanchez BMs 6-7 BC with Strep spp in 1/4 bottles, had fever 2 days ago Antibiotics cefazoline Allergies: Coded Allergies: No Known Allergies (Verified Allergy, Unknown, 11/04/17) Objective . Vital Signs Date Time Temp Pulse Resp B/P (MAP) Pulse Ox O2 Delivery O2 Flow Rate FiO2 01/27/18 12:04 Room Air 01/27/18 09:00 98.1 76 15 119/80 (93) 99 01/27/18 04:53 98.8 78 18 103/57 (72) 98 01/27/18 00:56 99.4 81 18 98/58 (71) 97 01/26/18 21:15 Room Air 01/26/18 20:30 99.6 89 18 120/60 (80) 97 01/26/18 17:07 137/72 (93) 01/26/18 15:48 98.4 95 18 81/52 (62) 95 . Laboratory Tests Test 01/25/18 13:00 01/26/18 07:00 01/27/18 06:28 White Blood Count 13.4 TH/MM3 11.4 TH/MM3 9.6 TH/MM3 Red Blood Count 4.18 MIL/MM3 4.44 MIL/MM3 4.58 MIL/MM3 Hemoglobin 9.9 GM/DL 10.4 GM/DL 11.0 GM/DL Hematocrit 30.6 % 32.6 % 33.4 % Mean Corpuscular Volume 73.1 FL 73.4 FL 73.0 FL Mean Corpuscular Hemoglobin 23.7 PG 23.5 PG 23.9 PG Mean Corpuscular Hemoglobin Concent 32.4 % 32.0 % 32.7 % Red Cell Distribution Width 16.2 % 16.3 % 16.1 % Platelet Count 249 TH/MM3 288 TH/MM3 304 TH/MM3 Mean Platelet Volume 7.4 FL 7.5 FL 7.4 FL Neutrophils (%) (Auto) 76.0 % 59.1 % Lymphocytes (%) (Auto) 13.2 % 27.6 % Monocytes (%) (Auto) 9.5 % 11.6 % Eosinophils (%) (Auto) 0.7 % 1.3 % Basophils (%) (Auto) 0.6 % 0.4 % Neutrophils # (Auto) 10.2 TH/MM3 5.7 TH/MM3 Lymphocytes # (Auto) 1.8 TH/MM3 2.7 TH/MM3 Monocytes # (Auto) 1.3 TH/MM3 1.1 TH/MM3 Eosinophils # (Auto) 0.1 TH/MM3 0.1 TH/MM3 Basophils # (Auto) 0.1 TH/MM3 0.0 TH/MM3 CBC Comment DIFF FINAL DIFF FINAL Differential Comment Laboratory Tests Test 01/25/18 13:00 Blood Urea Nitrogen 13 MG/DL Creatinine 0.99 MG/DL Random Glucose 133 MG/DL Total Protein 6.8 GM/DL Albumin 2.9 GM/DL Calcium Level 8.3 MG/DL Alkaline Phosphatase 62 U/L Aspartate Amino Transf (AST/SGOT) 19 U/L Alanine Aminotransferase (ALT/SGPT) 11 U/L Total Bilirubin 0.4 MG/DL Sodium Level 142 MEQ/L Potassium Level 3.3 MEQ/L Chloride Level 106 MEQ/L Carbon Dioxide Level 28.5 MEQ/L Anion Gap 8 MEQ/L Estimat Glomerular Filtration Rate 93 ML/MIN Lactic Acid Level 1.5 mmol/L Microbiology Date/Time Source Procedure Growth Status 01/25/18 15:08 Blood Peripheral Aerobic Blood Culture - Preliminary Streptococcus Species Resulted 01/25/18 15:08 Blood Peripheral Anaerobic Blood Culture - Preliminary NO GROWTH IN 2 DAYS Resulted 01/25/18 15:00 Blood Peripheral Aerobic Blood Culture - Preliminary NO GROWTH IN 2 DAYS Resulted 01/25/18 15:00 Blood Peripheral Anaerobic Blood Culture - Preliminary NO GROWTH IN 2 DAYS Resulted 01/25/18 14:30 Urine Clean Catch Urine Culture - Final NO GROWTH IN 48 HOURS. Complete Imaging Last Impressions Lower Extremity Angiography 01/22/18 0000 Signed Impressions: CONCLUSION: 1. Segmental inflow stenosis in the left common iliac and proximal external il iac treated with 8 mm stent and 7 mm balloon angioplasty. 2. Short segment occlusion with multiple segments of high-grade stenosis at th e adductor hiatus bridging the distal SFA and proximal above-knee popliteal. Th is area was successfully treated with LS atherectomy and 5 mm balloon angioplas ty as detailed above. Aorta w/Runoff CTA 01/19/18 0000 Signed Impressions: Service Date/Time: Friday, January 19, 2018 17:02 - CONCLUSION: 1. Bladder is severely distended which may reflect bladder outlet obstruction or neurogenic bladder. Patient may benefit from Sanchez decompression. 2. No significant aortic stenosis. 3. Occluded right common iliac origin with reconstitution of the common femoral artery. 4. Moderate long segment stenosis of the left common iliac artery and proximal left external iliac artery. 5. Heavily calcified common femoral bifurcations bilaterally with diffusely diseased profunda. 6. Diffusely diseased bilateral SFA with multiple severe stenoses of the right SFA in the mid to distal thigh and short segment occlusion of the left SFA at the adductor canal. 7. Limited two-vessel runoff bilaterally, as above. Jasvir Fontenot MD Foot X-Ray 01/17/18 0000 Signed Impressions: Service Date/Time: Wednesday, January 17, 2018 21:46 - CONCLUSION: Suspected chronic deformity of the hindfoot. Lonnie Cordon MD Foot MRI 01/17/18 0000 Signed Impressions: Service Date/Time: Thursday, January 18, 2018 00:12 - CONCLUSION: 1. No definite evidence for osteomyelitis. No discrete abscess. 2. Unusual multifocal subchondral marrow edema throughout the left foot and ankle as above. The finding is nonspecific. It can be related to immobilization of the foot or limited use of the foot. Dewey Ramirez MD Physical Exam CONSTITUTIONAL/GENERAL: This is a thin elderly male patient, in no apparent distress. TUBES/LINES/DRAINS: SKIN: No jaundice, rashes, or lesions. Ecchymoses on upper extremities. No wounds seen anteriorly. Skin temperature appropriate. Not diaphoretic. CARDIOVASCULAR: Regular rate and rhythm without murmurs, gallops, or rubs. No JVD. Peripheral pulses symmetric. RESPIRATORY/CHEST: Symmetric, unlabored respirations. Clear to auscultation. Breath sounds equal bilaterally. No wheezes, rales, or rhonchi. GASTROINTESTINAL: Abdomen soft, non-tender, nondistended. No hepato-splenomegaly , or palpable masses. No guarding. Bowel sounds present. GENITOURINARY: Without palpable bladder distension. sanchez in place with clear yellow uyrine MUSCULOSKELETAL: Extremities without clubbing, cyanosis, Fett are warm Non tender Lt MT lesion is dry, edema , erythema resolved; today more tener with some thin blister with purulence NEUROLOGICAL: Awake and alert. Baseline L hemiparesis . Follows commands. Confused. Moves all extremities. PSYCHIATRIC: No obvious anxiety/depression. no apparent hallucinations or other psychotic thought process. Assessment & Plan Remarks MSSA infected 1st MT wound , left ? gout MSSA sepsis - 2/2 foot infection 2 D echo w/o vegetations Underlying moderate to severe PVD Bladder outlet obstruction - sanchez placed - UA/C+S not cw inf New strep bacteremia ? significance More pain, purulence of Lt 1 MT abx associated diarrhea cont cefazolin fu repeat BC ID on strep complete 4 weeks of abx reconsult podiatry chk stool forn C.diff Olya Stokes MD January 27, 2018 13:03
--- NOTE | 2018-01-27 14:28 | PD.POD ---
Subjective Podiatric Problems 61-year-old male status post revascularization with left medial foot ulcer Pain score: 5 Past Med/Surg/Social History Past Medical History Cardiovascular: REPORTS HX OF: Hypertension Psychiatric: REPORTS HX OF: Other psychiatric history (substance abuse) Social History Smoking Status: Current Every Day Smoker Objective Vital Signs Vital Signs Date Time Temp Pulse Resp B/P (MAP) Pulse Ox O2 Delivery O2 Flow Rate FiO2 01/27/18 12:04 Room Air 01/27/18 09:00 98.1 76 15 119/80 (93) 99 01/27/18 04:53 98.8 78 18 103/57 (72) 98 01/27/18 00:56 99.4 81 18 98/58 (71) 97 01/26/18 21:15 Room Air 01/26/18 20:30 99.6 89 18 120/60 (80) 97 01/26/18 17:07 137/72 (93) 01/26/18 15:48 98.4 95 18 81/52 (62) 95 Coded Allergies: No Known Allergies (Verified Allergy, Unknown, 11/04/17) Assessment & Plan A/P Left foot wound, increased pain Ordered repeat MRI Left foot with/without contrast to further evaluate/ compare Will discuss further treatment with patient based on results Jaron Villeda DPM January 27, 2018 14:28
--- NOTE | 2018-01-27 15:52 | HHI.PR ---
Subjective Remarks Mr. Frank is doing well today. No complaints. His foot has gradually improved. He does have hematuria which is still present and not stable for discharge. Objective Vital Signs Date Time Temp Pulse Resp B/P (MAP) Pulse Ox O2 Delivery O2 Flow Rate FiO2 01/27/18 12:04 Room Air 01/27/18 12:00 97.7 89 18 129/73 (91) 99 01/27/18 09:00 98.1 76 15 119/80 (93) 99 01/27/18 04:53 98.8 78 18 103/57 (72) 98 01/27/18 00:56 99.4 81 18 98/58 (71) 97 01/26/18 21:15 Room Air 01/26/18 20:30 99.6 89 18 120/60 (80) 97 01/26/18 17:07 137/72 (93) 01/26/18 15:48 98.4 95 18 81/52 (62) 95 I/O 01/26/18 01/26/18 01/26/18 01/27/18 01/27/18 01/27/18 06:59 14:59 22:59 06:59 14:59 22:59 Intake Total 50 ml Output Total 550 ml 575 ml 375 ml 300 ml Balance -550 ml -525 ml -375 ml -300 ml IV Total 50 ml Output Urine Total 550 ml 575 ml 375 ml 300 ml # Bowel Movements 6 Result Diagram: 01/27/18 0628 01/25/18 1300 Objective Remarks GENERAL: NAD, A&Ox3 HEAD: Normocephalic. NECK: Supple, trachea midline. No lymphadenopathy. EYES: No scleral icterus. No injection or drainage. CARDIOVASCULAR: Regular rate and rhythm without murmurs, gallops, or rubs. RESPIRATORY: Breath sounds equal bilaterally. No accessory muscle use. GASTROINTESTINAL: Abdomen soft, non-tender, nondistended. MUSCULOSKELETAL: No cyanosis, or edema. SKIN: Warm and dry. NEURO: No focal neurological deficitis. A/P Problem List: (1) Cellulitis of left foot ICD Code: L03.116 - Cellulitis of left lower limb Status: Acute (2) Hypotension ICD Code: I95.9 - Hypotension Status: Acute (3) Hematuria, gross ICD Code: R31.0 - Hematuria, gross Status: Acute Assessment and Plan 62-year-old male admitted for left foot pain and swelling. Sepsis Resolved Left Foot Cellulitis septic joint vs osteomyelitis Continue cefazolin for 4 weeks Podiatry following ID following Peripheral vascular disease History of femorofemoral bypass PVD contributory to limb/foot disease Continue Plavix Hypotension Resolved Urinary obstruction hematuria Follow for improvement Monitor renal function DVT prophylaxis SCDs No chemoprophylaxis due to active bleeding Zachariah Vargas MD January 27, 2018 15:52
[2018-01-27 16:00] VITALS: BP_SYST 135; BP_SYST 150; BP_DIAS 66; BP_DIAS 95; PULSE 94; RESP 18; TEMP 98.2; O2SAT 100
[2018-01-27 20:00] VITALS: BP 141/77; PULSE 97; RESP 20; TEMP 98.5; O2SAT 99
[2018-01-28] VITALS: BP 141/67; PULSE 90; RESP 20; TEMP 98.4; O2SAT 100
[2018-01-28 04:00] VITALS: BP 139/83; PULSE 74; RESP 20; TEMP 98.2; O2SAT 100
[2018-01-28] MEDS: ceFAZolin 2 GM PREMIX 50 ML IV SCH ×3 (05:36→21:07)
[2018-01-28 07:14] LABS: AUTOMATED NEUTROPHIL # 5.8 TH/MM3 (1.8-7.7); BASOPHIL # 0.1 TH/MM3 (0-0.2); BASOPHIL % 0.7 % (0.0-2.0); EOSINOPHIL # 0.2 TH/MM3 (0-0.4); EOSINOPHIL % 1.9 % (0.0-4.0); HEMATOCRIT 32.2 % (39.0-51.0); HEMOGLOBIN 10.6 GM/DL (13.0-17.0); LYMPH % 25.5 % (9.0-44.0); LYMPHOCYTE # 2.4 TH/MM3 (1.0-4.8); MEAN CORPUSCULAR HEMOGLOBIN 24.3 PG (27.0-34.0); MEAN CORPUSCULAR HGB CONC 32.9 % (32.0-36.0); MEAN PLATELET VOLUME 7.6 FL (7.0-11.0); MONO % 9.8 % (0.0-8.0); MONOCYTE # 0.9 TH/MM3 (0-0.9); NEUT % 62.1 % (16.0-70.0); PLATELET COUNT 324 TH/MM3 (150-450); RED BLOOD COUNT 4.35 MIL/MM3 (4.50-5.90); RED CELL DISTRIBUTION WIDTH 16.1 % (11.6-17.2); WHITE BLOOD COUNT 9.4 TH/MM3 (4.0-11.0)
[2018-01-28 07:37] LABS: ALT (GPT) 14 U/L (12-78); BICARBONATE 25.7 MEQ/L (21.0-32.0); BLOOD UREA NITROGEN 20 MG/DL (7-18); CALCIUM 8.7 MG/DL (8.5-10.1); CHLORIDE 107 MEQ/L (98-107); GLUCOSE,RANDOM 82 MG/DL (74-106); SODIUM (NA) 142 MEQ/L (136-145)
[2018-01-28 07:39] LABS: ALKALINE PHOSPHATASE 84 U/L (45-117); AST (GOT) 27 U/L (15-37); CREATININE 0.97 MG/DL (0.60-1.30); GLOMERULAR FILTRATION RATE 95 ML/MIN (>89); TOTAL BILIRUBIN ADULT 0.3 MG/DL (0.2-1.0); TOTAL PROTEIN 7.3 GM/DL (6.4-8.2)
[2018-01-28 08:00] VITALS: BP 133/68; PULSE 73; RESP 19; TEMP 98; O2SAT 99
[2018-01-28] MEDS: SODIUM CHLORIDE 0.9% FLUSH 10 ML FLUSH IV FLUSH SCH ×2 (08:45→20:00)
[2018-01-28] MEDS: TAMSULOSIN HCL 0.4 MG CAP PO SCH (08:45)
[2018-01-28] MEDS: CLOPIDOGREL 75 MG TAB PO SCH (08:45)
--- NOTE | 2018-01-28 10:19 | HHI.PR ---
Subjective Remarks Repeat MRI and Vascular US ordered for today. Patient has a decrease in hematuria today, compared to prior day(s). No new complaints from the patient. Objective Vital Signs Date Time Temp Pulse Resp B/P (MAP) Pulse Ox O2 Delivery O2 Flow Rate FiO2 01/28/18 04:00 98.2 74 20 139/83 (101) 100 01/28/18 00:00 98.4 90 20 141/67 (91) 100 01/27/18 20:00 98.5 97 20 141/77 (98) 99 01/27/18 19:07 Room Air 01/27/18 16:00 98.2 94 18 135/95 (108) 100 01/27/18 12:04 Room Air 01/27/18 12:00 97.7 89 18 129/73 (91) 99 I/O 01/27/18 01/27/18 01/27/18 01/28/18 01/28/18 01/28/18 07:00 15:00 23:00 07:00 15:00 23:00 Intake Total 240 ml Output Total 300 ml 250 ml Balance -300 ml -10 ml Intake Oral 240 ml Output Urine Total 300 ml 250 ml Result Diagram: 01/28/18 0440 01/28/18 0640 Objective Remarks GENERAL: NAD, A&Ox3 HEAD: Normocephalic. NECK: Supple, trachea midline. No lymphadenopathy. EYES: No scleral icterus. No injection or drainage. CARDIOVASCULAR: Regular rate and rhythm without murmurs, gallops, or rubs. RESPIRATORY: Breath sounds equal bilaterally. No accessory muscle use. GASTROINTESTINAL: Abdomen soft, non-tender, nondistended. MUSCULOSKELETAL: No cyanosis, or edema. SKIN: Warm and dry. NEURO: No focal neurological deficitis. A/P Problem List: (1) Cellulitis of left foot ICD Code: L03.116 - Cellulitis of left lower limb Status: Acute (2) Hypotension ICD Code: I95.9 - Hypotension Status: Acute (3) Hematuria, gross ICD Code: R31.0 - Hematuria, gross Status: Acute Assessment and Plan 62-year-old male admitted for left foot pain and swelling. Hematuria improving. Continue to monitor CBC. Repeat imaging of foot in process. Final decisions about management of the foot infection pending. Sepsis Resolved Left Foot Cellulitis septic joint vs osteomyelitis Continue cefazolin for 4 weeks Podiatry following ID following Peripheral vascular disease History of femorofemoral bypass PVD contributory to limb/foot disease Continue Plavix Hypotension Resolved Urinary obstruction hematuria Follow for improvement Monitor renal function DVT prophylaxis SCDs No chemoprophylaxis due to active bleeding Zachariah Vargas MD January 28, 2018 10:19
[2018-01-28 12:00] VITALS: BP 141/68; PULSE 85; RESP 20; TEMP 98.2; O2SAT 98
[2018-01-28] MEDS ORDERED: PHENYLEPH/NS 1000 MCG/10 ML SYR IV ONE (12:00)
[2018-01-28] MEDS ORDERED: PROPOFOL 200 MG/20 ML AMP IV ONE (12:00)
[2018-01-28] MEDS ORDERED: ONDANSETRON HCL 4 MG/2 ML VIAL IV PUSH ONE (12:00)
[2018-01-28] MEDS ORDERED: ePHEDrine/NS 25 MG/5 ML SYRINGE IV ONE (12:00)
[2018-01-28] MEDS ORDERED: ceFAZolin INJ 1,000 MG VIAL IV ONE (12:00)
[2018-01-28] MEDS ORDERED: LIDOCAINE HCL 1% PF 5 ML SYRINGE OTHER ONE (12:00)
[2018-01-28] MEDS ORDERED: GADODIAMIDE PF 287 MG/ML 5 ML VIAL (for RAD MRI) IV PUSH ONE (14:42)
--- NOTE | 2018-01-28 15:33 | RADRPT ---
EXAM DATE: 01/28/2018 2:40 PM EDT AGE/SEX: 62 years / Male INDICATIONS: Osteomyelitis. Metatarsal phalangeal joint of the great toe wound. CLINICAL DATA: This is the patient's subsequent encounter. Patient reports that signs and symptoms h ave been present for 1 week and indicates a pain score of 4/10. MEDICAL/SURGICAL HISTORY: Hypertension. Coronary artery stent. COMPARISON: No prior exams available for comparison. TECHNIQUE: Multiplanar, multisequence MRI examination was performed without contrast and after th e intravenous administration of 11 ml Omniscan (gadodiamide) single exam dose. FINDINGS: Bones: There is an unusual pattern of edema throughout the foot. The patient has a hallux valgus defo rmity with some surrounding bony edema and significant bony edema in both of the underlying sesamoid bones. Significant edema involving the first metatarsal base almost suggesting a stress fracture. Joint Spaces: There is marked enhancement around the first MTP joint. Tendons: The flexor tendons are intact. Soft Tissues: Unremarkable. Other: The plantar fascia is intact. No signal abnormalities are seen in the plantar musculature. Post Contrast: Diffuse enhancement throughout the midfoot including around the first MTP joint. No ob vious fistulous tract is identified CONCLUSION: 1. Significant bony edema in and around the first MTP joint including both of the sesamoid bones. I suspect is related to hallux valgus deformity. 2. Linear edema and enhancement along the first metatarsal base and a pattern suggesting a stress fr acture 3. No evidence of osteomyelitis Electronically signed by: Brett Morris MD 01/28/2018 3:32 PM EDT
[2018-01-28 16:00] VITALS: BP 132/70; PULSE 83; RESP 19; TEMP 98.1; O2SAT 99
[2018-01-28] MEDS ORDERED: LACTATED RINGER'S 1000 ML IV PRN (17:45)
[2018-01-28] MEDS ORDERED: POVIDONE IODINE 5% (ANTISEPSIS KIT) 4 APPLICATIONS EACH NARE PRN (17:45)
[2018-01-28] MEDS ORDERED: SODIUM CHLORID 0.9% 500 ML IV PRN (17:45)
[2018-01-28] MEDS ORDERED: CHLORHEXIDINE GLUCONATE 2 % 1 PACK (2 CLOTHS) TOPICAL PRN (17:45)
[2018-01-28] MEDS ORDERED: BUPIVACAINE HCL PF 0.75% 10 ML VIAL ONE ×2 (21:09→21:12)
--- NOTE | 2018-01-28 21:31 | PD.POD ---
Subjective Podiatric Problems 61-year-old male status post revascularization with left medial foot ulcer Pain score: 5 Past Med/Surg/Social History Past Medical History Cardiovascular: REPORTS HX OF: Hypertension Psychiatric: REPORTS HX OF: Other psychiatric history (substance abuse) Social History Smoking Status: Current Every Day Smoker Objective Vital Signs Vital Signs Date Time Temp Pulse Resp B/P (MAP) Pulse Ox O2 Delivery O2 Flow Rate FiO2 01/28/18 16:00 98.1 83 19 132/70 (90) 99 01/28/18 12:00 98.2 85 20 141/68 (92) 98 01/28/18 10:30 Room Air 01/28/18 08:00 98.0 73 19 133/68 (89) 99 01/28/18 04:00 98.2 74 20 139/83 (101) 100 01/28/18 00:00 98.4 90 20 141/67 (91) 100 01/27/18 22:09 Room Air Coded Allergies: No Known Allergies (Verified Allergy, Unknown, 11/04/17) Assessment & Plan A/P Left foot wound, increased pain Reviewed repeat MRI Left foot and discussed with patient that with wound and drainage, I can excise wound and take bone for biopsy under wound area to confirm He agreed to move forward with bone biopsy left foot and possible joint resection 1st MTP joint. Jaron Thompson DPM January 28, 2018 21:31
--- NOTE | 2018-01-28 21:38 | HHI.PR ---
Immediate Post Op Note Procedure Date: January 28, 2018 Pre Op Diagnosis: Left foot ulcer, possible osteomyelitis left 1st metatarsal head Post Op Diagnosis: same Surgeon: Jaron Villeda DPM Field Sales Agent(s): Staff Procedure: Bone biopsy left foot Findings: Consistent with diagnosis. Left wound down to bone noted to medial 1st metatarsal head area with mild serous drainage. Incision made dorsolinear aspect of 1st MTP joint, excising wound and bone resected from medial eminence of 1st metatarsal head and sent to pathology as bone biopsy. Culture taken, followed by irrigation with normal saline and closure with 3-0 vicryl and 2-0 nylon. Dressing with xeroform, 4x4, cast padding, natalie left foot Weightbearing as tolerated left foot in surgical shoe Additional Information: No tourniquet utilized. Bled very well. Healthy appearance to tissues prior to irrigation and closure. Complications: None Specimen(s) removed: 1. bone biopsy left 1st metatarsal head 2. culture left foot Estimated blood loss: 10mL Anesthesia: General, Local (10mL 0.75% marcaine plain) Drains: None IVF Tourniquet time (min at mmHg) n/a Patient to: PACU Patient Condition: Good Date/Time of Procedure: SEE SURGICAL CARE RECORD Jaron Villeda DPM January 28, 2018 21:38
[2018-01-28] MEDS ORDERED: DO NOT ADM ANY ANTICOAGULANT DRUGS PRN (22:15)
--- NOTE | 2018-01-28 22:37 | RADRPT ---
EXAM DATE: 01/28/2018 10:05 PM EDT AGE/SEX: 62 years / Male INDICATIONS: I&D of the left foot. CLINICAL DATA: This is the patient's subsequent encounter. Patient reports that signs and symptoms h ave been present for 1 week and indicates a pain score of 5/10. MEDICAL/SURGICAL HISTORY: Hypertension. Stroke. Gastroesophageal reflux disease. Myocardial infarction. Coronary artery stent. COMPARISON: [facility] [place] COMPLETE ([id number]), 01/17/2018. . FINDINGS: Patient is status post a bunionectomy. Postsurgical changes are noted at the first metatarsal-phalang eal joint. Otherwise, the rest the bony structures are intact. No acute fracture or joint dislocation is seen. No foreign bodies are demonstrated. CONCLUSION: Postsurgical changes characteristic of a bunionectomy. Electronically signed by: Brennon Christian MD 01/28/2018 10:36 PM EDT
[2018-01-28] MEDS: ACETAMINOPHEN/HYDROcodone 325 MG/5 MG TAB PO PRN (23:59)
[2018-01-29] VITALS (8 sets, daily range): BP systolic 83–141; BP diastolic 55–72; PULSE 68–100; RESP 14–18; TEMP 97.7–99.4; O2SAT 96–98
[2018-01-29] MEDS: ceFAZolin 2 GM PREMIX 50 ML IV SCH ×3 (05:32→21:13)
[2018-01-29] MEDS: ACETAMINOPHEN/HYDROcodone 325 MG/5 MG TAB PO PRN ×3 (05:34→21:12)
[2018-01-29] MEDS: TAMSULOSIN HCL 0.4 MG CAP PO SCH (08:41)
[2018-01-29] MEDS: CLOPIDOGREL 75 MG TAB PO SCH (08:41)
[2018-01-29] MEDS: SODIUM CHLORIDE 0.9% FLUSH 10 ML FLUSH IV FLUSH SCH ×2 (08:42→21:13)
--- NOTE | 2018-01-29 10:21 | HHI.PR ---
Subjective Remarks Patient status post surgery. Awaiting bone biopsy/culture. No complaints from the patient. Objective Vital Signs Date Time Temp Pulse Resp B/P (MAP) Pulse Ox O2 Delivery O2 Flow Rate FiO2 01/29/18 09:44 98 21 01/29/18 08:00 98.3 74 16 118/66 (83) 98 01/29/18 04:00 99.4 92 18 135/60 (85) 96 01/29/18 00:00 97.7 75 14 141/68 (92) 98 01/28/18 22:10 97.8 85 16 113/79 (90) 100 Room Air 01/28/18 22:00 84 17 113/79 (90) 100 Room Air 01/28/18 21:45 97.4 96 16 102/63 (76) 100 Room Air 01/28/18 21:45 92 16 103/71 (82) 99 Room Air 01/28/18 16:00 98.1 83 19 132/70 (90) 99 01/28/18 12:00 98.2 85 20 141/68 (92) 98 01/28/18 10:30 Room Air I/O 01/28/18 01/28/18 01/28/18 01/29/18 01/29/18 01/29/18 07:00 15:00 23:00 07:00 15:00 23:00 Intake Total 240 ml 2000 ml Output Total 250 ml 1570 ml Balance -10 ml 430 ml Intake Oral 240 ml IV Total 1300 ml Other 700 ml Output Urine Total 250 ml 1550 ml Estimated Blood Loss 20 ml # Bowel Movements 1 Result Diagram: 01/28/18 0440 01/28/18 0640 Objective Remarks GENERAL: NAD, A&Ox3 HEAD: Normocephalic. NECK: Supple, trachea midline. No lymphadenopathy. EYES: No scleral icterus. No injection or drainage. CARDIOVASCULAR: Regular rate and rhythm without murmurs, gallops, or rubs. RESPIRATORY: Breath sounds equal bilaterally. No accessory muscle use. GASTROINTESTINAL: Abdomen soft, non-tender, nondistended. MUSCULOSKELETAL: No cyanosis, or edema. SKIN: Warm and dry. NEURO: No focal neurological deficitis. A/P Problem List: (1) Cellulitis of left foot ICD Code: L03.116 - Cellulitis of left lower limb Status: Acute (2) Hypotension ICD Code: I95.9 - Hypotension Status: Acute (3) Hematuria, gross ICD Code: R31.0 - Hematuria, gross Status: Acute Assessment and Plan 62-year-old male admitted for left foot pain and swelling. Hematuria resolved. Monitor for recurrence. Continue to monitor CBC. Status post foot surgery. Follow cultures for bone culture/biopsy. Sepsis Resolved Left Foot Cellulitis septic joint vs osteomyelitis Continue cefazolin for 4 weeks Podiatry following ID following Peripheral vascular disease History of femorofemoral bypass PVD contributory to limb/foot disease Continue Plavix Hypotension Resolved Urinary obstruction hematuria Follow for improvement Monitor renal function DVT prophylaxis SCDs No chemoprophylaxis due to active bleeding Zachariah Vargas MD January 29, 2018 10:21
--- NOTE | 2018-01-29 10:39 | PD.POD ---
Subjective Podiatric Problems Status Pod left foot bone bx 01/28/18 with . Pt states he is still having pain in the foot but denies any n/v/f/h/c/sob. Pain score: 4 Past Med/Surg/Social History Past Medical History Cardiovascular: REPORTS HX OF: Hypertension Psychiatric: REPORTS HX OF: Other psychiatric history (substance abuse) Social History Smoking Status: Current Every Day Smoker Objective Vital Signs Vital Signs Date Time Temp Pulse Resp B/P (MAP) Pulse Ox O2 Delivery O2 Flow Rate FiO2 01/29/18 09:44 98 21 01/29/18 08:00 98.3 74 16 118/66 (83) 98 01/29/18 04:00 99.4 92 18 135/60 (85) 96 01/29/18 00:00 97.7 75 14 141/68 (92) 98 01/28/18 22:10 97.8 85 16 113/79 (90) 100 Room Air 01/28/18 22:00 84 17 113/79 (90) 100 Room Air 01/28/18 21:45 97.4 96 16 102/63 (76) 100 Room Air 01/28/18 21:45 92 16 103/71 (82) 99 Room Air 01/28/18 16:00 98.1 83 19 132/70 (90) 99 01/28/18 12:00 98.2 85 20 141/68 (92) 98 Coded Allergies: No Known Allergies (Verified Allergy, Unknown, 11/04/17) Physical Exam Remarks Exam limited by dressings. Bandages clean, dry, and intact. No strikethrough. AROM to digits WNL. CFT < secs. Calf is supple and non tender to compression. Assessment & Plan A/P 1)s/p left foot bone bx -final bone cxs pending -Heel WBing only to left foot -likely dressing change tomorrow with -will determine d/c planning pending bx results -cont iv abx Aretha Campos DPM January 29, 2018 10:39
--- NOTE | 2018-01-29 12:42 | HHI.IDPN ---
Subjective Subjective Remarks MRI w/o osteo s/ p I+D yday, clx P c.diff negative BC with Strep spp in 1/4 bottles, had fever 2 days ago Antibiotics cefazoline Allergies: Coded Allergies: No Known Allergies (Verified Allergy, Unknown, 11/04/17) Objective . Vital Signs Date Time Temp Pulse Resp B/P (MAP) Pulse Ox O2 Delivery O2 Flow Rate FiO2 01/29/18 11:53 98.6 68 18 111/72 (85) 98 01/29/18 09:44 98 21 01/29/18 08:00 98.3 74 16 118/66 (83) 98 01/29/18 04:00 99.4 92 18 135/60 (85) 96 01/29/18 00:00 97.7 75 14 141/68 (92) 98 01/28/18 22:10 97.8 85 16 113/79 (90) 100 Room Air 01/28/18 22:00 84 17 113/79 (90) 100 Room Air 01/28/18 21:45 97.4 96 16 102/63 (76) 100 Room Air 01/28/18 21:45 92 16 103/71 (82) 99 Room Air 01/28/18 16:00 98.1 83 19 132/70 (90) 99 . Laboratory Tests Test 01/28/18 04:40 White Blood Count 9.4 TH/MM3 Red Blood Count 4.35 MIL/MM3 Hemoglobin 10.6 GM/DL Hematocrit 32.2 % Mean Corpuscular Volume 74.0 FL Mean Corpuscular Hemoglobin 24.3 PG Mean Corpuscular Hemoglobin Concent 32.9 % Red Cell Distribution Width 16.1 % Platelet Count 324 TH/MM3 Mean Platelet Volume 7.6 FL Neutrophils (%) (Auto) 62.1 % Lymphocytes (%) (Auto) 25.5 % Monocytes (%) (Auto) 9.8 % Eosinophils (%) (Auto) 1.9 % Basophils (%) (Auto) 0.7 % Neutrophils # (Auto) 5.8 TH/MM3 Lymphocytes # (Auto) 2.4 TH/MM3 Monocytes # (Auto) 0.9 TH/MM3 Eosinophils # (Auto) 0.2 TH/MM3 Basophils # (Auto) 0.1 TH/MM3 CBC Comment DIFF FINAL Differential Comment Laboratory Tests Test 01/28/18 06:40 Blood Urea Nitrogen 20 MG/DL Creatinine 0.97 MG/DL Random Glucose 82 MG/DL Total Protein 7.3 GM/DL Albumin 3.0 GM/DL Calcium Level 8.7 MG/DL Alkaline Phosphatase 84 U/L Aspartate Amino Transf (AST/SGOT) 27 U/L Alanine Aminotransferase (ALT/SGPT) 14 U/L Total Bilirubin 0.3 MG/DL Sodium Level 142 MEQ/L Potassium Level 4.0 MEQ/L Chloride Level 107 MEQ/L Carbon Dioxide Level 25.7 MEQ/L Anion Gap 9 MEQ/L Estimat Glomerular Filtration Rate 95 ML/MIN Microbiology Date/Time Source Procedure Growth Status 01/28/18 22:12 Wound Foot Gram Stain - Final Resulted 01/28/18 22:12 Wound Foot Wound Culture Pending Resulted 01/28/18 22:12 Wound Foot Fungal Smear Pending Received 01/28/18 22:12 Wound Foot Fungal Culture Pending Received 01/28/18 22:12 Wound Foot Acid Fast Stain Pending Received 01/28/18 22:12 Wound Foot Mycobacterial Culture Pending Received Imaging Last Impressions Foot X-Ray 01/28/18 0000 Signed Impressions: CONCLUSION: Postsurgical changes characteristic of a bunionectomy. Foot MRI 01/28/18 0000 Signed Impressions: CONCLUSION: 1. Significant bony edema in and around the first MTP joint including both of the sesamoid bones. I suspect is related to hallux valgus deformity. 2. Linear edema and enhancement along the first metatarsal base and a pattern suggesting a stress fracture 3. No evidence of osteomyelitis Lower Extremity Angiography 01/22/18 0000 Signed Impressions: CONCLUSION: 1. Segmental inflow stenosis in the left common iliac and proximal external il iac treated with 8 mm stent and 7 mm balloon angioplasty. 2. Short segment occlusion with multiple segments of high-grade stenosis at th e adductor hiatus bridging the distal SFA and proximal above-knee popliteal. Th is area was successfully treated with LS atherectomy and 5 mm balloon angioplas ty as detailed above. Aorta w/Runoff CTA 01/19/18 0000 Signed Impressions: Service Date/Time: Friday, January 19, 2018 17:02 - CONCLUSION: 1. Bladder is severely distended which may reflect bladder outlet obstruction or neurogenic bladder. Patient may benefit from Sanchez decompression. 2. No significant aortic stenosis. 3. Occluded right common iliac origin with reconstitution of the common femoral artery. 4. Moderate long segment stenosis of the left common iliac artery and proximal left external iliac artery. 5. Heavily calcified common femoral bifurcations bilaterally with diffusely diseased profunda. 6. Diffusely diseased bilateral SFA with multiple severe stenoses of the right SFA in the mid to distal thigh and short segment occlusion of the left SFA at the adductor canal. 7. Limited two-vessel runoff bilaterally, as above. Jasvir Fontenot MD Physical Exam CONSTITUTIONAL/GENERAL: This is a thin elderly male patient, in no apparent distress. TUBES/LINES/DRAINS: SKIN: No jaundice, rashes, or lesions. Ecchymoses on upper extremities. No wounds seen anteriorly. Skin temperature appropriate. Not diaphoretic. CARDIOVASCULAR: Regular rate and rhythm without murmurs, gallops, or rubs. No JVD. Peripheral pulses symmetric. RESPIRATORY/CHEST: Symmetric, unlabored respirations. Clear to auscultation. Breath sounds equal bilaterally. No wheezes, rales, or rhonchi. GASTROINTESTINAL: Abdomen soft, non-tender, nondistended. No hepato-splenomegaly , or palpable masses. No guarding. Bowel sounds present. GENITOURINARY: Without palpable bladder distension. sanchez in place with clear yellow uyrine MUSCULOSKELETAL: Extremities without clubbing, cyanosis, Fett are warm Non tender Lt foot with dressing in place NEUROLOGICAL: Awake and alert. Baseline L hemiparesis . Follows commands. Confused. Moves all extremities. PSYCHIATRIC: No obvious anxiety/depression. no apparent hallucinations or other psychotic thought process. Assessment & Plan Remarks MSSA infected 1st MT wound , left ? gout MSSA sepsis - 2/2 foot infection 2 D echo w/o vegetations Underlying moderate to severe PVD Bladder outlet obstruction - sanchez placed - UA/C+S not cw inf New viridans strep bacteremia ? significance - vir strep is common skin contaminant and in low grade bacteremia likely contaminastion More pain, purulence of Lt 1 MT sp I+D clx P abx associated diarrhea, c.diff negative cont cefazolin fu wound clx complete 4 weeks of abx final rec's per foot clx, bone bx results Olya Stokes MD January 29, 2018 12:42
[2018-01-30] VITALS (8 sets, daily range): BP systolic 93–137; BP diastolic 53–78; PULSE 80–118; RESP 17–19; TEMP 98–98.9; O2SAT 95–99
[2018-01-30] MEDS: ceFAZolin 2 GM PREMIX 50 ML IV SCH ×3 (05:42→20:14)
[2018-01-30] MEDS: CLOPIDOGREL 75 MG TAB PO SCH (08:56)
[2018-01-30] MEDS: TAMSULOSIN HCL 0.4 MG CAP PO SCH (08:56)
[2018-01-30] MEDS: SODIUM CHLORIDE 0.9% FLUSH 10 ML FLUSH IV FLUSH SCH ×2 (08:57→20:14)
--- NOTE | 2018-01-30 11:28 | HHI.PR ---
Subjective Remarks Doing well postop. Pain control. His reports from wound cultures and bone biopsy are pending. Objective Vital Signs Date Time Temp Pulse Resp B/P (MAP) Pulse Ox O2 Delivery O2 Flow Rate FiO2 01/30/18 08:34 98.4 80 18 103/64 (77) 95 01/30/18 05:45 98.0 89 19 99/69 (79) 98 01/30/18 00:00 98.0 88 17 100/61 (74) 98 01/29/18 21:30 99.3 100 17 97/ 97 01/29/18 17:36 98 21 01/29/18 16:00 98.8 76 16 83/55 (64) 98 01/29/18 11:53 98.6 68 18 111/72 (85) 98 I/O 01/29/18 01/29/18 01/29/18 01/30/18 01/30/18 01/30/18 07:00 15:00 23:00 07:00 15:00 23:00 Intake Total 0 ml 550 ml 954 ml Output Total 900 ml 850 ml Balance 0 ml -350 ml 104 ml Intake Oral 0 ml 550 ml 850 ml IV Total 104 ml Output Urine Total 900 ml 850 ml # Bowel Movements 0 0 Result Diagram: 01/28/18 0440 01/28/18 0640 Objective Remarks GENERAL: NAD, A&Ox3 HEAD: Normocephalic. NECK: Supple, trachea midline. No lymphadenopathy. EYES: No scleral icterus. No injection or drainage. CARDIOVASCULAR: Regular rate and rhythm without murmurs, gallops, or rubs. RESPIRATORY: Breath sounds equal bilaterally. No accessory muscle use. GASTROINTESTINAL: Abdomen soft, non-tender, nondistended. MUSCULOSKELETAL: No cyanosis, or edema. SKIN: Warm and dry. NEURO: No focal neurological deficitis. A/P Problem List: (1) Cellulitis of left foot ICD Code: L03.116 - Cellulitis of left lower limb Status: Acute (2) Hypotension ICD Code: I95.9 - Hypotension Status: Acute (3) Hematuria, gross ICD Code: R31.0 - Hematuria, gross Status: Acute Assessment and Plan 62-year-old male admitted for left foot pain and swelling. Following for report of wound culture and bone biopsy. Sepsis Resolved Left Foot Cellulitis septic joint vs osteomyelitis Continue cefazolin for 4 weeks Podiatry following ID following Peripheral vascular disease History of femorofemoral bypass PVD contributory to limb/foot disease Continue Plavix Hypotension Resolved Urinary obstruction hematuria Follow for improvement Monitor renal function DVT prophylaxis SCDs No chemoprophylaxis due to active bleeding Zachariah Vargas MD January 30, 2018 11:28
--- NOTE | 2018-01-30 21:02 | PD.POD ---
Subjective Podiatric Problems Status post bone biopsy left first metatarsal and ulcer excision left medial foot. 01/28/18 Dr Villeda Pain score: 4 Past Med/Surg/Social History Past Medical History Cardiovascular: REPORTS HX OF: Hypertension Psychiatric: REPORTS HX OF: Other psychiatric history (substance abuse) Social History Smoking Status: Current Every Day Smoker Objective Vital Signs Vital Signs Date Time Temp Pulse Resp B/P (MAP) Pulse Ox O2 Delivery O2 Flow Rate FiO2 01/30/18 20:48 98.8 94 18 96/53 (67) 96 01/30/18 16:00 98.9 118 18 137/78 (97) 96 01/30/18 14:51 99 21 01/30/18 12:42 98.2 95 18 93/54 (67) 99 01/30/18 08:34 98.4 80 18 103/64 (77) 95 01/30/18 05:45 98.0 89 19 99/69 (79) 98 01/30/18 00:00 98.0 88 17 100/61 (74) 98 01/29/18 21:30 99.3 100 17 97/ 97 Coded Allergies: No Known Allergies (Verified Allergy, Unknown, 11/04/17) Exam-Podiatry Remarks Left medial foot with sutures intact. No drainage. Mild pain. No sign of infection. Assessment & Plan A/P Status post bone biopsy left first metatarsal and ulcer excision left medial foot. 01/28/18 Dr Villeda Await bone biopsy results. Changed dressing. Ordered q5days dressing dry sterile per nursing while in- house. Needs to follow up in clinic for dressing change 1 week after discharge. Leave bandage clean, dry, intact between hospital discharge and clinic follow up 1 week later. Weightbearing as tolerated in surgical shoe left foot. OK to remove when at rest. Jaron Villeda DPM January 30, 2018 21:02
[2018-01-31 00:18] VITALS: BP 121/75; PULSE 88; RESP 18; TEMP 97.7; O2SAT 98
[2018-01-31 04:55] VITALS: BP 125/75; PULSE 76; RESP 18; TEMP 98; O2SAT 99
[2018-01-31] MEDS: ceFAZolin 2 GM PREMIX 50 ML IV SCH ×3 (05:46→21:53)
[2018-01-31] MEDS: TAMSULOSIN HCL 0.4 MG CAP PO SCH (08:23)
[2018-01-31] MEDS: CLOPIDOGREL 75 MG TAB PO SCH (08:23)
[2018-01-31] MEDS: SODIUM CHLORIDE 0.9% FLUSH 10 ML FLUSH IV FLUSH SCH ×2 (08:24→21:53)
[2018-01-31 08:25] VITALS: BP 97/80; PULSE 79; RESP 20; TEMP 97.8; O2SAT 99
--- NOTE | 2018-01-31 11:10 | HHI.PR ---
Subjective Remarks Working well with PT. Wound cultures and bone biopsy pending. Pain controlled. Objective Vital Signs Date Time Temp Pulse Resp B/P (MAP) Pulse Ox O2 Delivery O2 Flow Rate FiO2 01/31/18 10:50 21 01/31/18 08:25 97.8 79 20 97/80 (86) 99 01/31/18 04:55 98.0 76 18 125/75 (92) 99 01/31/18 00:18 97.7 88 18 121/75 (90) 98 01/30/18 22:27 96 21 01/30/18 20:48 98.8 94 18 96/53 (67) 96 01/30/18 16:00 98.9 118 18 137/78 (97) 96 01/30/18 14:51 99 21 01/30/18 12:42 98.2 95 18 93/54 (67) 99 I/O 01/30/18 01/30/18 01/30/18 01/31/18 01/31/18 01/31/18 07:00 15:00 23:00 07:00 15:00 23:00 Intake Total 954 ml 600 ml 50 ml Output Total 850 ml 800 ml 450 ml Balance 104 ml -200 ml 50 ml -450 ml Intake Oral 850 ml 600 ml IV Total 104 ml 50 ml Output Urine Total 850 ml 800 ml 450 ml # Bowel Movements 0 Result Diagram: 01/28/18 0440 01/28/18 0640 Objective Remarks GENERAL: NAD, A&Ox3 HEAD: Normocephalic. NECK: Supple, trachea midline. No lymphadenopathy. EYES: No scleral icterus. No injection or drainage. CARDIOVASCULAR: Regular rate and rhythm without murmurs, gallops, or rubs. RESPIRATORY: Breath sounds equal bilaterally. No accessory muscle use. GASTROINTESTINAL: Abdomen soft, non-tender, nondistended. MUSCULOSKELETAL: No cyanosis, or edema. SKIN: Warm and dry. NEURO: No focal neurological deficitis. A/P Problem List: (1) Cellulitis of left foot ICD Code: L03.116 - Cellulitis of left lower limb Status: Acute (2) Hypotension ICD Code: I95.9 - Hypotension Status: Acute (3) Hematuria, gross ICD Code: R31.0 - Hematuria, gross Status: Acute Assessment and Plan 62-year-old male admitted for left foot pain and swelling. Flomax continued. Plan to do a void trial 1-2 days. Following for report of wound culture and bone biopsy. Sepsis Resolved Left Foot Cellulitis septic joint vs osteomyelitis Continue cefazolin for 4 weeks Podiatry following ID following Peripheral vascular disease History of femorofemoral bypass PVD contributory to limb/foot disease Continue Plavix Hypotension Resolved Urinary obstruction hematuria Follow for improvement Monitor renal function Flomax DVT prophylaxis SCDs No chemoprophylaxis due to active bleeding Zachariah Vargas MD Jan 31, 2018 11:10
[2018-01-31 12:20] VITALS: BP 99/49; PULSE 100; RESP 20; TEMP 97.9; O2SAT 98
--- NOTE | 2018-01-31 13:55 | HHI.FF ---
Face to Face Verification Diagnosis: (1) Cellulitis of left foot Physical Therapy Order: Evaluate and Treat, Improve ambulation, Strength and gait training Occupational Therapy Order: Evaluate and Treat, Gross motor coordination, Fine motor coordination Home Health Nursing Order: Wound care and dressing changes Instructions: Gauze covering, change daily till closed. May use natalie bandages for padding. I have seen patient Maxim Patel Jr Zac on 01/31/18. My clinical findings support the need for the requested home health care services because: Ltd mobility - disease progression Deconditioned w/ increased weakness Limited ability to care for self High risk of falls I certify that my clinical findings support that this patient is homebound because: Post-op weakness Unsteady gait/balance Unsafe to leave home unassisted [id number] bed/chair Unable to use public transportation Zachariah Vargas MD Jan 31, 2018 13:55
[2018-01-31 16:00] VITALS: BP 111/63; PULSE 108; RESP 20; TEMP 98.6; O2SAT 98
[2018-01-31 21:02] VITALS: BP 108/63; PULSE 98; RESP 18; TEMP 98; O2SAT 94
[2018-02-01 00:31] VITALS: BP 133/69; PULSE 102; RESP 18; TEMP 98.2; O2SAT 100
[2018-02-01 04:48] VITALS: BP 125/77; PULSE 93; RESP 18; TEMP 98.1; O2SAT 100
[2018-02-01] MEDS: ceFAZolin 2 GM PREMIX 50 ML IV SCH ×3 (05:16→23:33)
[2018-02-01 08:00] VITALS: BP 109/73; PULSE 86; RESP 19; TEMP 98.4; O2SAT 100
[2018-02-01] MEDS: CLOPIDOGREL 75 MG TAB PO SCH (09:25)
[2018-02-01] MEDS: TAMSULOSIN HCL 0.4 MG CAP PO SCH (09:25)
[2018-02-01] MEDS: SODIUM CHLORIDE 0.9% FLUSH 10 ML FLUSH IV FLUSH SCH ×2 (09:26→23:32)
--- NOTE | 2018-02-01 09:59 | HHI.PR ---
Subjective Remarks Cultures are negative at 72 hours. Bone biopsy shows osteomyelitis. Patient has no new complaints today. Objective Vital Signs Date Time Temp Pulse Resp B/P (MAP) Pulse Ox O2 Delivery O2 Flow Rate FiO2 02/01/18 08:00 98.4 86 19 109/73 (85) 100 02/01/18 04:48 98.1 93 18 125/77 (93) 100 02/01/18 00:31 98.2 102 18 133/69 (90) 100 01/31/18 21:02 98.0 98 18 108/63 (78) 94 01/31/18 17:38 21 01/31/18 16:00 98.6 108 20 111/63 (79) 98 01/31/18 12:20 97.9 100 20 99/49 (66) 98 01/31/18 10:50 21 I/O 01/31/18 01/31/18 01/31/18 02/01/18 02/01/18 02/01/18 07:00 15:00 23:00 07:00 15:00 23:00 Intake Total 480 ml 50 ml 290 ml Output Total 450 ml 750 ml Balance -450 ml -270 ml 50 ml 290 ml Intake Oral 480 ml 240 ml IV Total 50 ml 50 ml Output Urine Total 450 ml 750 ml Result Diagram: 01/28/18 0440 01/28/18 0640 Objective Remarks GENERAL: NAD, A&Ox3 HEAD: Normocephalic. NECK: Supple, trachea midline. No lymphadenopathy. EYES: No scleral icterus. No injection or drainage. CARDIOVASCULAR: Regular rate and rhythm without murmurs, gallops, or rubs. RESPIRATORY: Breath sounds equal bilaterally. No accessory muscle use. GASTROINTESTINAL: Abdomen soft, non-tender, nondistended. MUSCULOSKELETAL: No cyanosis, or edema. SKIN: Warm and dry. NEURO: No focal neurological deficitis. A/P Problem List: (1) Cellulitis of left foot ICD Code: L03.116 - Cellulitis of left lower limb Status: Acute (2) Hypotension ICD Code: I95.9 - Hypotension Status: Acute (3) Hematuria, gross ICD Code: R31.0 - Hematuria, gross Status: Acute Assessment and Plan 62-year-old male admitted for left foot pain and swelling. Bone biopsy shows ostium mellitus. Further management to be determined. Most recent wound cultures negative at 72 hours. Antibiotic selection in process. Sepsis Resolved Left Foot Cellulitis septic joint vs osteomyelitis Continue cefazolin for 4 weeks Podiatry following ID following Peripheral vascular disease History of femorofemoral bypass PVD contributory to limb/foot disease Continue Plavix Hypotension Resolved Urinary obstruction hematuria Follow for improvement Monitor renal function Flomax DVT prophylaxis SCDs No chemoprophylaxis due to active bleeding Zachariah Vargas MD Feb 01, 2018 09:59
[2018-02-01 12:00] VITALS: BP 131/63; PULSE 90; RESP 19; TEMP 98.6; O2SAT 100
[2018-02-01 16:00] VITALS: BP 125/87; PULSE 91; RESP 19; TEMP 97.7; O2SAT 100
[2018-02-01 20:13] VITALS: BP 111/71; PULSE 87; RESP 18; TEMP 98.5; O2SAT 98
--- NOTE | 2018-02-01 22:09 | PD.POD ---
Subjective Podiatric Problems Status post bone biopsy left first metatarsal and ulcer excision left medial foot. 01/28/18 Dr Villeda Pain score: 4 Past Med/Surg/Social History Past Medical History Cardiovascular: REPORTS HX OF: Hypertension Psychiatric: REPORTS HX OF: Other psychiatric history (substance abuse) Social History Smoking Status: Current Every Day Smoker Objective Vital Signs Vital Signs Date Time Temp Pulse Resp B/P (MAP) Pulse Ox O2 Delivery O2 Flow Rate FiO2 02/01/18 20:13 98.5 87 18 111/71 (84) 98 02/01/18 16:00 97.7 91 19 125/87 (100) 100 02/01/18 12:00 98.6 90 19 131/63 (85) 100 02/01/18 08:00 98.4 86 19 109/73 (85) 100 02/01/18 04:48 98.1 93 18 125/77 (93) 100 02/01/18 00:31 98.2 102 18 133/69 (90) 100 Coded Allergies: No Known Allergies (Verified Allergy, Unknown, 11/04/17) Assessment & Plan A/P Status post bone biopsy left first metatarsal and ulcer excision left medial foot. 01/28/18 Dr Villeda Bone biopsy positive for chronic osteomyelitis. Operative cultures negative, but pre-procedure culture results likely indicate organism involved. Patient needs 6 weeks IV antibiotics per ID recommendations per original culture result. Continue q5days dressing dry sterile per nursing while in-house. Needs to follow up in clinic for dressing change 1 week after discharge. Leave bandage clean, dry, intact between hospital discharge and clinic follow up 1 week later. Weightbearing as tolerated in surgical shoe left foot. OK to remove when at rest. Podiatry signing off Jaron Villeda DPM Feb 01, 2018 22:09
[2018-02-02 00:42] VITALS: BP 124/66; PULSE 81; RESP 18; TEMP 98.5; O2SAT 99
[2018-02-02 05:04] VITALS: BP 140/81; PULSE 75; RESP 18; TEMP 97.8
[2018-02-02] MEDS: ceFAZolin 2 GM PREMIX 50 ML IV SCH ×3 (05:43→20:43)
[2018-02-02 08:00] VITALS: BP 121/72; PULSE 89; RESP 19; TEMP 98.6; O2SAT 99
[2018-02-02 08:14] LABS: BASOPHIL # 0.1 TH/MM3 (0-0.2); BASOPHIL % 0.9 % (0.0-2.0); EOSINOPHIL # 0.1 TH/MM3 (0-0.4); EOSINOPHIL % 1.1 % (0.0-4.0); HEMATOCRIT 35.7 % (39.0-51.0); HEMOGLOBIN 11.5 GM/DL (13.0-17.0); LYMPH % 31.7 % (9.0-44.0); LYMPHOCYTE # 3.3 TH/MM3 (1.0-4.8); MEAN CELL VOLUME 74.5 FL (80.0-100.0); MEAN CORPUSCULAR HEMOGLOBIN 23.9 PG (27.0-34.0); MEAN CORPUSCULAR HGB CONC 32.1 % (32.0-36.0); MEAN PLATELET VOLUME 7.3 FL (7.0-11.0); MONO % 8.4 % (0.0-8.0); MONOCYTE # 0.9 TH/MM3 (0-0.9); NEUT % 57.9 % (16.0-70.0); PLATELET COUNT 489 TH/MM3 (150-450); RED BLOOD COUNT 4.79 MIL/MM3 (4.50-5.90); RED CELL DISTRIBUTION WIDTH 16.5 % (11.6-17.2); WHITE BLOOD COUNT 10.3 TH/MM3 (4.0-11.0)
[2018-02-02 08:35] LABS: ALBUMIN 3.8 GM/DL (3.4-5.0); AST (GOT) 28 U/L (15-37); BICARBONATE 26.5 MEQ/L (21.0-32.0); BLOOD UREA NITROGEN 19 MG/DL (7-18); CALCIUM 9.8 MG/DL (8.5-10.1); CHLORIDE 104 MEQ/L (98-107); CREATININE 1.12 MG/DL (0.60-1.30); GLOMERULAR FILTRATION RATE 80 ML/MIN (>89); GLUCOSE,RANDOM 78 MG/DL (74-106); SODIUM (NA) 139 MEQ/L (136-145)
[2018-02-02 08:36] LABS: ALT (GPT) 14 U/L (12-78)
[2018-02-02 08:38] LABS: ALKALINE PHOSPHATASE 90 U/L (45-117); TOTAL BILIRUBIN ADULT 0.2 MG/DL (0.2-1.0); TOTAL PROTEIN 8.6 GM/DL (6.4-8.2)
[2018-02-02] MEDS: TAMSULOSIN HCL 0.4 MG CAP PO SCH (09:24)
[2018-02-02] MEDS: CLOPIDOGREL 75 MG TAB PO SCH (09:24)
[2018-02-02] MEDS: SODIUM CHLORIDE 0.9% FLUSH 10 ML FLUSH IV FLUSH SCH ×2 (09:24→20:46)
--- NOTE | 2018-02-02 11:15 | HHI.PR ---
Subjective Remarks Outpatient antibiotics for 6 weeks planned. Finalization in process. Patient has not been able to void after removal of catheter. Objective Vital Signs Date Time Temp Pulse Resp B/P (MAP) Pulse Ox O2 Delivery O2 Flow Rate FiO2 02/02/18 08:00 98.6 89 19 121/72 (88) 99 02/02/18 05:04 97.8 75 18 140/81 (100) 02/02/18 00:42 98.5 81 18 124/66 (85) 99 02/01/18 20:13 98.5 87 18 111/71 (84) 98 02/01/18 16:00 97.7 91 19 125/87 (100) 100 02/01/18 12:00 98.6 90 19 131/63 (85) 100 I/O 02/01/18 02/01/18 02/01/18 02/02/18 02/02/18 02/02/18 07:00 15:00 23:00 07:00 15:00 23:00 Intake Total 290 ml Output Total 950 ml Balance 290 ml -950 ml Intake Oral 240 ml IV Total 50 ml Output Urine Total 950 ml Bladder Scan Volume Amount 833 ml 584 ml 833 ml 103 ml 103 ml Result Diagram: 02/02/18 0539 02/02/18 0559 Objective Remarks GENERAL: NAD, A&Ox3 HEAD: Normocephalic. NECK: Supple, trachea midline. No lymphadenopathy. EYES: No scleral icterus. No injection or drainage. CARDIOVASCULAR: Regular rate and rhythm without murmurs, gallops, or rubs. RESPIRATORY: Breath sounds equal bilaterally. No accessory muscle use. GASTROINTESTINAL: Abdomen soft, non-tender, nondistended. MUSCULOSKELETAL: No cyanosis, or edema. SKIN: Warm and dry. NEURO: No focal neurological deficitis. A/P Problem List: (1) Cellulitis of left foot ICD Code: L03.116 - Cellulitis of left lower limb Status: Acute (2) Hypotension ICD Code: I95.9 - Hypotension Status: Acute (3) Hematuria, gross ICD Code: R31.0 - Hematuria, gross Status: Acute Assessment and Plan 62-year-old male admitted for left foot pain and swelling. Osteomyelitis on bone biopsy. 6 weeks of antibiotics plan is treatment. Outpatient IV antibiotic arrangements in process. Void trial failed. Only catheter reinserted and patient will need to follow-up with urology as an outpatient to manage this. Sepsis Resolved Left Foot Cellulitis septic joint vs osteomyelitis Continue cefazolin for 4 weeks Podiatry following ID following Peripheral vascular disease History of femorofemoral bypass PVD contributory to limb/foot disease Continue Plavix Hypotension Resolved Urinary obstruction hematuria Follow for improvement Monitor renal function Flomax DVT prophylaxis SCDs No chemoprophylaxis due to active bleeding Zachariah Vargas MD Feb 02, 2018 11:15
[2018-02-02 12:00] VITALS: BP 97/59; PULSE 101; RESP 19; TEMP 97.9; O2SAT 98
[2018-02-02 16:00] VITALS: BP 113/58; PULSE 90; RESP 19; TEMP 98.9; O2SAT 99
[2018-02-02 21:00] VITALS: BP 100/64; PULSE 88; RESP 18; TEMP 98; O2SAT 100
[2018-02-03] VITALS (7 sets, daily range): BP systolic 101–143; BP diastolic 53–79; PULSE 68–92; RESP 18–19; TEMP 97.6–98.8; O2SAT 95–100
[2018-02-03] MEDS: ceFAZolin 2 GM PREMIX 50 ML IV SCH ×3 (04:25→20:01)
[2018-02-03] MEDS: TAMSULOSIN HCL 0.4 MG CAP PO SCH (08:38)
[2018-02-03] MEDS: SODIUM CHLORIDE 0.9% FLUSH 10 ML FLUSH IV FLUSH SCH ×2 (08:38→20:01)
[2018-02-03] MEDS: CLOPIDOGREL 75 MG TAB PO SCH (08:38)
--- NOTE | 2018-02-03 09:10 | HHI.PR ---
Subjective Remarks in no acute distress. denies pain. no fever. Objective Vitals Vital Signs Date Time Temp Pulse Resp B/P (MAP) Pulse Ox O2 Delivery O2 Flow Rate FiO2 02/03/18 08:00 97.9 69 18 103/56 (72) 100 02/03/18 04:00 98.8 68 18 105/68 (80) 99 02/03/18 00:00 97.6 80 19 101/65 (77) 100 02/02/18 21:00 98.0 88 18 100/64 (76) 100 02/02/18 16:00 98.9 90 19 113/58 (76) 99 02/02/18 12:00 97.9 101 19 97/59 (72) 98 I/O 02/02/18 02/02/18 02/02/18 02/03/18 02/03/18 02/03/18 07:00 15:00 23:00 07:00 15:00 23:00 Intake Total 500 ml 800 ml Output Total 1000 ml 400 ml Balance -500 ml 400 ml Intake Oral 500 ml 800 ml Output Urine Total 1000 ml 400 ml Bladder Scan Volume Amount 833 ml 584 ml 833 ml 103 ml 103 ml # Bowel Movements 0 0 Result Diagram: 02/02/18 0539 02/02/18 0559 Imaging Last Impressions Foot X-Ray 01/28/18 0000 Signed Impressions: CONCLUSION: Postsurgical changes characteristic of a bunionectomy. Foot MRI 01/28/18 0000 Signed Impressions: CONCLUSION: 1. Significant bony edema in and around the first MTP joint including both of the sesamoid bones. I suspect is related to hallux valgus deformity. 2. Linear edema and enhancement along the first metatarsal base and a pattern suggesting a stress fracture 3. No evidence of osteomyelitis Lower Extremity Angiography 01/22/18 0000 Signed Impressions: CONCLUSION: 1. Segmental inflow stenosis in the left common iliac and proximal external il iac treated with 8 mm stent and 7 mm balloon angioplasty. 2. Short segment occlusion with multiple segments of high-grade stenosis at th e adductor hiatus bridging the distal SFA and proximal above-knee popliteal. Th is area was successfully treated with LS atherectomy and 5 mm balloon angioplas ty as detailed above. Aorta w/Runoff CTA 01/19/18 0000 Signed Impressions: Service Date/Time: Friday, January 19, 2018 17:02 - CONCLUSION: 1. Bladder is severely distended which may reflect bladder outlet obstruction or neurogenic bladder. Patient may benefit from Quesada decompression. 2. No significant aortic stenosis. 3. Occluded right common iliac origin with reconstitution of the common femoral artery. 4. Moderate long segment stenosis of the left common iliac artery and proximal left external iliac artery. 5. Heavily calcified common femoral bifurcations bilaterally with diffusely diseased profunda. 6. Diffusely diseased bilateral SFA with multiple severe stenoses of the right SFA in the mid to distal thigh and short segment occlusion of the left SFA at the adductor canal. 7. Limited two-vessel runoff bilaterally, as above. Jasvir Fontenot MD Objective Remarks GENERAL: This is a well-nourished, well-developed patient, in no apparent distress. CARDIOVASCULAR: Regular rate and regular rhythm without murmurs, gallops, or rubs. RESPIRATORY: Clear to auscultation. Breath sounds equal bilaterally. No wheezes , rales, or rhonchi. GASTROINTESTINAL: Abdomen soft, non-tender, nondistended. Normal, active bowel sounds MUSCULOSKELETAL: left foot is swollen-seems to be improving. NEURO: Alert & Oriented x4 to person, place, time, situation. Moves all ext x4 Procedures Left common iliac and external iliac balloon angioplasty and stent, left SFA Hawk 1 endarterectomy and balloon angioplasty, left external iliac and common femoral endarterectomy patch angioplasty, right external iliac and common femoral endarterectomy with patch angioplasty and femoral-femoral bypass. Medications and IVs Inpatient Medications Acetaminophen (Tylenol) 650 mg Q6H PRN PO FEVER/PAIN SCALE 1 TO 2 Last administered on 01/24/18at 22:49; Start 01/18/18 at 02:00 Acetaminophen/ Hydrocodone Bitart ([place] 5-325 Mg) 1 tab Q4H PRN PO PAIN SCALE 3 TO 5 Last administered on 01/29/18at 21:12; Start 01/18/18 at 02:00 Albumin Human 500 ml @ 250 mls/hr NOW IV Last administered on 01/23/18at 01:39 ; Start 01/23/18 at 01:45; Stop 01/23/18 at 03:44; Status DC Bisacodyl (Dulcolax Supp) 10 mg DAILY PRN RECTAL SEVERE CONSITIPATION; Start at 02:00 Cefazolin Sodium/ Dextrose 50 ml @ 100 mls/hr Q8H IV Last administered on at 04:25; Start 01/22/18 at 21:00 Cefazolin/Sodium Chloride 100 ml @ 200 mls/hr Q8H IV Last administered on 01/22at 04:34; Start 01/19/18 at 20:00; Stop 01/22/18 at 21:06; Status DC Chlorhexidine Gluconate (Chlorhexidine 2% Cloth) 3 pack SKIDWAY MAN PRN TOPICAL SEE LABEL COMMENTS; Start 01/28/18 at 17:45; Stop 01/31/18 at 17:44; Status DC Clindamycin/ Sodium Chloride 50 ml @ 100 mls/hr Q8H IV Last administered on at 05:50; Start 01/18/18 at 06:00; Stop 01/18/18 at 10:37; Status DC Clopidogrel Bisulfate (Plavix) 75 mg DAILY PO Last administered on 02/03/18at 08: 38; Start 01/22/18 at 20:00 Lactated Ringer's 1,000 ml @ 30 mls/hr Q24H PRN IV SEE LABEL COMMENTS; Start at 17:45; Stop 01/31/18 at 17:44; Status DC Lactulose (Lactulose Liq) 30 ml DAILY PRN PO SEVERE CONSITIPATION; Start at 02:00 Magnesium Hydroxide (Milk Of Magnesia Liq) 30 ml Q12H PRN PO Mild constipation ; Start 01/18/18 at 02:00 Metoclopramide HCl (Reglan Inj) 5 mg Q6H PRN IV PUSH NAUSEA OR VOMITING; Start 01/18/18 at 02:00 Miscellaneous Information ([facility] [place] Nursing Information) ALL NURSING DEPARTME... UNSCH PRN .XX SEE LABEL COMMENTS; Start 01/28/18 at 22:15; Stop 01/29/18 at 22: 14; Status DC Miscellaneous Information ([facility] [place] [facility] Ordered Lab Info) SPECIFIC LAB TO BE LOLIS... ONCE ONCE .XX ; Start 01/21/18 at 11:45; Stop 01/21/18 at 11:45; Status DC Morphine Sulfate (Morphine Inj) 2 mg Q3H PRN IV PUSH Pain 6-10 Last administered on 01/18/18at 12:07; Start 01/18/18 at 02:15 Pharmacy Profile Note 0 ml @ 0 mls/hr UNSCH OTHER ; Start 01/18/18 at 10:45; Stop 01/19/18 at 19:38; Status DC Potassium Chloride (KCl Powder) 40 meq ONCE ONCE PO Last administered on at 11:45; Start 01/26/18 at 11:45; Stop 01/26/18 at 11:46; Status DC Povidone Iodine (Betadine 5% Antisepsis Kit) 1 applic SKIDWAY MAN PRN EACH NARE SEE LABEL COMMENTS; Start 01/28/18 at 17:45; Stop 01/31/18 at 17:44; Status DC Senna/Docusate Sodium (Janice-Colace) 1 tab BID PO ; Start 01/18/18 at 09:00; Status Future Hold Sennosides (Senokot) 17.2 mg Q12H PRN PO Moderate constipation; Start 01/18/18 at 02:00 Sodium Chloride 500 ml @ 30 mls/hr [id number] PRN IV SEE LABEL COMMENTS; Start at 17:45; Stop 01/31/18 at 17:44; Status DC Sodium Chloride (NS Flush) 2 ml BID IV FLUSH Last administered on 02/03/18at 08: 38; Start 01/18/18 at 09:00 Sodium Chloride 1200 ml/Syringe / Bag 1,200 ml @ 3,600 mls/hr BOLUS STAT IV ; Start 01/25/18 at 12:19; Stop 01/25/18 at 12:23; Status DC Tamsulosin HCl (Flomax) 0.4 mg DAILY PO Last administered on 02/03/18at 08:38; Start 01/27/18 at 11:00 Vancomycin HCl 1000 mg/Sodium Chloride 250 ml @ 250 mls/hr Q24H IV Last administered on 01/19/18at 11:48; Start 01/18/18 at 12:00; Stop 01/19/18 at 19:38 ; Status DC A/P Problem List: (1) Cellulitis of left foot ICD Code: L03.116 - Cellulitis of left lower limb Status: Acute (2) Intractable pain ICD Code: R52 - Pain, unspecified Status: Acute Assessment and Plan Sepsis Resolved Left Foot Cellulitis septic joint vs osteomyelitis Continue cefazolin for 4 weeks f/u with podiatry as outpatient. ID following Peripheral vascular disease History of femorofemoral bypass PVD contributory to limb/foot disease Status post bilateral open and endovascular leg revascularization femorofemoral bypass Continue Plavix cleared by vascular surgery for discharge. Hypotension Resolved Urinary obstruction hematuria Follow for improvement Monitor renal function Flomax DVT prophylaxis SCDs No chemoprophylaxis due to active bleeding Discharge Planning dc planning to SNF when authorization has been received. Anuj Cabrera MD Feb 03, 2018 09:10
[2018-02-04] VITALS (7 sets, daily range): BP systolic 117–170; BP diastolic 59–85; PULSE 74–92; RESP 17–18; TEMP 98–98.7; O2SAT 98–100
[2018-02-04] MEDS: ceFAZolin 2 GM PREMIX 50 ML IV SCH ×3 (04:48→20:36)
[2018-02-04] MEDS: CLOPIDOGREL 75 MG TAB PO SCH (09:23)
[2018-02-04] MEDS: TAMSULOSIN HCL 0.4 MG CAP PO SCH (09:23)
[2018-02-04] MEDS: SODIUM CHLORIDE 0.9% FLUSH 10 ML FLUSH IV FLUSH SCH ×2 (09:23→20:36)
--- NOTE | 2018-02-04 10:58 | HHI.PR ---
Subjective Remarks in no acute distress. no new complaints. afebrile. Objective Vitals Vital Signs Date Time Temp Pulse Resp B/P (MAP) Pulse Ox O2 Delivery O2 Flow Rate FiO2 02/04/18 10:08 98 02/04/18 08:00 98.1 84 17 170/82 (111) 98 02/04/18 04:00 98.7 82 18 119/68 (85) 99 02/04/18 00:00 98.5 81 18 152/85 (107) 99 02/03/18 20:59 98 02/03/18 20:00 98.5 92 18 134/67 (89) 100 02/03/18 16:00 98.1 78 18 143/79 (100) 98 02/03/18 12:00 98.0 86 18 118/53 (74) 95 I/O 02/03/18 02/03/18 02/03/18 02/04/18 02/04/18 02/04/18 07:00 15:00 23:00 07:00 15:00 23:00 Intake Total 800 ml 780 ml 50 ml 50 ml Output Total 400 ml 950 ml 200 ml Balance 400 ml -170 ml 50 ml -150 ml Intake Oral 800 ml 780 ml IV Total 50 ml 50 ml Output Urine Total 400 ml 950 ml 200 ml # Bowel Movements 0 0 1 Result Diagram: 02/02/18 0539 02/02/18 0559 Imaging Last Impressions Foot X-Ray 01/28/18 0000 Signed Impressions: CONCLUSION: Postsurgical changes characteristic of a bunionectomy. Foot MRI 01/28/18 0000 Signed Impressions: CONCLUSION: 1. Significant bony edema in and around the first MTP joint including both of the sesamoid bones. I suspect is related to hallux valgus deformity. 2. Linear edema and enhancement along the first metatarsal base and a pattern suggesting a stress fracture 3. No evidence of osteomyelitis Lower Extremity Angiography 01/22/18 0000 Signed Impressions: CONCLUSION: 1. Segmental inflow stenosis in the left common iliac and proximal external il iac treated with 8 mm stent and 7 mm balloon angioplasty. 2. Short segment occlusion with multiple segments of high-grade stenosis at th e adductor hiatus bridging the distal SFA and proximal above-knee popliteal. Th is area was successfully treated with LS atherectomy and 5 mm balloon angioplas ty as detailed above. Aorta w/Runoff CTA 01/19/18 0000 Signed Impressions: Service Date/Time: Friday, January 19, 2018 17:02 - CONCLUSION: 1. Bladder is severely distended which may reflect bladder outlet obstruction or neurogenic bladder. Patient may benefit from Quesada decompression. 2. No significant aortic stenosis. 3. Occluded right common iliac origin with reconstitution of the common femoral artery. 4. Moderate long segment stenosis of the left common iliac artery and proximal left external iliac artery. 5. Heavily calcified common femoral bifurcations bilaterally with diffusely diseased profunda. 6. Diffusely diseased bilateral SFA with multiple severe stenoses of the right SFA in the mid to distal thigh and short segment occlusion of the left SFA at the adductor canal. 7. Limited two-vessel runoff bilaterally, as above. Jasvir Fontenot MD Objective Remarks GENERAL: This is a well-nourished, well-developed patient, in no apparent distress. CARDIOVASCULAR: Regular rate and regular rhythm without murmurs, gallops, or rubs. RESPIRATORY: Clear to auscultation. Breath sounds equal bilaterally. No wheezes , rales, or rhonchi. GASTROINTESTINAL: Abdomen soft, non-tender, nondistended. Normal, active bowel sounds MUSCULOSKELETAL: left foot is swollen-seems to be improving. NEURO: Alert & Oriented x4 to person, place, time, situation. Moves all ext x4 Procedures Left common iliac and external iliac balloon angioplasty and stent, left SFA [place] 1 endarterectomy and balloon angioplasty, left external iliac and common femoral endarterectomy patch angioplasty, right external iliac and common femoral endarterectomy with patch angioplasty and femoral-femoral bypass. Medications and IVs Inpatient Medications Acetaminophen (Tylenol) 650 mg Q6H PRN PO FEVER/PAIN SCALE 1 TO 2 Last administered on 01/24/18at 22:49; Start 01/18/18 at 02:00 Acetaminophen/ Hydrocodone Bitart ([place] 5-325 Mg) 1 tab Q4H PRN PO PAIN SCALE 3 TO 5 Last administered on 01/29/18at 21:12; Start 01/18/18 at 02:00 Albumin Human 500 ml @ 250 mls/hr NOW IV Last administered on 01/23/18at 01:39 ; Start 01/23/18 at 01:45; Stop 01/23/18 at 03:44; Status DC Bisacodyl (Dulcolax Supp) 10 mg DAILY PRN RECTAL SEVERE CONSITIPATION; Start at 02:00 Cefazolin Sodium/ Dextrose 50 ml @ 100 mls/hr Q8H IV Last administered on at 04:48; Start 01/22/18 at 21:00 Cefazolin/Sodium Chloride 100 ml @ 200 mls/hr Q8H IV Last administered on 01/22at 04:34; Start 01/19/18 at 20:00; Stop 01/22/18 at 21:06; Status DC Chlorhexidine Gluconate (Chlorhexidine 2% Cloth) 3 pack BECK OPERATOR PRN TOPICAL SEE LABEL COMMENTS; Start 01/28/18 at 17:45; Stop 01/31/18 at 17:44; Status DC Clindamycin/ Sodium Chloride 50 ml @ 100 mls/hr Q8H IV Last administered on at 05:50; Start 01/18/18 at 06:00; Stop 01/18/18 at 10:37; Status DC Clopidogrel Bisulfate (Plavix) 75 mg DAILY PO Last administered on 02/04/18at 09: 23; Start 01/22/18 at 20:00 Lactated Ringer's 1,000 ml @ 30 mls/hr Q24H PRN IV SEE LABEL COMMENTS; Start at 17:45; Stop 01/31/18 at 17:44; Status DC Lactulose (Lactulose Liq) 30 ml DAILY PRN PO SEVERE CONSITIPATION; Start at 02:00 Magnesium Hydroxide (Milk Of Magnesia Liq) 30 ml Q12H PRN PO Mild constipation ; Start 01/18/18 at 02:00 Metoclopramide HCl (Reglan Inj) 5 mg Q6H PRN IV PUSH NAUSEA OR VOMITING; Start 01/18/18 at 02:00 Miscellaneous Information ([facility] [place] Nursing Information) ALL NURSING DEPARTME... UNSCH PRN .XX SEE LABEL COMMENTS; Start 01/28/18 at 22:15; Stop 01/29/18 at 22: 14; Status DC Miscellaneous Information ([facility] [place] [facility] Ordered Lab Info) SPECIFIC LAB TO BE LOLIS... ONCE ONCE .XX ; Start 01/21/18 at 11:45; Stop 01/21/18 at 11:45; Status DC Morphine Sulfate (Morphine Inj) 2 mg Q3H PRN IV PUSH Pain 6-10 Last administered on 01/18/18at 12:07; Start 01/18/18 at 02:15 Pharmacy Profile Note 0 ml @ 0 mls/hr UNSCH OTHER ; Start 01/18/18 at 10:45; Stop 01/19/18 at 19:38; Status DC Potassium Chloride (KCl Powder) 40 meq ONCE ONCE PO Last administered on at 11:45; Start 01/26/18 at 11:45; Stop 01/26/18 at 11:46; Status DC Povidone Iodine (Betadine 5% Antisepsis Kit) 1 applic BECK OPERATOR PRN EACH NARE SEE LABEL COMMENTS; Start 01/28/18 at 17:45; Stop 01/31/18 at 17:44; Status DC Senna/Docusate Sodium (Janice-Colace) 1 tab BID PO ; Start 01/18/18 at 09:00; Status Future Hold Sennosides (Senokot) 17.2 mg Q12H PRN PO Moderate constipation; Start 01/18/18 at 02:00 Sodium Chloride 500 ml @ 30 mls/hr [id number] PRN IV SEE LABEL COMMENTS; Start at 17:45; Stop 01/31/18 at 17:44; Status DC Sodium Chloride (NS Flush) 2 ml BID IV FLUSH Last administered on 02/04/18at 09: 23; Start 01/18/18 at 09:00 Sodium Chloride 1200 ml/Syringe / Bag 1,200 ml @ 3,600 mls/hr BOLUS STAT IV ; Start 01/25/18 at 12:19; Stop 01/25/18 at 12:23; Status DC Tamsulosin HCl (Flomax) 0.4 mg DAILY PO Last administered on 02/04/18at 09:23; Start 01/27/18 at 11:00 Vancomycin HCl 1000 mg/Sodium Chloride 250 ml @ 250 mls/hr Q24H IV Last administered on 01/19/18at 11:48; Start 01/18/18 at 12:00; Stop 01/19/18 at 19:38 ; Status DC A/P Problem List: (1) Cellulitis of left foot ICD Code: L03.116 - Cellulitis of left lower limb Status: Acute (2) Intractable pain ICD Code: R52 - Pain, unspecified Status: Acute Assessment and Plan Sepsis Resolved Left Foot Cellulitis septic joint vs osteomyelitis Continue cefazolin for 4 weeks f/u with podiatry as outpatient. ID following Peripheral vascular disease History of femorofemoral bypass PVD contributory to limb/foot disease Status post bilateral open and endovascular leg revascularization femorofemoral bypass Continue Plavix cleared by vascular surgery for discharge. Hypotension Resolved Urinary obstruction hematuria Follow for improvement Monitor renal function voiding trial as outpatient- per urology. Flomax DVT prophylaxis SCDs No chemoprophylaxis due to active bleeding Discharge Planning dc planning to SNF when authorization has been received. Anuj Cabrera MD Feb 04, 2018 10:58
[2018-02-04] MEDS ORDERED: TAMS5CAP PO (13:32)
[2018-02-04] MEDS ORDERED: PLAV75TA29 PO (13:32)
[2018-02-04] MEDS ORDERED: HYDR-3516 PO (13:32)
[2018-02-04] MEDS: ACETAMINOPHEN/HYDROcodone 325 MG/5 MG TAB PO PRN (20:36)
[2018-02-05] VITALS: BP 112/57; PULSE 89; RESP 18; TEMP 98; O2SAT 100
[2018-02-05 04:00] VITALS: BP 123/63; PULSE 105; RESP 18; TEMP 98.4; O2SAT 100
[2018-02-05] MEDS: ceFAZolin 2 GM PREMIX 50 ML IV SCH ×3 (05:55→20:27)
[2018-02-05 08:00] VITALS: BP 153/82; PULSE 78; RESP 18; TEMP 98.2; O2SAT 100
[2018-02-05] MEDS: TAMSULOSIN HCL 0.4 MG CAP PO SCH (09:47)
[2018-02-05] MEDS: CLOPIDOGREL 75 MG TAB PO SCH (09:48)
[2018-02-05] MEDS: SODIUM CHLORIDE 0.9% FLUSH 10 ML FLUSH IV FLUSH SCH ×2 (09:48→20:32)
--- NOTE | 2018-02-05 10:30 | HHI.PR ---
Subjective Remarks in no acute distress. pain is controlled. urine looks dark. no fever. d/w the RN and no acute issues over night. Objective Vitals Vital Signs Date Time Temp Pulse Resp B/P (MAP) Pulse Ox O2 Delivery O2 Flow Rate FiO2 02/05/18 04:00 98.4 105 18 123/63 (83) 100 02/05/18 00:00 98.0 89 18 112/57 (75) 100 02/04/18 20:00 98.1 92 18 117/59 (78) 100 02/04/18 16:00 98.0 74 18 151/74 (99) 99 02/04/18 12:00 98.2 79 18 154/77 (102) 99 I/O 02/04/18 02/04/18 02/04/18 02/05/18 02/05/18 02/05/18 07:00 15:00 23:00 07:00 15:00 23:00 Intake Total 50 ml 50 ml 50 ml Output Total 200 ml 1250 ml 150 ml 500 ml Balance -150 ml -1250 ml -100 ml -450 ml IV Total 50 ml 50 ml 50 ml Output Urine Total 200 ml 1250 ml 150 ml 500 ml # Bowel Movements 1 2 Result Diagram: 02/02/18 0539 02/02/18 0559 Imaging Last Impressions Foot X-Ray 01/28/18 0000 Signed Impressions: CONCLUSION: Postsurgical changes characteristic of a bunionectomy. Foot MRI 01/28/18 0000 Signed Impressions: CONCLUSION: 1. Significant bony edema in and around the first MTP joint including both of the sesamoid bones. I suspect is related to hallux valgus deformity. 2. Linear edema and enhancement along the first metatarsal base and a pattern suggesting a stress fracture 3. No evidence of osteomyelitis Lower Extremity Angiography 01/22/18 0000 Signed Impressions: CONCLUSION: 1. Segmental inflow stenosis in the left common iliac and proximal external il iac treated with 8 mm stent and 7 mm balloon angioplasty. 2. Short segment occlusion with multiple segments of high-grade stenosis at th e adductor hiatus bridging the distal SFA and proximal above-knee popliteal. Th is area was successfully treated with LS atherectomy and 5 mm balloon angioplas ty as detailed above. Aorta w/Runoff CTA 01/19/18 0000 Signed Impressions: Service Date/Time: Friday, January 19, 2018 17:02 - CONCLUSION: 1. Bladder is severely distended which may reflect bladder outlet obstruction or neurogenic bladder. Patient may benefit from Quesada decompression. 2. No significant aortic stenosis. 3. Occluded right common iliac origin with reconstitution of the common femoral artery. 4. Moderate long segment stenosis of the left common iliac artery and proximal left external iliac artery. 5. Heavily calcified common femoral bifurcations bilaterally with diffusely diseased profunda. 6. Diffusely diseased bilateral SFA with multiple severe stenoses of the right SFA in the mid to distal thigh and short segment occlusion of the left SFA at the adductor canal. 7. Limited two-vessel runoff bilaterally, as above. Jasvir Fontenot MD Objective Remarks GENERAL: This is a well-nourished, well-developed patient, in no apparent distress. CARDIOVASCULAR: Regular rate and regular rhythm without murmurs, gallops, or rubs. RESPIRATORY: Clear to auscultation. Breath sounds equal bilaterally. No wheezes , rales, or rhonchi. GASTROINTESTINAL: Abdomen soft, non-tender, nondistended. Normal, active bowel sounds MUSCULOSKELETAL: left foot is swollen-seems to be improving. NEURO: Alert & Oriented x4 to person, place, time, situation. Moves all ext x4 Procedures Left common iliac and external iliac balloon angioplasty and stent, left SFA Hawk 1 endarterectomy and balloon angioplasty, left external iliac and common femoral endarterectomy patch angioplasty, right external iliac and common femoral endarterectomy with patch angioplasty and femoral-femoral bypass. Medications and IVs Inpatient Medications Acetaminophen (Tylenol) 650 mg Q6H PRN PO FEVER/PAIN SCALE 1 TO 2 Last administered on 01/24/18at 22:49; Start 01/18/18 at 02:00 Acetaminophen/ Hydrocodone Bitart ([place] [address] 5-325 Mg) 1 tab Q4H PRN PO PAIN SCALE 3 TO 5 Last administered on 02/04/18 20:36; Start 01/18/18 at 02:00 Albumin Human 500 ml @ 250 mls/hr NOW IV Last administered on 01/23/18at 01:39 ; Start 01/23/18 at 01:45; Stop 01/23/18 at 03:44; Status DC Bisacodyl (Dulcolax Supp) 10 mg DAILY PRN RECTAL SEVERE CONSITIPATION; Start at 02:00 Cefazolin Sodium/ Dextrose 50 ml @ 100 mls/hr Q8H IV Last administered on at 05:55; Start 01/22/18 at 21:00 Cefazolin/Sodium Chloride 100 ml @ 200 mls/hr Q8H IV Last administered on 01/22at 04:34; Start 01/19/18 at 20:00; Stop 01/22/18 at 21:06; Status DC Chlorhexidine Gluconate (Chlorhexidine 2% Cloth) 3 pack FISHER TRAWL LINE PRN TOPICAL SEE LABEL COMMENTS; Start 01/28/18 at 17:45; Stop 01/31/18 at 17:44; Status DC Clindamycin/ Sodium Chloride 50 ml @ 100 mls/hr Q8H IV Last administered on at 05:50; Start 01/18/18 at 06:00; Stop 01/18/18 at 10:37; Status DC Clopidogrel Bisulfate (Plavix) 75 mg DAILY PO Last administered on 02/05/18at 09: 48; Start 01/22/18 at 20:00 Lactated Ringer's 1,000 ml @ 30 mls/hr Q24H PRN IV SEE LABEL COMMENTS; Start at 17:45; Stop 01/31/18 at 17:44; Status DC Lactulose (Lactulose Liq) 30 ml DAILY PRN PO SEVERE CONSITIPATION; Start at 02:00 Magnesium Hydroxide (Milk Of Magnesia Liq) 30 ml Q12H PRN PO Mild constipation ; Start 01/18/18 at 02:00 Metoclopramide HCl (Reglan Inj) 5 mg Q6H PRN IV PUSH NAUSEA OR VOMITING; Start 01/18/18 at 02:00 Miscellaneous Information ([facility] Nursing Information) ALL NURSING DEPARTME... UNSCH PRN .XX SEE LABEL COMMENTS; Start 01/28/18 at 22:15; Stop 01/29/18 at 22: 14; Status DC Miscellaneous Information ([facility] Ordered Lab Info) SPECIFIC LAB TO BE LOLIS... ONCE ONCE .XX ; Start 01/21/18 at 11:45; Stop 01/21/18 at 11:45; Status DC Morphine Sulfate (Morphine Inj) 2 mg Q3H PRN IV PUSH Pain 6-10 Last administered on 01/18/18at 12:07; Start 01/18/18 at 02:15 Pharmacy Profile Note 0 ml @ 0 mls/hr UNSCH OTHER ; Start 01/18/18 at 10:45; Stop 01/19/18 at 19:38; Status DC Potassium Chloride (KCl Powder) 40 meq ONCE ONCE PO Last administered on at 11:45; Start 01/26/18 at 11:45; Stop 01/26/18 at 11:46; Status DC Povidone Iodine (Betadine 5% Antisepsis Kit) 1 applic FISHER TRAWL LINE PRN EACH NARE SEE LABEL COMMENTS; Start 01/28/18 at 17:45; Stop 01/31/18 at 17:44; Status DC Senna/Docusate Sodium (Janice-Colace) 1 tab BID PO ; Start 01/18/18 at 09:00; Status Future Hold Sennosides (Senokot) 17.2 mg Q12H PRN PO Moderate constipation; Start 01/18/18 at 02:00 Sodium Chloride 500 ml @ 30 mls/hr [id number] PRN IV SEE LABEL COMMENTS; Start at 17:45; Stop 01/31/18 at 17:44; Status DC Sodium Chloride (NS Flush) 2 ml BID IV FLUSH Last administered on 02/05/18at 09: 48; Start 01/18/18 at 09:00 Sodium Chloride 1200 ml/Syringe / Bag 1,200 ml @ 3,600 mls/hr BOLUS STAT IV ; Start 01/25/18 at 12:19; Stop 01/25/18 at 12:23; Status DC Tamsulosin HCl (Flomax) 0.4 mg DAILY PO Last administered on 02/05/18at 09:47; Start 01/27/18 at 11:00 Vancomycin HCl 1000 mg/Sodium Chloride 250 ml @ 250 mls/hr Q24H IV Last administered on 01/19/18at 11:48; Start 01/18/18 at 12:00; Stop 01/19/18 at 19:38 ; Status DC A/P Problem List: (1) Cellulitis of left foot ICD Code: L03.116 - Cellulitis of left lower limb Status: Acute (2) Intractable pain ICD Code: R52 - Pain, unspecified Status: Acute Assessment and Plan Sepsis Resolved Left Foot Cellulitis septic joint vs osteomyelitis Continue cefazolin for 4 weeks f/u with podiatry as outpatient. ID following Peripheral vascular disease History of femorofemoral bypass PVD contributory to limb/foot disease Status post bilateral open and endovascular leg revascularization femorofemoral bypass Continue Plavix cleared by vascular surgery for discharge. Hypotension Resolved Urinary obstruction hematuria repeat UA Monitor renal function voiding trial as outpatient- per urology. Flomax DVT prophylaxis SCDs No chemoprophylaxis due to active bleeding Discharge Planning dc planning to SNF when authorization has been received. f/u; pcp, ortho, vascular surgery. see med list. d/w the patient and RN. d/w the case management. time spent 35 min. Anuj Cabrera MD Feb 05, 2018 10:30
[2018-02-05 12:00] VITALS: BP 121/69; PULSE 87; RESP 16; TEMP 98.7; O2SAT 100
--- NOTE | 2018-02-05 14:01 | HHI.DS ---
Discharge Summary Admission Date January 18, 2018 at 12:49 Discharge Date: Feb 05, 2018 Admitting Diagnosis Left foot cellulitis, intractable foot pain, R/O osteomyelitis (1) Cellulitis of left foot ICD Code: L03.116 - Cellulitis of left lower limb Diagnosis: Principal Status: Acute (2) Intractable pain ICD Code: R52 - Pain, unspecified Diagnosis: Principal Status: Acute Procedures Left common iliac and external iliac balloon angioplasty and stent, left SFA Hawk 1 endarterectomy and balloon angioplasty, left external iliac and common femoral endarterectomy patch angioplasty, right external iliac and common femoral endarterectomy with patch angioplasty and femoral-femoral bypass. Brief History - From Admission This is a 62-year-old male with a PMH of HTN, Hyperlipidemia, BPH and h/o CVA w / Left-Sided Weakness who was brought to the ER for left foot pain and swelling. Notes ongoing swelling and tenderness to left great toe for approx 1mo, however symptoms progressively worse since yesterday. Now w/ foul- smelling drainage. Pain is constant, severe, 8/10, non-radiating, worse w/ ambulation. Seen at the [facility] and referred to the ER for evaluation. Denies fever or chills. On arrival, BP 100/54, HR 98, O2 sat 99% RA, Afebrile. WBC 14.5. Chemistry unremarkable. CRP 2.0. INR 1.1. Foot X-ray suspected chronic deformity of hindfoot. MRI Foot with no definitive evidence of osteomyelitis however unusual multifocal marrow edema throughout left foot and ankle, nonspecific. S/p Clinda in ER in addition to multiple doses of pain medication w/ minimal improvement. CBC/BMP: 02/02/18 0539 02/02/18 0559 Imaging Last Impressions Foot X-Ray 01/28/18 0000 Signed Impressions: CONCLUSION: Postsurgical changes characteristic of a bunionectomy. Foot MRI 01/28/18 0000 Signed Impressions: CONCLUSION: 1. Significant bony edema in and around the first MTP joint including both of the sesamoid bones. I suspect is related to hallux valgus deformity. 2. Linear edema and enhancement along the first metatarsal base and a pattern suggesting a stress fracture 3. No evidence of osteomyelitis Lower Extremity Angiography 01/22/18 0000 Signed Impressions: CONCLUSION: 1. Segmental inflow stenosis in the left common iliac and proximal external il iac treated with 8 mm stent and 7 mm balloon angioplasty. 2. Short segment occlusion with multiple segments of high-grade stenosis at th e adductor hiatus bridging the distal SFA and proximal above-knee popliteal. Th is area was successfully treated with LS atherectomy and 5 mm balloon angioplas ty as detailed above. Aorta w/Runoff CTA 01/19/18 0000 Signed Impressions: Service Date/Time: Friday, January 19, 2018 17:02 - CONCLUSION: 1. Bladder is severely distended which may reflect bladder outlet obstruction or neurogenic bladder. Patient may benefit from Quesada decompression. 2. No significant aortic stenosis. 3. Occluded right common iliac origin with reconstitution of the common femoral artery. 4. Moderate long segment stenosis of the left common iliac artery and proximal left external iliac artery. 5. Heavily calcified common femoral bifurcations bilaterally with diffusely diseased profunda. 6. Diffusely diseased bilateral SFA with multiple severe stenoses of the right SFA in the mid to distal thigh and short segment occlusion of the left SFA at the adductor canal. 7. Limited two-vessel runoff bilaterally, as above. Jasvir Fontenot MD PE at Discharge GENERAL: Not in distress CARDIOVASCULAR: Regular rate and regular rhythm without murmurs, gallops, or rubs. RESPIRATORY: Clear to auscultation. Breath sounds equal bilaterally. No wheezes , rales, or rhonchi. GASTROINTESTINAL: Abdomen soft, mild suprapubic tenderness, Quesada catheter in place, draining yellowish urine, previously bloody. MUSCULOSKELETAL: Left foot swelling improved, bilateral inguinal area, no significant hematoma. NEURO: Alert & Oriented x4 to person, place, time, situation. Left hemiparesis , Hospital Course Sepsis Resolved Left Foot Cellulitis septic joint vs osteomyelitis Continue cefazolin for 4 weeks f/u with podiatry as outpatient. ID following Peripheral vascular disease History of femorofemoral bypass PVD contributory to limb/foot disease Status post bilateral open and endovascular leg revascularization femorofemoral bypass Continue Plavix cleared by vascular surgery for discharge. Hypotension Resolved Urinary obstruction hematuria repeat UA Monitor renal function voiding trial as outpatient- per urology. Flomax DVT prophylaxis SCDs Pt Condition on Discharge: Fair Discharge Disposition: Discharge to SNF Discharge Time: > 30 minutes Discharge Instructions DIET: Follow Instructions for: Heart Healthy Diet Activities you can perform: Regular-No Restrictions Anuj Cabrera MD Feb 05, 2018 14:01
[2018-02-05 15:02] LABS: AMORPHOUS SEDIMENT, URINE RARE; BACTERIA, URINE OCC /hpf; BILIRUBIN, URINE NEG (NEG); BLOOD, URINE LARGE (NEG); GLUCOSE,URINE NEG (NEG); KETONE, URINE NEG (NEG); NITRITE,URINE POS (NEG); SQUAMOUS EPITHELIAL CELL URINE <1 /hpf (0-5); URINE COLOR YELLOW (YELLW/STRAW); URINE LEUKOCYTE ESTERASE LARGE (NEG)
[2018-02-05 16:00] VITALS: BP 124/72; PULSE 84; RESP 16; TEMP 97.9; O2SAT 100
[2018-02-05 20:00] VITALS: BP 100/59; PULSE 98; RESP 18; TEMP 98.4; O2SAT 100
--- NOTE | 2018-02-05 20:55 | MP ---
cc: Jaron Villeda DPM, Hilaree DPM DATE OF OPERATION: 01/28/2018 INDICATIONS FOR PROCEDURE: The patient was seen in the hospital with a left foot ulcer with possible osteomyelitis of the left first metatarsal head. He had a wound with exposed bone. I discussed with the patient the risks, benefits, potential complications of surgery and that he would benefit from removing this bone, that there was a greater than 90% chance that the bone was infected, that we could send a piece as a bone biopsy. He agreed to undergo bone biopsy with excision of the wound to the left foot. PROCEDURE IN DETAIL: He was seen in preop holding by myself, nursing staff, and anesthesia where the correct patient, side and site were all confirmed to be correct and the left foot. He was then taken to the surgical suite in supine position. The left foot was prepped and draped in normal sterile fashion. Following timeout as per facility protocol, attention was directed to the left medial aspect of the forefoot, where there was noted to be a wound down to exposed bone at the level of the medial first metatarsal head with mild serous drainage present. At that time, an incision was made at the dorsal linear aspect of the first metatarsophalangeal joint, encompassing the wound down to the level of bone and bone that was at the level of the medial eminence of the first was abductor hallux was dissected and sent to pathology as bone biopsy. Culture was taken of the wound followed by irrigation with normal saline and closure with 3-0 Vicryl and 2-0 nylon suture. There was no gross purulence or debris noted within the wound. It appeared to be clean and healthy and bled readily. A dressing consisting of Xeroform, 4 x 4's, cast padding, and Richard bandage was applied to the left foot. He will be weightbearing as tolerated and left in surgical shoe and we will await bone biopsy results to determine further treatment. SHORT OPERATIVE NOTE: SURGEON: Em Villeda DPM FISH FLIPPER: Staff. PREOPERATIVE DIAGNOSIS: Left foot ulcer with possible osteomyelitis, left first metatarsal head. POSTOPERATIVE DIAGNOSIS: Left foot ulcer with possible osteomyelitis, left first metatarsal head. PROCEDURE PERFORMED: Bone biopsy, left foot. PATHOLOGY: 1. Bone biopsy, left first metatarsal head. 2. Culture left foot. ANESTHESIA: General endotracheal anesthesia plus local consisting of 10 mL of 0.75% Marcaine plain. ESTIMATED BLOOD LOSS: 10 mL TOURNIQUET TIME: No tourniquet utilized. CONDITION: Stable to PACU. COMPLICATIONS: None. DISPOSITION: Weightbearing as tolerated with left surgical shoe, await bone biopsy results to determine further treatment. NANCY Christina/ , 08:06 PM , 08:55 PM
[2018-02-05] MEDS: ACETAMINOPHEN/HYDROcodone 325 MG/5 MG TAB PO PRN (21:07)
[2018-02-06] VITALS: BP 105/53; PULSE 76; RESP 18; TEMP 98.6; O2SAT 99
[2018-02-06 04:00] VITALS: BP 129/67; PULSE 87; RESP 18; TEMP 98.4; O2SAT 100
[2018-02-06] MEDS: ceFAZolin 2 GM PREMIX 50 ML IV SCH ×3 (05:54→21:09)
[2018-02-06 08:00] VITALS: BP 118/64; PULSE 82; RESP 18; TEMP 98.1; O2SAT 98
[2018-02-06] MEDS: ACETAMINOPHEN/HYDROcodone 325 MG/5 MG TAB PO PRN (09:09)
[2018-02-06] MEDS: CLOPIDOGREL 75 MG TAB PO SCH (09:09)
[2018-02-06] MEDS: TAMSULOSIN HCL 0.4 MG CAP PO SCH (09:09)
[2018-02-06] MEDS: SODIUM CHLORIDE 0.9% FLUSH 10 ML FLUSH IV FLUSH SCH ×2 (09:10→21:09)
--- NOTE | 2018-02-06 10:23 | HHI.PR ---
Subjective Remarks in no acute distress. denies pain. no fever. hematuria has much improved. no new complaints. Objective Vitals Vital Signs Date Time Temp Pulse Resp B/P (MAP) Pulse Ox O2 Delivery O2 Flow Rate FiO2 02/06/18 08:00 98.1 82 18 118/64 (82) 98 02/06/18 04:00 98.4 87 18 129/67 (87) 100 02/06/18 00:00 98.6 76 18 105/53 (70) 99 02/05/18 20:00 98.4 98 18 100/59 (73) 100 02/05/18 16:00 97.9 84 16 124/72 (89) 100 02/05/18 12:00 98.7 87 16 121/69 (86) 100 I/O 02/05/18 02/05/18 02/05/18 02/06/18 02/06/18 02/06/18 07:00 15:00 23:00 07:00 15:00 23:00 Intake Total 50 ml Output Total 500 ml 1100 ml Balance -450 ml -1100 ml IV Total 50 ml Output Urine Total 500 ml 1100 ml # Voids 2 # Bowel Movements 2 Result Diagram: 02/02/18 0539 02/02/18 0559 Imaging Last Impressions Foot X-Ray 01/28/18 0000 Signed Impressions: CONCLUSION: Postsurgical changes characteristic of a bunionectomy. Foot MRI 01/28/18 0000 Signed Impressions: CONCLUSION: 1. Significant bony edema in and around the first MTP joint including both of the sesamoid bones. I suspect is related to hallux valgus deformity. 2. Linear edema and enhancement along the first metatarsal base and a pattern suggesting a stress fracture 3. No evidence of osteomyelitis Lower Extremity Angiography 01/22/18 0000 Signed Impressions: CONCLUSION: 1. Segmental inflow stenosis in the left common iliac and proximal external il iac treated with 8 mm stent and 7 mm balloon angioplasty. 2. Short segment occlusion with multiple segments of high-grade stenosis at th e adductor hiatus bridging the distal SFA and proximal above-knee popliteal. Th is area was successfully treated with LS atherectomy and 5 mm balloon angioplas ty as detailed above. Aorta w/Runoff CTA 01/19/18 0000 Signed Impressions: Service Date/Time: Friday, January 19, 2018 17:02 - CONCLUSION: 1. Bladder is severely distended which may reflect bladder outlet obstruction or neurogenic bladder. Patient may benefit from Quesada decompression. 2. No significant aortic stenosis. 3. Occluded right common iliac origin with reconstitution of the common femoral artery. 4. Moderate long segment stenosis of the left common iliac artery and proximal left external iliac artery. 5. Heavily calcified common femoral bifurcations bilaterally with diffusely diseased profunda. 6. Diffusely diseased bilateral SFA with multiple severe stenoses of the right SFA in the mid to distal thigh and short segment occlusion of the left SFA at the adductor canal. 7. Limited two-vessel runoff bilaterally, as above. Jasvir Fontenot MD Objective Remarks GENERAL: This is a well-nourished, well-developed patient, in no apparent distress. CARDIOVASCULAR: Regular rate and regular rhythm without murmurs, gallops, or rubs. RESPIRATORY: Clear to auscultation. Breath sounds equal bilaterally. No wheezes , rales, or rhonchi. GASTROINTESTINAL: Abdomen soft, non-tender, nondistended. Normal, active bowel sounds MUSCULOSKELETAL: left foot is swollen-seems to be improving. NEURO: Alert & Oriented x4 to person, place, time, situation. Moves all ext x4 Procedures Left common iliac and external iliac balloon angioplasty and stent, left SFA Hawk 1 endarterectomy and balloon angioplasty, left external iliac and common femoral endarterectomy patch angioplasty, right external iliac and common femoral endarterectomy with patch angioplasty and femoral-femoral bypass. Medications and IVs Inpatient Medications Acetaminophen (Tylenol) 650 mg Q6H PRN PO FEVER/PAIN SCALE 1 TO 2 Last administered on 01/24/18at 22:49; Start 01/18/18 at 02:00 Acetaminophen/ Hydrocodone Bitart ([place] 5-325 Mg) 1 tab Q4H PRN PO PAIN SCALE 3 TO 5 Last administered on 02/06/18at 09:09; Start 01/18/18 at 02:00 Albumin Human 500 ml @ 250 mls/hr NOW IV Last administered on 01/23/18at 01:39 ; Start 01/23/18 at 01:45; Stop 01/23/18 at 03:44; Status DC Bisacodyl (Dulcolax Supp) 10 mg DAILY PRN RECTAL SEVERE CONSITIPATION; Start at 02:00 Cefazolin Sodium/ Dextrose 50 ml @ 100 mls/hr Q8H IV Last administered on at 05:54; Start 01/22/18 at 21:00 Cefazolin/Sodium Chloride 100 ml @ 200 mls/hr Q8H IV Last administered on 01/22at 04:34; Start 01/19/18 at 20:00; Stop 01/22/18 at 21:06; Status DC Chlorhexidine Gluconate (Chlorhexidine 2% Cloth) 3 pack PILE FABRIC KNITTER PRN TOPICAL SEE LABEL COMMENTS; Start 01/28/18 at 17:45; Stop 01/31/18 at 17:44; Status DC Clindamycin/ Sodium Chloride 50 ml @ 100 mls/hr Q8H IV Last administered on at 05:50; Start 01/18/18 at 06:00; Stop 01/18/18 at 10:37; Status DC Clopidogrel Bisulfate (Plavix) 75 mg DAILY PO Last administered on 02/06/18at 09: 09; Start 01/22/18 at 20:00 Lactated Ringer's 1,000 ml @ 30 mls/hr Q24H PRN IV SEE LABEL COMMENTS; Start at 17:45; Stop 01/31/18 at 17:44; Status DC Lactulose (Lactulose Liq) 30 ml DAILY PRN PO SEVERE CONSITIPATION; Start at 02:00 Magnesium Hydroxide (Milk Of Magnesia Liq) 30 ml Q12H PRN PO Mild constipation ; Start 01/18/18 at 02:00 Metoclopramide HCl (Reglan Inj) 5 mg Q6H PRN IV PUSH NAUSEA OR VOMITING; Start 01/18/18 at 02:00 Miscellaneous Information ([facility] Nursing Information) ALL NURSING DEPARTME... UNSCH PRN .XX SEE LABEL COMMENTS; Start 01/28/18 at 22:15; Stop 01/29/18 at 22: 14; Status DC Miscellaneous Information ([facility] Pharmacy Ordered Lab Info) SPECIFIC LAB TO BE LOLIS... ONCE ONCE .XX ; Start 01/21/18 at 11:45; Stop 01/21/18 at 11:45; Status DC Morphine Sulfate (Morphine Inj) 2 mg Q3H PRN IV PUSH Pain 6-10 Last administered on 01/18/18at 12:07; Start 01/18/18 at 02:15 Pharmacy Profile Note 0 ml @ 0 mls/hr UNSCH OTHER ; Start 01/18/18 at 10:45; Stop 01/19/18 at 19:38; Status DC Potassium Chloride (KCl Powder) 40 meq ONCE ONCE PO Last administered on at 11:45; Start 01/26/18 at 11:45; Stop 01/26/18 at 11:46; Status DC Povidone Iodine (Betadine 5% Antisepsis Kit) 1 applic PILE FABRIC KNITTER PRN EACH NARE SEE LABEL COMMENTS; Start 01/28/18 at 17:45; Stop 01/31/18 at 17:44; Status DC Senna/Docusate Sodium (Janice-Colace) 1 tab BID PO ; Start 01/18/18 at 09:00; Status Future Hold Sennosides (Senokot) 17.2 mg Q12H PRN PO Moderate constipation; Start 01/18/18 at 02:00 Sodium Chloride 500 ml @ 30 mls/hr [id number] PRN IV SEE LABEL COMMENTS; Start at 17:45; Stop 01/31/18 at 17:44; Status DC Sodium Chloride (NS Flush) 2 ml BID IV FLUSH Last administered on 02/06/18at 09: 10; Start 01/18/18 at 09:00 Sodium Chloride 1200 ml/Syringe / Bag 1,200 ml @ 3,600 mls/hr BOLUS STAT IV ; Start 01/25/18 at 12:19; Stop 01/25/18 at 12:23; Status DC Tamsulosin HCl (Flomax) 0.4 mg DAILY PO Last administered on 02/06/18at 09:09; Start 01/27/18 at 11:00 Vancomycin HCl 1000 mg/Sodium Chloride 250 ml @ 250 mls/hr Q24H IV Last administered on 01/19/18at 11:48; Start 01/18/18 at 12:00; Stop 01/19/18 at 19:38 ; Status DC A/P Problem List: (1) Cellulitis of left foot ICD Code: L03.116 - Cellulitis of left lower limb Status: Acute (2) Intractable pain ICD Code: R52 - Pain, unspecified Status: Acute Assessment and Plan Sepsis Resolved Left Foot Cellulitis septic joint vs osteomyelitis Continue cefazolin for 4 weeks f/u with podiatry as outpatient. evaluated by ID. Peripheral vascular disease History of femorofemoral bypass PVD contributory to limb/foot disease Status post bilateral open and endovascular leg revascularization femorofemoral bypass Continue Plavix cleared by vascular surgery for discharge. Hypotension Resolved Urinary obstruction hematuria- has much improved. UTI continue antibiotic follow the UC. voiding trial as outpatient- per urology. Flomax DVT prophylaxis SCDs No chemoprophylaxis due to active bleeding Discharge Planning dc planning to SNF within the next 24 hrs. f/u; pcp, ortho, vascular surgery. see med list. d/w the patient and RN. d/w the case management. time spent 35 min. Anuj Cabrera MD Feb 06, 2018 10:23
[2018-02-06 12:00] VITALS: BP 129/62; PULSE 18; RESP 18; TEMP 97.9; O2SAT 99
[2018-02-06] MEDS: AZTREONAM INJ 1,000 MG in SODIUM CHLORIDE 0.9% INJ 100 ML IV SCH ×2 (14:34→21:42)
[2018-02-06 16:00] VITALS: BP 108/59; PULSE 88; RESP 18; TEMP 98; O2SAT 100
--- NOTE | 2018-02-06 16:23 | HHI.IDPN ---
Subjective Subjective Remarks Dr العراقي asked me to re-evaluate th e pt 2/2 UTI Pt with chronic sanchez Noted hematuria UA cw infx ( WBC -innum, + LE), growing PSAE in urine culture I added azactam Antibiotics cefazoline azactam Allergies: Coded Allergies: No Known Allergies (Verified Allergy, Unknown, 11/04/17) Objective . Vital Signs Date Time Temp Pulse Resp B/P (MAP) Pulse Ox O2 Delivery O2 Flow Rate FiO2 02/06/18 12:00 97.9 18 18 129/62 (84) 99 02/06/18 08:00 98.1 82 18 118/64 (82) 98 02/06/18 04:00 98.4 87 18 129/67 (87) 100 02/06/18 00:00 98.6 76 18 105/53 (70) 99 02/05/18 20:00 98.4 98 18 100/59 (73) 100 . Microbiology Date/Time Source Procedure Growth Status 02/05/18 14:20 Urine Catheterized Urine Urine Culture - Preliminary Pseudomonas Species Resulted Imaging Last Impressions Foot X-Ray 01/28/18 0000 Signed Impressions: CONCLUSION: Postsurgical changes characteristic of a bunionectomy. Foot MRI 01/28/18 0000 Signed Impressions: CONCLUSION: 1. Significant bony edema in and around the first MTP joint including both of the sesamoid bones. I suspect is related to hallux valgus deformity. 2. Linear edema and enhancement along the first metatarsal base and a pattern suggesting a stress fracture 3. No evidence of osteomyelitis Lower Extremity Angiography 01/22/18 0000 Signed Impressions: CONCLUSION: 1. Segmental inflow stenosis in the left common iliac and proximal external il iac treated with 8 mm stent and 7 mm balloon angioplasty. 2. Short segment occlusion with multiple segments of high-grade stenosis at th e adductor hiatus bridging the distal SFA and proximal above-knee popliteal. Th is area was successfully treated with LS atherectomy and 5 mm balloon angioplas ty as detailed above. Aorta w/Runoff CTA 01/19/18 0000 Signed Impressions: Service Date/Time: Friday, January 19, 2018 17:02 - CONCLUSION: 1. Bladder is severely distended which may reflect bladder outlet obstruction or neurogenic bladder. Patient may benefit from Sanchez decompression. 2. No significant aortic stenosis. 3. Occluded right common iliac origin with reconstitution of the common femoral artery. 4. Moderate long segment stenosis of the left common iliac artery and proximal left external iliac artery. 5. Heavily calcified common femoral bifurcations bilaterally with diffusely diseased profunda. 6. Diffusely diseased bilateral SFA with multiple severe stenoses of the right SFA in the mid to distal thigh and short segment occlusion of the left SFA at the adductor canal. 7. Limited two-vessel runoff bilaterally, as above. Jasvir Fontenot MD Physical Exam CONSTITUTIONAL/GENERAL: This is a thin elderly male patient, in no apparent distress. TUBES/LINES/DRAINS: SKIN: No jaundice, rashes, or lesions. Ecchymoses on upper extremities. No wounds seen anteriorly. Skin temperature appropriate. Not diaphoretic. CARDIOVASCULAR: Regular rate and rhythm without murmurs, gallops, or rubs. No JVD. Peripheral pulses symmetric. RESPIRATORY/CHEST: Symmetric, unlabored respirations. Clear to auscultation. Breath sounds equal bilaterally. No wheezes, rales, or rhonchi. GASTROINTESTINAL: Abdomen soft, non-tender, nondistended. No hepato-splenomegaly , or palpable masses. No guarding. Bowel sounds present. GENITOURINARY: Without palpable bladder distension. sanchez in place with cloudy yellow uyrine MUSCULOSKELETAL: Extremities without clubbing, cyanosis, Fett are warm Non tender Lt foot incision is dry and well approximated NEUROLOGICAL: Awake and alert. Baseline L hemiparesis . Follows commands. Confused. Moves all extremities. PSYCHIATRIC: No obvious anxiety/depression. no apparent hallucinations or other psychotic thought process. Assessment & Plan Remarks MSSA infected 1st MT wound , left - osteo - confirmed on path - clx neg can be 2/2 prior abx use MSSA sepsis - 2/2 foot infection 2 D echo w/o vegetations Underlying moderate to severe PVD Bladder outlet obstruction - sanchez placed - UA/C+S not cw inf viridans strep bacteremia ? significance - vir strep is common skin contaminant and in low grade bacteremia likely contaminastion More pain, purulence of Lt 1 MT sp I+D clx P abx associated diarrhea, c.diff negative PSAE UTI - new issue; S P cont cefazolin complete 6 weeks of abx azactam for UTI dw Olya Chaudhry MD Feb 06, 2018 16:23
[2018-02-06 20:00] VITALS: BP 124/66; PULSE 82; RESP 18; TEMP 98.2; O2SAT 100
[2018-02-07] VITALS: BP 120/65; PULSE 62; RESP 16; TEMP 98; O2SAT 98
[2018-02-07 04:00] VITALS: BP 120/62; PULSE 80; RESP 17; TEMP 97.1; O2SAT 100
[2018-02-07] MEDS: ceFAZolin 2 GM PREMIX 50 ML IV SCH ×3 (05:24→20:32)
[2018-02-07] MEDS: AZTREONAM INJ 1,000 MG in SODIUM CHLORIDE 0.9% INJ 100 ML IV SCH ×2 (05:25→14:56)
[2018-02-07 08:00] VITALS: BP_SYST 127; BP_SYST 133; BP_DIAS 66; BP_DIAS 71; PULSE 100; PULSE 80; RESP 18; TEMP 98.1; TEMP 98.2; O2SAT 100; O2SAT 95
[2018-02-07] MEDS: CLOPIDOGREL 75 MG TAB PO SCH (09:12)
[2018-02-07] MEDS: SODIUM CHLORIDE 0.9% FLUSH 10 ML FLUSH IV FLUSH SCH ×2 (09:12→20:32)
[2018-02-07] MEDS: TAMSULOSIN HCL 0.4 MG CAP PO SCH (09:12)
--- NOTE | 2018-02-07 11:50 | HHI.PR ---
Subjective Remarks in no acute distress. denies pain. no fever. hematuria has resolved. Objective Vitals Vital Signs Date Time Temp Pulse Resp B/P (MAP) Pulse Ox O2 Delivery O2 Flow Rate FiO2 02/07/18 08:00 98.1 80 18 133/71 (91) 100 02/07/18 04:00 97.1 80 17 120/62 (81) 100 02/07/18 00:00 98.0 62 16 120/65 (83) 98 02/06/18 20:00 98.2 82 18 124/66 (85) 100 02/06/18 16:00 98.0 88 18 108/59 (75) 100 02/06/18 12:00 97.9 18 18 129/62 (84) 99 I/O 02/06/18 02/06/18 02/06/18 02/07/18 02/07/18 02/07/18 07:00 15:00 23:00 07:00 15:00 23:00 Intake Total 700 ml Output Total 1100 ml 850 ml 1100 ml Balance -1100 ml -850 ml -400 ml Intake Oral 700 ml Output Urine Total 1100 ml 850 ml 1100 ml # Voids 2 # Bowel Movements 1 Imaging Last Impressions Foot X-Ray 01/28/18 Signed Impressions: CONCLUSION: Postsurgical changes characteristic of a bunionectomy. Foot MRI 01/28/18 Signed Impressions: CONCLUSION: 1. Significant bony edema in and around the first MTP joint including both of the sesamoid bones. I suspect is related to hallux valgus deformity. 2. Linear edema and enhancement along the first metatarsal base and a pattern suggesting a stress fracture 3. No evidence of osteomyelitis Lower Extremity Angiography 01/22/18 Signed Impressions: CONCLUSION: 1. Segmental inflow stenosis in the left common iliac and proximal external il iac treated with 8 mm stent and 7 mm balloon angioplasty. 2. Short segment occlusion with multiple segments of high-grade stenosis at th e adductor hiatus bridging the distal SFA and proximal above-knee popliteal. Th is area was successfully treated with LS atherectomy and 5 mm balloon angioplas ty as detailed above. Aorta w/Runoff CTA 01/19/18 0000 Signed Impressions: Service Date/Time: Friday, January 19, 2018 17:02 - CONCLUSION: 1. Bladder is severely distended which may reflect bladder outlet obstruction or neurogenic bladder. Patient may benefit from Quesada decompression. 2. No significant aortic stenosis. 3. Occluded right common iliac origin with reconstitution of the common femoral artery. 4. Moderate long segment stenosis of the left common iliac artery and proximal left external iliac artery. 5. Heavily calcified common femoral bifurcations bilaterally with diffusely diseased profunda. 6. Diffusely diseased bilateral SFA with multiple severe stenoses of the right SFA in the mid to distal thigh and short segment occlusion of the left SFA at the adductor canal. 7. Limited two-vessel runoff bilaterally, as above. Jasvir Fontenot MD Objective Remarks GENERAL: This is a well-nourished, well-developed patient, in no apparent distress. CARDIOVASCULAR: Regular rate and regular rhythm without murmurs, gallops, or rubs. RESPIRATORY: Clear to auscultation. Breath sounds equal bilaterally. No wheezes , rales, or rhonchi. GASTROINTESTINAL: Abdomen soft, non-tender, nondistended. Normal, active bowel sounds MUSCULOSKELETAL: left foot is swollen-seems to be improving. NEURO: Alert & Oriented x4 to person, place, time, situation. Moves all ext x4 Procedures Left common iliac and external iliac balloon angioplasty and stent, left SFA Hawk 1 endarterectomy and balloon angioplasty, left external iliac and common femoral endarterectomy patch angioplasty, right external iliac and common femoral endarterectomy with patch angioplasty and femoral-femoral bypass. Medications and IVs Inpatient Medications Acetaminophen (Tylenol) 650 mg Q6H PRN PO FEVER/PAIN SCALE 1 TO 2 Last administered on 01/24/18at 22:49; Start 01/18/18 at 02:00 Acetaminophen/ Hydrocodone Bitart (Ovalo 5-325 Mg) 1 tab Q4H PRN PO PAIN SCALE 3 TO 5 Last administered on 02/06/18at 09:09; Start 01/18/18 at 02:00 Albumin Human 500 ml @ 250 mls/hr NOW IV Last administered on 01/23/18at 01:39 ; Start 01/23/18 at 01:45; Stop 01/23/18 at 03:44; Status DC Aztreonam 1000 mg/ Sodium Chloride 100 ml @ 200 mls/hr Q8H IV Last administered on 02/07/18at 05:25; Start 02/06/18 at 14:00 Bisacodyl (Dulcolax Supp) 10 mg DAILY PRN RECTAL SEVERE CONSITIPATION; Start at 02:00 Cefazolin Sodium/ Dextrose 50 ml @ 100 mls/hr Q8H IV Last administered on at 05:24; Start 01/22/18 at 21:00 Cefazolin/Sodium Chloride 100 ml @ 200 mls/hr Q8H IV Last administered on 01/22at 04:34; Start 01/19/18 at 20:00; Stop 01/22/18 at 21:06; Status DC Chlorhexidine Gluconate (Chlorhexidine 2% Cloth) 3 pack DENTAL SERVICE TECHNICIAN PRN TOPICAL SEE LABEL COMMENTS; Start 01/28/18 at 17:45; Stop 01/31/18 at 17:44; Status DC Clindamycin/ Sodium Chloride 50 ml @ 100 mls/hr Q8H IV Last administered on at 05:50; Start 01/18/18 at 06:00; Stop 01/18/18 at 10:37; Status DC Clopidogrel Bisulfate (Plavix) 75 mg DAILY PO Last administered on 02/07/18at 09: 12; Start 01/22/18 at 20:00 Lactated Ringer's 1,000 ml @ 30 mls/hr Q24H PRN IV SEE LABEL COMMENTS; Start at 17:45; Stop 01/31/18 at 17:44; Status DC Lactulose (Lactulose Liq) 30 ml DAILY PRN PO SEVERE CONSITIPATION; Start at 02:00 Magnesium Hydroxide (Milk Of Magnesia Liq) 30 ml Q12H PRN PO Mild constipation ; Start 01/18/18 at 02:00 Metoclopramide HCl (Reglan Inj) 5 mg Q6H PRN IV PUSH NAUSEA OR VOMITING; Start 01/18/18 at 02:00 Miscellaneous Information [place] ALL NURSING DEPARTME... UNSCH PRN .XX SEE LABEL COMMENTS; Start 01/28/18 at 22:15; Stop 01/29/18 at 22: 14; Status DC Miscellaneous Information ([facility] Ordered Lab Info) SPECIFIC LAB TO BE LOLIS... ONCE ONCE .XX ; Start 01/21/18 at 11:45; Stop 01/21/18 at 11:45; Status DC Morphine Sulfate (Morphine Inj) 2 mg Q3H PRN IV PUSH Pain 6-10 Last administered on 01/18/18at 12:07; Start 01/18/18 at 02:15 Pharmacy Profile Note 0 ml @ 0 mls/hr UNSCH OTHER ; Start 01/18/18 at 10:45; Stop 01/19/18 at 19:38; Status DC Potassium Chloride (KCl Powder) 40 meq ONCE ONCE PO Last administered on at 11:45; Start 01/26/18 at 11:45; Stop 01/26/18 at 11:46; Status DC Povidone Iodine (Betadine 5% Antisepsis Kit) 1 applic DENTAL SERVICE TECHNICIAN PRN EACH NARE SEE LABEL COMMENTS; Start 01/28/18 at 17:45; Stop 01/31/18 at 17:44; Status DC Senna/Docusate Sodium (Janice-Colace) 1 tab BID PO ; Start 01/18/18 at 09:00; Status Future Hold Sennosides (Senokot) 17.2 mg Q12H PRN PO Moderate constipation; Start 01/18/18 at 02:00 Sodium Chloride 500 ml @ 30 mls/hr [id number] PRN IV SEE LABEL COMMENTS; Start at 17:45; Stop 01/31/18 at 17:44; Status DC Sodium Chloride (NS Flush) 2 ml BID IV FLUSH Last administered on 02/07/18at 09: 12; Start 01/18/18 at 09:00 Sodium Chloride 1200 ml/Syringe / Bag 1,200 ml @ 3,600 mls/hr BOLUS STAT IV ; Start 01/25/18 at 12:19; Stop 01/25/18 at 12:23; Status DC Tamsulosin HCl (Flomax) 0.4 mg DAILY PO Last administered on 02/07/18at 09:12; Start 01/27/18 at 11:00 Vancomycin HCl 1000 mg/Sodium Chloride 250 ml @ 250 mls/hr Q24H IV Last administered on 01/19/18at 11:48; Start 01/18/18 at 12:00; Stop 01/19/18 at 19:38 ; Status DC A/P Problem List: (1) Cellulitis of left foot ICD Code: L03.116 - Cellulitis of left lower limb Status: Acute (2) Intractable pain ICD Code: R52 - Pain, unspecified Status: Acute Assessment and Plan Sepsis Resolved Left Foot Cellulitis septic joint vs osteomyelitis Continue cefazolin for 4 weeks f/u with podiatry as outpatient. evaluated by ID. Peripheral vascular disease History of femorofemoral bypass PVD contributory to limb/foot disease Status post bilateral open and endovascular leg revascularization femorofemoral bypass Continue Plavix cleared by vascular surgery for discharge. Hypotension Resolved Urinary obstruction hematuria- has much improved. UTI with pseudomonas continue antibiotics; Azactam was added to his regimen on 02/06/18. voiding trial as outpatient- per urology. Flomax DVT prophylaxis SCDs No chemoprophylaxis due to active bleeding Discharge Planning dc planning to SNF - when cleared by ID. f/u; pcp, ortho, vascular surgery. see med list. d/w the patient . d/w the case management. time spent 35 min. Anuj Cabrera MD Feb 07, 2018 11:50
[2018-02-07 12:00] VITALS: BP 115/82; PULSE 104; RESP 18; TEMP 98.3; O2SAT 97
[2018-02-07 16:00] VITALS: BP_SYST 139; BP_SYST 157; BP_DIAS 107; BP_DIAS 85; PULSE 117; RESP 18; TEMP 98.3; O2SAT 100
--- NOTE | 2018-02-07 18:32 | HHI.IDPN ---
Subjective Subjective Remarks doinh OK Urine clx grew PSAE panS no fever Antibiotics cefazoline azactam Allergies: Coded Allergies: No Known Allergies (Verified Allergy, Unknown, 11/04/17) Objective . Vital Signs Date Time Temp Pulse Resp B/P (MAP) Pulse Ox O2 Delivery O2 Flow Rate FiO2 02/07/18 16:00 98.3 117 18 157/107 (124) 100 139/85 (103) 02/07/18 12:00 98.3 104 18 115/82 (93) 97 02/07/18 08:00 98.1 80 18 133/71 (91) 100 02/07/18 04:00 97.1 80 17 120/62 (81) 100 02/07/18 00:00 98.0 62 16 120/65 (83) 98 02/06/18 20:00 98.2 82 18 124/66 (85) 100 . Microbiology Date/Time Source Procedure Growth Status 02/05/18 14:20 Urine Catheterized Urine Urine Culture - Preliminary Pseudomonas Aeruginosa Resulted Imaging Last Impressions Foot X-Ray 01/28/18 0000 Signed Impressions: CONCLUSION: Postsurgical changes characteristic of a bunionectomy. Foot MRI 01/28/18 0000 Signed Impressions: CONCLUSION: 1. Significant bony edema in and around the first MTP joint including both of the sesamoid bones. I suspect is related to hallux valgus deformity. 2. Linear edema and enhancement along the first metatarsal base and a pattern suggesting a stress fracture 3. No evidence of osteomyelitis Lower Extremity Angiography 01/22/18 0000 Signed Impressions: CONCLUSION: 1. Segmental inflow stenosis in the left common iliac and proximal external il iac treated with 8 mm stent and 7 mm balloon angioplasty. 2. Short segment occlusion with multiple segments of high-grade stenosis at th e adductor hiatus bridging the distal SFA and proximal above-knee popliteal. Th is area was successfully treated with LS atherectomy and 5 mm balloon angioplas ty as detailed above. Aorta w/Runoff CTA 01/19/18 0000 Signed Impressions: Service Date/Time: Friday, January 19, 2018 17:02 - CONCLUSION: 1. Bladder is severely distended which may reflect bladder outlet obstruction or neurogenic bladder. Patient may benefit from Sanchez decompression. 2. No significant aortic stenosis. 3. Occluded right common iliac origin with reconstitution of the common femoral artery. 4. Moderate long segment stenosis of the left common iliac artery and proximal left external iliac artery. 5. Heavily calcified common femoral bifurcations bilaterally with diffusely diseased profunda. 6. Diffusely diseased bilateral SFA with multiple severe stenoses of the right SFA in the mid to distal thigh and short segment occlusion of the left SFA at the adductor canal. 7. Limited two-vessel runoff bilaterally, as above. Jasvir Fontenot MD Physical Exam CONSTITUTIONAL/GENERAL: This is a thin elderly male patient, in no apparent distress. TUBES/LINES/DRAINS: SKIN: No jaundice, rashes, or lesions. Ecchymoses on upper extremities. No wounds seen anteriorly. Skin temperature appropriate. Not diaphoretic. CARDIOVASCULAR: Regular rate and rhythm without murmurs, gallops, or rubs. No JVD. Peripheral pulses symmetric. RESPIRATORY/CHEST: Symmetric, unlabored respirations. Clear to auscultation. Breath sounds equal bilaterally. No wheezes, rales, or rhonchi. GASTROINTESTINAL: Abdomen soft, non-tender, nondistended. No hepato-splenomegaly , or palpable masses. No guarding. Bowel sounds present. GENITOURINARY: Without palpable bladder distension. sanchez in place with clear yellow urine MUSCULOSKELETAL: Extremities without clubbing, cyanosis, Lt foot dressing in place NEUROLOGICAL: Awake and alert. Baseline L hemiparesis . Follows commands. Confused. Moves all extremities. PSYCHIATRIC: No obvious anxiety/depression. no apparent hallucinations or other psychotic thought process. Assessment & Plan Remarks MSSA infected 1st MT wound , left - osteo - confirmed on path - clx neg can be 2/2 prior abx use MSSA sepsis - 2/2 foot infection 2 D echo w/o vegetations Underlying moderate to severe PVD Bladder outlet obstruction - sanchez placed - UA/C+S not cw inf viridans strep bacteremia ? significance - vir strep is common skin contaminant and in low grade bacteremia likely contaminastion More pain, purulence of Lt 1 MT sp I+D clx P abx associated diarrhea, c.diff negative PSAE UTI - olivier S cont cefazolin complete 6 weeks of abx PO levaquin 500 mg x 14 days for UTI dw Dr Rodriguez [place] to dc pt Olya Stokes MD Feb 07, 2018 18:32
[2018-02-07] MEDS ORDERED: LEVA500T33 PO (18:34)
[2018-02-07 20:00] VITALS: BP 164/74; PULSE 85; RESP 16; TEMP 97.8; O2SAT 100
[2018-02-07] MEDS: LEVOFLOXACIN 500 MG TAB PO SCH (20:32)
[2018-02-08] VITALS: BP 132/62; PULSE 82; RESP 18; TEMP 98.4; O2SAT 100
[2018-02-08 04:00] VITALS: BP 128/64; PULSE 79; RESP 16; TEMP 98.2; O2SAT 100
[2018-02-08] MEDS: ceFAZolin 2 GM PREMIX 50 ML IV SCH ×2 (05:34→13:07)
[2018-02-08 07:58] VITALS: BP 135/65; PULSE 103; RESP 18; TEMP 98.6; O2SAT 100
[2018-02-08] MEDS: TAMSULOSIN HCL 0.4 MG CAP PO SCH (08:44)
[2018-02-08] MEDS: LEVOFLOXACIN 500 MG TAB PO SCH (08:44)
[2018-02-08] MEDS: CLOPIDOGREL 75 MG TAB PO SCH (08:44)
[2018-02-08] MEDS: SODIUM CHLORIDE 0.9% FLUSH 10 ML FLUSH IV FLUSH SCH (08:45)
--- NOTE | 2018-02-08 10:53 | HHI.PR ---
Subjective Remarks in no acute distress. looks comfortable. no fever. no new complaints. Objective Vitals Vital Signs Date Time Temp Pulse Resp B/P (MAP) Pulse Ox O2 Delivery O2 Flow Rate FiO2 02/08/18 07:58 98.6 103 18 135/65 (88) 100 02/08/18 04:00 98.2 79 16 128/64 (85) 100 02/08/18 00:00 98.4 82 18 132/62 (85) 100 02/07/18 20:00 97.8 85 16 164/74 (104) 100 02/07/18 16:00 98.3 117 18 157/107 (124) 100 139/85 (103) 02/07/18 12:00 98.3 104 18 115/82 (93) 97 I/O 02/07/18 02/07/18 02/07/18 02/08/18 02/08/18 02/08/18 07:00 15:00 23:00 07:00 15:00 23:00 Intake Total 700 ml 50 ml 52 ml Output Total 1100 ml 650 ml Balance -400 ml 50 ml -598 ml Intake Oral 700 ml IV Total 50 ml 52 ml Output Urine Total 1100 ml 650 ml Imaging Last Impressions Foot X-Ray 01/28/18 0000 Signed Impressions: CONCLUSION: Postsurgical changes characteristic of a bunionectomy. Foot MRI 01/28/18 0000 Signed Impressions: CONCLUSION: 1. Significant bony edema in and around the first MTP joint including both of the sesamoid bones. I suspect is related to hallux valgus deformity. 2. Linear edema and enhancement along the first metatarsal base and a pattern suggesting a stress fracture 3. No evidence of osteomyelitis Lower Extremity Angiography 01/22/18 0000 Signed Impressions: CONCLUSION: 1. Segmental inflow stenosis in the left common iliac and proximal external il iac treated with 8 mm stent and 7 mm balloon angioplasty. 2. Short segment occlusion with multiple segments of high-grade stenosis at th e adductor hiatus bridging the distal SFA and proximal above-knee popliteal. Th is area was successfully treated with LS atherectomy and 5 mm balloon angioplas ty as detailed above. Aorta w/Runoff CTA 01/19/18 0000 Signed Impressions: Service Date/Time: Friday, January 19, 2018 17:02 - CONCLUSION: 1. Bladder is severely distended which may reflect bladder outlet obstruction or neurogenic bladder. Patient may benefit from Quesada decompression. 2. No significant aortic stenosis. 3. Occluded right common iliac origin with reconstitution of the common femoral artery. 4. Moderate long segment stenosis of the left common iliac artery and proximal left external iliac artery. 5. Heavily calcified common femoral bifurcations bilaterally with diffusely diseased profunda. 6. Diffusely diseased bilateral SFA with multiple severe stenoses of the right SFA in the mid to distal thigh and short segment occlusion of the left SFA at the adductor canal. 7. Limited two-vessel runoff bilaterally, as above. Jasvir Fontenot MD Objective Remarks GENERAL: This is a well-nourished, well-developed patient, in no apparent distress. CARDIOVASCULAR: Regular rate and regular rhythm without murmurs, gallops, or rubs. RESPIRATORY: Clear to auscultation. Breath sounds equal bilaterally. No wheezes , rales, or rhonchi. GASTROINTESTINAL: Abdomen soft, non-tender, nondistended. Normal, active bowel sounds MUSCULOSKELETAL: left foot is swollen-seems to be improving. NEURO: Alert & Oriented x4 to person, place, time, situation. Moves all ext x4 Procedures Left common iliac and external iliac balloon angioplasty and stent, left SFA Hawk 1 endarterectomy and balloon angioplasty, left external iliac and common femoral endarterectomy patch angioplasty, right external iliac and common femoral endarterectomy with patch angioplasty and femoral-femoral bypass. Medications and IVs Inpatient Medications Acetaminophen (Tylenol) 650 mg Q6H PRN PO FEVER/PAIN SCALE 1 TO 2 Last administered on 01/24/18at 22:49; Start 01/18/18 at 02:00 Acetaminophen/ Hydrocodone Bitart (Adin 5-325 Mg) 1 tab Q4H PRN PO PAIN SCALE 3 TO 5 Last administered on 02/06/18at 09:09; Start 01/18/18 at 02:00 Albumin Human 500 ml @ 250 mls/hr NOW IV Last administered on 01/23/18at 01:39 ; Start 01/23/18 at 01:45; Stop 01/23/18 at 03:44; Status DC Aztreonam 1000 mg/ Sodium Chloride 100 ml @ 200 mls/hr Q8H IV Last administered on 02/07/18at 14:56; Start 02/06/18 at 14:00; Stop 02/07/18 at 18:31; Status DC Bisacodyl (Dulcolax Supp) 10 mg DAILY PRN RECTAL SEVERE CONSITIPATION; Start at 02:00 Cefazolin Sodium/ Dextrose 50 ml @ 100 mls/hr Q8H IV Last administered on at 05:34; Start 01/22/18 at 21:00 Cefazolin/Sodium Chloride 100 ml @ 200 mls/hr Q8H IV Last administered on 01/22at 04:34; Start 01/19/18 at 20:00; Stop 01/22/18 at 21:06; Status DC Chlorhexidine Gluconate (Chlorhexidine 2% Cloth) 3 pack WHEEL PRESS OPERATOR PRN TOPICAL SEE LABEL COMMENTS; Start 01/28/18 at 17:45; Stop 01/31/18 at 17:44; Status DC Clindamycin/ Sodium Chloride 50 ml @ 100 mls/hr Q8H IV Last administered on at 05:50; Start 01/18/18 at 06:00; Stop 01/18/18 at 10:37; Status DC Clopidogrel Bisulfate (Plavix) 75 mg DAILY PO Last administered on 02/08/18at 08: 44; Start 01/22/18 at 20:00 Lactated Ringer's 1,000 ml @ 30 mls/hr Q24H PRN IV SEE LABEL COMMENTS; Start at 17:45; Stop 01/31/18 at 17:44; Status DC Lactulose (Lactulose Liq) 30 ml DAILY PRN PO SEVERE CONSITIPATION; Start at 02:00 Levofloxacin (Levaquin) 500 mg DAILY PO Last administered on 02/08/18at 08:44; Start 02/07/18 at 20:00 Magnesium Hydroxide (Milk Of Magnesia Liq) 30 ml Q12H PRN PO Mild constipation ; Start 01/18/18 at 02:00 Metoclopramide HCl (Reglan Inj) 5 mg Q6H PRN IV PUSH NAUSEA OR VOMITING; Start 01/18/18 at 02:00 Miscellaneous Information ([facility] [place] [facility]) ALL NURSING DEPARTME... UNSCH PRN .XX SEE LABEL COMMENTS; Start 01/28/18 at 22:15; Stop 01/29/18 at 22: 14; Status DC Miscellaneous Information ([facility] Ordered Lab Info) SPECIFIC LAB TO BE .. ONCE ONCE .XX ; Start 01/21/18 at 11:45; Stop 01/21/18 at 11:45; Status DC Morphine Sulfate (Morphine Inj) 2 mg Q3H PRN IV PUSH Pain 6-10 Last administered on 01/18/18at 12:07; Start 01/18/18 at 02:15 Pharmacy Profile Note 0 ml @ 0 mls/hr UNSCH OTHER ; Start 01/18/18 at 10:45; Stop 01/19/18 at 19:38; Status DC Potassium Chloride (KCl Powder) 40 meq ONCE ONCE PO Last administered on at 11:45; Start 01/26/18 at 11:45; Stop 01/26/18 at 11:46; Status DC Povidone Iodine (Betadine 5% Antisepsis Kit) 1 applic WHEEL PRESS OPERATOR PRN EACH NARE SEE LABEL COMMENTS; Start 01/28/18 at 17:45; Stop 01/31/18 at 17:44; Status DC Senna/Docusate Sodium (Janice-Colace) 1 tab BID PO ; Start 01/18/18 at 09:00; Status Future Hold Sennosides (Senokot) 17.2 mg Q12H PRN PO Moderate constipation; Start 01/18/18 at 02:00 Sodium Chloride 500 ml @ 30 mls/hr [id number] PRN IV SEE LABEL COMMENTS; Start at 17:45; Stop 01/31/18 at 17:44; Status DC Sodium Chloride (NS Flush) 2 ml BID IV FLUSH Last administered on 02/08/18at 08: 45; Start 01/18/18 at 09:00 Sodium Chloride 1200 ml/Syringe / Bag 1,200 ml @ 3,600 mls/hr BOLUS STAT IV ; Start 01/25/18 at 12:19; Stop 01/25/18 at 12:23; Status DC Tamsulosin HCl (Flomax) 0.4 mg DAILY PO Last administered on 02/08/18at 08:44; Start 01/27/18 at 11:00 Vancomycin HCl 1000 mg/Sodium Chloride 250 ml @ 250 mls/hr Q24H IV Last administered on 01/19/18at 11:48; Start 01/18/18 at 12:00; Stop 01/19/18 at 19:38 ; Status DC A/P Problem List: (1) Cellulitis of left foot ICD Code: L03.116 - Cellulitis of left lower limb Status: Acute (2) Intractable pain ICD Code: R52 - Pain, unspecified Status: Acute Assessment and Plan Sepsis Resolved Left Foot Cellulitis septic joint vs osteomyelitis Continue cefazolin for 4 weeks f/u with podiatry as outpatient. evaluated by ID. Peripheral vascular disease History of femorofemoral bypass PVD contributory to limb/foot disease Status post bilateral open and endovascular leg revascularization femorofemoral bypass Continue Plavix cleared by vascular surgery for discharge. Hypotension Resolved Urinary obstruction hematuria- has much improved. UTI with pseudomonas continue antibiotics; Azactam was dc'ed and started on PO Levaquin ( 14 days of treatment) per ID. voiding trial as outpatient- per urology. Flomax DVT prophylaxis SCDs No chemoprophylaxis due to active bleeding Discharge Planning dc planning to SNF - when arrangements made. might need to wait till Saturday - for authorization. f/u; pcp, podiatry, vascular surgery. see med list. d/w the patient . previously d/w the case management. time spent 35 min. Anuj Cabrera MD Feb 08, 2018 10:53
[2018-02-08 11:50] VITALS: BP 105/60; PULSE 101; RESP 18; TEMP 97.7; O2SAT 99
== END 2018-02-08 14:05 | DRG 854 ==
LOC: NEPD 17:59 → NEDA 01-18 01:45 → NEPGCP 01-18 02:46 → OBSVTOIN 01-18 12:49 → N04A 01-18 21:15 → N04B 01-20 08:34 → N04A 01-20 08:36 → N03B 01-22 09:57 → N03A 01-22 19:51 → N05A 01-24 22:04
PROVIDERS: ADMIT Internal Medicine; ATTEND Internal Medicine
PROC: 04CL0ZZ Extirpation of Matter from Left Femoral Artery, Open Approach (ICD-10-PCS; 2018-01-22)
PROC: 04UK0JZ Supplement Right Femoral Artery with Synthetic Substitute, Open Approach (ICD-10-PCS; 2018-01-22)
PROC: 04CH0ZZ Extirpation of Matter from Right External Iliac Artery, Open Approach (ICD-10-PCS; 2018-01-22)
PROC: 04CK0ZZ Extirpation of Matter from Right Femoral Artery, Open Approach (ICD-10-PCS; 2018-01-22)
PROC: 04UH0JZ Supplement Right External Iliac Artery with Synthetic Substitute, Open Approach (ICD-10-PCS; 2018-01-22)
PROC: 047L3DZ Dilation of Left Femoral Artery with Intraluminal Device, Percutaneous Approach (ICD-10-PCS; 2018-01-22)
PROC: 047H3DZ Dilation of Right External Iliac Artery with Intraluminal Device, Percutaneous Approach (ICD-10-PCS; 2018-01-22)
PROC: 0T9B70Z Drainage of Bladder with Drainage Device, Via Natural or Artificial Opening (ICD-10-PCS; 2018-01-22)
PROC: 041L0JH Bypass Left Femoral Artery to Right Femoral Artery with Synthetic Substitute, Open Approach (ICD-10-PCS; principal; 2018-01-22 14:17)
PROC: 047H3EZ Dilation of Right External Iliac Artery with Two Intraluminal Devices, Percutaneous Approach (ICD-10-PCS; 2018-01-22 14:17)
PROC: 04CJ0ZZ Extirpation of Matter from Left External Iliac Artery, Open Approach (ICD-10-PCS; 2018-01-22 14:17)
PROC: 0QBP0ZX Excision of Left Metatarsal, Open Approach, Diagnostic (ICD-10-PCS; 2018-01-28)
PROC: 3E10X8Z Irrigation of Skin and Mucous Membranes using Irrigating Substance (ICD-10-PCS; 2018-01-28)
DX: A41.01 Sepsis due to Methicillin susceptible Staphylococcus aureus (principal); I74.5 Embolism and thrombosis of iliac artery; E11.51 Type 2 diabetes mellitus with diabetic peripheral angiopathy without gangrene; E11.621 Type 2 diabetes mellitus with foot ulcer; I69.354 Hemiplegia and hemiparesis following cerebral infarction affecting left non-dominant side; L03.116 Cellulitis of left lower limb; I95.9 Hypotension, unspecified; M86.60 Other chronic osteomyelitis, unspecified site; N39.0 Urinary tract infection, site not specified; I70.291 Other atherosclerosis of native arteries of extremities, right leg; I70.202 Unspecified atherosclerosis of native arteries of extremities, left leg; F17.210 Nicotine dependence, cigarettes, uncomplicated; E78.5 Hyperlipidemia, unspecified; L97.529 Non-pressure chronic ulcer of other part of left foot with unspecified severity; I10 Essential (primary) hypertension; I25.2 Old myocardial infarction; Z95.5 Presence of coronary angioplasty implant and graft; I25.10 Atherosclerotic heart disease of native coronary artery without angina pectoris; M10.9 Gout, unspecified; N32.0 Bladder-neck obstruction; N40.1 Benign prostatic hyperplasia with lower urinary tract symptoms; R47.81 Slurred speech; J44.9 Chronic obstructive pulmonary disease, unspecified; R39.12 Poor urinary stream; E11.69 Type 2 diabetes mellitus with other specified complication; B96.5 Pseudomonas (aeruginosa) (mallei) (pseudomallei) as the cause of diseases classified elsewhere; R31.0 Gross hematuria
CPT/HCPCS: 36569; 73630; 73720; 75635; 76937; 80048; 80053; 81001; 83036; 83605; 83735; 84100; 84439; 84443; 84550; 85025; 85027; 85610; 85652; 85730; 86038; 86140; 86403; 86430; 86850; 86900; 86901; 86920; 87015; 87040; 87070; 87077; 87086; 87102; 87116; 87147; 87186; 87205; 87206; 87493; 87641; 88304; 88305; 88307; 88311; 93005; 93306; 93923; A9579; J0690; J1644; J2250; J2270; J2370; J2405; J2710; J2720; J3010; J3370; J7030; J7040; J7050; L3260; P9045; Q9967

== ENCOUNTER 2018-03-24 15:28 | Inpatient (IN) ==
--- NOTE | 2018-03-24 15:41 | ED ---
HPI General Chief Complaint: Chest Pain Stated Complaint: Chest pain Time Seen by Provider: 03/24/18 15:30 History of Present Illness HPI narrative: Patient comes emergency department after being evaluated at the [place] for evaluation of right-sided chest pain ongoing intermittently over the past 3 months. Patient reports symptoms get worse after eating lasting 10-15 minutes and go away on their own. Patient denies any nausea, vomiting, shortness of breath, headache, dizziness, loss change in bowel or bladder, numbness or tingling anywhere. Patient denies any history of abdominal surgeries. Patient was given 325 mg of aspirin by the [place] prior to being transferred. Patient denies any pain currently. Complete Quality Measures for STEMI Alert Patients Related Data Allergies Allergy/AdvReac Type Severity Reaction Status Date / Time No Known Allergies Allergy Unknown Uncoded 11/04/17 18:48 Review of Systems Except as stated in HPI: all other systems reviewed are negative PMFSH Medical History Medical History Alcohol abuse (Acute) Social History Social History Substance History: Active Abuse Second Hand Smoke Exposure: No Smoking Status: Current every day smoker Tobacco Type: Cigarettes How Often Do You Have a Drink Containing Alcohol: 4 or more times a week Recent Out of Country Travel within the Last 8 Weeks: No Exam Narrative Exam Narrative: GENERAL: Well-developed, well nourished, in no acute distress, and non-ill appearing. SKIN: Focused skin assessment warm and dry. HEAD: Atraumatic. Normocephalic. EYES: Pupils equal and round. EOMI. No scleral icterus. No injection or drainage. ENT: No nasal bleeding or discharge. Mucous membranes pink and moist. NECK: Trachea midline. No JVD. Supple. No nuclear rigidity. CARDIOVASCULAR: Regular rate and rhythm. No murmur appreciated. RESPIRATORY: No accessory muscle use. No respiratory distress. Clear to auscultation. Breath sounds equal bilaterally. GASTROINTESTINAL: Abdomen soft, non-tender, nondistended, and no guarding. Hepatic and splenic margins not palpable. Normal bowel sounds x4. No pulsatile mass. MUSCULOSKELETAL: No obvious deformities. No clubbing. No cyanosis. No edema. Full range of motion. NEUROLOGICAL: Awake and alert. No obvious cranial nerve deficits. Motor grossly within normal limits. Normal speech. PSYCHIATRIC: Appropriate mood and affect; insight and judgment normal. Course Initial Documented Vital Signs Temperature 98.2 F 03/24/18 15:46 Pulse Rate 75 03/24/18 15:46 Respiratory Rate 18 03/24/18 15:46 Blood Pressure 109/59 L 03/24/18 15:46 Pulse Oximetry 99 03/24/18 15:46 Last Documented Vital Signs Temperature 98.2 F 03/24/18 15:46 Pulse Rate 75 03/24/18 15:46 Respiratory Rate 18 03/24/18 15:46 Blood Pressure 109/59 L 03/24/18 15:46 Pulse Oximetry 99 03/24/18 15:46 Medical Decision Making JOEL Attestation JOEL supervised visit: Yes Attestation: I, Dr. Aguero, have reviewed the advance practice practitioner's documentation and am in agreement, met with the patient face to face, made the diagnosis, and the medical decision making was done by me. *My assessment and Findings: Acute chest pain with EKG changes concerning for acute myocardial infarction. MDM Narrative Medical decision making narrative: Patient seen and examined. Initial laboratory radiological studies were ordered. IV status patient is on continues cardiac monitoring. Upon review of EKG Dr. Aguero initiated STEMI alert and discussed patient with Dr. Goel. Please see her back Saturday for further details. Patient is a 62 yom who presented with complaint of chest pain. EKG concerning for Left main coronary artery disease with ST elevation in AVR and depressions throughout. He was given aspirin prior to arrival. He was seen emergently by Dr Goel of cardiology whom took him to the hospital laboratory technician. Differential Diagnosis Differential Diagnosis: Acute coronary syndrome, atypical chest pain, biliary colic, pneumonia, metabolic disturbance Medical Records Medical records reviewed: Yes I reviewed the patient's medical records. Imaging Data Radiologist's impression: Chest X-Ray 03/24/18 15:37 CONCLUSION: Negative examination. ECG Data EKG Prior to Arrival: No Attestation: I personally reviewed and interpreted this ECG as follows: (EKG shows sinus rhythm with slight left axis deviation. There is ST elevation of aVR, V2, V3 with ST depression of the inferior leads.) Interpretation: EKG reviewed by Dr. Aguero shows a STEMI. Discharge Plan Discharge Disposition Patient Disposition: 30 Still Patient Discharge Condition Condition: Serious Discharge Details Diagnosis: ST elevation myocardial infarction (STEMI) Physicians Team ED Provider: Jayla Aguero ED Midlevel Provider: Christofer Purvis Primary Care Provider: [facility],Physician [place] Attending Provider: Ramirez,Ramya A Status ED Status: Admitted Observation Patient
--- NOTE | 2018-03-24 16:08 | XR ---
EXAM DATE: 03/24/2018 3:52 PM EDT AGE/SEX: 62 years / Male INDICATIONS: Chest pain. CLINICAL DATA: This is the patient's initial encounter. Patient reports that signs and symptoms have been present for 1 day and indicates a pain score of 5/10. MEDICAL/SURGICAL HISTORY: . Hypertension. Stroke. Gastroesophageal reflux disease. Myocardial i nfarction. . Coronary artery stent. COMPARISON: [facility], CHEST SINGLE AP, 07/02/2014. . FINDINGS: A single AP view of the chest demonstrates the lungs to be symmetrically aerated without evidence of mass, infiltrate or effusion. The cardiomediastinal contours are unremarkable. Osseous structures a re intact. CONCLUSION: Negative examination. Electronically signed by: Chris Yeager MD 03/24/2018 4:07 PM EDT
[2018-03-24] MEDS ORDERED: Heparin 10,000 UNITS/10 ML Vial (for IV use) ONE (16:20)
[2018-03-24] MEDS ORDERED: fentaNYL Citrate Inj 100 MCG/2 ML Ampul ONE (16:23)
[2018-03-24 16:27] LABS: Baso # (Auto) 0.1 th/mm3 (0.0-0.2); Baso % (Auto) 0.7 % (0.0-2.0); Eos # (Auto) 0.1 th/mm3 (0.0-0.4); Eos % (Auto) 0.5 % (0.0-4.0); Hemoglobin 12.1 gm/dL (13.0-17.0); Lymph # (Auto) 2.1 th/mm3 (1.0-4.8); Lymph % (Auto) 18.8 % (9.0-44.0); Mean Corpuscular HGB Conc 31.8 % (32.0-36.0); Mean Corpuscular Hemoglobin 24.1 pg (27.0-34.0); Mean Platelet Volume 6.9 fL (7.0-11.0); Mono % (Auto) 8.8 % (0.0-8.0); Neut # (Auto) 7.8 th/mm3 (1.8-7.7); Neut % (Auto) 71.2 % (16.0-70.0); Platelet Count 256 th/mm3 (150-450); Red Cell Distribution Width 17.7 % (11.6-17.2)
[2018-03-24 16:36] LABS: Activated Partial Thrombo Time 25.2 sec (24.3-30.1); INR 1.1 Ratio; Prothrombin Time 11.3 sec (9.8-11.6)
[2018-03-24 16:45] LABS: Albumin 3.8 g/dL (3.4-5.0); Anion Gap 7 meq/L (5-15); Aspartate Aminotransferase 13 U/L (15-37); Blood Urea Nitrogen 15 mg/dL (7-18); Calcium 9.1 mg/dL (8.5-10.1); Carbon Dioxide 27.2 meq/L (21.0-32.0); Chloride 110 meq/L (98-107); Glomerular Filtration Rate 75 mL/min (>89); Glucose,Random 54 mg/dL (74-106); Lipase 85 U/L (73-393); Magnesium 2.2 mg/dL (1.5-2.5); Potassium 3.9 meq/L (3.5-5.1); Sodium 144 meq/L (136-145)
[2018-03-24 16:46] LABS: Alanine Aminotransferase 15 U/L (12-78)
[2018-03-24 16:49] LABS: Alkaline Phosphatase 93 U/L (45-117); Total Protein 7.7 g/dL (6.4-8.2); Troponin I 0.08 ng/mL (0.02-0.05)
[2018-03-24 17:06] LABS: Creatine Kinase 42 U/L (39-308)
--- NOTE | 2018-03-24 17:36 | CATHPROC ---
needmade HIS Report Study Information Study Number Admission Scheduled Start Study Start [id number] Mar 24 2018 3:28PM 03/24/2018 Mar 24 2018 4:05PM [place] Cardiac Pacer/ICD Admit Source Facility Department Emergency department [facility] - Casing Fluid Tender Physician and Clinical Staff Initial [facility] Policy Change Clerk Grisel Mendoza RN Policy Change Clerk Ramone Astudillo,Mei Kelly RN Recorder Saumya Franco,NATIONAL SALES TECH2 Scrub Elise Mcghee ,RT(R) Procedures Performed Procedure Location (Site) Vessel Name Coronary Angiograms LCA Left Coronary Coronary Angiograms RCA Right Coronary Coronary Angiograms Subclav. Art. (Rt.) Subclavian Art. Wire insertion Radial (right) Radial Art. Equipment Time Personal Consultant Description Size Mfg Part Number Used/Scraped TRANSDUCER, TRUWAVE [id number] 16:07 MENDOZA FRANKLIN * Used W/STOCKCOCK *[id number] INTRODUCER SET, 16:45 [employer] FR 5 [id number] *[id number] Used MICROPUNCTURE STIFF [id number] *[id number] WIRE, HYDROSTEER 150CM [id number] 16:42 DAIG/ST. ANYA MEDICAL 150CM Used ANGLED GLIDE *[id number] 16:07 [employer] BLANKET,WARM AIR CCL * Used *[id number] 16:07 [employer] PACK, CCL CUSTOM * Used *[id number] 16:07 [employer] SUPPORT, ARTERIAL ADULT 13928 *[id number] Used [id number] 16:56 MEDTRONIC JL 4.0 DXTERITY CATHETER FR 5 Used *[id number] BAND, RADIAL COMPRESSION TR [id number] 17:02 [employer] MEDICAL 24CM Used SHORT 24 *[id number] 16:07 [employer]. WIRE, EXCHANGE 260CM 3MMJ 260CM Used *[id number] 16:07 NAMIC MANIFOLD, 4 PORT * Used *[id number] 16:07 NYCOMED OMNIPAQUE, 350 MG, 150ML 150ML [id number] Used [id number] 16:43 TERUMO MEDICAL SHEATH, FR5 TERUMO (10CM) FR 5 Used *[id number] SHEATH, FR6 TRANSRADIAL RM*[id number] 16:07 TERUMO MEDICAL FR 6 Used SLENDER 10CM *[id number] Equipment Model, Serial, Lot Number and Expiration Data Description Model Number Serial Number Lot Number Expiration Date INTRODUCER SET, [id number] 12-04-2020 MICROPUNCTURE STIFF JL 4.0 DXTERITY CATHETER [id number] 06-18-2020 History: Allergies Allergy Reaction No Known Allergies History: Risk Factors Family History of Hypertension Dyslipidemia Previous [place] Previous Heart Failure Premature CAD Yes Yes No Yes No Prior Valve Prior PCI Prior PCIDate Prior CABG Surgery No Yes 09/02/1991 No Cerebrovascular Peripheral Artery On Dialysis Diabetes Disease Disease No Yes Yes No History: Symptoms/Diagnosis Selection Items Chest pain History: CV Disease Selection Items Known CAD History: Stress Tests Stress or Imaging Studies Performed No History: Other Current Smoker Method Packs a Day Years Used Pack Years Yes Cigarettes 1 48 48 Labs Hgb (g/dl) Hct (%) WBC (l/cumm) Platelets (thousands) 11.60-17.00 35.00-51.00 4.00-11.00 150.00-450.00 12.1 38 11 256 BUN (mg/dl) Creatinine (mg/dl) BUN:Creatinine (1:x) 7.00-18.00 0.50-1.30 10.00-20.00 15 1.2 12.5 Na (meq/l) K (meq/l) CO2 (mmol/L) 136.00-145.00 3.50-5.10 21.00-32.00 144 4 3.9 PT (sec) PTT (sec) INR (PTT:PT) 9.80-11.60 24.30-30.10 0.90-1.10 11.3 25.2 1.1 Troponin I (ng/ml) CPK-MB (ng/ML) 0.02-0.05 0.50-3.60 0.08 Not Drawn Medication Medication Total Dose (Bolus/Oral) Medication Total Dosage/Unit 1% XYLOCAINE 45 mL FENTANYL 25 mcg OXYGEN 2 l/min VERSED 0.5 mg Medications (Bolus/Oral) Medication Time Given Dosage/Unit Administered By Reason 1% XYLOCAINE 03/24/2018 4:30:24 PM 5 mL Mark Goel 5 mL 1% XYLOCAINE given in lab by Mark Goel in Right Radial via Subcutaneous. VERSED 03/24/2018 4:30:36 PM 0.5 mg Ramone Astudillo 0.5 mg VERSED given in lab by Ramone Astudillo RN in Right Antecubital via Peripheral IV. Ordered by Mark Cornejo OXYGEN 03/24/2018 4:31:33 PM 2 l/min Ramone Astudillo 2 l/min OXYGEN given in lab by Ramone Astudillo RN via Nasal. Ordered by Mark Goel FENTANYL 03/24/2018 4:31:49 PM 25 mcg Ramone Astudillo 25 mcg FENTANYL given in lab by Ramone Astudillo RN in Right Antecubital via Peripheral IV. Ordered by Mark Goel 1% XYLOCAINE 03/24/2018 4:46:03 PM 20 mL Mark Goel 20 mL 1% XYLOCAINE given in lab by Mark Goel in Right Groin via Subcutaneous. Ordered by Mark Christian 1% XYLOCAINE 03/24/2018 4:49:43 PM 20 mL Mark Goel 20 mL 1% XYLOCAINE given in lab by Mark Goel in Left Groin via Subcutaneous. Ordered by Mark Gee Medication (Drip) Medication Time Given Dosage/Unit Concentration/Unit Diluent (ml) Solutio n IV Solutions 03/24/2018 4:13:37 PM 0 mL (IV) 1000 NaCl .9 Patient arrived on IV Solutions in Right Antecubital via Peripheral IV. Pump/Drip Flow = 20 ml/hr usi ng NaCl .9. Initial Case Assessment Cardiovascular HR Rhythm NIBP Chest Pain 79 sr 127/86 0 Circulatory - Right Pulses Dorsalis Pedis Femoral Radial 1 3 2 Scale (0,1,2,3,4,d) Circulatory - Left Pulses Dorsalis Pedis Femoral Radial 1 3 Scale (0,1,2,3,4,d) Neurological State Oriented to time-place- Alert Moves all extremities person Respiration - General Respiration Rate SpO2 (%) (B/min) 17 99 Final Case Assessment Cardiovascular HR Rhythm NIBP Chest Pain 74 sr 122/86 0 Circulatory - Right Pulses Dorsalis Pedis Femoral Radial 1 3 2 Scale (0,1,2,3,4,d) Circulatory - Left Pulses Dorsalis Pedis Femoral Radial 1 3 Scale (0,1,2,3,4,d) Neurological State Oriented to time-place- Alert Moves all extremities person Respiration - General Respiration Rate SpO2 (%) O2 (lpm) (B/min) 19 99 2 Chronological Log Time Study Chronological Log 16:00:36 Emergency Room notified that Casing Fluid Tender is ready. 16:11:34 Patient arrived directly from ER with long-term sanchez catheter in place. 16:11:35 Patient Name, D.O.B, / Armband Verified By R.N. 16:11:47 Consent signed by the physician and the patient and verified by the Casing Fluid Tender staff. 16:11:48 Pre-op and post- op instructions given; patient acknowledges understanding of instructions. 16:11:52 Patient has been NPO for More than 6Hrs. 16:11:56 Disposable Defibrillator Pads Placed On Patient. 16:13:32 Lise Prominences Protected 16:13:36 A # 20 IV was noted in the Antecubital (right). Grade = 0 16:13:37 Patient arrived on IV Solutions in Right Antecubital via Peripheral IV. Pump/Drip Flow = 20 ml/hr using NaCl .9. 16:13:40 History and physical on the chart or being dictated. 16:13:50 Patient refusing cardiac catheterization. 16:14:34 MD arrived. 16:14:50 Positive Allens test performed on the right radial and ulnar artery. 16:17:30 Patient agrees to cardiac catheterization. Vitals capture started with the following parameters, Patient=Adult, Interval=5 min, Initial Pr ijzfqx=216 mmHg, 16:22:41 Deflation Rate=5 mmHg, Cuff placed on Left Arm Assessment: Initial Case, HR=79 BPM, Rhythm=sr, MCRW=573/86 mmhg, Chest Pain=0 Right Pulses: Kael Ped=1, Femoral=3, Radial=2 16:22:59 Left Pulses: Kael Ped=1, Femoral=3 Neurological: State=Alert, Ox3, CHAVEZ Respiration: Resp=17 B/min, SpO2=99 % 16:23:02 Right radial and Bilateral groins prepped with 2% chlorhexidine, and draped after a 3 minut e waiting time. 16:23:23 HR=79 bpm, JNVM=805/121 mmhg, SpO2=99 %, Resp=16 B/min 16:25:25 Reference ECG taken 16:26:43 Pressure channel 1 zeroed. 16:28:26 HR=67 bpm, PDVD=786/86 mmhg, SpO2=99.0 %, Resp=18 B/min Time Out. Correct patient, correct procedure, correct physician, labs, allergies, and equipment verified with laboratory animal caretaker 16:29:47 team present. Fire risk assesment completed (see hard stop sheet for coding). Time Out Conc urred by MD and individual staff in procedure. 16:30:22 Case Start 16:30:24 5 mL 1% XYLOCAINE given in lab by Mark Goel in Right Radial via Subcutaneous. 16:30:36 0.5 mg VERSED given in lab by Ramone Astudillo, ADDISON in Right Antecubital via Peripheral IV. Or dered by Mark Goel. 16:31:33 2 l/min OXYGEN given in lab by Ramone Astudillo, ADDISON via Nasal. Ordered by Mark Goel . 25 mcg FENTANYL given in lab by Ramone Astudillo, ADDISON in Right Antecubital via Peripheral IV. Orde red by Mark Goel 16:31:49 G. 16:33:56 HR=71 bpm, BKVY=241/75 mmhg, XrD1=093 %, Resp=13 B/min, Home=10 16:38:14 HR=65 bpm, BPIW=062/83 mmhg, MlM6=576 %, Resp=14 B/min, Home=10 16:39:12 Access site was Right Radial Artery . Ultrasound guided access A SHEATH, FR6 TRANSRADIAL SLENDER 10CM FR 6 was advanced into the Radial (right) using the Perc utaneous 16:40:12 technique. A JR 4.0 INFINITI CATHETER FR 5 was advanced over a wire. OMNIPAQUE, 350 MG, 150ML 150ML was us ed for 16:40:33 injections. Unable to advance catheter. 16:42:40 The Subclav. Art. (Rt.) was injected and visualized at various angles. OMNIPAQUE, 350 MG, 1 50ML 150ML used. 16:43:21 HR=63 bpm, NIBP=87/38 mmhg, TzC4=161.0 %, Resp=12 B/min 16:43:49 A WIRE, HYDROSTEER 150CM ANGLED GLIDE 150CM was inserted via Radial (right). 16:44:03 Unable to advance wire, Wire removed. Aborting radial access. 16:45:55 NIBP STAT measurement started. 20 mL 1% XYLOCAINE given in lab by Mark Goel in Right Groin via Subcutaneous. Ordered by Amando, 16:46:03 Mark Rose. 16:46:11 Access site was Right Femoral Artery. Unable to advance wire to abd AO 16:46:56 HR=82 bpm, XGUW=623/82 mmhg, SpO2=92.0 %, Resp=18 B/min 16:48:14 HR=82 bpm, OOUD=052/94 mmhg, MpQ0=488.0 %, Resp=15 B/min 20 mL 1% XYLOCAINE given in lab by Mark Goel in Left Groin via Subcutaneous. Ordered by Amando, 16:49:43 Mark Rose. 16:49:55 Access site was Left Femoral Artery. A INTRODUCER SET, MICROPUNCTURE STIFF FR 5 was advanced into the Fem Art (left) using the Angi kay 16:50:02 technique. A SHEATH, FR5 TERUMO (10CM) FR 5 was exchanged in the Fem Art (left). This was necessary in ord er to 16:50:41 accomodate a larger catheter. Recorded Pressure: Ao, HR=75, Condition=Condition 1 16:50:54 (Aorta) Ao 198/86/131 16:51:05 An injection in the Fem Art (left) was made through the SHEATH, FR5 TERUMO (10CM) FR 5. A JR 4.0 INFINITI CATHETER FR 5 was advanced over a wire. OMNIPAQUE, 350 MG, 150ML 150ML was us ed for 16:52:16 injections. 16:53:17 HR=74 bpm, XGGG=625/73 mmhg, Resp=14 B/min Recorded Pressure: LV, HR=73, Condition=Condition 1 16:53:41 (Left Ventricle) LV 187/1/23 Recorded Pressure: LV, Ao, HR=72, Condition=Condition 1 16:53:52 (Left Ventricle) LV 189/3/21, (Aorta) Ao 186/86/125 16:54:39 The RCA was injected and visualized at various angles. OMNIPAQUE, 350 MG, 150ML 150ML used . After removing the current catheter a JL 4.0 DXTERITY CATHETER FR 5 was advanced over a WIRE, E XCHANGE 260CM 16:57:35 3MMJ 260CM. 16:58:34 The LCA was injected and visualized at various angles. OMNIPAQUE, 350 MG, 150ML 150ML used . 16:58:51 HR=70 bpm, VHQR=672/82 mmhg, WcQ7=434.0 %, Resp=14 B/min 17:01:19 Catheter was removed 17:01:47 Case End (Physician broke scrub) 17:03:19 HR=67 bpm, YBLZ=232/84 mmhg, AvS0=472.0 %, Resp=14 B/min, Pain=0, Home=10, [place]=2 Radial Compression Device Used. 10 mLs of air placed in BAND, RADIAL COMPRESSION TR SHORT 24 24 CM. Affected 17:04:02 hand ~O2 SATURATION~ % O2 saturation. 17:08:02 No case complications noted. 17:08:03 Cine recording checked. 17:08:04 Bedside Report will be given. 17:08:23 HR=74 bpm, KUYS=170/76 mmhg, SpO2=96.0 %, Resp=13 B/min 17:09:26 5FR Sheath in LFA removed; pressure applied to access site. 17:14:43 HR=74 bpm, OFUV=061/77 mmhg, Resp=14 B/min 17:18:19 HR=76 bpm, VFFI=140/84 mmhg, SpO2=96 %, Resp=14 B/min 17:23:24 HR=69 bpm, CXIK=421/83 mmhg, Resp=16 B/min 17:28:21 HR=74 bpm, VTHF=518/86 mmhg, Resp=19 B/min 17:29:08 Hemostasis obtained, sterile dressing applied to site. Assessment: Final Case, HR=74 BPM, Rhythm=sr, STQU=957/86 mmhg, Chest Pain=0 Right Pulses: Kael Ped=1, Femoral=3, Radial=2 17:31:29 Left Pulses: Kael Ped=1, Femoral=3 Neurological: State=Alert, Ox3, CHAVEZ Respiration: Resp=19 B/min, SpO2=99 %, O2=2 lpm 17:32:22 Patient moved to bed. 17:34:35 Patient trqnsported to [facility]PCU. End Study - Contrast Media Used In Study Contrast Total Opened (mL) Total Used (mL) Total Wasted (mL) Omnipaque 40 40 0 End Study - Maximum Contrast Load Max Contrast Load (mL) 236.7 End Study - Radiation Exposure Fluoro Time Fluoro Dose (mGy) Cine Dose (uGym2) (minutes) 3.6 192 1229 End Study - Sheaths Sheaths Pulled By Sheath Hold Time (min) Elise Mcghee End Study - Patient Disposition Complications Transferred To Interventional Outcome No Critical Care Bed No attempt made
--- NOTE | 2018-03-24 18:52 | US ---
EXAM DATE: 03/24/2018 6:44 PM EDT AGE/SEX: 62 years / Male INDICATIONS: RUQ pain. CLINICAL DATA: This is the patient's initial encounter. Patient reports that signs and/or symptoms h ave been present for 1 day and indicates a pain score of 1/10. MEDICAL/SURGICAL HISTORY: . RUQ pain. Alcohol use. Chest pain. None. COMPARISON: [facility], CTA RUNOFF W 3D RECON, 01/19/2018. . MEASUREMENTS: Liver:__ 14.7 cm. Common Bile Duct:__ 4mm. FINDINGS: Liver: Increased echotexture without focal lesion or ductal dilation. Portal Vein: Hepatopedal flow seen in portal vein. Common Duct: No intraluminal mass or stone visualized. Gallbladder: Demonstrates no wall thickening or pericholecystic fluid. No stones visualized. Pancreas: Not well visualized. Right Kidney: Normal echotexture and normal cortical thickness. No mass or hydronephrosis. Other: None. CONCLUSION: Negative right quadrant ultrasound examination. The gallbladder is free of stones. Electronically signed by: Lonnie Cordon MD 03/24/2018 6:50 PM EDT
--- NOTE | 2018-03-24 22:42 | MA ---
cc: Mark Goel DO DATE: 03/24/2018 DATE OF PROCEDURE: 03/24/2018 PROCEDURE: Left heart catheterization, coronary angiogram, moderate sedation 30 minutes. PREPROCEDURE DIAGNOSIS: ST elevation myocardial infarction alert, abnormal electrocardiogram concerning for multivessel disease or left main disease, chest pain. POSTPROCEDURE DIAGNOSIS: Multivessel coronary artery disease, bilateral subclavian stenosis, peripheral artery disease with femoral-femoral bypass. MEDICATIONS: Versed 0.5 mg, fentanyl 25 mcg. CONTRAST USED: 40 mL FLUOROSCOPY: 3.6 minutes. MODERATE SEDATION: 30 minutes. FRAILTY SCORE: 5. ESTIMATED BLOOD LOSS: 10 mL PROCEDURAL SUMMARY: Maxim Frank is a 62-year-old male who presented to [facility] Emergency Room after being at the [place] and stating chest pain. While he was there, he was also noted to be mildly hypotensive. Upon arrival here, EKG was done and there was elevation of AVR and this was called as a STEMI Alert. I canceled the STEMI Alert, but overall I think that he does have a significantly abnormal EKG and recommended urgent cardiac catheterization. Risks, benefits and alternatives were explained to him and he consented as such. He was brought to the lab and prepped in the usual sterile fashion. The right radial artery was accessed using a modified Seldinger technique and placement of a 5/6 Slovak Slender sheath. This is easily aspirated and flushed. A JR4 was advanced to the shoulder area where I was unable to go further. The angiogram shows an occlusion of the right subclavian artery. This was removed and it was planned for femoral artery access. I attempted right femoral artery access, but was unable to gain access to the mohegan external iliac artery as the wire continued to feed down the fem-fem bypass. At this point, the wire was removed and pressure was held. Left femoral artery was accessed using a modified Seldinger technique and placement of a 5-Slovak sheath. This is easily aspirated and flushed. A JR4 was advanced over a J-wire to the ascending aorta and across the aortic valve for measurement of left ventricular pressure. This was pulled back across the aortic valve showing no significant gradient of aortic stenosis. The JR4 was used for selective angiography of the right coronary artery system. This is exchanged out for a JL4, which was used for selective angiography of the left coronary artery system. The JR4 was removed over a J wire. The femoral sheath was removed and pressure held for hemostasis. Radial band was placed over the right arteriotomy site. The patient left the [employer] cardiovascularly stable. FINDINGS: LEFT MAIN: Normal-sized vessel with adequate reflux. It bifurcates into an LAD and circumflex. LAD: Normal-sized vessel with 70% disease in the mid and distal portion. It gives off multiple small obtuse marginals with up to 50% ostial stenosis. LEFT CIRCUMFLEX: Moderate-sized vessel with diffuse 70% disease in the proximal portion as well as a 90% lesion in the mid-portion. Distal to this, it supplies an obtuse marginal, which has an upper and lower branch. RCA: Normal-sized vessel with diffuse 80-90% throughout the proximal to distal portion. Distally, it supplies a small posterior descending artery. LVEDP: 20. IMPRESSIONS: 1. Chest pain, atypical for coronary insufficiency. 2. Multivessel coronary artery disease. 3. Abnormal electrocardiogram. RECOMMENDATIONS: 1. Mr. Frank underwent cardiac catheterization and during this was found to have multivessel disease. 2. He will be seen by CT Surgery for further consideration of possible coronary artery bypass grafting. 3. We will check a 2-D echo to look at his overall left ventricular function, cardiac structure and possible valvopathies. 4. He will be placed on aspirin therapy due to his coronary artery disease. 5. I spoke to him for greater than 3 minutes about tobacco cessation. 6. Further recommendations will be made based on the hospital course. Thank you for allowing me to see Maxim Frank. If there are any questions, please do not hesitate to call. DO DELILAH Hughes/HARIKA , 08:30 PM , 10:40 PM
--- NOTE | 2018-03-24 22:58 | MB ---
cc: GoelMark Rose BATEMAN DATE: 03/24/2018 REASON FOR CONSULTATION: STEMI alert. HISTORY OF PRESENT ILLNESS: Arnulfo Frank is a pleasant 62-year-old male who presented to [facility] due to chest pain and hypotension. Apparently, the patient was over there and mentioned the word chest pain and so he was sent immediately to the emergency room. The patient is overall a horrible historian and I am unable to get much information from him. In speaking to him, he states that he never has had chest pain, and he does not feel like he has any chest pain or shortness of breath. Upon arrival, EKG was done and there was elevation of AVR and so a STEMI-alert was called. In seeing him, he is currently hemodynamically stable, without chest pain or shortness of breath. PAST MEDICAL HISTORY: 1. Hypertension. 2. Hyperlipidemia. 3. BPH. 4. History of CVA, with left-sided weakness and chronic slurred speech. PAST SURGICAL HISTORY: 1. Cardiac stent supposedly placed in his LAD in the s. 2. Left common iliac and external iliac balloon angioplasty and stenting, left common femoral endarterectomy with patch angioplasty, right external iliac and common femoral endarterectomy with patch angioplasty and femoral-femoral bypass (01/22/2018). ALLERGIES: NO KNOWN DRUG ALLERGIES. MEDICATIONS: Denies. FAMILY HISTORY: Denies premature coronary artery disease or sudden cardiac within the family. SOCIAL HISTORY: The patient admits to drinking heavily, but did not drink today. He also admits to crack cocaine abuse, with the last time using it 3 days ago. REVIEW OF SYSTEMS: Fourteen systems were reviewed including osteopathic. Pertinent positives and negatives above, otherwise negative. PHYSICAL EXAMINATION: VITAL SIGNS: Temperature 98.2, heart rate 75, blood pressure 109/59, respirations 18, pulse oximetry 99% on room air. GENERAL: The patient appears well, in no acute distress. Alert and awake. HEENT: Extraocular muscles intact. Mucous membranes moist. NECK: Supple. No JVD at 45 degrees. No carotid bruits heard bilaterally. Carotid upstrokes are brisk in nature. HEART: Regular rate and rhythm. Positive first and second heart sounds, without any murmurs, gallops or rubs. LUNGS: Clear to auscultation bilaterally. No wheezes, rales or rhonchi. ABDOMEN: Soft, nontender, nondistended. No organomegaly noted. EXTREMITIES: Show no clubbing, cyanosis or edema. Femoral and distal pulses intact bilaterally. NEUROLOGIC: Mild left-sided weakness, with chronic slurred speech. LABORATORY DATA: Hemoglobin 12.1, hematocrit 13.3, platelets 256. Potassium 4.0, BUN 15, creatinine 1.2. Troponin 0.08. IMPRESSION: 1. Chest pain, for which the patient currently denies, but did explain it to the [facility] that he was having chest pain. 2. ST elevation myocardial infarction-alert, overall not a ST elevation myocardial infarction, although abnormal echocardiogram, with concern for multivessel disease or left main disease. 3. Hypotension while at the [facility]. 4. Crack cocaine abuse. 5. Tobacco abuse. 6. Peripheral artery disease as above. RECOMMENDATIONS: 1. Maxim Frank presented with an abnormal EKG concerning for multivessel disease or left main disease. 2. He currently denies chest pain, but due to the significance of his abnormal EKG, as well as his previous complaint of chest pain, I would plan on cardiac catheterization urgently. Risks, benefits and alternatives have been explained to him and he consents to such. 3. We will check a 2D echo to look at his overall left ventricular function, cardiac structure and possible valvulopathies. 4. I explained to him about the effects of crack cocaine on his system. 5. I spoke to him for greater than 3 minutes about tobacco cessation. Thank you for allowing me to see Maxim Frank. If there are any questions, please do not hesitate to call. DO DELILAH Hughes/MARILEE , 08:23 PM , 10:56 PM
[2018-03-25] MEDS ORDERED: Iohexol 350 MG/ML 50 ML Vial (for Cath Lab) IVCONTRAST ONE (07:22)
--- NOTE | 2018-03-25 08:39 | P.CON ---
History of Present Illness Service: [facility] hospitalist Consult date: 03/25/18 Requesting Physician: Mark Goel Reason for Consult: Medical management Primary Care Provider: [facility] Family Provider: [facility] Chief Complaint: Chest pain History of Present Illness: Patient is a 62-year-old male who has a rather complex medical history who presented to the ER complaining of right-sided shoulder pain. Patient lives by himself with 24 hour caregiver. 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 He was sent here from [place] [facility] when patient was in there yesterday for regular routine follow-up when he mentioned to the [place] physician that he was having right -sided chest pain/shoulder pain he described as "gas" almost daily basis occurring usually at night for the past 3-4 days. Patient denies any diaphoresis, no nausea no vomiting. patient was sent here. An EKG was done which sinus rhythm with T-wave inversion in 2 3 aVF, mild ST elevation in V1 to V3 with ST-T wave lateral changes/ inversion in V4 to V6. Troponin was 0.08. Cardiology service was consulted and patient underwent left cardiac catheterization which shows multivessel disease. Patient currently is chest pain-free. On review of records he was actually here sometime in January for left foot metatarsal infection/osteomyelitis by bone biopsy. Seen then by podiatry and infectious disease service. He was discharged on IV cefazolin which the caregiver said he completed at the skilled rehab facility in the [facility] + po Levaquin course.. Patient denies any fever, complains of some pain on the left metatarsal area. But no fever or redness. During that hospital stay patient also had urinary retention and was noted to have obstructive uropathy secondary to enlarged prostate. He was discharged with Quesada catheter. With Flomax 0.4 mg daily. On discussion with caregiver he was supposed to have a voiding trial sometime this week as OP. However -- caregiver states he was not sent home with Flomax from the [facility]. On review with the caregiver patient apparently stopped taking any medications at all or ? not discharged on any meds from the SNF. States that he was supposed to be on prior to voiding trial this week while on Flomax Patient currently on bedside denies any pain any shoulder pain or chest pain does complain of some mild left foot pain and states having some loose stools. Review of Systems Patient denies any fever denies any headache denies any nausea vomiting as mentioned in HPI does complain of some loose stools. On chronic Quesada catheter. Some left foot metatarsal pain. PMFSH - History History Provided By: Patient, Friend (Obtained history from the patient and his 24 hour caregiver), Retail Warehouse Associate / EMT - Medical History Medical History: Medical History (Last Reviewed 03/25/18 @ 08:30 by Marielos Koroma MD) Alcohol abuse - Tobacco History Second Hand Smoke Exposure: No Tobacco Use In Past 30 Days: Yes Smoking Status: Current every day smoker Tobacco Type: Cigarettes - Alcohol History How Often Do You Have a Drink Containing Alcohol: 4 or more times a week - Substance Use History Substance History: Active Abuse - Substance Use Type Crack/Cocaine Status: Active - Travel History Recent Travel Out of the Country Within the Last 8 Weeks: No - Immunization History Tetanus Immunization: Unable to Assess Medications and Allergies Active Medications: Active Medications Aspirin (Ecotrin) 325 mg PO DAILY [facility] Atorvastatin Calcium (Lipitor) 20 mg PO HS [facility] Oxycodone/Acetaminophen (Percocet 5/325 Mg) 1 tab PO Q4H PRN PRN Reason: PAIN SCALE 1 TO 4 Oxycodone/Acetaminophen (Percocet 5/325 Mg) 2 tab PO Q4H PRN PRN Reason: PAIN SCALE 5 TO 10 Sodium Chloride (Ns Flush) 2 ml IV.FLUSH UNSCH PRN PRN Reason: FLUSH AFTER USING IV ACCESS Sodium Chloride (Ns Flush) 2 ml IV.FLUSH PRN PRN PRN Reason: FLUSH AFTER USING IV ACCESS Sodium Chloride (Ns Flush) 2 ml IV.FLUSH BID [facility] Last Admin: 03/24/18 22:09 Dose: 2 ml Allergies Allergy/AdvReac Type Severity Reaction Status Date / Time No Known Allergies Allergy Unknown Uncoded 11/04/17 18:48 Home Medications Medication Instructions Recorded Confirmed Type No Known Home Medications 03/24/18 03/24/18 History Physical Exam Vital signs: Vital Signs 03/24/18 15:46 03/24/18 19:00 03/24/18 20:00 Temperature 98.2 F 98.1 F Pulse Rate 75 71 Respiratory Rate 18 16 Blood Pressure 109/59 L 92/67 L Pulse Oximetry 99 100 100 03/24/18 23:00 03/25/18 00:13 03/25/18 00:18 Temperature 97.8 F Pulse Rate 69 66 Respiratory Rate 16 Blood Pressure 88/60 L Pulse Oximetry 99 100 03/25/18 01:14 03/25/18 02:00 03/25/18 03:00 Temperature Pulse Rate 68 72 68 Respiratory Rate Blood Pressure Pulse Oximetry 03/25/18 04:09 03/25/18 05:00 03/25/18 06:00 Temperature 98.4 F Pulse Rate 76 67 66 Respiratory Rate 16 Blood Pressure 119/71 Pulse Oximetry 100 03/25/18 07:00 Temperature Pulse Rate 89 Respiratory Rate Blood Pressure Pulse Oximetry Intake & Output 03/24/18 03/25/18 03/25/18 18:59 06:59 18:59 Intake Total 280 / 280 Output Total 300 / 300 Balance - / -20 Weight 56.699 kg 57.5 kg Intake: Oral 280 / 280 Output: Urine 300 / 300 Other: # Bowel Movements 0 Narrative: Patient is awake alert oriented 3 not in any form of distress Anicteric sclerae pink palpebral conjunctivae Neck was supple no nuchal rigidity Lungs no rales no wheezes heart regular rhythm no murmur Abdomen soft good bowel sounds no guarding no rigidity rigidity Positive Quesada catheter in place draining grossly clear urine Extremities no calf swelling or tenderness Left foot mild swelling of the left metatarsal area no redness no erythema no not warm to touch. +1 peripheral pulses all throughout Grossly move all extremities equally. - Urinary Catheter Management Indwelling Urethral Catheter Cath placed during this visit: no Assessment and Plan - Plan 62-year-old male presenting with Coronary artery disease- multivessel disease S/P cardiac cath presenting with atypical right sided chest pain -Start patient on aspirin, statins. -Check baseline lipid panel - Dr. Goel ff along with us -Vascular surgery has been consulted to evaluate for CABG - will hold off on BB- check tox screen now- recent cocaine use History of obstructive uropathy secondary to enlarged prostate History of UTI PSAE -continue Quesada catheter -per patient this was placed and changed 2 weeks ago at the rehab facility [facility] -Start patient on Flomax 0.4 mg daily- was not DC on this from the [facility] -Change Quesada catheter today -then send /Check a UA with history of PSAE UTI in the past. - ff UA and start antibiotics if indicated Status post treatment course for osteomyelitis of the left metatarsal area. History of peripheral artery disease -Per report status post course of IV cefazolin plus p.o. Levaquin. - PT consult in am Tobacco abuse- still smokes half pack a day patient counseled History of alcohol use drinks 3-4 beers daily patient counseled History of cocaine use per patient recently is about 3 days ago patient counseled. check a tox screen History of CVA in 1991-with very very mild left upper extremity weakness. Continue aspirin. PT in am Loose stools- check c diff- with recent antibiotic treatment course for OM Lovenox for DVT prophylaxis Discussed Condition With: Patient and caregiver
[2018-03-25 09:08] LABS: Baso # (Auto) 0.1 th/mm3 (0.0-0.2); Baso % (Auto) 0.5 % (0.0-2.0); Eos # (Auto) 0.1 th/mm3 (0.0-0.4); Eos % (Auto) 0.8 % (0.0-4.0); Hematocrit 35.1 % (39.0-51.0); Hemoglobin 11.2 gm/dL (13.0-17.0); Lymph # (Auto) 2.1 th/mm3 (1.0-4.8); Lymph % (Auto) 18.5 % (9.0-44.0); Mean Corpuscular Hemoglobin 23.6 pg (27.0-34.0); Mean Corpuscular Volume 73.7 fL (80.0-100.0); Mean Platelet Volume 7.1 fL (7.0-11.0); Mono % (Auto) 8.5 % (0.0-8.0); Neut # (Auto) 8.3 th/mm3 (1.8-7.7); Neut % (Auto) 71.7 % (16.0-70.0); Platelet Count 231 th/mm3 (150-450); Red Blood Count 4.76 mil/mm3 (4.50-5.90); Red Cell Distribution Width 17.6 % (11.6-17.2); White Blood Count 11.5 th/mm3 (4.0-11.0)
[2018-03-25 09:13] LABS: Amphetamine Screen,Urine Neg (Neg); Barbiturate Screen,Urine Neg (Neg); Cannabinoid Screen,Urine Neg (Neg); Cocaine Screen,Urine Pos (Neg)
[2018-03-25 09:21] LABS: Opiate Screen,Urine Neg (Neg)
[2018-03-25 09:21] LABS: Anion Gap 5 meq/L (5-15); Blood Urea Nitrogen 14 mg/dL (7-18); Calcium 8.7 mg/dL (8.5-10.1); Carbon Dioxide 27.9 meq/L (21.0-32.0); Chloride 112 meq/L (98-107); Glomerular Filtration Rate Greater Than 89 mL/min (>89); Glucose,Random 87 mg/dL (74-106); Potassium 3.6 meq/L (3.5-5.1); Sodium 145 meq/L (136-145)
[2018-03-25 09:22] LABS: % Iron Saturation 23.4 % (20-50)
[2018-03-25 09:45] LABS: Chol/HDL Ratio 2.92 Ratio; HDL Cholesterol 49.6 mg/dL (40.0-60.0)
[2018-03-25 09:49] LABS: Bacteria,Urine Many /hpf; Bilirubin,Urine Negative (Negative); Clarity,Urine Cloudy (Clear); Color,Urine Yellow (Yellw/Straw); Glucose,Urine (UA) Negative (Negative); Leukocyte Esterase,Urine Large (Negative); Mucus,Urine Few /lpf (Occasional); Nitrite,Urine Positive (Negative); Specific Gravity,Urine 1.024 (1.002-1.035)
[2018-03-25] MEDS: Enoxaparin Inj 40 MG/0.4 ML Syringe SQ SCH (10:01)
--- NOTE | 2018-03-25 10:40 | MB ---
cc: Milka Cleaning Sohit K MD DATE: 03/25/2018 HISTORY OF PRESENT ILLNESS: A 62-year-old male from the [place]. Apparently was there yesterday, it was mentioned that he was having some chest discomfort, then he was sent immediately to the emergency room. The patient is a very poor historian; however, he did admit to having some intermittent left-sided chest discomfort. On arrival, there were some EKG changes thought to be elevation of the AVR. A STEMI alert was called. However, he did have ST depression in the inferior lateral leads. His troponin was 0.08. He underwent cardiac catheterization by Dr. Goel which showed the LAD had a 70% stenosis in the mid and distal portion. The small obtuse marginals had a 50% stenosis. The left circumflex was moderately sized with diffuse 70% stenosis and 90% in the proximal portion and a 90% lesion in the mid portion. The RCA had diffuse 80-90% throughout the proximal. LVEDP was 20. A 2D echo is pending to evaluate for valvulopathy and for ejection fraction. We were consulted to evaluate for coronary artery bypass graft. Note, the patient was recently released from the hospital on 02/05/2018. He was hospitalized from 01/18/2018-02/05/2018 for osteomyelitis of the left foot. He was also found to have significant bilateral lower extremity peripheral arterial disease and underwent left common iliac, external iliac balloon angioplasty and stenting, left common femoral endarterectomy and patch angioplasty on 01/22/[address] Lamb. His other history includes hypertension, hyperlipidemia, benign prostatic hypertrophy. The patient had significant enlarged prostate and urinary retention and was seen by Dr. Arroyo on his last admission. He has had a Quesada catheter in place and was supposed to have [facility]ing [facility] the [facility], but was discharged 03/04/2018. Apparently per the home care nurse, the [place] stopped his Flomax. It is uncertain when he had his Quesada catheter changed. He was treated with IV antibiotics, cefazolin with his last dose being 02/14/2018 and also Levaquin p.o. for the left foot cellulitis and osteomyelitis. PAST MEDICAL HISTORY: Includes chronic kidney disease, stage II. The patient has also apparently had a CVA about 4 years ago that left him with some left-sided weakness and chronic slurred speech. PAST SURGICAL HISTORY: Other surgeries include a cardiac stent in the LAD in the . ALLERGIES: THE PATIENT HAS NO KNOWN ALLERGIES. MEDICATIONS: No home medications on his list. FAMILY HISTORY: Noncontributory. SOCIAL HISTORY: The patient is , 3 children, has a 24-hour caregiver and also has home health coming in from the [place]. He has been smoking a half a pack for 50 years. Drinks 2 beers a day. Admits to crack cocaine monthly. His last time was 3 days ago. REVIEW OF SYSTEMS: As above in the HPI. Other 12 systems unremarkable. PHYSICAL EXAMINATION: VITAL SIGNS: Blood pressure 115/78, heart rate is 76, temperature max 98.6, room air sat 99. GENERAL: The patient is awake, alert, in no acute distress. HEENT: Head is normocephalic, atraumatic. Pupils equal and reactive. Oral mucosa pink, moist. NECK: Supple. No JVD. HEART: Sounds S1, S2. Regular rate and rhythm. No audible rubs, murmurs or gallops. LUNGS: Diminished in the bases, otherwise clear to auscultation. No wheezes, rales or rhonchi. ABDOMEN: Soft, nontender. No masses or organomegaly. EXTREMITIES: Reveal no cyanosis, clubbing, or edema. There are no open wounds or sores to his feet. NEUROLOGIC: He has mild left-sided weakness with chronic slurred speech. LABORATORY DATA: Shows hemoglobin of 11, hematocrit of 35. White cell count of 11, platelet count of 231. Sodium 145, potassium 3.6, BUN of 14, creatinine 0.94. Iron level of 59, total iron binding capacity 252, triglycerides 152, cholesterol 145. INR 1.2. Urinalysis shows large leukocyte esterase, many bacteria. Culture pending. The patient also complained of some loose stools with recent antibiotic. IMPRESSION: 1. This is a gentleman with 3-vessel coronary artery disease, ejection fraction pending with echo also to evaluate for any valvular disease. The patient is currently on aspirin and statin. Hold off on beta venkatesh due to his recent cocaine use. Also tox screen pending. The cardiac films will be evaluated today by Dr. Dustin Espino and evaluation as a candidate for coronary artery bypass grafting. 2. History of urinary tract infection, prostate enlargement. The patient apparently was not discharged on his Flomax. The Quesada catheter has been changed out today. He is positive for UTI. We will need to start antibiotics. 3. Status post treatment course for osteomyelitis of the left metatarsal area and history of peripheral arterial disease with recent procedure. He is post-cefazolin IV course with also p.o. Levaquin, which has been discontinued. 4. He has had history of tobacco abuse, which he has been counseled on cessation and also alcohol use. He states 2-3 which is unclear and also a history of cocaine use, which we discussed counseling. He also has a history of a cerebrovascular accident. We will need to continue the aspirin. Further planning per Dr. Espino. Milka Cleaning [facility] MD NELI Allen/PJ , 10:11 AM , 10:38 AM
--- NOTE | 2018-03-25 11:00 | ECG ---
Date Performed: 03/24/2018 Time Performed: 15:51:09 PTAGE: 62 years EKG: Sinus rhythm POSSIBLE LEFT ATRIAL ENLARGEMENT POSSIBLE RIGHT VENTRICULAR CONDUCTION DELAY POSSIBLE SEPTAL MYOCARD IAL INFARCTION MODERATE T-WAVE ABNORMALITY, CONSIDER LATERAL ISCHEMIA MODERATE T-WAVE ABNORMALITY, CO NSIDER INFERIOR ISCHEMIA ABNORMAL ECG PREVIOUS TRACING : 01/20/2018 16.12 DOCTOR: Brett Carter Interpretating Date/Time 03/25/2018 11:00:22
--- NOTE | 2018-03-25 13:53 | P.PNCA ---
Subjective Interval history: No events overnight No chest pain Physical Exam Vital signs: Vital Signs 03/24/18 15:46 03/24/18 19:00 03/24/18 20:00 Temperature 98.2 F 98.1 F Pulse Rate 75 71 Respiratory Rate 18 16 Blood Pressure 109/59 L 92/67 L Pulse Oximetry 99 100 100 03/24/18 23:00 03/25/18 00:13 03/25/18 00:18 Temperature 97.8 F Pulse Rate 69 66 Respiratory Rate 16 Blood Pressure 88/60 L Pulse Oximetry 99 100 03/25/18 01:14 03/25/18 02:00 03/25/18 03:00 Temperature Pulse Rate 68 72 68 Respiratory Rate Blood Pressure Pulse Oximetry 03/25/18 04:09 03/25/18 05:00 03/25/18 06:00 Temperature 98.4 F Pulse Rate 76 67 66 Respiratory Rate 16 Blood Pressure 119/71 Pulse Oximetry 100 03/25/18 07:00 03/25/18 08:00 03/25/18 09:00 Temperature 98.6 F Pulse Rate 89 77 76 Respiratory Rate 16 Blood Pressure 115/78 Pulse Oximetry 99 03/25/18 10:00 03/25/18 11:00 03/25/18 12:00 Temperature Pulse Rate 75 69 75 Respiratory Rate Blood Pressure Pulse Oximetry 03/25/18 13:00 Temperature Pulse Rate 74 Respiratory Rate Blood Pressure Pulse Oximetry Intake & Output 03/24/18 03/25/18 03/25/18 18:59 06:59 18:59 Intake Total 280 / 280 Output Total 300 / 300 Balance -20 / -20 Weight 56.699 kg 57.5 kg Intake: Oral 280 / 280 Output: Urine 300 / 300 Other: # Bowel Movements 0 Narrative: Patient is awake alert oriented 3 not in any form of distress Anicteric sclerae pink palpebral conjunctivae Neck was supple no nuchal rigidity Lungs no rales no wheezes heart regular rhythm no murmur Abdomen soft good bowel sounds no guarding no rigidity rigidity Positive Quesada catheter in place draining grossly clear urine Bilateral groins with no hematomas Extremities no calf swelling or tenderness Left foot mild swelling of the left metatarsal area no redness no erythema no not warm to touch. +1 peripheral pulses all throughout Grossly move all extremities equally. Assessment and Plan - Assessment (1) CAD (coronary artery disease) Code(s): I25.10 - Atherosclerotic heart disease of [place] coronary artery without angina pectoris Status: Acute (2) Crack cocaine use Code(s): F14.90 - Cocaine use, unspecified, uncomplicated Status: Acute (3) Tobacco dependence Code(s): F17.200 - Nicotine dependence, unspecified, uncomplicated Status: Acute - Plan 1) CAD/NSTEMI MVCAD CT surgery evaluation Discussed with Dr. Espino Not a PCI candidate overall 2) 2D echo pending 3) Tobacco cessation 4) Crack cocaine cessation
--- NOTE | 2018-03-25 14:26 | US ---
EXAM DATE: 03/25/2018 2:15 PM EDT AGE/SEX: 62 years / Male INDICATIONS: PreOp cardiac surgery. CLINICAL DATA: This is the patient's initial encounter. Patient reports that signs and symptoms have been present for 1 day and indicates a pain score of 0/10. MEDICAL/SURGICAL HISTORY: . Alcohol use. Chest pain. None. COMPARISON: [facility] – [place] VENOUS DOPPLER LEG BI, 03/25/2018. . MEASUREMENTS: RIGHT THIGH: Proximal:__5 mm Mid:__ 4 mm Distal:__3 mm LEFT THIGH: Proximal:__5 mm Mid:__5 mm Distal:__3 mm RIGHT CALF: Proximal:__4 mm Mid:__3 mm Distal:__2 mm LEFT CALF: Proximal:__3 mm Mid:__3 mm Distal:__3 mm FINDINGS: The venous system of the lower extremities are patent by color Doppler imaging. Measurements of the leg veins (in mm) are listed above. CONCLUSION: 1. Venous mapping study as described above. Electronically signed by: Dayton Strauss MD 03/25/2018 2:24 PM EDT
--- NOTE | 2018-03-25 14:26 | US ---
EXAM DATE: 03/25/2018 2:14 PM EDT AGE/SEX: 62 years / Male INDICATIONS: PreOp cardiac surgery. CLINICAL DATA: This is the patient's initial encounter. Patient reports that signs and symptoms have been present for 1 day and indicates a pain score of 0/10. MEDICAL/SURGICAL HISTORY: . Alcohol use. Chest pain. None. COMPARISON: [facility], CTA RUNOFF W 3D RECON, 01/19/2018. . TECHNIQUE: Venous ultrasound of both lower extremities was performed from the inguinal ligament to t he proximal calf. Real-time, color Doppler and spectral tracing, compression and augmentation techni ques were used. FINDINGS: Right Leg: Normal compression of the deep venous system from the inguinal region to the proximal bo f. No echogenic clot is seen. Normal response of the venous system to augmentation and respiration. Left Leg: Normal compression of the deep venous system from the inguinal region to the proximal calf . No echogenic clot is seen. Normal response of the venous system to augmentation and respiration. Other: None. CONCLUSION: 1. Negative exam with no evidence of deep venous thrombosis. Electronically signed by: Dayton Strauss MD 03/25/2018 2:25 PM EDT
--- NOTE | 2018-03-25 14:44 | XR ---
EXAM DATE: 03/25/2018 2:43 PM EDT AGE/SEX: 62 years / Male INDICATIONS: Evaluate for pneumonia, pneumothorax, or communicable disease. Pre-op Cardiac surgery CLINICAL DATA: This is the patient's subsequent encounter. Patient reports that signs and symptoms h ave been present for 2 days and indicates a pain score of 0/10. MEDICAL/SURGICAL HISTORY: None. None. COMPARISON: [facility] [place]ST 1V SINGLE AP, 03/24/2018. . FINDINGS: PA and lateral views of the chest demonstrate the lungs to be symmetrically aerated without evidence of mass, infiltrate or effusion. The cardiomediastinal contours are unremarkable. Osseous structures are intact. CONCLUSION: No acute cardiopulmonary disease. Electronically signed by: Dayton Strauss MD 03/25/2018 2:43 PM EDT
--- NOTE | 2018-03-25 14:44 | US ---
EXAM DATE: 03/25/2018 2:18 PM EDT AGE/SEX: 62 years / Male INDICATIONS: PreOp cardiac surgery. CLINICAL DATA: This is the patient's initial encounter. Patient reports that signs and symptoms have been present for 1 day and indicates a pain score of 0/10. MEDICAL/SURGICAL HISTORY: . Alcohol use. Chest pain. None. COMPARISON: No prior exams available for comparison. VELOCITY PARAMETERS: ICA/CCA Ratio: Right 1.3 , Left 4.6 ICA: Right 106.6 cm/sec, Left 473.5 cm/sec CCA: Right 84.0 cm/sec, Left 103.4 cm/sec ECA: Right 158.5 cm/sec, Left 164.2 cm/sec Vertebral: Right 42.6 cm/sec antegrade, Left 43.9 cm/sec antegrade FINDINGS: Right Carotid: Mild arteriosclerotic plaque is visualized.The waveforms are within normal limits. Left Carotid: Calcific plaque is present in the carotid bulb and proximal internal carotid artery wi th areas of shadowing. Color flow demonstrated definite focal narrowing and mild turbulence in this a emily with no jet effect. There is elevation of the systolic velocity and extensive spectral broadening of the waveforms. Other: None. CONCLUSION: High-grade stenosis in the left internal carotid artery of greater than 70% by velocity criteria. The peak systolic velocity was 473.5 cm/s and the peak diastolic velocities was 171.8 cm/s . Electronically signed by: Dayton Strauss MD 03/25/2018 2:43 PM EDT
[2018-03-25] MEDS: Ciprofloxacin 400 MG/200 ML 400 MG/200 ML PIGGYBACK IV.SIG SCH (16:32)
[2018-03-26] MEDS: Ciprofloxacin 400 MG/200 ML 400 MG/200 ML PIGGYBACK IV.SIG SCH (03:00)
[2018-03-26 06:13] LABS: Alanine Aminotransferase 14 U/L (12-78); Albumin 3.4 g/dL (3.4-5.0); Anion Gap 7 meq/L (5-15); Aspartate Aminotransferase 12 U/L (15-37); Blood Urea Nitrogen 12 mg/dL (7-18); Calcium 8.5 mg/dL (8.5-10.1); Carbon Dioxide 27.7 meq/L (21.0-32.0); Chloride 108 meq/L (98-107); Glomerular Filtration Rate 88 mL/min (>89); Glucose,Random 89 mg/dL (74-106); Potassium 3.7 meq/L (3.5-5.1); Sodium 143 meq/L (136-145)
[2018-03-26 06:15] LABS: Alkaline Phosphatase 78 U/L (45-117); Total Protein 6.7 g/dL (6.4-8.2)
[2018-03-26] MEDS: Enoxaparin Inj 40 MG/0.4 ML Syringe SQ SCH (09:07)
[2018-03-26] MEDS ORDERED: metroNIDAZOLE 500 MG Tablet PO SCH (10:00)
--- NOTE | 2018-03-26 11:42 | P.PNCA ---
Subjective Interval history: No events overnight Physical Exam Vital signs: Vital Signs 03/25/18 12:00 03/25/18 13:00 03/25/18 14:00 Temperature Pulse Rate 75 74 67 Respiratory Rate Blood Pressure Pulse Oximetry 03/25/18 15:00 03/25/18 16:00 03/25/18 17:00 Temperature Pulse Rate 80 74 71 Respiratory Rate Blood Pressure Pulse Oximetry 03/25/18 18:00 03/25/18 20:00 03/25/18 20:32 Temperature 98.3 F 98.7 F Pulse Rate 82 81 92 H Respiratory Rate 18 18 Blood Pressure 106/73 84/65 L Pulse Oximetry 100 100 03/25/18 22:00 03/25/18 23:00 03/26/18 00:00 Temperature 98.6 F Pulse Rate 76 74 84 Respiratory Rate 20 Blood Pressure 118/81 Pulse Oximetry 100 03/26/18 01:00 03/26/18 02:00 03/26/18 03:00 Temperature Pulse Rate 76 74 81 Respiratory Rate Blood Pressure Pulse Oximetry 03/26/18 04:00 03/26/18 05:00 03/26/18 06:00 Temperature 98.6 F Pulse Rate 80 74 76 Respiratory Rate 20 Blood Pressure 118/88 Pulse Oximetry 100 03/26/18 07:00 03/26/18 08:00 03/26/18 09:00 Temperature 97.9 F Pulse Rate 72 89 88 Respiratory Rate 18 Blood Pressure 92/62 L Pulse Oximetry 100 03/26/18 10:00 03/26/18 11:00 Temperature Pulse Rate 86 91 H Respiratory Rate Blood Pressure Pulse Oximetry Intake & Output 03/25/18 03/26/18 03/26/18 18:59 06:59 18:59 Intake Total 840 / 840 440 / 440 Output Total 650 / 650 750 / 750 Balance 190 / 190 -310 / -310 Weight 57 kg Intake: IV 200 / 200 200 / 200 Cipro 400 MG/200 ML Inj 400 mg 200 / 200 200 / 200 In 200 ml @ 200 mls/hr IV.SIG Q12H [facility] Rx#:[id number] Oral 640 / 640 240 / 240 Output: Urine 650 / 650 Urine Amount (Catheter) 750 / 750 Indwelling Urethral Catheter 750 / 750 Other: Date of Last Bowel Movement 03/25/18 03/26/18 # Bowel Movements 3 Narrative: Patient is awake alert oriented 3 not in any form of distress Anicteric sclerae pink palpebral conjunctivae Neck was supple no nuchal rigidity Lungs no rales no wheezes heart regular rhythm no murmur Abdomen soft good bowel sounds no guarding no rigidity rigidity Positive Quesada catheter in place draining grossly clear urine Extremities no calf swelling or tenderness Left foot mild swelling of the left metatarsal area no redness no erythema no not warm to touch. +1 peripheral pulses all throughout Grossly move all extremities equally. - Urinary Catheter Management Indwelling Urethral Catheter Cath placed during this visit: no Reason for continuing: Chronic Urinary Retention Assessment and Plan - Assessment (1) CAD (coronary artery disease) Code(s): I25.10 - Atherosclerotic heart disease of [place] coronary artery without angina pectoris Status: Acute (2) Crack cocaine use Code(s): F14.90 - Cocaine use, unspecified, uncomplicated Status: Acute (3) Tobacco dependence Code(s): F17.200 - Nicotine dependence, unspecified, uncomplicated Status: Acute - Plan 1) CAD/NSTEMI MVCAD CT surgery evaluation Discussed with Dr. Espino Not a PCI candidate overall 2) 2D echo pending 3) Tobacco cessation 4) Crack cocaine cessation 5) If he decides against surgery, or if he's not a candidate, then would con't on medical therapy ASA 81 mg daily Lipitor 80mg daily Blood pressure borderline, unable to add anti-anginals 6) Will see PRN, call with questions
--- NOTE | 2018-03-26 12:46 | P.CONID ---
History of Present Illness Service: ID Consult date: 03/26/18 Requesting Physician: Milka Cleaning Reason for Consult: osteomyelitis Primary Care Provider: [facility] Family Provider: [facility] Chief Complaint: Chest pain History of Present Illness: Poor historian Pt has difficulty to provide history He had stroke remotely with permanent neuro deficits 62 yo male with multiple med problems including polisubstance abuse (tobacco, ETOH, coccain) admitte d for STEMI Diarrhea on presentation C.diff positive 027. 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 last time No fevers on presentation, bordeline leukocytosis He also was diagnosed with UTI, UA with innumerable WBC and is growing GNBs On cipro Review of Systems All other systems reviewed negative except as stated in HPI PMFSH - History History Provided By: Patient, Friend (Obtained history from the patient and his 24 hour caregiver), Apprentice Jockey / EMT - Medical History Medical History: Medical History (Last Reviewed 05/22/18 @ 14:06 by Olya Stokes MD) Peripheral artery disease (Chronic) Stroke, 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) BPH (benign prostatic hyperplasia) (Chronic) Hyperlipidemia (Chronic) Hypertension (Chronic) Alcohol abuse Atrial fibrillation Coronary artery disease Degenerative disc disease, cervical Left ulnar fracture Right rib fracture - Surgical History Surgical History: Surgical History (Last Reviewed 05/22/18 @ 14:06 by Olya Stokes MD) History of bunionectomy of left great toe (Chronic) H/O heart artery stent Status post peripheral artery angioplasty - Family History Family History: Family History (Last Reviewed 05/22/18 @ 14:06 by Olya Stokes MD) Mother Family history of diabetes mellitus - Social History I have reviewed the patient's Social History: Yes - Tobacco History Second Hand Smoke Exposure: No Tobacco Use In Past 30 Days: Yes Smoking Status: Current every day smoker Tobacco Type: Cigarettes - Alcohol History How Often Do You Have a Drink Containing Alcohol: 4 or more times a week - Substance Use History Substance History: Active Abuse - Substance Use Type Crack/Cocaine Status: Active - Travel History Recent Travel Out of the Country Within the Last 8 Weeks: No - Immunization History Tetanus Immunization: Unable to Assess Medications and Allergies Active Medications: Active Medications Aspirin (Ecotrin) 325 mg PO DAILY [facility] Last Admin: 03/26/18 09:07 Dose: 325 mg Atorvastatin Calcium (Lipitor) 20 mg PO HS [facility] Last Admin: 03/25/18 20:37 Dose: 20 mg Enoxaparin Sodium (Lovenox Inj) 40 mg SQ DAILY [facility] Last Admin: 03/26/18 09:07 Dose: 40 mg Ciprofloxacin/Dextrose (Cipro 400 Mg/200 Ml Inj) 400 mg in 200 mls @ 200 mls/ hr IV.SIG Q12H [facility] Last Infusion: 03/26/18 04:45 Dose: Infused Metronidazole (Flagyl) 500 mg PO Q8HR [facility] Last Admin: 03/26/18 11:55 Dose: 500 mg Oxycodone/Acetaminophen (Percocet 5/325 Mg) 1 tab PO Q4H PRN PRN Reason: PAIN SCALE 1 TO 4 Oxycodone/Acetaminophen (Percocet 5/325 Mg) 2 tab PO Q4H PRN PRN Reason: PAIN SCALE 5 TO 10 Sodium Chloride (Ns Flush) 2 ml IV.FLUSH UNSCH PRN PRN Reason: FLUSH AFTER USING IV ACCESS Sodium Chloride (Ns Flush) 2 ml IV.FLUSH PRN PRN PRN Reason: FLUSH AFTER USING IV ACCESS Sodium Chloride (Ns Flush) 2 ml IV.FLUSH BID [facility] Last Admin: 03/26/18 09:42 Dose: Not Given Tamsulosin HCl (Flomax) 0.4 mg PO DAILY [facility] Last Admin: 03/26/18 09:07 Dose: 0.4 mg Allergies Allergy/AdvReac Type Severity Reaction Status Date / Time No Known Allergies Allergy Unknown Uncoded 11/04/17 18:48 Exam Vital signs: Vital Signs 03/25/18 13:00 03/25/18 14:00 03/25/18 15:00 Temperature Pulse Rate 74 67 80 Respiratory Rate Blood Pressure Pulse Oximetry 03/25/18 16:00 03/25/18 17:00 03/25/18 18:00 Temperature Pulse Rate 74 71 82 Respiratory Rate Blood Pressure Pulse Oximetry 03/25/18 20:00 03/25/18 20:32 03/25/18 22:00 Temperature 98.3 F 98.7 F Pulse Rate 81 92 H 76 Respiratory Rate 18 18 Blood Pressure 106/73 84/65 L Pulse Oximetry 100 100 03/25/18 23:00 03/26/18 00:00 03/26/18 01:00 Temperature 98.6 F Pulse Rate 74 84 76 Respiratory Rate 20 Blood Pressure 118/81 Pulse Oximetry 100 03/26/18 02:00 03/26/18 03:00 03/26/18 04:00 Temperature 98.6 F Pulse Rate 74 81 80 Respiratory Rate 20 Blood Pressure 118/88 Pulse Oximetry 100 03/26/18 05:00 03/26/18 06:00 03/26/18 07:00 Temperature Pulse Rate 74 76 72 Respiratory Rate Blood Pressure Pulse Oximetry 03/26/18 08:00 03/26/18 09:00 03/26/18 10:00 Temperature 97.9 F Pulse Rate 89 88 86 Respiratory Rate 18 Blood Pressure 92/62 L Pulse Oximetry 100 03/26/18 11:00 03/26/18 12:00 Temperature 97.7 F Pulse Rate 91 H 72 Respiratory Rate 16 Blood Pressure 102/71 Pulse Oximetry 100 Intake & Output 03/25/18 03/26/18 03/26/18 18:59 06:59 18:59 Intake Total 840 / 840 440 / 440 Output Total 650 / 650 750 / 750 Balance 190 / 190 -310 / -310 Weight 57 kg Intake: IV 200 / 200 200 / 200 Cipro 400 MG/200 ML Inj 400 mg 200 / 200 200 / 200 In 200 ml @ 200 mls/hr IV.SIG Q12H [facility] Rx#:[id number] Oral 640 / 640 240 / 240 Output: Urine 650 / 650 Urine Amount (Catheter) 750 / 750 Indwelling Urethral Catheter 750 / 750 Other: Date of Last Bowel Movement 03/25/18 03/26/18 # Bowel Movements 3 - Constitutional no acute distress, average body habitus - Routine HEENT Exam Head: Present: normocephalic, atraumatic Eye: Present: EOMI, PERRL ENT: Present: mucous membranes moist, oropharynx clear - Routine Neck Exam Present: supple, full ROM, lymphadenopathy (none) - Routine Respiratory Exam Present: decreased breath sounds (not ), CTA bilaterally - Routine Cardiovascular Exam Present: RRR, S1, S2 Comments: well perfused perifery - Routine Abdominal Exam Present: soft, normoactive bowel sounds Comments: non tender nopn distended no organomegaly or masses - Routine Extremities Exam Comments: no cyanosis no clubbing well perfused brisk refill L hallux has mild ill defined swelling and chronic hyperpigmentation no open wounds not tender - Routine Skin Exam Comments: no rash warm - Routine Neurological Exam Present: alert, oriented X3 speech with mild expressive aphasis LUE weakness, mild and stable - Routine Psychiatric Exam Present: normal affect, cooperative Results - Labs CBC & Chem 7: 04/12/18 16:18 04/11/18 13:08 Labs: Laboratory Results - last 24 hr 03/25/18 03/25/18 03/25/18 09:23 14:52 14:52 Sodium Potassium Chloride Carbon Dioxide Anion Gap BUN Creatinine Estimated GFR Random Glucose Calcium Total Bilirubin AST ALT Alkaline Phosphatase Total Protein Albumin Urine Color Yellow Urine Clarity Cloudy H Urine pH 5.0 Ur Specific [place] 1.024 Urine Protein Negative Urine Glucose (UA) Negative Urine Ketones Negative Urine Occult Blood Moderate H Urine Nitrate Positive H Urine Bilirubin Negative Urine Urobilinogen Less than 2 Ur Leukocyte Esterase Large H Urine RBC 21 H Urine WBC Urine WBC Clumps Occasional H Urine Bacteria Many H Urine Mucus Few H Micro UA Comment Cath-culture ind Urine Culture Comments Cath-cult indicated Nasal Screen MRSA (PCR) Not detected Stl C.difficile Tox PCR Positive H St C. diff Tox Epid 027 Positive H 03/26/18 04:49 Sodium 143 Potassium 3.7 Chloride 108 H Carbon Dioxide 27.7 Anion Gap 7 BUN 12 Creatinine 1.03 Estimated GFR 88 L Random Glucose 89 Calcium 8.5 Total Bilirubin 0.6 AST 12 L ALT 14 Alkaline Phosphatase 78 Total Protein 6.7 D Albumin 3.4 Urine Color Urine Clarity Urine pH Ur Specific [place] Urine Protein Urine Glucose (UA) Urine Ketones Urine Occult Blood Urine Nitrate Urine Bilirubin Urine Urobilinogen Ur Leukocyte Esterase Urine RBC Urine WBC Urine WBC Clumps Urine Bacteria Urine Mucus Micro UA Comment Urine Culture Comments Nasal Screen MRSA (PCR) Stl C.difficile Tox PCR St C. diff Tox Epid 027 - Imaging Impressions Carotid Doppler Study 03/25/18 09:58 CONCLUSION: High-grade stenosis in the left internal carotid artery of greater than 70% by velocity criteria. The peak systolic velocity was 473.5 cm/ s and the peak diastolic velocities was 171.8 cm/s. Chest X-Ray 03/25/18 09:58 CONCLUSION: No acute cardiopulmonary disease. Lower Extremity Ultrasound 03/25/18 09:58 CONCLUSION: 1. Venous mapping study as described above. Venous Doppler Study 03/25/18 09:58 CONCLUSION: 1. Negative exam with no evidence of deep venous thrombosis. Assessment and Plan - Plan Sp STEMI needs bypass L hallux osteo Cdiff, hypervirulent strain, clinically mild UTI, GNB change cipro to cefepiem (will avoid FQ in C.diiff settings) dc flagyl oral vanco for C.diff MRI L hallux fu urine clx edin David
--- NOTE | 2018-03-26 14:26 | P.PN ---
Physical Exam Vital signs: Vital Signs 03/25/18 15:00 03/25/18 16:00 03/25/18 17:00 Temperature Pulse Rate 80 74 71 Respiratory Rate Blood Pressure Pulse Oximetry 03/25/18 18:00 03/25/18 20:00 03/25/18 20:32 Temperature 98.3 F 98.7 F Pulse Rate 82 81 92 H Respiratory Rate 18 18 Blood Pressure 106/73 84/65 L Pulse Oximetry 100 100 03/25/18 22:00 03/25/18 23:00 03/26/18 00:00 Temperature 98.6 F Pulse Rate 76 74 84 Respiratory Rate 20 Blood Pressure 118/81 Pulse Oximetry 100 03/26/18 01:00 03/26/18 02:00 03/26/18 03:00 Temperature Pulse Rate 76 74 81 Respiratory Rate Blood Pressure Pulse Oximetry 03/26/18 04:00 03/26/18 05:00 03/26/18 06:00 Temperature 98.6 F Pulse Rate 80 74 76 Respiratory Rate 20 Blood Pressure 118/88 Pulse Oximetry 100 03/26/18 07:00 03/26/18 08:00 03/26/18 09:00 Temperature 97.9 F Pulse Rate 72 89 88 Respiratory Rate 18 Blood Pressure 92/62 L Pulse Oximetry 100 03/26/18 10:00 03/26/18 11:00 03/26/18 12:00 Temperature 97.7 F Pulse Rate 86 91 H 71 Respiratory Rate 16 Blood Pressure 102/71 Pulse Oximetry 100 03/26/18 13:00 Temperature Pulse Rate 77 Respiratory Rate Blood Pressure Pulse Oximetry Intake & Output 03/25/18 03/26/18 03/26/18 18:59 06:59 18:59 Intake Total 840 / 840 440 / 440 Output Total 650 / 650 750 / 750 Balance 190 / 190 -310 / -310 Weight 57 kg Intake: IV 200 / 200 200 / 200 Cipro 400 MG/200 ML Inj 400 mg 200 / 200 200 / 200 In 200 ml @ 200 mls/hr IV.SIG Q12H [facility] Rx#:[id number] Oral 640 / 640 240 / 240 Output: Urine 650 / 650 Urine Amount (Catheter) 750 / 750 Indwelling Urethral Catheter 750 / 750 Other: Date of Last Bowel Movement 03/25/18 03/26/18 # Bowel Movements 3 Narrative: Subjective: In bed appears in nad. Family, daughter, at bedside with multiple questions all answered to best of my ability Patient says had no chest pain overniht. 2x diarrhea however says has improved. Not eating much. No n/v/d/c. Physical exam: GENERAL: Pleasantly confused 62 yo male, in nad. CARDIOVASCULAR: Regular rate and rhythm without murmurs, gallops, or rubs. RESPIRATORY: Breath sounds equal bilaterally. No accessory muscle use. GASTROINTESTINAL: Abdomen soft, non-tender, nondistended. MUSCULOSKELETAL: No cyanosis, or edema. BACK: Nontender without obvious deformity. No CVA tenderness. Assessment and Plan 62-year-old male presenting with Coronary artery disease- multivessel disease S/P cardiac cath presenting with atypical right sided chest pain -Start patient on aspirin, statins. -Check baseline lipid panel - Dr. Goel ff -Vascular surgery has been consulted to evaluate for CABG - will hold off on BB- check tox screen now- h/o recent cocaine use History of obstructive uropathy secondary to enlarged prostate History of UTI PSAE -continue Quesada catheter -per patient this was placed and changed 2 weeks ago at the rehab facility [facility] -Start patient on Flomax 0.4 mg daily- was not DC on this from the [facility] -Change Quesada catheter today -then send /Check a UA with history of PSAE UTI in the past. - ff UA and start antibiotics if indicated Status post treatment course for osteomyelitis of the left metatarsal area. History of peripheral artery disease -Per report status post course of IV cefazolin plus p.o. Levaquin. - PT consult in am Tobacco abuse- still smokes half pack a day patient counseled History of alcohol use drinks 3-4 beers daily patient counseled History of cocaine use per patient recently is about 3 days ago patient counseled. check a tox screen History of CVA in 1991-with very very mild left upper extremity weakness. Continue aspirin. PT in am Loose stools- check c diff- with recent antibiotic treatment course for OM Discussed with the patient, daughter at bedside, nurse. - Urinary Catheter Management Indwelling Urethral Catheter Cath placed during this visit: no Reason for continuing: Chronic Urinary Retention Results - Labs CBC & Chem 7: 03/25/18 08:30 03/26/18 04:49 Laboratory Results - last 24 hr 03/25/18 03/25/18 03/25/18 09:23 14:52 14:52 Sodium Potassium Chloride Carbon Dioxide Anion Gap BUN Creatinine Estimated GFR Random Glucose Calcium Total Bilirubin AST ALT Alkaline Phosphatase Total Protein Albumin Urine Color Yellow Urine Clarity Cloudy H Urine pH 5.0 Ur Specific [place] 1.024 Urine Protein Negative Urine Glucose (UA) Negative Urine Ketones Negative Urine Occult Blood Moderate H Urine Nitrate Positive H Urine Bilirubin Negative Urine Urobilinogen Less than 2 Ur Leukocyte Esterase Large H Urine RBC 21 H Urine WBC Urine WBC Clumps Occasional H Urine Bacteria Many H Urine Mucus Few H Micro UA Comment Cath-culture ind Urine Culture Comments Cath-cult indicated Nasal Screen MRSA (PCR) Not detected Stl C.difficile Tox PCR Positive H St C. diff Tox Epid 027 Positive H 03/26/18 04:49 Sodium 143 Potassium 3.7 Chloride 108 H Carbon Dioxide 27.7 Anion Gap 7 BUN 12 Creatinine 1.03 Estimated GFR 88 L Random Glucose 89 Calcium 8.5 Total Bilirubin 0.6 AST 12 L ALT 14 Alkaline Phosphatase 78 Total Protein 6.7 D Albumin 3.4 Urine Color Urine Clarity Urine pH Ur Specific [place] Urine Protein Urine Glucose (UA) Urine Ketones Urine Occult Blood Urine Nitrate Urine Bilirubin Urine Urobilinogen Ur Leukocyte Esterase Urine RBC Urine WBC Urine WBC Clumps Urine Bacteria Urine Mucus Micro UA Comment Urine Culture Comments Nasal Screen MRSA (PCR) Stl C.difficile Tox PCR St C. diff Tox Epid 027 Microbiology 03/25/18 09:23 Catheterized Urine Urine Culture - Preliminary gram negative rods 03/25/18 14:52 Stool Stool for WBCs - Final Rare WBC's - Imaging Impressions Carotid Doppler Study 03/25/18 09:58 CONCLUSION: High-grade stenosis in the left internal carotid artery of greater than 70% by velocity criteria. The peak systolic velocity was 473.5 cm/ s and the peak diastolic velocities was 171.8 cm/s. Chest X-Ray 03/25/18 09:58 CONCLUSION: No acute cardiopulmonary disease. Lower Extremity Ultrasound 03/25/18 09:58 CONCLUSION: 1. Venous mapping study as described above. Venous Doppler Study 03/25/18 09:58 CONCLUSION: 1. Negative exam with no evidence of deep venous thrombosis.
--- NOTE | 2018-03-26 16:51 | ECHRPT ---
Indication: CHEST PAIN CONCLUSIONS Normal left ventricular size. Wall thickness is normal. The left ventricular systolic function is normal with an estimated ejection fraction in the range of 55-60%. [id number] mitral valve regurgitation. There is trace tricuspid valve regurgitation. The estimated pulmonary arterial pressure is 27 mmHg. BP: / HR: Rhythm: Sinus MEASUREMENTS (Male / Female) Normal Values Technical Quality:Very technically difficult study 2D ECHO LV Diastolic Diameter PLAX 5.0 cm 4.2 - 5.9 / 3.9 - 5.3 cm LV Systolic Diameter PLAX 3.8 cm IVS Diastolic Thickness 0.7 cm 0.6 - 1.0 / 0.6 - 0.9 cm LVPW Diastolic Thickness 0.7 cm 0.6 - 1.0 / 0.6 - 0.9 cm LV Relative Wall Thickness 0.3 DOPPLER AV Peak Velocity 101.0 cm/s AV Peak Gradient 4.1 mmHg AV Mean Gradient 2.0 mmHg AV Velocity Time Integral 15.5 cm LVOT Peak Velocity 69.2 cm/s LVOT Peak Gradient 1.9 mmHg LVOT Velocity Time Integral 12.2 cm Mitral E Point Velocity 50.3 cm/s Mitral A Point Velocity 62.2 cm/s Mitral E to A Ratio 0.8 LV E' Lateral Velocity 6.9 cm/s Mitral E to LV E' Lateral Ratio 7.3 LV E' Septal Velocity 5.4 cm/s Mitral E to LV E' Septal Ratio 9.4 TR Peak Velocity 205.0 cm/s TR Peak Gradient 17.0 mmHg FINDINGS LEFT VENTRICLE Normal left ventricular size. Wall thickness is normal. The left ventricular systolic function is normal with an estimated ejection fraction in the range of 55-60%. RIGHT VENTRICLE Normal right ventricular size and systolic function. LEFT ATRIUM The left atrial size is normal. RIGHT ATRIUM The right atrial size is normal. ATRIAL SEPTUM No atrial level shunt is demonstrated by color flow Doppler interrogation. AORTA The aortic root and proximal ascending aorta are not well visualized. MITRAL VALVE [id number] mitral valve regurgitation. AORTIC VALVE Trileaflet aortic valve. No aortic valve stenosis or regurgitation. TRICUSPID VALVE There is trace tricuspid valve regurgitation. The estimated pulmonary arterial pressure is 27 mmHg. PULMONARY VALVE No pulmonary valve regurgitation or stenosis. VESSELS The inferior vena cava was not well visualized. PERICARDIUM No pericardial effusion. Ayden Terrazas MD, FACC (Electronically Signed) Final Date:26 March 2018 16:50
[2018-03-26] MEDS ORDERED: Gadobutrol PF 7.5 MMOL/7.5 ML Vial (for RAD) IV.SIG ONE (17:01)
--- NOTE | 2018-03-26 17:29 | MR ---
EXAM DATE: 03/26/2018 4:59 PM EDT AGE/SEX: 62 years / Male INDICATIONS: Abscess. Wound across top of left foot. CLINICAL DATA: This is the patient's subsequent encounter. Patient reports that signs and symptoms h ave been present for 3 weeks and indicates a pain score of 3/10. MEDICAL/SURGICAL HISTORY: Hypertension. Stroke. . left iliac angioplasty. COMPARISON: [facility] [place], MRI FOOT LEFT W & W/O CONTRAST, 01/28/2018. . TECHNIQUE: Multiplanar, multisequence MRI examination was performed without contrast and after th e intravenous administration of 7 ml Gadavist (gadobutrol) single exam dose. FINDINGS: There is marrow edema without enhancement involving the base of the first metatarsal as well as the h ead of the second through fifth metatarsals similar to the prior study and may reflect stress fractur e. There is also extensive marrow edema involving the first metatarsophalangeal joint with subluxatio n of sesamoids. This does demonstrate enhancement following the administration of contrast but does n ot have the appearance of osteomyelitis. There is no evidence of abscess. CONCLUSION: 1. Findings of stress type injury involving the base of the first metatarsal and metatarsal head sim ilar to the prior study. No evidence of osteomyelitis Electronically signed by: Elias Chen MD 03/26/2018 5:28 PM EDT
[2018-03-26 18:00] LABS: Hemoglobin A1c 5.1 % (4.3-6.0)
--- NOTE | 2018-03-26 19:11 | CT ---
EXAM DATE: 03/26/2018 5:50 PM EDT AGE/SEX: 62 years / Male INDICATIONS: Carotid stenosis CLINICAL DATA: This is the patient's initial encounter. Patient reports that signs and symptoms have been present for 1 day and indicates a pain score of 0/10. MEDICAL/SURGICAL HISTORY: Cardiovascular disease. kidney disease None. RADIATION DOSE: 10.94 CTDI (mGy) COMPARISON: No prior exams available for comparison. TECHNIQUE: Volumetric scanning was performed using a multirow detector CT scanner during bolus infus ion of 74 ml Omnipaque 350 (iohexol) nonionic water-soluble contrast as a single exam dose. The da ta was postprocessed with a variety of visualization algorithms including full-volume maximum intensi ty projection, multiplanar sliding thin-slab reformation, curved-planar reformation, and surface-rend ering techniques. Using automated exposure control and adjustment of the mA and/or kV according to p atient size, radiation dose was kept as low as reasonably achievable to obtain optimal diagnostic michael lity images. DICOM format image data is available electronically for review and comparison. FINDINGS: Aortic Arch: There is a three-vessel origin of the great vessels from the aorta. No evidence of ost ial narrowing. There is calcification at the proximal right brachiocephalic artery without stenosis. Right Carotid: The common carotid artery is intact. There is calcified plaque at the carotid bulb r egion without a significant stenosis. The internal carotid artery lumen is smooth without stenosis. The external carotid artery is intact. Left Carotid: The common carotid artery is intact. There is calcified plaque at the carotid bulb re gion without a significant stenosis. There is a severe stenosis at the proximal left internal carotid artery approximately 1.5 cm from the carotid bulb region. The lumen is narrowed by 90%. The externa l carotid artery is intact. Vertebrals: The vertebral arteries have a symmetric diameter. No stenotic lesions are seen. Percent stenosis is calculated using the diameter of the stenotic region over the diameter of the nor mal distal internal carotid artery. 1. Severe stenosis at the proximal left internal carotid artery with the lumen being narrowed by up to 90%. 2. Dense calcified plaque at the carotid bulb regions without significant stenosis these levels. Electronically signed by: Lonnie Cordon MD 03/26/2018 7:09 PM EDT
[2018-03-27] MEDS: Enoxaparin Inj 40 MG/0.4 ML Syringe SQ SCH (10:12)
--- NOTE | 2018-03-27 10:17 | P.PNCV ---
- Note Subjective/Hospital Course: A 62-year-old male from the [place]. Apparently was there yesterday, it was mentioned that he was having some chest discomfort, then he was sent immediately to the emergency room. The patient is a very poor historian; however, he did admit to having some intermittent left-sided chest discomfort. On arrival, there were some EKG changes thought to be elevation of the AVR. A STEMI alert was called. However, he did have ST depression in the inferior lateral leads. His troponin was 0.08. He underwent cardiac catheterization by Dr. Goel which showed the LAD had a 70% stenosis in the mid and distal portion. The small obtuse marginals had a 50% stenosis. The left circumflex was moderately sized with diffuse 70% stenosis and 90% in the proximal portion and a 90% lesion in the mid portion. The RCA had diffuse 80-90% throughout the proximal. LVEDP was 20. A 2D echo is pending to evaluate for valvulopathy and for ejection fraction. We were consulted to evaluate for coronary artery bypass graft. Note, the patient was recently released from the hospital on 02/05/2018. He was hospitalized from 01/18/2018- 02/05/2018 for osteomyelitis of the left foot. He was also found to have significant bilateral lower extremity peripheral arterial disease and underwent left common iliac, external iliac balloon angioplasty and stenting, left common femoral endarterectomy and patch angioplasty on 01/22/[address] Lamb. PMH: hypertension, hyperlipidemia, benign prostatic hypertrophy. The patient had significant enlarged prostate and urinary retention and was seen by Dr. Arroyo on his last admission.He has had a Quesada catheter in place and was supposed to have voiding trials in the [facility], but was discharged 2017. Apparently per the home care nurse, the [place] stopped his Flomax. It is uncertain when he had his Quesada catheter changed. He was treated with IV antibiotics, cefazolin with his last dose being 02/14/2018 and also Levaquin p.o. for the left foot cellulitis and osteomyelitis. Chronic kidney disease, stage II, CVA about 4 years ago that left him with some left-sided weakness and chronic slurred speech. 03/26 stool + for cdiff/ on po vanc ID following UTI on cefepime 03/27 two loose stools yesterday, no stool this am feels weak CTA neck noted : 90% stenosis proximal left internal carotid artery / need to consult vascular sx consult PT high risk for surgery Objective: Vital Signs - 24 hr 03/26/18 11:00 03/26/18 12:00 03/26/18 13:00 Temperature 97.7 F Pulse Rate 91 H 71 77 Respiratory Rate 16 Blood Pressure 102/71 Pulse Oximetry 100 03/26/18 14:00 03/26/18 15:00 03/26/18 16:00 Temperature Pulse Rate 73 78 83 Respiratory Rate 18 Blood Pressure 103/82 Pulse Oximetry 100 03/26/18 17:00 03/26/18 18:00 03/26/18 19:00 Temperature Pulse Rate 74 83 84 Respiratory Rate Blood Pressure Pulse Oximetry 03/26/18 20:00 03/26/18 21:00 03/26/18 22:00 Temperature 98.6 F Pulse Rate 80 124 H 82 Respiratory Rate 16 Blood Pressure 98/65 L Pulse Oximetry 99 03/26/18 23:00 03/27/18 00:00 03/27/18 01:00 Temperature 98.6 F Pulse Rate 93 H 76 76 Respiratory Rate 16 Blood Pressure 100/53 L Pulse Oximetry 100 03/27/18 02:00 03/27/18 03:00 03/27/18 04:00 Temperature 98.2 F Pulse Rate 68 67 74 Respiratory Rate 18 Blood Pressure 122/67 Pulse Oximetry 100 03/27/18 05:00 03/27/18 06:00 Temperature Pulse Rate 64 76 Respiratory Rate Blood Pressure Pulse Oximetry GENERAL: SKIN: Warm and dry. HEAD: Normocephalic. EYES: No scleral icterus. No injection or drainage. NECK: Supple, trachea midline. No JVD or lymphadenopathy. CARDIOVASCULAR: Regular rate and rhythm without murmurs, gallops, or rubs. RESPIRATORY: Breath sounds equal bilaterally. No accessory muscle use. GASTROINTESTINAL: Abdomen soft, non-tender, nondistended. MUSCULOSKELETAL: No cyanosis, or edema. BACK: Nontender without obvious deformity. No CVA tenderness. Neuro: Left sided weakness , slurred speech unchanged Result Diagrams: 03/25/18 08:30 03/26/18 04:49 EKG: NSR - Plan (1) History of CVA with residual deficit Plan: on ASA, CTA neck noted, consult vascular surgery (2) ST elevation myocardial infarction (STEMI) Plan: ASA, statin , no BB for now (4) Crack cocaine use Plan: substance abuse counseling (5) Tobacco dependence Plan: tobacco cessation counseling (6) Clostridial gastroenteritis Plan: po vancomycin (7) Hx of osteomyelitis Plan: MRI left foot , no evidence of osteomyelitis infection (2) ST elevation myocardial infarction (STEMI) Qualifiers: Involved coronary artery: unspecified coronary artery Qualified Code(s): I21.3 - ST elevation (STEMI) myocardial infarction of unspecified site
--- NOTE | 2018-03-27 21:49 | P.PN ---
Physical Exam Vital signs: Vital Signs 03/26/18 22:00 03/26/18 23:00 03/27/18 00:00 Temperature 98.6 F Pulse Rate 82 93 H 76 Respiratory Rate 16 Blood Pressure 100/53 L Pulse Oximetry 100 03/27/18 01:00 03/27/18 02:00 03/27/18 03:00 Temperature Pulse Rate 76 68 67 Respiratory Rate Blood Pressure Pulse Oximetry 03/27/18 04:00 03/27/18 05:00 03/27/18 06:00 Temperature 98.2 F Pulse Rate 74 64 76 Respiratory Rate 18 Blood Pressure 122/67 Pulse Oximetry 100 03/27/18 07:00 03/27/18 08:00 03/27/18 09:00 Temperature Pulse Rate 58 L 58 L 60 Respiratory Rate Blood Pressure Pulse Oximetry 03/27/18 10:00 03/27/18 11:00 03/27/18 12:00 Temperature Pulse Rate 64 94 H 88 Respiratory Rate Blood Pressure Pulse Oximetry 03/27/18 13:00 03/27/18 14:00 03/27/18 15:00 Temperature Pulse Rate 78 78 88 Respiratory Rate Blood Pressure Pulse Oximetry 03/27/18 16:00 03/27/18 17:00 03/27/18 18:00 Temperature 98.4 F Pulse Rate 96 H 78 84 Respiratory Rate 16 Blood Pressure 115/63 Pulse Oximetry 96 03/27/18 20:00 Temperature 98.4 F Pulse Rate 83 Respiratory Rate 17 Blood Pressure 156/72 H Pulse Oximetry 100 Intake & Output 03/27/18 03/27/18 03/28/18 06:59 18:59 06:59 Intake Total 340 / 340 200 / 200 Output Total 700 / 700 200 / 200 Balance -360 / -360 0 / 0 Weight 58 kg Intake: IV 100 / 100 200 / 200 Maxipime Inj 1,000 MG In NS Inj 100 / 100 200 / 200 100 ML @ 200 mls/hr IV.SIG Q8H [facility] Rx#:[id number] Oral 240 / 240 Output: Urine Amount (Catheter) 700 / 700 200 / 200 Indwelling Urethral Catheter 700 / 700 200 / 200 Other: Date of Last Bowel Movement 03/26/18 Narrative: Subjective: Follow-up coronary artery disease, multivessel disease had cardiac cath He is in bed he appears chronically ill. He denies having any chest pain or shortness of breath at this time. However still with diarrhea 3 times. No abdominal cramps is able to eat fairly well. No nausea or vomiting. No fever or chills. Physical exam: GENERAL: Pleasantly confused 62 yo male, in nad. CARDIOVASCULAR: Regular rate and rhythm without murmurs, gallops, or rubs. RESPIRATORY: Breath sounds equal bilaterally. No accessory muscle use. GASTROINTESTINAL: Abdomen soft, non-tender, nondistended. MUSCULOSKELETAL: No cyanosis, or edema. BACK: Nontender without obvious deformity. No CVA tenderness. Assessment and Plan 62-year-old male presenting with Coronary artery disease- multivessel disease S/P cardiac cath presenting with atypical right sided chest pain -Start patient on aspirin, statins. -Check baseline lipid panel - Dr. Goel ff -Vascular surgery has been consulted to evaluate for CABG - will hold off on BB- check tox screen now- h/o recent cocaine use CTS consulted for evaluation or CABG However patient initially refused. Patient needs improvement from C diff. 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 - ff UA and start antibiotics if indicated Status post treatment course for osteomyelitis of the left metatarsal area. History of peripheral artery disease -Per report status post course of IV cefazolin plus p.o. Levaquin. - PT consult in am Tobacco abuse- still smokes half pack a day patient counseled History of alcohol use drinks 3-4 beers daily patient counseled History of cocaine use per patient recently is about 3 days ago patient counseled. check a tox screen History of CVA in 1991-with very very mild left upper extremity weakness. Continue aspirin. PT in am Loose stools- check c diff- with recent antibiotic treatment course for OM Discussed with the patient, nurse Transfer out of [facility] to [facility] floor - Urinary Catheter Management Indwelling Urethral Catheter Cath placed during this visit: yes, but has since been removed by the nurse Reason for continuing: Decision to DC catheter Removal date: 07/26/18 Removal time: 18:00 Results - Labs CBC & Chem 7: 03/25/18 08:30 03/26/18 04:49 Laboratory Results - last 24 hr 03/27/18 11:59 POC Glucose 100 Microbiology 03/25/18 14:52 Stool Cryptosporidium Antigen - Final Negative - No Cryptosporicium antigen detected In selected cases of patients with a history of immunosuppression or foreign travel, a full ova and parasites examination may be desired. Contact the microbiology lab if full workup is indicated and subit another specimen for testing. 03/25/18 14:52 Stool Giardia Antigen (DARON) - Final Negative - No Giardia Antigen detected In selected cases of patients with a history of immunosuppression or foreign travel, a full ova and parasites examination may be desired. Contact the microbiology lab if full workup is indicated and subit another specimen for testing. 03/25/18 09:23 Catheterized Urine Urine Culture - Final Klebsiella pneumoniae
[2018-03-28] MEDS: Enoxaparin Inj 40 MG/0.4 ML Syringe SQ SCH (09:19)
--- NOTE | 2018-03-28 09:53 | P.PNIM ---
Subjective Interval history: f/u; CAD- c.diff colitis in no acute distress. denies chest pain or sob. still with diarrhea. no fever. Physical Exam Vital signs: Vital Signs 03/27/18 10:00 03/27/18 11:00 03/27/18 12:00 Temperature Pulse Rate 64 94 H 88 Respiratory Rate Blood Pressure Pulse Oximetry 03/27/18 13:00 03/27/18 14:00 03/27/18 15:00 Temperature Pulse Rate 78 78 88 Respiratory Rate Blood Pressure Pulse Oximetry 03/27/18 16:00 03/27/18 17:00 03/27/18 18:00 Temperature 98.4 F Pulse Rate 96 H 78 84 Respiratory Rate 16 Blood Pressure 115/63 Pulse Oximetry 96 03/27/18 20:00 03/28/18 00:00 03/28/18 04:00 Temperature 98.4 F 98.3 F 97.9 F Pulse Rate 81 145 H 90 Respiratory Rate 17 17 17 Blood Pressure 156/72 H 103/61 130/71 Pulse Oximetry 100 98 100 Intake & Output 03/27/18 03/28/18 03/28/18 18:59 06:59 18:59 Intake Total 200 / 200 220 / 220 Output Total 200 / 200 Balance 0 / 0 220 / 220 Weight 60.8 kg Intake: IV 200 / 200 100 / 100 Maxipime Inj 1,000 MG In NS Inj 200 / 200 100 / 100 100 ML @ 200 mls/hr IV.SIG Q8H [facility] Rx#:[id number] Oral 120 / 120 Output: Urine Amount (Catheter) 200 / 200 Indwelling Urethral Catheter 200 / 200 Other: # Incontinent Voids 3 # Bowel Movements 1 # Incontinent Bowel Movements 3 - Constitutional no acute distress - Routine Respiratory Exam Present: CTA bilaterally - Routine Cardiovascular Exam Present: RRR - Routine Abdominal Exam Present: soft - Routine Extremities Exam Comments: no pedal edema. - Routine Neurological Exam Present: alert - Urinary Catheter Management Indwelling Urethral Catheter Cath placed during this visit: yes, but has since been removed by the nurse Reason for continuing: Not indwelling catheter Removal date: 03/27/18 Removal time: 18:00 Results - Labs CBC & Chem 7: 03/25/18 08:30 03/26/18 04:49 Laboratory Results - last 24 hr 03/27/18 11:59 POC Glucose 100 Microbiology 03/25/18 14:52 Stool Cryptosporidium Antigen - Final Negative - No Cryptosporicium antigen detected In selected cases of patients with a history of immunosuppression or foreign travel, a full ova and parasites examination may be desired. Contact the microbiology lab if full workup is indicated and subit another specimen for testing. 03/25/18 14:52 Stool Giardia Antigen (DARON) - Final Negative - No Giardia Antigen detected In selected cases of patients with a history of immunosuppression or foreign travel, a full ova and parasites examination may be desired. Contact the microbiology lab if full workup is indicated and subit another specimen for testing. 03/25/18 09:23 Catheterized Urine Urine Culture - Final Klebsiella pneumoniae Assessment and Plan - Plan Coronary artery disease- multivessel disease S/P cardiac cath presenting with atypical right sided chest pain -Started patient on aspirin, statins. - will hold off on BB- check tox screen now- h/o recent cocaine use CTS consulted for evaluation or CABG However patient initially refused. Patient needs improvement from C diff. CTS to evaluate and evaluate if a candidate for CABG C-diff colitis- continue PO Vanco- will monitor Carotid artery disease with > 90% stenosis left ICA- will consult vascular surgery.- continue aspirin and statin. 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 History of peripheral artery disease -Per report status post course of IV cefazolin plus p.o. Levaquin. -started on Cefepime per ID - PT consult in am Tobacco abuse- still smokes half pack a day patient counseled History of alcohol use drinks 3-4 beers daily patient counseled History of cocaine use per patient recently is about 3 days ago patient counseled. check a tox screen History of CVA in 1991-with very very mild left upper extremity weakness. Continue aspirin. PT consulted. Discharge Planning: * pending CT surgery/ ID f/u and recommendations.
--- NOTE | 2018-03-28 12:04 | P.PNID ---
Subjective Remarks: pt is c/o diarrhea with 3 liquid BMs incontinent also states some difficulty voiding MRI neg for osteo Antibiotics: 1 gm q 8 hrs Allergies/Adverse Reactions: Allergies No Known Allergies Allergy (Unknown, Uncoded 11/04/17 18:48) Objective Vital Signs 03/27/18 12:00 03/27/18 13:00 03/27/18 14:00 Temperature Pulse Rate 88 78 78 Respiratory Rate Blood Pressure Pulse Oximetry 03/27/18 15:00 03/27/18 16:00 03/27/18 17:00 Temperature 98.4 F Pulse Rate 88 96 H 78 Respiratory Rate 16 Blood Pressure 115/63 Pulse Oximetry 96 03/27/18 18:00 03/27/18 20:00 03/28/18 00:00 Temperature 98.4 F 98.3 F Pulse Rate 84 81 145 H Respiratory Rate 17 17 Blood Pressure 156/72 H 103/61 Pulse Oximetry 100 98 03/28/18 04:00 03/28/18 08:00 Temperature 97.9 F 98.2 F Pulse Rate 90 130 H Respiratory Rate 17 20 Blood Pressure 130/71 116/71 Pulse Oximetry 100 99 Intake & Output 03/27/18 03/28/18 03/28/18 18:59 06:59 18:59 Intake Total 200 / 200 220 / 220 Output Total 200 / 200 Balance 0 / 0 220 / 220 Weight 60.8 kg Intake: IV 200 / 200 100 / 100 Maxipime Inj 1,000 MG In NS Inj 200 / 200 100 / 100 100 ML @ 200 mls/hr IV.SIG Q8H [facility] Rx#:[id number] Oral 120 / 120 Output: Urine Amount (Catheter) 200 / 200 Indwelling Urethral Catheter 200 / 200 Other: # Incontinent Voids 3 # Bowel Movements 1 # Incontinent Bowel Movements 3 03/25/18 14:52 Stool Cryptosporidium Antigen - Final Negative - No Cryptosporicium antigen detected In selected cases of patients with a history of immunosuppression or foreign travel, a full ova and parasites examination may be desired. Contact the microbiology lab if full workup is indicated and subit another specimen for testing. 03/25/18 14:52 Stool Giardia Antigen (DARON) - Final Negative - No Giardia Antigen detected In selected cases of patients with a history of immunosuppression or foreign travel, a full ova and parasites examination may be desired. Contact the microbiology lab if full workup is indicated and subit another specimen for testing. 03/25/18 09:23 Catheterized Urine Urine Culture - Final Klebsiella pneumoniae 03/25/18 14:52 Stool Stool for WBCs - Final Rare WBC's Lab - Chemistry Results 03/26/18 03/27/18 04:49 11:59 POC Glucose 100 Hemoglobin A1c 5.1 Imaging: ITS Impressions Chest X-Ray 03/24/18 15:37 CONCLUSION: Negative examination. Gallbladder Ultrasound 03/24/18 15:37 CONCLUSION: Negative right quadrant ultrasound examination. The gallbladder is free of stones. Carotid Doppler Study 03/25/18 09:58 CONCLUSION: High-grade stenosis in the left internal carotid artery of greater than 70% by velocity criteria. The peak systolic velocity was 473.5 cm/ s and the peak diastolic velocities was 171.8 cm/s. Chest X-Ray 03/25/18 09:58 CONCLUSION: No acute cardiopulmonary disease. Lower Extremity Ultrasound 03/25/18 09:58 CONCLUSION: 1. Venous mapping study as described above. Venous Doppler Study 03/25/18 09:58 CONCLUSION: 1. Negative exam with no evidence of deep venous thrombosis. Foot MRI 03/26/18 00:00 CONCLUSION: 1. Findings of stress type injury involving the base of the first metatarsal and metatarsal head similar to the prior study. No evidence of osteomyelitis Neck CTA 03/26/18 00:00 CONCLUSION: Physical Exam: GENERAL: NAD SKIN: Warm and dry. HEAD: Atraumatic. Normocephalic. EYES: Pupils equal and round. No scleral icterus. No injection or drainage. ENT: No nasal bleeding or discharge. Mucous membranes pink and moist. NECK: Trachea midline. No JVD. CARDIOVASCULAR: Regular rate and rhythm. RESPIRATORY: No accessory muscle use. Clear to auscultation. Breath sounds equal bilaterally. GASTROINTESTINAL: Abdomen soft, mildly tender, mildly distended. Hepatic and splenic margins not palpable. MUSCULOSKELETAL: Extremities without clubbing, cyanosis, or edema. No obvious deformities. L hallux with hyperpigmentation, no redness, no tenderness to palpation : nopalpable bladder sistention NEUROLOGICAL: Awake and alert. Seems however somewhat confused today No obvious cranial nerve deficits. Motor grossly within normal limits. Five out of 5 muscle strength in the arms and legs. Normal speech. PSYCHIATRIC: cooperative Assessment and Plan - Plan Sp STEMI needs bypass L hallux osteo sp treatment in January - Cdiff, hypervirulent strain, clinically moderate - increase vanco to 500 UTI, e.coli change cipro to cefepiem (will avoid FQ in C.diiff settings) dc flagyl oral vanco for C.diff Gallium bone scan bladder scan to eval for obstruction CBC edin jesus RN
[2018-03-28 13:00] LABS: Baso # (Auto) 0.1 th/mm3 (0.0-0.2); Baso % (Auto) 0.6 % (0.0-2.0); Hematocrit 40.7 % (39.0-51.0); Hemoglobin 13.5 gm/dL (13.0-17.0); Lymph % (Auto) 6.9 % (9.0-44.0); Mean Corpuscular HGB Conc 33.2 % (32.0-36.0); Mean Corpuscular Hemoglobin 24.6 pg (27.0-34.0); Mean Platelet Volume 7.3 fL (7.0-11.0); Mono # (Auto) 0.4 th/mm3 (0.0-0.9); Mono % (Auto) 2.9 % (0.0-8.0); Neut # (Auto) 12.7 th/mm3 (1.8-7.7); Neut % (Auto) 89.6 % (16.0-70.0); Platelet Count 244 th/mm3 (150-450); Red Cell Distribution Width 17.4 % (11.6-17.2); White Blood Count 14.1 th/mm3 (4.0-11.0)
--- NOTE | 2018-03-28 13:21 | NM ---
EXAM DATE: 03/28/2018 1:10 PM EDT AGE/SEX: 62 years / Male INDICATIONS: First metatarsal head swelling of left foot. CLINICAL DATA: This is the patient's initial encounter. Patient reports that signs and/or symptoms h ave been present for 1 day and indicates a pain score of 0/10. MEDICAL/SURGICAL HISTORY: Cerebrovascular disease. COMPARISON: [facility] [place], MR FOOT LEFT W & W/O CONTRAST, 03/26/2018. . PRIOR BONE SCANS: TECHNIQUE: Blood pool and delayed bone scan images of the left foot were performed in several projec tions. DOSE: 27.5 mCi Tc-99m MDP i.v. FINDINGS: The blood flow images demonstrate increased blood flow to the left foot compared to the right. The bl ood pool images demonstrate focal increased blood pool activity in the region of the first metatarsal base as well as increased blood pool activity in left ankle. The patient terminated the study prematurely and no delayed imaging could be performed. CONCLUSION: 1. Limited suboptimal study secondary to patient termination of the study prematurely. 2. Abnormal blood flow and blood pool activity which is nonspecific. Electronically signed by: Dayton Strauss MD 03/28/2018 1:19 PM EDT
--- NOTE | 2018-03-28 14:19 | P.PNCV ---
- Note Subjective/Hospital Course: A 62-year-old male from the [facility]. Apparently was there yesterday, it was mentioned that he was having some chest discomfort, then he was sent immediately to the emergency room. The patient is a very poor historian; however, he did admit to having some intermittent left-sided chest discomfort. On arrival, there were some EKG changes thought to be elevation of the AVR. A STEMI alert was called. However, he did have ST depression in the inferior lateral leads. His troponin was 0.08. He underwent cardiac catheterization by Dr. Goel which showed the LAD had a 70% stenosis in the mid and distal portion. The small obtuse marginals had a 50% stenosis. The left circumflex was moderately sized with diffuse 70% stenosis and 90% in the proximal portion and a 90% lesion in the mid portion. The RCA had diffuse 80-90% throughout the proximal. LVEDP was 20. A 2D echo is pending to evaluate for valvulopathy and for ejection fraction. We were consulted to evaluate for coronary artery bypass graft. Note, the patient was recently released from the hospital on 02/05/2018. He was hospitalized from 01/18/2018- 02/05/2018 for osteomyelitis of the left foot. He was also found to have significant bilateral lower extremity peripheral arterial disease and underwent left common iliac, external iliac balloon angioplasty and stenting, left common femoral endarterectomy and patch angioplasty on 01/22/[address] Lamb. PMH: hypertension, hyperlipidemia, benign prostatic hypertrophy. The patient had significant enlarged prostate and urinary retention and was seen by Dr. Arroyo on his last admission.He has had a Quesada catheter in place and was supposed to have voiding trials in the jail, but was discharged 2017. Apparently per the home care nurse, the [facility] stopped his Flomax. It is uncertain when he had his Quesada catheter changed. He was treated with IV antibiotics, cefazolin with his last dose being 02/14/2018 and also Levaquin p.o. for the left foot cellulitis and osteomyelitis. Chronic kidney disease, stage II, CVA about 4 years ago that left him with some left-sided weakness and chronic slurred speech. 03/26 stool + for cdiff/ on po vanc ID following UTI on cefepime 03/27 two loose stools yesterday, no stool this am feels weak CTA neck noted : 90% stenosis proximal left internal carotid artery / need to consult vascular sx consult PT high risk for surgery 03/28 sts data discussed with pt RISK SCORES About the STS Risk Calculator Procedure: CAB Only Risk of Mortality: 3.249% Morbidity or Mortality: 29.479% Long Length of Stay: 13.425% Short Length of Stay: 27.813% Permanent Stroke: 3.9% Prolonged Ventilation: 22.004% DSW Infection: 0.477% Renal Failure: 4.812% Reoperation: 10.666% 03/28 pt is still unclear of surgery, does want to have done if he " is feeling Sick" still having loose diarrhea stools , refused gallium bone scan today , not feeling well pt has limited mobility 2/2 hx of CVA , 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, social and emotional support discussed with Dr Zaragoza, palliative care consult pending Objective: Vital Signs - 24 hr 03/27/18 15:00 03/27/18 16:00 03/27/18 17:00 Temperature 98.4 F Pulse Rate 88 96 H 78 Respiratory Rate 16 Blood Pressure 115/63 Pulse Oximetry 96 03/27/18 18:00 03/27/18 20:00 03/28/18 00:00 Temperature 98.4 F 98.3 F Pulse Rate 84 81 145 H Respiratory Rate 17 17 Blood Pressure 156/72 H 103/61 Pulse Oximetry 100 98 03/28/18 04:00 03/28/18 08:00 Temperature 97.9 F 98.2 F Pulse Rate 90 130 H Respiratory Rate 17 20 Blood Pressure 130/71 116/71 Pulse Oximetry 100 99 GENERAL: A&O x 3 , speech slurred ( unchanged ) SKIN: Warm and dry. HEAD: Normocephalic. EYES: No scleral icterus. No injection or drainage. NECK: Supple, trachea midline. No JVD or lymphadenopathy. CARDIOVASCULAR: Regular rate and rhythm without murmurs, gallops, or rubs. RESPIRATORY: Breath sounds equal bilaterally. No accessory muscle use. GASTROINTESTINAL: Abdomen soft, slightly tender nondistended. MUSCULOSKELETAL: No cyanosis, or edema. L hallux with hyperpigmentation, no redness, no tenderness to palpation BACK: Nontender without obvious deformity. No CVA tenderness. Labs: Laboratory Results - last 12 hr 03/28/18 12:35 WBC 14.1 H RBC 5.50 Hgb 13.5 Hct 40.7 MCV 74.0 L MCH 24.6 L MCHC 33.2 RDW 17.4 H Plt Count 244 MPV 7.3 Neut % (Auto) 89.6 H Lymph % (Auto) 6.9 L [place] % (Auto) 2.9 Eos % (Auto) 0.0 Baso % (Auto) 0.6 Neut # (Auto) 12.7 H Lymph # (Auto) 1.0 [place] # (Auto) 0.4 Eos # (Auto) 0.0 Baso # (Auto) 0.1 WBC Differential . Differential Comment Auto diff final Result Diagrams: 03/28/18 12:35 03/26/18 04:49 - Plan (1) History of CVA with residual deficit Plan: on ASA, CTA neck noted, consult vascular surgery (2) ST elevation myocardial infarction (STEMI) Plan: ASA, statin , no BB for now (4) Crack cocaine use Plan: substance abuse counseling (5) Tobacco dependence Plan: tobacco cessation counseling (6) Clostridial gastroenteritis Plan: po vancomycin (7) Hx of osteomyelitis Plan: MRI left foot , no evidence of osteomyelitis infection (2) ST elevation myocardial infarction (STEMI) Qualifiers: Qualified Code(s): I21.3 - ST elevation (STEMI) myocardial infarction of unspecified site
--- NOTE | 2018-03-28 15:08 | P.CONPAL ---
Consult Service: Palliative Care Requesting Physician: Marybeth Cabrera Reason for Consult: a. To assist with evaluation and management of symptoms including: Dyspnea, chest pain b. To assist medical decision maker(s) with: better understanding of current medical conditions; weighing benefits/burdens of medical treatment options; making medical treatment decisions. Primary Care Provider: [facility] History of Present Illness History of Present Illness: This is a 62-year-old -[place] male with a history of peripheral artery disease, osteomyelitis of the left foot, status post left common iliac, external iliac balloon angioplasty, stenting and left common femoral endarterectomy with patch angioplasty 01/22/2018, tobacco abuse, crack cocaine abuse 3 days prior to admission and monthly, alcohol abuse, hypertension, hyperlipidemia and prior hemorrhagic CVA, who was sent to [facility]s emergency room after evaluation at the [facility] for right sided chest pain, intermittently occurring over the prior 3 months. Patient reports worsening of symptoms with food intake, with symptoms lasting 10-15 minutes prior to resolving on their own without intervention. He denied any nausea, vomiting, shortness of breath, headache, dizziness, elimination habits, numbness or tingling. He had received 325 mg of aspirin by the [place] prior to transfer. He arrived at the emergency room pain free. He was initially called as a STEMI alert, but this was canceled by cardiology upon further evaluation of the EKG. He was seen by Dr. Goel for cardiology, who felt that this was not a STEMI, however due to his multiple risk factors and the abnormalities in his EKG recommended cardiac catheterization. Left heart catheterization showed right subclavian artery stenosis, normal left main, 70% mid and distal LAD with multiple obtuse marginals with up to 50% ostial stenosis. Left circumflex with a 70% disease in the proximal as well as 90% in the midportion. RCA was a normal-sized vessel with diffuse 80-90% stenosis throughout the proximal to distal portion supplying a small posterior descending artery. He was referred to CT surgery for evaluation of bypass. 2D echocardiogram showed a normal ejection fraction of approximately 55% with mild to moderate mitral valve regurgitation, trace tricuspid valve regurgitation but no other significant valvulopathy. He was also found to have Clostridium difficile stool, UTI and CTA of the neck noting 90% stenosis in the proximal left internal carotid artery. He was considered high risk for surgery and at that time was undecided as to having bypass surgery. STS data revealed a 3.249% risk of mortality, with a 29.479% risk of morbidity versus mortality, 13.425% chance of a long length of stay, 3.9% chance of permanent stroke, 22% chance of prolonged ventilation, 4.812% chance of renal failure and 10.666% chance of reoperation. Infectious disease is following for osteomyelitis, urinary tract infection and C. difficile. He is receiving oral vancomycin and cefepime. Gallium bone scan showed increased blood flow to the left foot compared to the right with focal increased blood pool activity in the region of the first metatarsal base as well as increased blood pool activity in the left ankle, the patient terminated the study prematurely and delayed imaging could not be performed, making the study limited and suboptimal. On evaluation, this is a thin black male lying in bed, lethargic, in no acute distress. Pleasant in conversation but slow in answering. He has a history of a hypertensive type parenchymal hemorrhage in the anterior aspect of the right thalamus with cephalad extension into the internal capsule/basal ganglia and old lacunar type infarct in the left basal ganglia, with slightly slurred speech and minimal left-sided weakness. While oriented to self, place, purpose and time, he appears to have difficulty making decisions and processing large amounts of data with mildly impaired insight. He denies any current chest pain but does state that with activity he does develop chest discomfort described as mid chest, pressure type, occurring with activity and exertion, resolving with rest. He states he become short of breath with activity, worsening in the heat , contributing to his sedentary behavior as he stays in the house when the temperature is high and has little energy with which to be active. . Function/Cognitive Trajectory: While he states he likes to go fishing and gardening, he has become generally sedentary at home, requiring a full-time caregiver, plus [facility] At this evaluation he is able to give a clear history but seems to have some deficit in grasping the full import of his disease. . Review of Systems Constitutional: Reports daytime sleepiness, Reports lack of energy Cardiovascular: Reports chest pain, Reports chest pain with activity, Reports irregular heart rhythm Respiratory: Reports shortness of breath with activity Musculoskeletal: Reports muscle weakness PMFSH - History History Provided By: Patient - Medical History Medical History: Medical History (Last Updated 03/28/18 @ 17:02 by MIKE Wisdom) Peripheral artery disease (Acute) Stroke, hemorrhagic (Acute) Urinary retention due to benign prostatic hyperplasia (Acute) BPH (benign prostatic hyperplasia) (Acute) Hyperlipidemia (Acute) Hypertension (Acute) Alcohol abuse Degenerative disc disease, cervical Left ulnar fracture Right rib fracture - Surgical History Surgical History: Surgical History (Last Updated 03/28/18 @ 17:02 by MIKE Wisdom) History of bunionectomy of left great toe (Acute) H/O heart artery stent Status post peripheral artery angioplasty - Family History Family History: Family History (Last Updated 03/28/18 @ 15:10 by MIKE Wisdom) Mother Family history of diabetes mellitus - Tobacco History Second Hand Smoke Exposure: No Tobacco Use In Past 30 Days: Yes (Smokes approximately 1 pack per day for most of his life) Tobacco Type: Cigarettes - Alcohol History How Often Do You Have a Drink Containing Alcohol: 4 or more times a week ( Drinks beer several times daily) - Substance Use History Substance History: No History of Abuse - Substance Use Type Crack/Cocaine Status: Active Route Used: Inhalation Reason for Use: Feels Good - Travel History Recent Travel Out of the Country Within the Last 8 Weeks: No - Immunization History Tetanus Immunization: Unable to Assess Medications and Allergies Active Medications: Active Medications Aspirin (Ecotrin) 325 mg PO DAILY [facility] Last Admin: 03/28/18 09:19 Dose: 325 mg Atorvastatin Calcium (Lipitor) 20 mg PO HS [facility] Last Admin: 03/27/18 21:00 Dose: 20 mg Enoxaparin Sodium (Lovenox Inj) 40 mg SQ DAILY [facility] Last Admin: 03/28/18 09:19 Dose: 40 mg Cefepime HCl 1,000 mg/ Sodium (Chloride) 100 mls @ 200 mls/hr IV.SIG Q8H [facility] Last Admin: 03/28/18 13:48 Dose: 200 mls/hr Oxycodone/Acetaminophen (Percocet 5/325 Mg) 1 tab PO Q4H PRN PRN Reason: PAIN SCALE 1 TO 4 Oxycodone/Acetaminophen (Percocet 5/325 Mg) 2 tab PO Q4H PRN PRN Reason: PAIN SCALE 5 TO 10 Sodium Chloride (Ns Flush) 2 ml IV.FLUSH PRN PRN PRN Reason: FLUSH AFTER USING IV ACCESS Sodium Chloride (Ns Flush) 2 ml IV.FLUSH BID [facility] Last Admin: 03/28/18 09:30 Dose: 2 ml Tamsulosin HCl (Flomax) 0.4 mg PO DAILY [facility] Last Admin: 03/28/18 09:19 Dose: 0.4 mg Vancomycin HCl (Vancomycin Po) 125 mg PO QID [facility] Last Admin: 03/28/18 13:48 Dose: 125 mg Allergies Allergy/AdvReac Type Severity Reaction Status Date / Time No Known Allergies Allergy Unknown Uncoded 11/04/17 18:48 Home Medications Medication Instructions Recorded Confirmed Type No Known Home Medications 03/24/18 03/24/18 History Advance Directives Living Will: No Power of Machine Sizer: No Physical Exam Vital Signs: Vital Signs - 24 hr 03/27/18 15:00 03/27/18 16:00 03/27/18 17:00 Temperature 98.4 F Pulse Rate 88 96 H 78 Respiratory Rate 16 Blood Pressure 115/63 Pulse Oximetry 96 03/27/18 18:00 03/27/18 20:00 03/28/18 00:00 Temperature 98.4 F 98.3 F Pulse Rate 84 81 145 H Respiratory Rate 17 17 Blood Pressure 156/72 H 103/61 Pulse Oximetry 100 98 03/28/18 04:00 03/28/18 08:00 Temperature 97.9 F 98.2 F Pulse Rate 90 130 H Respiratory Rate 17 20 Blood Pressure 130/71 116/71 Pulse Oximetry 100 99 I&O: Intake & Output 03/26/18 03/27/18 03/28/18 03/29/18 06:59 06:59 06:59 06:59 Intake Total 1280 / 1280 1180 / 1180 520 / 520 Output Total 1400 / 1400 1650 / 1650 200 / 200 Balance -120 / -120 -470 / -470 320 / 320 Weight 125 lb 10.616 oz 127 lb 13.89 oz 134 lb 0.657 oz Physical Exam: CONSTITUTIONAL/GENERAL: This is an adequately nourished patient, in no apparent distress. TUBES/LINES/DRAINS: PIV. SKIN: No jaundice, rashes, or lesions. No wounds seen anteriorly. Skin temperature appropriate. Not diaphoretic. HEAD: Atraumatic. Normocephalic. EYES: Pupils equal and round and reactive. Extraocular motions intact. No scleral icterus. No injection or drainage. Fundi not examined. ENT: Hearing grossly normal. Nose without bleeding or purulent drainage. Throat without visible erythema, exudates, masses, or lesions. NECK: Trachea midline. Supple, nontender. No palpable thyroid enlargement or nodularity. CARDIOVASCULAR: S1, S2 irregular rhythm, mildly tachycardic rate, no rub, murmur or gallop. RESPIRATORY/CHEST: Symmetric, unlabored respirations. Clear to auscultation. Breath sounds equal bilaterally. No wheezes, rales, or rhonchi. GASTROINTESTINAL: Abdomen soft, non-tender, nondistended. No hepato-splenomegaly , or palpable masses. No guarding. Bowel sounds present. GENITOURINARY: Without palpable bladder distension. MUSCULOSKELETAL: Extremities without clubbing, cyanosis, or edema. No joint tenderness or effusion noted. No calf tenderness. No mottling or clubbing. Left hallux with hyperpigmentation, nontender to palpation. LYMPHATICS: No palpable cervical or supraclavicular adenopathy. NEUROLOGICAL: Awake and alert. Motor and sensory grossly within normal limits. Follows commands. Moves all extremities. PSYCHIATRIC: No obvious anxiety/depression. no apparent hallucinations or other psychotic thought process. . Diagnostic Tests Laboratory: Laboratory Results - last 72 hr 03/25/18 03/25/18 03/25/18 09:23 14:52 14:52 WBC RBC Hgb Hct MCV MCH MCHC RDW Plt Count MPV Neut % (Auto) Lymph % (Auto) [place] % (Auto) Eos % (Auto) Baso % (Auto) Neut # (Auto) Lymph # (Auto) [place] # (Auto) Eos # (Auto) Baso # (Auto) WBC Differential Differential Comment Sodium Potassium Chloride Carbon Dioxide Anion Gap BUN Creatinine Estimated GFR POC Glucose Random Glucose Hemoglobin A1c Calcium Total Bilirubin AST ALT Alkaline Phosphatase Total Protein Albumin Urine Color Yellow Urine Clarity Cloudy H Urine pH 5.0 Ur Specific [place] 1.024 Urine Protein Negative Urine Glucose (UA) Negative Urine Ketones Negative Urine Occult Blood Moderate H Urine Nitrate Positive H Urine Bilirubin Negative Urine Urobilinogen Less than 2 Ur Leukocyte Esterase Large H Urine RBC 21 H Urine WBC Urine WBC Clumps Occasional H Urine Bacteria Many H Urine Mucus Few H Micro UA Comment Cath-culture ind Urine Culture Comments Cath-cult indicated Nasal Screen MRSA (PCR) Not detected Stl C.difficile Tox PCR Positive H St C. diff Tox Epid 027 Positive H 03/26/18 03/26/18 03/27/18 04:49 04:49 11:59 WBC RBC Hgb Hct MCV MCH MCHC RDW Plt Count MPV Neut % (Auto) Lymph % (Auto) [place] % (Auto) Eos % (Auto) Baso % (Auto) Neut # (Auto) Lymph # (Auto) [place] # (Auto) Eos # (Auto) Baso # (Auto) WBC Differential Differential Comment Sodium 143 Potassium 3.7 Chloride 108 H Carbon Dioxide 27.7 Anion Gap 7 BUN 12 Creatinine 1.03 Estimated GFR 88 L POC Glucose 100 Random Glucose 89 Hemoglobin A1c 5.1 Calcium 8.5 Total Bilirubin 0.6 AST 12 L ALT 14 Alkaline Phosphatase 78 Total Protein 6.7 D Albumin 3.4 Urine Color Urine Clarity Urine pH Ur Specific [place] Urine Protein Urine Glucose (UA) Urine Ketones Urine Occult Blood Urine Nitrate Urine Bilirubin Urine Urobilinogen Ur Leukocyte Esterase Urine RBC Urine WBC Urine WBC Clumps Urine Bacteria Urine Mucus Micro UA Comment Urine Culture Comments Nasal Screen MRSA (PCR) Stl C.difficile Tox PCR St C. diff Tox Epid 027 03/28/18 12:35 WBC 14.1 H RBC 5.50 Hgb 13.5 Hct 40.7 MCV 74.0 L MCH 24.6 L MCHC 33.2 RDW 17.4 H Plt Count 244 MPV 7.3 Neut % (Auto) 89.6 H Lymph % (Auto) 6.9 L [place] % (Auto) 2.9 Eos % (Auto) 0.0 Baso % (Auto) 0.6 Neut # (Auto) 12.7 H Lymph # (Auto) 1.0 [place] # (Auto) 0.4 Eos # (Auto) 0.0 Baso # (Auto) 0.1 WBC Differential . Differential Comment Auto diff final Sodium Potassium Chloride Carbon Dioxide Anion Gap BUN Creatinine Estimated GFR POC Glucose Random Glucose Hemoglobin A1c Calcium Total Bilirubin AST ALT Alkaline Phosphatase Total Protein Albumin Urine Color Urine Clarity Urine pH Ur Specific [place] Urine Protein Urine Glucose (UA) Urine Ketones Urine Occult Blood Urine Nitrate Urine Bilirubin Urine Urobilinogen Ur Leukocyte Esterase Urine RBC Urine WBC Urine WBC Clumps Urine Bacteria Urine Mucus Micro UA Comment Urine Culture Comments Nasal Screen MRSA (PCR) Stl C.difficile Tox PCR St C. diff Tox Epid 027 Result Diagrams: 03/28/18 12:35 03/26/18 04:49 Microbiology: Microbiology 03/25/18 14:52 Cryptosporidium Antigen - Final Stool Negative - No Cryptosporicium antigen detected In selected cases of patients with a history of immunosuppression or foreign travel, a full ova and parasites examination may be desired. Contact the microbiology lab if full workup is indicated and subit another specimen for testing. Giardia Antigen (DARON) - Final Negative - No Giardia Antigen detected In selected cases of patients with a history of immunosuppression or foreign travel, a full ova and parasites examination may be desired. Contact the microbiology lab if full workup is indicated and subit another specimen for testing. 03/25/18 09:23 Urine Culture - Final Catheterized Urine Klebsiella pneumoniae 03/25/18 14:52 Stool for WBCs - Final Stool Rare WBC's Imaging: Chest X-Ray 03/24/18 15:37 CONCLUSION: Negative examination. Gallbladder Ultrasound 03/24/18 15:37 CONCLUSION: Negative right quadrant ultrasound examination. The gallbladder is free of stones. Carotid Doppler Study 03/25/18 09:58 CONCLUSION: High-grade stenosis in the left internal carotid artery of greater than 70% by velocity criteria. The peak systolic velocity was 473.5 cm/ s and the peak diastolic velocities was 171.8 cm/s. Chest X-Ray 03/25/18 09:58 CONCLUSION: No acute cardiopulmonary disease. Lower Extremity Ultrasound 03/25/18 09:58 CONCLUSION: 1. Venous mapping study as described above. Venous Doppler Study 03/25/18 09:58 CONCLUSION: 1. Negative exam with no evidence of deep venous thrombosis. Foot MRI 03/26/18 00:00 CONCLUSION: 1. Findings of stress type injury involving the base of the first metatarsal and metatarsal head similar to the prior study. No evidence of osteomyelitis Neck CTA 03/26/18 00:00 CONCLUSION: Bone Scan Nuclear Medicine 03/28/18 00:00 CONCLUSION: 1. Limited suboptimal study secondary to patient termination of the study prematurely. 2. Abnormal blood flow and blood pool activity which is nonspecific. Procedures: 03/24: Cardiac catheterization Patient/Family Conference Present at Family Conference: Spoke with patient at bedside. Reviewed past medical, surgical, social and psychosocial history. He is uncertain whether he wishes to go ahead with surgery. He is generally sedentary and his quality of life is adequate for him , but he does not wish to and is therefore considering the surgery. As he has multiple comorbidities, his surgical risk is of concern. Given his history of fairly regular crack cocaine use, tobacco abuse, without intention for cessation, daily alcohol use, prior hemorrhagic stroke with left residual weakness and sedentary behavior, his postoperative compliance with medical therapy and cardiac rehabilitation may not be optimal. He does wish to remain a full code at this time. . Family Conference Location: Bedside Issues Discussed: * Palliative care role, purpose, approach * Additional medical, psychosocial, and spiritual history * Patients general health, functional status, and cognitive changes in the months leading up to the current hospitalization * Patient/family understanding of the current medical problems * Patient/family understanding of prognosis * Patients goals of care as best understood from advance directives and/or conversations and/or values * Current medical treatment options and benefits/burdens of those options * Likely scenarios comparing ongoing aggressive care with a transition to comfort measures only * Questions answered to the best of my ability * Palliative care contact information provided Assessment and Plan Pertinent Non-Medical Issues: Psychosocial: He was born in [place] and joined the [employer] as a young man serving 23 years and retiring. He was active during the [place] [employer] conflict but denies any service related injury. He worked in [employer]. He was and had 3 children but is close to his daughter Karol, and wishes for her to be his healthcare surrogate, should he be unable to make decisions for himself. Spiritual: Take Up Supervisor available. Legal: Healthcare surrogate form completed, pending patient's signature. Ethical issues impacting care: None known. . Important Contacts: Daughter: Karol Sister: Paty Machado Prognosis: His prognosis is guarded. He is 62 years old with a long history of tobacco, alcohol and cocaine use. He has peripheral artery disease with a 90% carotid stenosis, triple-vessel disease, possible osteomyelitis of the left foot, Clostridium difficile infection and general debility. He is at elevated risk for cardiovascular complications and compromise but at this time wishes to be an FULL CODE. He has had a prior hemorrhagic stroke, and given his substance abuse history and peripheral artery disease, is at risk for recurrent complications and decline. . Code Status: Full Code Plan: PLAN: Legal decision maker: At this time the patient is oriented but has slightly limited insight. He cooperates with his daughter, Karol, for decision-making and has requested that Karol been named as his healthcare surrogate. Goals: Aggressive. CODE STATUS: FULL CODE SYMPTOMS: * Dyspnea: Multifactorial to include history of tobacco use, smoking crack cocaine, coronary artery disease and debility. It primarily occurs with activity and resolves with rest. Patient's blood pressure has been borderline and not amenable to the addition of a long-acting nitrate at this time. * Chest pain: He has chest discomfort with activity, described as pressure, occurring with exertion, resolving with rest, located at the center of his chest. He has a history of atrial fibrillation and is seen on telemetry to have episodes of paroxysmal A. fib which may be contributing to his symptoms of chest pain and dyspnea. Drug screen was positive for benzodiazepines and cocaine metabolites on admission, so beta-blockade was held. His blood pressure was initially borderline low so ROXANE inhibitors were also not initiated. Establishing a cardioprotective medication regimen with his concomitant use of cocaine will be difficult, and may further worsen his symptoms. SUMMARY This is a 62-year-old -[place] male with severe coronary artery disease and peripheral vascular disease, compounded by his polysubstance abuse with tobacco, alcohol and cocaine. He is indecisive as to whether or not to go forward with surgery and given his social habits and history of noncompliance, he will be difficult to treat medically. Without intervention, his heart disease will likely worsen and place him at further risk of complication and decline. Palliative care will continue to follow the patient during hospital course as condition evolves, to assist patient/decision-maker with understanding of their medical conditions, weighing benefits/burdens of treatment options, for clarification of goals of treatment. Additionally will assist with any symptoms of palliative concern. . Appreciation Thank you for the opportunity to participate in the care of Maxim Patel Zac GIRALDO. Attestation Attestation: To help prompt me to consider important information that might be impacting today's encounter and assessment, information from prior notes written by myself or my colleagues may have been "brought forward" into today's note. My signature on this note, however, is an attestation that I personally performed the exam, history, and/or decision-making noted today, and, unless otherwise indicated, the interactions with patient, family, and staff as well as the review of records all occurred today. I also attest that the listed assessment and stated plan reflect my best clinical judgment today based on the combination of historical information, prior notes, and today's exam/ interactions. When time spent is documented, it refers only to time spent today by the signer, or if indicated, combined time spent today by collaborating physician/nurse practitioner. .
[2018-03-28] MEDS ORDERED: Docusate Sodium 100 MG Capsule PO PRN (17:18)
[2018-03-29] MEDS: Enoxaparin Inj 40 MG/0.4 ML Syringe SQ SCH (08:35)
--- NOTE | 2018-03-29 09:53 | P.CONVS ---
History of Present Illness Service: Vascular surgery Consult date: 03/29/18 Reason for Consult: carotid stenosis Primary Care Provider: [facility] Family Provider: [facility] Chief Complaint: Chest pain History of Present Illness: 62 yo male admitted for abnormal EKG - he denies chest pain today or when he was admitted by his history today. He has a history of CVA 4 years ago with persistent dysarthria and L UE weakness. Ambulates with walker. No other deficits. No recent CVA, TIA, or amaurosis according to the patient. CTA neck showed LEFT carotid stenosis. Asked to evaluate. Review of Systems Constitutional: Reports increased appetite, Denies chills, Denies fever(s), Denies headache(s), Denies lack of energy, Denies malaise Eyes: Denies change in vision, Denies loss of vision Cardiovascular: Denies chest pain Musculoskeletal: Reports abnormal walking, Reports muscle weakness Neurologic: Reports abnormal speech, Denies confusion, Denies fainting, Denies headache(s) [facility] - History History Provided By: Patient - Medical History Medical History: Medical History (Last Updated 03/28/18 @ 17:02 by MIKE Wisdom) Peripheral artery disease (Acute) Stroke, hemorrhagic (Acute) Urinary retention due to benign prostatic hyperplasia (Acute) BPH (benign prostatic hyperplasia) (Acute) Hyperlipidemia (Acute) Hypertension (Acute) Alcohol abuse Degenerative disc disease, cervical Left ulnar fracture Right rib fracture - Surgical History Surgical History: Surgical History (Last Updated 03/28/18 @ 17:02 by MIKE Wisdom) History of bunionectomy of left great toe (Acute) H/O heart artery stent Status post peripheral artery angioplasty - Family History Family History: Family History (Last Updated 03/28/18 @ 15:10 by MIKE Wisdom) Mother Family history of diabetes mellitus - Tobacco History Second Hand Smoke Exposure: No Tobacco Use In Past 30 Days: Yes (Smokes approximately 1 pack per day for most of his life) Tobacco Type: Cigarettes - Alcohol History How Often Do You Have a Drink Containing Alcohol: 4 or more times a week ( Drinks beer several times daily) - Substance Use History Substance History: No History of Abuse - Substance Use Type Crack/Cocaine Status: Active Route Used: Inhalation Reason for Use: Feels Good - Travel History Recent Travel Out of the Country Within the Last 8 Weeks: No - Immunization History Tetanus Immunization: Unable to Assess Medications and Allergies Active Medications: Active Medications Aspirin (Ecotrin) 325 mg PO DAILY [facility] Last Admin: 03/29/18 08:35 Dose: 325 mg Atorvastatin Calcium (Lipitor) 20 mg PO HS [facility] Last Admin: 03/28/18 21:26 Dose: 20 mg Docusate Sodium (Colace) 100 mg PO BID PRN PRN Reason: constipation Enoxaparin Sodium (Lovenox Inj) 40 mg SQ DAILY [facility] Last Admin: 03/29/18 08:35 Dose: 40 mg Cefepime HCl 1,000 mg/ Sodium (Chloride) 100 mls @ 200 mls/hr IV.SIG Q8H [facility] Last Infusion: 03/29/18 06:28 Dose: Infused Oxycodone/Acetaminophen (Percocet 5/325 Mg) 1 tab PO Q4H PRN PRN Reason: PAIN SCALE 1 TO 4 Oxycodone/Acetaminophen (Percocet 5/325 Mg) 2 tab PO Q4H PRN PRN Reason: PAIN SCALE 5 TO 10 Sodium Chloride (Ns Flush) 2 ml IV.FLUSH PRN PRN PRN Reason: FLUSH AFTER USING IV ACCESS Sodium Chloride (Ns Flush) 2 ml IV.FLUSH BID [facility] Last Admin: 03/29/18 08:36 Dose: 2 ml Tamsulosin HCl (Flomax) 0.4 mg PO DAILY [facility] Last Admin: 03/29/18 08:35 Dose: 0.4 mg Vancomycin HCl (Vancomycin Po) 125 mg PO QID [facility] Last Admin: 03/29/18 08:36 Dose: 125 mg Allergies Allergy/AdvReac Type Severity Reaction Status Date / Time No Known Allergies Allergy Unknown Uncoded 11/04/17 18:48 Home Medications Medication Instructions Recorded Confirmed Type No Known Home Medications 03/24/18 03/24/18 History Physical Exam Vital Signs / I&O: Vital Signs 03/28/18 12:00 03/28/18 16:00 03/28/18 20:00 Temperature 98.8 F 97.8 F 98.0 F Pulse Rate 139 H 85 94 H Respiratory Rate 20 20 16 Blood Pressure 132/85 98/60 L 101/55 L Pulse Oximetry 99 95 90 L 03/29/18 00:00 03/29/18 04:00 Temperature 98.1 F 98.1 F Pulse Rate 86 70 Respiratory Rate 14 14 Blood Pressure 110/60 110/55 L Pulse Oximetry 94 L 94 L Intake & Output 03/28/18 03/29/18 03/29/18 18:59 06:59 18:59 Intake Total 580 / 580 200 / 200 Balance 580 / 580 200 / 200 Weight 60.2 kg Intake: IV 100 / 100 200 / 200 Maxipime Inj 1,000 MG In NS Inj 100 / 100 200 / 200 100 ML @ 200 mls/hr IV.SIG Q8H GLENROY Rx#:[id number] Oral 480 / 480 Other: Post Void Residual 250 # Voids 1 # Incontinent Voids 4 Date of Last Bowel Movement 03/28/18 # Bowel Movements 4 # Incontinent Bowel Movements 3 Neuro: alert, conversant, slight dysarthric but he says stable x 4 years HEENT: NC/AT Neck: no JVD Heart: reg rate Lungs: clear, nonlabored Extremities: L UE slightly weak Laboratory Results - last 24 hr 03/28/18 12:35 WBC 14.1 H RBC 5.50 Hgb 13.5 Hct 40.7 MCV 74.0 L MCH 24.6 L MCHC 33.2 RDW 17.4 H Plt Count 244 MPV 7.3 Neut % (Auto) 89.6 H Lymph % (Auto) 6.9 L [place] % (Auto) 2.9 Eos % (Auto) 0.0 Baso % (Auto) 0.6 Neut # (Auto) 12.7 H Lymph # (Auto) 1.0 [place] # (Auto) 0.4 Eos # (Auto) 0.0 Baso # (Auto) 0.1 WBC Differential . Differential Comment Auto diff final Impressions Foot MRI 03/26/18 00:00 CONCLUSION: 1. Findings of stress type injury involving the base of the first metatarsal and metatarsal head similar to the prior study. No evidence of osteomyelitis Bone Scan Nuclear Medicine 03/28/18 00:00 CONCLUSION: 1. Limited suboptimal study secondary to patient termination of the study prematurely. 2. Abnormal blood flow and blood pool activity which is nonspecific. Assessment and Plan - Assessment (1) Carotid stenosis, left Code(s): I65.22 - Occlusion and stenosis of left carotid artery Status: Chronic - Plan I reviewed his CTA. He has a high grade LEFT ICA stenosis and no significant R ICA stenosis. He is presently asymptomatic from this and based on ACAS data, has an annual stroke risk of 2%. He should be medically managed as you are doing (statin, ASA) and continue his coronary work-up, which seems to be more pressing and potentially symptomatic (he denies today but ? CP in notes). No contra-indication for any coronary revascularization from a cerebrovascular standpoint. I will arrange f/u in clinic in 1m. Clearly if he develops symptoms from L ICA stenosis, would then alter risk/benefit for CEA. Thank you for the consult. Chris Monroy MD FACS RPV[employer] scientific software developer [facility] - Heart and Vascular Surgery at [facility] [phone]
--- NOTE | 2018-03-29 10:56 | P.PNIM ---
Subjective Interval history: f/u; CAD/ c-diff colitis in no acute distress. denies chest pain, sob or abdominal pain. afebrile. tachycardic this morning when he was trying to get out of the bed. d/w the RN. Physical Exam Vital signs: Vital Signs 03/28/18 12:00 03/28/18 16:00 03/28/18 20:00 Temperature 98.8 F 97.8 F 98.0 F Pulse Rate 139 H 85 94 H Respiratory Rate 20 20 16 Blood Pressure 132/85 98/60 L 101/55 L Pulse Oximetry 99 95 90 L 03/29/18 00:00 03/29/18 04:00 03/29/18 08:00 Temperature 98.1 F 98.1 F Pulse Rate 86 70 91 H Respiratory Rate 14 14 Blood Pressure 110/60 110/55 L Pulse Oximetry 94 L 94 L 99 Intake & Output 03/28/18 03/29/18 03/29/18 18:59 06:59 18:59 Intake Total 580 / 580 200 / 200 Balance 580 / 580 200 / 200 Weight 60.2 kg Intake: IV 100 / 100 200 / 200 Maxipime Inj 1,000 MG In NS Inj 100 / 100 200 / 200 100 ML @ 200 mls/hr IV.SIG Q8H GLENROY Rx#:[id number] Oral 480 / 480 Other: Post Void Residual 250 # Voids 1 # Incontinent Voids 4 Date of Last Bowel Movement 03/28/18 # Bowel Movements 4 # Incontinent Bowel Movements 3 - Constitutional no acute distress - Routine Respiratory Exam Present: CTA bilaterally - Routine Cardiovascular Exam Present: RRR - Routine Abdominal Exam Present: soft - Routine Extremities Exam Comments: no pedal edema. - Routine Neurological Exam Present: alert - Urinary Catheter Management Indwelling Urethral Catheter Cath placed during this visit: yes, but has since been removed by the nurse Reason for continuing: Not indwelling catheter Removal date: 03/27/18 Removal time: 18:00 Results - Labs CBC & Chem 7: 03/28/18 12:35 03/26/18 04:49 Laboratory Results - last 24 hr 03/28/18 12:35 WBC 14.1 H RBC 5.50 Hgb 13.5 Hct 40.7 MCV 74.0 L MCH 24.6 L MCHC 33.2 RDW 17.4 H Plt Count 244 MPV 7.3 Neut % (Auto) 89.6 H Lymph % (Auto) 6.9 L [place] % (Auto) 2.9 Eos % (Auto) 0.0 Baso % (Auto) 0.6 Neut # (Auto) 12.7 H Lymph # (Auto) 1.0 [place] # (Auto) 0.4 Eos # (Auto) 0.0 Baso # (Auto) 0.1 WBC Differential . Differential Comment Auto diff final - Imaging Impressions Foot MRI 03/26/18 00:00 CONCLUSION: 1. Findings of stress type injury involving the base of the first metatarsal and metatarsal head similar to the prior study. No evidence of osteomyelitis Bone Scan Nuclear Medicine 03/28/18 00:00 CONCLUSION: 1. Limited suboptimal study secondary to patient termination of the study prematurely. 2. Abnormal blood flow and blood pool activity which is nonspecific. Assessment and Plan - Plan Coronary artery disease- multivessel disease S/P cardiac cath presenting with atypical right sided chest pain -Started patient on aspirin, statins. - will hold off on BB- CTS consulted for evaluation or CABG However patient initially refused. Patient needs improvement from C diff. CTS is following to evaluate if a candidate for CABG C-diff colitis- continue PO Vanco- will monitor Carotid artery disease with > 90% stenosis left ICA- vascular surgery consult appreciated and recommended medical treatment at this time; continue aspirin and statin. History of obstructive uropathy secondary to enlarged prostate History of UTI PSAE -continue Quesada catheter -per patient this was placed and changed 2 weeks ago at the rehab facility [facility] -Started patient on Flomax 0.4 mg daily- was not DC on this from the [facility] Status post treatment course for osteomyelitis of the left metatarsal area. History of peripheral artery disease -Per report status post course of IV cefazolin plus p.o. Levaquin. -started on Cefepime per ID -bone scan was a limited study- - PT consulted. Tobacco abuse- still smokes half pack a day patient counseled History of alcohol use drinks 3-4 beers daily patient counseled History of cocaine use per patient recently is about 3 days ago patient counseled. check a tox screen History of CVA in 1991-with very very mild left upper extremity weakness. Continue aspirin. PT consulted. palliative care following. Discharge Planning: * pending CT surgery/ ID f/u and recommendations.
[2018-03-29 11:29] LABS: Baso # (Auto) 0.1 th/mm3 (0.0-0.2); Baso % (Auto) 0.6 % (0.0-2.0); Eos % (Auto) 0.1 % (0.0-4.0); Hematocrit 39.3 % (39.0-51.0); Hemoglobin 12.6 gm/dL (13.0-17.0); Mean Corpuscular HGB Conc 31.9 % (32.0-36.0); Mean Corpuscular Hemoglobin 23.8 pg (27.0-34.0); Mean Corpuscular Volume 74.7 fL (80.0-100.0); Mean Platelet Volume 7.5 fL (7.0-11.0); Mono # (Auto) 0.9 th/mm3 (0.0-0.9); Mono % (Auto) 7.5 % (0.0-8.0); Neut # (Auto) 8.7 th/mm3 (1.8-7.7); Neut % (Auto) 74.8 % (16.0-70.0); Platelet Count 241 th/mm3 (150-450); Red Blood Count 5.27 mil/mm3 (4.50-5.90); Red Cell Distribution Width 17.8 % (11.6-17.2); White Blood Count 11.7 th/mm3 (4.0-11.0)
[2018-03-29 11:47] LABS: Calcium 9.3 mg/dL (8.5-10.1); Potassium 3.4 meq/L (3.5-5.1)
[2018-03-29] MEDS ORDERED: Sodium Chlor 0.9% Inj 500 ML IV.SIG SCH (14:00)
[2018-03-30] MEDS: Enoxaparin Inj 40 MG/0.4 ML Syringe SQ SCH (09:12)
[2018-03-30 09:57] LABS: Calcium 8.9 mg/dL (8.5-10.1); Carbon Dioxide 25.7 meq/L (21.0-32.0); Potassium 3.7 meq/L (3.5-5.1)
--- NOTE | 2018-03-30 11:22 | P.PNIM ---
Subjective Interval history: f/u; CAD in no acute distress. denies chest pain or sob. no fever. no new complaints. Physical Exam Vital signs: Vital Signs 03/29/18 12:00 03/29/18 16:00 03/29/18 19:42 Temperature 97.9 F 97.7 F Pulse Rate 99 H 94 H 112 H Respiratory Rate 20 20 Blood Pressure 98/56 L 100/50 L Pulse Oximetry 98 98 03/29/18 20:00 03/29/18 23:49 03/30/18 00:00 Temperature 98.8 F 98.0 F Pulse Rate 79 79 74 Respiratory Rate 16 16 Blood Pressure 98/79 L 120/69 Pulse Oximetry 94 L 95 03/30/18 03:21 03/30/18 03:43 03/30/18 05:29 Temperature 97.9 F 98.2 F Pulse Rate 69 64 82 Respiratory Rate 14 18 Blood Pressure 110/65 102/59 L Pulse Oximetry 95 97 03/30/18 08:00 Temperature Pulse Rate 120 H Respiratory Rate Blood Pressure Pulse Oximetry Intake & Output 03/29/18 03/30/18 03/30/18 18:59 06:59 18:59 Intake Total 360 / 360 100 / 100 Balance 360 / 360 100 / 100 Weight 58.1 kg Intake: IV 100 / 100 Maxipime Inj 1,000 MG In NS Inj 100 / 100 100 ML @ 200 mls/hr IV.SIG Q8H [facility]Y Rx#:[id number] Oral 360 / 360 Other: Post Void Residual 200 # Incontinent Voids 4 Date of Last Bowel Movement 03/29/18 # Bowel Movements 2 - Constitutional no acute distress - Routine Respiratory Exam Present: CTA bilaterally - Routine Cardiovascular Exam Present: RRR - Routine Abdominal Exam Present: soft - Routine Extremities Exam Comments: no pedal edema. - Routine Neurological Exam Present: alert - Urinary Catheter Management Indwelling Urethral Catheter Cath placed during this visit: yes, but has since been removed by the nurse Reason for continuing: Not indwelling catheter Removal date: 03/27/18 Removal time: 18:00 Results - Labs CBC & Chem 7: 03/29/18 11:07 03/30/18 08:56 Laboratory Results - last 24 hr 03/29/18 03/29/18 03/30/18 11:07 11:07 08:56 WBC 11.7 H RBC 5.27 Hgb 12.6 L Hct 39.3 MCV 74.7 L MCH 23.8 L MCHC 31.9 L RDW 17.8 H Plt Count 241 MPV 7.5 Neut % (Auto) 74.8 H Lymph % (Auto) 17.0 [place] % (Auto) 7.5 Eos % (Auto) 0.1 Baso % (Auto) 0.6 Neut # (Auto) 8.7 H Lymph # (Auto) 2.0 [place] # (Auto) 0.9 Eos # (Auto) 0.0 Baso # (Auto) 0.1 WBC Differential . Differential Comment Auto diff final Sodium 140 143 Potassium 3.4 L 3.7 Chloride 104 109 H Carbon Dioxide 27.0 25.7 Anion Gap 9 8 BUN 20 H 23 H Creatinine 1.70 H 1.16 Estimated GFR 50 L 77 L Random Glucose 101 87 Calcium 9.3 8.9 Assessment and Plan - Plan Coronary artery disease- multivessel disease S/P cardiac cath presenting with atypical right sided chest pain -Started patient on aspirin, statins. - will hold off on BB- CTS consulted for evaluation or CABG However patient initially refused. Patient needs improvement from C diff. CTS is following to evaluate if a candidate for CABG C-diff colitis- continue PO Vanco- will monitor Carotid artery disease with > 90% stenosis left ICA- vascular surgery consult appreciated and recommended medical treatment at this time; continue aspirin and statin. History of obstructive uropathy secondary to enlarged prostate History of UTI PSAE - Quesada catheter -per patient this was placed and changed 2 weeks ago at the rehab facility [facility] -Started patient on Flomax 0.4 mg daily- Status post treatment course for osteomyelitis of the left metatarsal area. History of peripheral artery disease -Per report status post course of IV cefazolin plus p.o. Levaquin. -started on Cefepime per ID -bone scan was a limited study- - PT consulted. Tobacco abuse- still smokes half pack a day patient counseled History of alcohol use drinks 3-4 beers daily patient counseled History of cocaine use per patient recently is about 3 days ago patient counseled. check a tox screen History of CVA in 1991-with very very mild left upper extremity weakness. Continue aspirin. PT consulted. palliative care following. Discharge Planning: * pending CT surgery/ ID f/u and recommendations.
[2018-03-31] MEDS: Enoxaparin Inj 40 MG/0.4 ML Syringe SQ SCH (09:24)
--- NOTE | 2018-03-31 10:39 | P.PNCV ---
- Note Subjective/Hospital Course: A 62[place]year[place]old [place] Apparently was there yesterday, it was mentioned that he was having some chest discomfort, then he was sent immediately to the emergency room. The patient is a very poor historian; however, he did admit to having some intermittent left-sided chest discomfort. On arrival, there were some EKG changes thought to be elevation of the AVR. A STEMI alert was called. However, he did have ST depression in the inferior lateral leads. His troponin was 0.08. He underwent cardiac catheterization by Dr. Goel which showed the LAD had a 70% stenosis in the mid and distal portion. The small obtuse marginals had a 50% stenosis. The left circumflex was moderately sized with diffuse 70% stenosis and 90% in the proximal portion and a 90% lesion in the mid portion. The RCA had diffuse 80-90% throughout the proximal. LVEDP was 20. A 2D echo is pending to evaluate for valvulopathy and for ejection fraction. We were consulted to evaluate for coronary artery bypass graft. Note, the patient was recently released from the hospital on 02/05/2018. He was hospitalized from 01/18/2018- 02/05/2018 for osteomyelitis of the left foot. He was also found to have significant bilateral lower extremity peripheral arterial disease and underwent left common iliac, external iliac balloon angioplasty and stenting, left common femoral endarterectomy and patch angioplasty on 01/22/[address] Lamb. PMH: hypertension, hyperlipidemia, benign prostatic hypertrophy. The patient had significant enlarged prostate and urinary retention and was seen by Dr. Arroyo on his last admission.He has had a Quesada catheter in place and was supposed to have voiding trials in the custodial, but was discharged 2017. Apparently per the home care nurse, the [place] stopped his Flomax. It is uncertain when he had his Quesada catheter changed. He was treated with IV antibiotics, cefazolin with his last dose being 02/14/2018 and also Levaquin p.o. for the left foot cellulitis and osteomyelitis. Chronic kidney disease, stage II, CVA about 4 years ago that left him with some left-sided weakness and chronic slurred speech. 03/26 stool + for cdiff/ on po vanc ID following UTI on cefepime 03/27 two loose stools yesterday, no stool this am feels weak CTA neck noted : 90% stenosis proximal left internal carotid artery / need to consult vascular sx consult PT high risk for surgery 03/28 sts data discussed with pt RISK SCORES About the STS Risk Calculator Procedure: CAB Only Risk of Mortality: 3.249% Morbidity or Mortality: 29.479% Long Length of Stay: 13.425% Short Length of Stay: 27.813% Permanent Stroke: 3.9% Prolonged Ventilation: 22.004% DSW Infection: 0.477% Renal Failure: 4.812% Reoperation: 10.666% 03/28 pt is still unclear of surgery, does want to have done if he " is feeling Sick" still having loose diarrhea stools , refused gallium bone scan today , not feeling well pt has limited mobility 2/2 hx of CVA , concern is for long term care pharmacist outcomes, social and emotional support discussed with Dr Zaragoza, palliative care consult pending 03/31 pt still having loose stools, does not want any surgery until diarrhea cleared up Bone Scan non -conclusive 1. Limited suboptimal study secondary to patient termination of the study prematurely. 2. Abnormal blood flow and blood pool activity which is nonspecific. ID following / may need rehab then bring back at later date to office to discuss possible surgery Objective: Vital Signs - 24 hr 03/30/18 12:00 03/30/18 16:00 03/30/18 20:00 Temperature 98.1 F 98.2 F 98.4 F Pulse Rate 99 H 82 84 Respiratory Rate 18 18 20 Blood Pressure 98/52 L 96/53 L 133/73 Pulse Oximetry 98 98 98 03/30/18 23:56 03/31/18 00:00 03/31/18 04:00 Temperature 97.8 F 97.5 F L Pulse Rate 61 72 70 Respiratory Rate 18 20 Blood Pressure 100/67 104/57 L Pulse Oximetry 99 100 03/31/18 08:00 Temperature 97.4 F L Pulse Rate 71 Respiratory Rate 18 Blood Pressure 110/57 L Pulse Oximetry 100 GENERAL: speech slurred SKIN: Warm and dry. HEAD: Normocephalic. EYES: No scleral icterus. No injection or drainage. NECK: Supple, trachea midline. No JVD or lymphadenopathy. CARDIOVASCULAR: Regular rate and rhythm without murmurs, gallops, or rubs. RESPIRATORY: Breath sounds equal bilaterally. No accessory muscle use. GASTROINTESTINAL: Abdomen soft, non-tender, nondistended. MUSCULOSKELETAL: No cyanosis, or edema. left sided weakness BACK: Nontender without obvious deformity. No CVA tenderness. Result Diagrams: 03/29/18 11:07 03/30/18 08:56 - Plan (1) History of CVA with residual deficit Plan: on ASA, CTA neck noted, consult vascular surgery (2) ST elevation myocardial infarction (STEMI) Plan: ASA, statin , no BB for now (4) Crack cocaine use Plan: substance abuse counseling (5) Tobacco dependence Plan: tobacco cessation counseling (6) Clostridial gastroenteritis Plan: po vancomycin (7) Hx of osteomyelitis Plan: MRI left foot , no evidence of osteomyelitis infection (2) ST elevation myocardial infarction (STEMI) Qualifiers: Involved coronary artery: unspecified coronary artery Qualified Code(s): I21.3 - ST elevation (STEMI) myocardial infarction of unspecified site
--- NOTE | 2018-03-31 11:48 | P.PNCA ---
Subjective Interval history: No events over the weekend Still having diarrhea No chest pain Physical Exam Vital signs: Vital Signs 03/30/18 12:00 03/30/18 16:00 03/30/18 20:00 Temperature 98.1 F 98.2 F 98.4 F Pulse Rate 99 H 82 84 Respiratory Rate 18 18 20 Blood Pressure 98/52 L 96/53 L 133/73 Pulse Oximetry 98 98 98 03/30/18 23:56 03/31/18 00:00 03/31/18 04:00 Temperature 97.8 F 97.5 F L Pulse Rate 61 72 70 Respiratory Rate 18 20 Blood Pressure 100/67 104/57 L Pulse Oximetry 99 100 03/31/18 08:00 Temperature 97.4 F L Pulse Rate 61 Respiratory Rate 18 Blood Pressure 110/57 L Pulse Oximetry 100 Intake & Output 03/30/18 03/31/18 03/31/18 18:59 06:59 18:59 Intake Total 580 / 580 440 / 440 Output Total 200 / 200 200 / 200 Balance 380 / 380 240 / 240 Weight 59.2 kg Intake: IV 100 / 100 200 / 200 Maxipime Inj 1,000 MG In NS Inj 100 / 100 200 / 200 100 ML @ 200 mls/hr IV.SIG Q8H GLENROY Rx#:[id number] Oral 480 / 480 240 / 240 Output: Urine 200 / 200 200 / 200 Other: # Urine Diapers 4 Date of Last Bowel Movement 03/30/18 # Incontinent Bowel Movements 4 Narrative: GENERAL: NAD SKIN: Warm and dry. HEAD: Atraumatic. Normocephalic. EYES: Pupils equal and round. No scleral icterus. No injection or drainage. ENT: No nasal bleeding or discharge. Mucous membranes pink and moist. NECK: Trachea midline. No JVD. CARDIOVASCULAR: Regular rate and rhythm. RESPIRATORY: No accessory muscle use. Clear to auscultation. Breath sounds equal bilaterally. GASTROINTESTINAL: Abdomen soft, non-tender, nondistended. Hepatic and splenic margins not palpable. MUSCULOSKELETAL: Extremities without clubbing, cyanosis, or edema. No obvious deformities. NEUROLOGICAL: Awake and alert. No obvious cranial nerve deficits. Motor grossly within normal limits. Five out of 5 muscle strength in the arms and legs. Normal speech. PSYCHIATRIC: Appropriate mood and affect; insight and judgment normal. - Urinary Catheter Management Indwelling Urethral Catheter Cath placed during this visit: yes, but has since been removed by the nurse Reason for continuing: Not indwelling catheter Removal date: 03/27/18 Removal time: 18:00 Assessment and Plan - Assessment (1) CAD (coronary artery disease) Code(s): I25.10 - Atherosclerotic heart disease of [place] coronary artery without angina pectoris Status: Acute (2) Crack cocaine use Code(s): F14.90 - Cocaine use, unspecified, uncomplicated Status: Acute (3) Tobacco dependence Code(s): F17.200 - Nicotine dependence, unspecified, uncomplicated Status: Acute - Plan 1) CAD/NSTEMI MVCAD CT surgery evaluation Not a PCI candidate overall Debating on surgery, but currently needs to get over diarrhea 2) EF 55-60% 3) Tobacco cessation 4) Crack cocaine cessation 5) If he decides against surgery, or if he's not a candidate, then would con't on medical therapy ASA 81 mg daily Lipitor 80mg daily
--- NOTE | 2018-03-31 15:22 | P.PN ---
Subjective Interval history: f/u; CAD in no acute distress. denies chest pain or sob. no fever. report two episodes of diarrhea today Physical Exam Vital signs: Vital Signs 03/30/18 16:00 03/30/18 20:00 03/30/18 23:56 Temperature 98.2 F 98.4 F Pulse Rate 82 84 61 Respiratory Rate 18 20 Blood Pressure 96/53 L 133/73 Pulse Oximetry 98 98 03/31/18 00:00 03/31/18 04:00 03/31/18 08:00 Temperature 97.8 F 97.5 F L 97.4 F L Pulse Rate 72 70 61 Respiratory Rate 18 20 18 Blood Pressure 100/67 104/57 L 110/57 L Pulse Oximetry 99 100 100 03/31/18 12:00 Temperature 98.2 F Pulse Rate 82 Respiratory Rate 18 Blood Pressure 134/61 Pulse Oximetry 96 Intake & Output 03/30/18 03/31/18 03/31/18 18:59 06:59 18:59 Intake Total 580 / 580 440 / 440 Output Total 200 / 200 200 / 200 Balance 380 / 380 240 / 240 Weight 59.2 kg Intake: IV 100 / 100 200 / 200 Maxipime Inj 1,000 MG In NS Inj 100 / 100 200 / 200 100 ML @ 200 mls/hr IV.SIG Q8H [facility] Rx#:[id number] Oral 480 / 480 240 / 240 Output: Urine 200 / 200 200 / 200 Other: # Urine Diapers 4 Date of Last Bowel Movement 03/30/18 # Incontinent Bowel Movements 4 Narrative: GENERAL: This is a well-nourished, well-developed patient, in no apparent distress. CARDIOVASCULAR: Regular rate and rhythm RESPIRATORY: Clear to auscultation. Breath sounds equal bilaterally. GASTROINTESTINAL: Abdomen soft, non-tender, nondistended. Normal active bowel sounds MUSCULOSKELETAL: Extremities without clubbing, cyanosis, or edema. LUE slightly weaker than right NEURO: awake and alert. Moves all ext x4 - Urinary Catheter Management Indwelling Urethral Catheter Cath placed during this visit: yes, but has since been removed by the nurse Reason for continuing: Not indwelling catheter Removal date: 03/27/18 Removal time: 18:00 Results - Labs CBC & Chem 7: 03/29/18 11:07 03/30/18 08:56 Assessment and Plan - Plan Coronary artery disease- multivessel disease S/P cardiac cath presenting with atypical right sided chest pain -Started patient on aspirin, statins. - will hold off on BB- patient has recent cocaine use - CTS consulted for evaluation or CABG - However patient initially refused. Patient needs improvement from C diff. CTS is following to evaluate if a candidate for CABG C-diff colitis- continue PO Vanco- will monitor Carotid artery disease with > 90% stenosis left ICA- vascular surgery consult appreciated and recommended medical treatment at this time; continue aspirin and statin. History of obstructive uropathy secondary to enlarged prostate History of UTI PSAE - Quesada catheter -per patient this was placed and changed 2 weeks ago at the rehab facility [facility] -Started patient on Flomax 0.4 mg daily- Status post treatment course for osteomyelitis of the left metatarsal area. History of peripheral artery disease -Per report status post course of IV cefazolin plus p.o. Levaquin. -started on Cefepime per ID -bone scan was a limited study- 1. Limited suboptimal study secondary to patient termination of the study prematurely. 2. Abnormal blood flow and blood pool activity which is nonspecific. - PT consulted. Tobacco abuse- still smokes half pack a day patient counseled History of alcohol use drinks 3-4 beers daily patient counseled History of cocaine use per patient recentlypatient counseled. 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 Continue aspirin. PT consulted. palliative care following. Discharge Planning: * pending CT surgery/ ID f/u and recommendations. case discussed with supervising physician Dr. Hearn
[2018-04-01] MEDS: Enoxaparin Inj 40 MG/0.4 ML Syringe SQ SCH (08:10)
[2018-04-01 09:18] LABS: Baso # (Auto) 0.1 th/mm3 (0.0-0.2); Baso % (Auto) 0.9 % (0.0-2.0); Eos # (Auto) 0.1 th/mm3 (0.0-0.4); Eos % (Auto) 1.2 % (0.0-4.0); Hematocrit 38.2 % (39.0-51.0); Hemoglobin 12.3 gm/dL (13.0-17.0); Lymph # (Auto) 2.5 th/mm3 (1.0-4.8); Lymph % (Auto) 26.5 % (9.0-44.0); Mean Corpuscular HGB Conc 32.2 % (32.0-36.0); Mean Corpuscular Hemoglobin 24.6 pg (27.0-34.0); Mean Corpuscular Volume 76.2 fL (80.0-100.0); Mean Platelet Volume 7.8 fL (7.0-11.0); Mono # (Auto) 0.9 th/mm3 (0.0-0.9); Mono % (Auto) 9.2 % (0.0-8.0); Neut # (Auto) 5.8 th/mm3 (1.8-7.7); Neut % (Auto) 62.2 % (16.0-70.0); Platelet Count 241 th/mm3 (150-450); Red Blood Count 5.02 mil/mm3 (4.50-5.90); Red Cell Distribution Width 17.7 % (11.6-17.2); White Blood Count 9.4 th/mm3 (4.0-11.0)
[2018-04-01 09:44] LABS: Anion Gap 8 meq/L (5-15); Blood Urea Nitrogen 17 mg/dL (7-18); Carbon Dioxide 25.3 meq/L (21.0-32.0); Chloride 111 meq/L (98-107); Glomerular Filtration Rate Greater Than 89 mL/min (>89); Glucose,Random 79 mg/dL (74-106); Potassium 3.9 meq/L (3.5-5.1); Sodium 144 meq/L (136-145)
--- NOTE | 2018-04-01 12:09 | P.PN ---
Subjective Interval history: f/u; CAD, C diff in no acute distress. denies chest pain or sob. no fever. report one episodes of soft stool today Physical Exam Vital signs: Vital Signs 03/31/18 16:00 03/31/18 20:00 04/01/18 00:00 Temperature 98.5 F 98.1 F 97.8 F Pulse Rate 71 86 97 H Respiratory Rate 18 18 16 Blood Pressure 134/77 109/60 120/86 Pulse Oximetry 96 100 90 L 04/01/18 04:00 04/01/18 04:34 04/01/18 04:35 Temperature 97.6 F Pulse Rate 76 74 74 Respiratory Rate 18 Blood Pressure 118/82 Pulse Oximetry 95 04/01/18 08:00 Temperature 97.2 F L Pulse Rate 85 Respiratory Rate 18 Blood Pressure 92/51 L Pulse Oximetry 99 Intake & Output 03/31/18 04/01/18 04/01/18 18:59 06:59 18:59 Intake Total 600 / 600 200 / 200 Balance 600 / 600 200 / 200 Weight 59.4 kg Intake: IV 200 / 200 Maxipime Inj 1,000 MG In NS Inj 200 / 200 100 ML @ 200 mls/hr IV.SIG Q8H [facility] Rx#:[id number] Oral 600 / 600 Other: # Voids 200 Date of Last Bowel Movement 03/31/18 03/31/18 # Bowel Movements 1 Narrative: GENERAL: This is a well-nourished, well-developed patient, in no apparent distress. CARDIOVASCULAR: Regular rate and rhythm RESPIRATORY: Clear to auscultation. Breath sounds equal bilaterally. GASTROINTESTINAL: Abdomen soft, non-tender, nondistended. Normal active bowel sounds MUSCULOSKELETAL: Extremities without clubbing, cyanosis, or edema. LUE slightly weaker than right NEURO: awake and alert. Moves all ext x4 - Urinary Catheter Management Indwelling Urethral Catheter Cath placed during this visit: yes, but has since been removed by the nurse Reason for continuing: Not indwelling catheter Removal date: 03/27/18 Removal time: 18:00 Results - Labs CBC & Chem 7: 04/01/18 08:23 04/01/18 08:23 Laboratory Results - last 24 hr 04/01/18 04/01/18 08:23 08:23 WBC 9.4 RBC 5.02 Hgb 12.3 L Hct 38.2 L MCV 76.2 L MCH 24.6 L MCHC 32.2 RDW 17.7 H Plt Count 241 MPV 7.8 Neut % (Auto) 62.2 Lymph % (Auto) 26.5 [place] % (Auto) 9.2 H Eos % (Auto) 1.2 Baso % (Auto) 0.9 Neut # (Auto) 5.8 Lymph # (Auto) 2.5 [place] # (Auto) 0.9 Eos # (Auto) 0.1 Baso # (Auto) 0.1 WBC Differential . Differential Comment Auto diff final Sodium 144 Potassium 3.9 Chloride 111 H Carbon Dioxide 25.3 Anion Gap 8 BUN 17 Creatinine 0.91 Estimated GFR Greater than 89 Random Glucose 79 Calcium 9.0 Assessment and Plan - Plan Coronary artery disease- multivessel disease S/P cardiac cath presenting with atypical right sided chest pain -Started patient on aspirin, statins. - will hold off on BB- patient has recent cocaine use - CTS consulted for evaluation or CABG - However patient initially refused. Patient needs improvement from C diff. CTS is following to evaluate if a candidate for CABG C-diff colitis- continue PO Vanco Patient also followed by ID UTI, Klebsiella pneumoniae ID changed cipro to cefepime (will avoid FQ in C.diff settings) increased oral vancomycin to 500 mg QID Carotid artery disease with > 90% stenosis left ICA- vascular surgery consult appreciated and recommended medical treatment at this time; continue aspirin and statin. History of obstructive uropathy secondary to enlarged prostate History of UTI PSAE - Quesada catheter -per patient this was placed and changed 2 weeks ago at the rehab facility [facility] -Started patient on Flomax 0.4 mg daily- Status post treatment course for osteomyelitis of the left metatarsal area. History of peripheral artery disease -Per report status post course of IV cefazolin plus p.o. Levaquin. -started on Cefepime per ID -bone scan was a limited study- 1. Limited suboptimal study secondary to patient termination of the study prematurely. 2. Abnormal blood flow and blood pool activity which is nonspecific. - PT consulted. Tobacco abuse- still smokes half pack a day patient counseled History of alcohol use drinks 3-4 beers daily patient counseled History of cocaine use per patient recentlypatient counseled. 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 Continue aspirin. PT consulted. palliative care following. Discharge Planning: * pending CT surgery/ ID f/u and recommendations. case discussed with supervising physician
--- NOTE | 2018-04-01 22:46 | P.PNCA ---
Subjective Interval history: Patient was seen earlier today, late entry note No complaints Having a bowel movement earlier today, no diarrhea Physical Exam Vital signs: Vital Signs 04/01/18 00:00 04/01/18 04:00 04/01/18 04:34 Temperature 97.8 F 97.6 F Pulse Rate 97 H 76 74 Respiratory Rate 16 18 Blood Pressure 120/86 118/82 Pulse Oximetry 90 L 95 04/01/18 04:35 04/01/18 08:00 04/01/18 12:00 Temperature 97.2 F L 98.0 F Pulse Rate 74 85 80 Respiratory Rate 18 18 Blood Pressure 92/51 L 90/63 L Pulse Oximetry 99 97 04/01/18 16:00 04/01/18 20:00 Temperature 98.1 F 98.1 F Pulse Rate 68 90 Respiratory Rate 16 16 Blood Pressure 124/56 L 100/57 L Pulse Oximetry 96 100 Intake & Output 04/01/18 04/01/18 04/02/18 06:59 18:59 06:59 Intake Total 300 / 300 700 / 700 Output Total 200 / 200 Balance 300 / 300 500 / 500 Weight 59.4 kg Intake: IV 300 / 300 100 / 100 Maxipime Inj 1,000 MG In NS Inj 300 / 300 100 / 100 100 ML @ 200 mls/hr IV.SIG Q8H [facility] Rx#:[id number] Oral 600 / 600 Output: Urine 200 / 200 Other: Date of Last Bowel Movement 03/31/18 # Bowel Movements 2 Narrative: GENERAL: This is a well-nourished, well-developed patient, in no apparent distress. CARDIOVASCULAR: Regular rate and rhythm RESPIRATORY: Clear to auscultation. Breath sounds equal bilaterally. GASTROINTESTINAL: Abdomen soft, non-tender, nondistended. Normal active bowel sounds MUSCULOSKELETAL: Extremities without clubbing, cyanosis, or edema. LUE slightly weaker than right NEURO: awake and alert. Moves all ext x4 - Urinary Catheter Management Indwelling Urethral Catheter Cath placed during this visit: yes, but has since been removed by the nurse Reason for continuing: Not indwelling catheter Removal date: 03/27/18 Removal time: 18:00 Assessment and Plan - Assessment (1) CAD (coronary artery disease) Code(s): I25.10 - Atherosclerotic heart disease of [place] coronary artery without angina pectoris Status: Acute (2) Crack cocaine use Code(s): F14.90 - Cocaine use, unspecified, uncomplicated Status: Acute (3) Tobacco dependence Code(s): F17.200 - Nicotine dependence, unspecified, uncomplicated Status: Acute - Plan 1) CAD/NSTEMI MVCAD CT surgery evaluation Not a PCI candidate overall Debating on surgery, but currently needs to get over diarrhea/Cdiff 2) EF 55-60% 3) Tobacco cessation 4) Crack cocaine cessation 5) If he decides against surgery, or if he's not a candidate, then would con't on medical therapy ASA 81 mg daily Lipitor 80mg daily
[2018-04-02] MEDS: Enoxaparin Inj 40 MG/0.4 ML Syringe SQ SCH (08:35)
--- NOTE | 2018-04-02 10:51 | P.PN ---
Subjective Interval history: Follow-up for C. difficile, UTI, CAD, osteomyelitis. The patient reports continued diarrhea overnight, unable to quantify number of BMs. Denies fevers/ chills. Denies any abdominal pain, nausea/vomiting. Denies any chest pain or shortness of breath. RN reports the patient has BP 70s/40s this morning. The patient states he just has a little bit of dizziness, but denies any other medical complaints at this time. IV boluses were initiated. Physical Exam Vital signs: Vital Signs 04/01/18 12:00 04/01/18 16:00 04/01/18 20:00 Temperature 98.0 F 98.1 F 98.1 F Pulse Rate 80 68 91 H Respiratory Rate 18 16 16 Blood Pressure 90/63 L 124/56 L 100/57 L Pulse Oximetry 97 96 100 04/02/18 00:00 04/02/18 04:00 04/02/18 08:00 Temperature 98.2 F 97.7 F 97.8 F Pulse Rate 78 70 80 Respiratory Rate 16 16 20 Blood Pressure 99/56 L 97/60 L 93/55 L Pulse Oximetry 97 99 100 Intake & Output 04/01/18 04/02/18 04/02/18 18:59 06:59 18:59 Intake Total 700 / 700 440 / 440 Output Total 200 / 200 450 / 450 Balance 500 / 500 -10 / -10 Weight 59 kg Intake: IV 100 / 100 200 / 200 Maxipime Inj 1,000 MG In NS Inj 100 / 100 200 / 200 100 ML @ 200 mls/hr IV.SIG Q8H [facility] Rx#:[id number] Oral 600 / 600 240 / 240 Output: Urine 200 / 200 450 / 450 Other: Date of Last Bowel Movement 04/02/18 # Bowel Movements 2 1 Narrative: GENERAL: Well-nourished, well-developed pleasant male patient in [facility]. SKIN: Warm and dry. No rash. HEENT: Normocephalic. Atraumatic. CARDIOVASCULAR: Regular rate and rhythm. No murmur appreciated. RESPIRATORY: No accessory muscle use. Clear to auscultation. Breath sounds equal bilaterally. GASTROINTESTINAL: Abdomen soft, non-tender, nondistended. Normoactive bowel sounds x4. MUSCULOSKELETAL: No obvious deformities. Extremities without clubbing, cyanosis , or edema. NEUROLOGICAL: Awake and alert. No obvious cranial nerve deficits. Motor grossly within normal limits. Moving all extremities spontaneously. Normal speech. - Urinary Catheter Management Indwelling Urethral Catheter Cath placed during this visit: yes, but has since been removed by the nurse Reason for continuing: Not indwelling catheter Removal date: 03/27/18 Removal time: 18:00 Results - Labs CBC & Chem 7: 04/01/18 08:23 04/01/18 08:23 Assessment and Plan - Plan 04/02 Hypotension: patient with BP in 70s/40s. Possibly secondary to hypovolemia/ dehydration with recent ongoing diarrhea -give IVF bolus 500cc x1 now, and start on IVF with NS at 125c/hr -check blood cultures and lactic acid -repeat CBC and BMP in am Coronary artery disease- multivessel disease S/P cardiac cath presenting with atypical right sided chest pain -Started patient on aspirin, statins. -will hold off on BB- patient has recent cocaine use -CTS consulted for evaluation or CABG -However patient initially refused. Patient needs improvement from C diff. CTS is following to evaluate if a candidate for CABG C-diff colitis- acute, hypervirulent strain -ID consulted, appreciate recommendations -increased oral vancomycin to 500mg QID, per Dr. Stokes UTI - acute -Urine culture with Klebsiella pneumoniae -ID changed cipro to cefepime (will avoid fluoroquinolones in C.diff settings) Carotid artery disease with > 90% stenosis left ICA -vascular surgery consult appreciated and recommended medical treatment at this time -continue aspirin and statin. -outpatient f/up History of obstructive uropathy secondary to enlarged prostate History of UTI PSAE -Quesada catheter -per patient this was placed and changed 2 weeks ago at the rehab facility [facility] -Started patient on Flomax 0.4 mg daily Status post treatment course for osteomyelitis of the left metatarsal area. History of peripheral artery disease -Per report status post course of IV cefazolin plus p.o. Levaquin. -started on Cefepime per ID -bone scan done, Limited suboptimal study secondary to patient termination of the study prematurely - PT consulted. Tobacco abuse- still smokes half pack a day patient counseled History of alcohol use drinks 3-4 beers daily patient counseled History of cocaine use, counseled on cessation. 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 -Continue aspirin. PT consulted. palliative care following. Discharge Planning: Not yet ready for discharge. Pending further clinical improvement.
[2018-04-02] MEDS ORDERED: Sodium Chlor 0.9% Inj 500 ML IV.SIG ONE (12:45)
[2018-04-02] MEDS ORDERED: Sod Chloride 0.9% Inj 1,000 ML IV.CONT SCH (13:00)
[2018-04-03] MEDS: Enoxaparin Inj 40 MG/0.4 ML Syringe SQ SCH (08:56)
[2018-04-03 12:41] LABS: Baso # (Auto) 0.1 th/mm3 (0.0-0.2); Eos # (Auto) 0.1 th/mm3 (0.0-0.4); Eos % (Auto) 1.1 % (0.0-4.0); Hematocrit 36.1 % (39.0-51.0); Hemoglobin 11.5 gm/dL (13.0-17.0); Lymph # (Auto) 2.3 th/mm3 (1.0-4.8); Mean Corpuscular HGB Conc 31.8 % (32.0-36.0); Mean Corpuscular Hemoglobin 24.4 pg (27.0-34.0); Mean Corpuscular Volume 76.8 fL (80.0-100.0); Mean Platelet Volume 7.6 fL (7.0-11.0); Mono # (Auto) 0.6 th/mm3 (0.0-0.9); Mono % (Auto) 6.4 % (0.0-8.0); Neut # (Auto) 6.1 th/mm3 (1.8-7.7); Neut % (Auto) 66.5 % (16.0-70.0); Platelet Count 217 th/mm3 (150-450); Red Cell Distribution Width 17.3 % (11.6-17.2); White Blood Count 9.2 th/mm3 (4.0-11.0)
[2018-04-03 13:02] LABS: Anion Gap 5 meq/L (5-15); Blood Urea Nitrogen 11 mg/dL (7-18); Carbon Dioxide 28.1 meq/L (21.0-32.0); Chloride 112 meq/L (98-107); Glomerular Filtration Rate Greater Than 89 mL/min (>89); Glucose,Random 86 mg/dL (74-106); Potassium 3.9 meq/L (3.5-5.1); Sodium 145 meq/L (136-145)
--- NOTE | 2018-04-03 15:38 | P.PNIM ---
Subjective Interval history: Still having diarrhea, no abdominal pain. Denies any fever. Blood pressure is more stable. Leukocytosis resolved. Physical Exam Vital signs: Vital Signs 04/02/18 16:00 04/02/18 20:00 04/03/18 00:00 Temperature 98.1 F 98.1 F 98.1 F Pulse Rate 77 93 H 69 Respiratory Rate 20 18 20 Blood Pressure 109/59 L 100/51 L 144/79 H Pulse Oximetry 100 96 04/03/18 04:00 04/03/18 08:00 04/03/18 12:00 Temperature 98.7 F 97.9 F 98.0 F Pulse Rate 63 122 H 85 Respiratory Rate 20 18 18 Blood Pressure 111/69 119/93 H 137/87 Pulse Oximetry 95 100 99 Intake & Output 04/02/18 04/03/18 04/03/18 18:59 06:59 18:59 Intake Total 940 / 940 2540 / 2540 100 / 100 Output Total 650 / 650 Balance 940 / 940 1890 / 1890 100 / 100 Weight 60.8 kg Intake: IV 100 / 100 1700 / 1700 100 / 100 NS Inj 1,000 ML @ 125 mls/hr IV 1000 / 1000 .CONT .Q8H [facility] Rx#:[id number] Maxipime Inj 1,000 MG In NS Inj 100 / 100 200 / 200 100 / 100 100 ML @ 200 mls/hr IV.SIG Q8H [facility] Rx#:[id number] NS Inj 500 ML @ Wide Open IV. 500 / 500 SIG BOLUS ONE Rx#:[id number] Oral 840 / 840 840 / 840 Output: Urine 650 / 650 Other: # Voids 2 4 Date of Last Bowel Movement 04/03/18 # Bowel Movements 3 4 Narrative: GENERAL: Well-nourished, well-developed pleasant male patient in [facility]. SKIN: Warm and dry. No rash. HEENT: Normocephalic. Atraumatic. CARDIOVASCULAR: Regular rate and rhythm. No murmur appreciated. RESPIRATORY: No accessory muscle use. Clear to auscultation. Breath sounds equal bilaterally. GASTROINTESTINAL: Abdomen soft, non-tender, nondistended. Normoactive bowel sounds x4. MUSCULOSKELETAL: No obvious deformities. Extremities without clubbing, cyanosis , or edema. NEUROLOGICAL: Awake and alert. No obvious cranial nerve deficits. Motor grossly within normal limits. Moving all extremities spontaneously. Normal speech. - Urinary Catheter Management Indwelling Urethral Catheter Cath placed during this visit: yes, but has since been removed by the nurse Reason for continuing: Not indwelling catheter Removal date: 03/27/18 Removal time: 18:00 Results - Labs CBC & Chem 7: 04/03/18 12:07 04/03/18 12:07 Laboratory Results - last 24 hr 04/02/18 04/03/18 04/03/18 17:15 12:07 12:07 WBC 9.2 RBC 4.70 Hgb 11.5 L Hct 36.1 L MCV 76.8 L MCH 24.4 L MCHC 31.8 L RDW 17.3 H Plt Count 217 MPV 7.6 Neut % (Auto) 66.5 Lymph % (Auto) 25.0 [place] % (Auto) 6.4 Eos % (Auto) 1.1 Baso % (Auto) 1.0 Neut # (Auto) 6.1 Lymph # (Auto) 2.3 [place] # (Auto) 0.6 Eos # (Auto) 0.1 Baso # (Auto) 0.1 WBC Differential . Differential Comment Auto diff final Sodium 145 Potassium 3.9 Chloride 112 H Carbon Dioxide 28.1 Anion Gap 5 BUN 11 Creatinine 0.95 Estimated GFR Greater than 89 Random Glucose 86 Lactic Acid 2.0 Calcium 9.0 Microbiology 04/02/18 17:09 Blood - Peripheral Aerobic Blood Culture - Preliminary No growth in 1 day 04/02/18 17:09 Blood - Peripheral Anaerobic Blood Culture - Preliminary No growth in 1 day 04/02/18 17:15 Blood - Peripheral Aerobic Blood Culture - Preliminary No growth in 1 day 04/02/18 17:15 Blood - Peripheral Anaerobic Blood Culture - Preliminary No growth in 1 day Assessment and Plan - Plan Hypotension secondary to hypovolemia from diarrhea-blood pressure more stable, status post IVF, no leukocytosis. Blood culture unremarkable. Recheck CBC and BMP. Coronary artery disease- multivessel disease S/P cardiac cath presenting with atypical right sided chest pain -Started patient on aspirin, statins. -will hold off on BB- patient has recent cocaine use -CTS consulted for evaluation or CABG -However patient initially refused. Patient needs improvement from C diff. CTS is following to evaluate if a candidate for CABG, cardiology following. Recommendation is CABG after C. difficile has resolved. C-diff colitis- acute, hypervirulent strain -ID consulted, appreciate recommendations -Continue oral vancomycin to 500mg QID, per Dr. Stokes UTI - acute -Urine culture with Klebsiella pneumoniae -ID changed cipro to cefepime (will avoid fluoroquinolones in C.diff settings) Carotid artery disease with > 90% stenosis left ICA -vascular surgery consult appreciated and recommended medical treatment at this time -continue aspirin and statin. -outpatient f/up History of obstructive uropathy secondary to enlarged prostate History of UTI PSAE -Quesada catheter -per patient this was placed and changed 2 weeks ago at the rehab facility [facility] -Started patient on Flomax 0.4 mg daily Status post treatment course for osteomyelitis of the left metatarsal area. History of peripheral artery disease -Per report status post course of IV cefazolin plus p.o. Levaquin. -started on Cefepime per ID -bone scan done, Limited suboptimal study secondary to patient termination of the study prematurely - PT consulted. Tobacco abuse- still smokes half pack a day patient counseled History of alcohol use drinks 3-4 beers daily patient counseled History of cocaine use, counseled on cessation. 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 -Continue aspirin. PT consulted. palliative care following. Discharge Planning: Not yet ready for discharge. Pending further clinical improvement.
--- NOTE | 2018-04-03 17:03 | P.PNPAL ---
Reason for Visit Reason for visit: a. To assist with evaluation and management of symptoms including: Dyspnea, chest pain b. To assist medical decision maker(s) with: better understanding of current medical conditions; weighing benefits/burdens of medical treatment options; making medical treatment decisions. Subjective Subjective/Interval History: Patient seen to follow-up on symptom management of chest pain and dyspnea. Chest pain is improving with tobacco cessation and abstinence from crack cocaine. He denies any current chest pain, chest pressure or uncomfortable sensations. He is generally sedentary secondary to his frequent diarrhea from Clostridium difficile infection. Vancomycin dose has been increased from 125 mg to 500 mg P.O. 4 times daily which he states is helping improve his diarrhea. He remains somewhat dyspneic with conversation, pausing to catch his breath frequently during discussion. He continues to wear oxygen at 2 L nasal cannula which does improve his symptoms. . Family/Friend Interactions: Spoke with the patient and his daughter, Karol, at length regarding the risks and benefits of pursuing coronary artery bypass grafting. Had a very ck discussion with the patient regarding the effects of cocaine on the heart and suggested that he consider whether or not he planned to cease cocaine use, which would likely negate the benefits of CABG. His daughter states that she is planning to move in with her father after the bypass surgery is completed to monitor his social habits and assisted medication compliance. Palliative care contact information was provided family for any further questions or concerns. . Objective Vital Signs: Vital Signs 04/02/18 20:00 04/03/18 00:00 04/03/18 04:00 Temperature 98.1 F 98.1 F 98.7 F Pulse Rate 93 H 69 63 Respiratory Rate 18 20 20 Blood Pressure 100/51 L 144/79 H 111/69 Pulse Oximetry 96 95 04/03/18 08:00 04/03/18 12:00 Temperature 97.9 F 98.0 F Pulse Rate 122 H 85 Respiratory Rate 18 18 Blood Pressure 119/93 H 137/87 Pulse Oximetry 100 99 Intake & Output 04/02/18 04/03/18 04/03/18 18:59 06:59 18:59 Intake Total 940 / 940 2540 / 2540 100 / 100 Output Total 650 / 650 Balance 940 / 940 1890 / 1890 100 / 100 Weight 134 lb 0.657 oz Intake: IV 100 / 100 1700 / 1700 100 / 100 NS Inj 1,000 ML @ 125 mls/hr IV 1000 / 1000 .CONT .Q8H GLENROY Rx#:[id number] Maxipime Inj 1,000 MG In NS Inj 100 / 100 200 / 200 100 / 100 100 ML @ 200 mls/hr IV.SIG Q8H GLENROY Rx#:[id number] NS Inj 500 ML @ Wide Open IV. 500 / 500 SIG BOLUS ONE Rx#:[id number] Oral 840 / 840 840 / 840 Output: Urine 650 / 650 Other: # Voids 2 4 Date of Last Bowel Movement 04/03/18 # Bowel Movements 3 4 Physical Exam: CONSTITUTIONAL/GENERAL: This is an adequately nourished patient, in no apparent distress. TUBES/LINES/DRAINS: PIV. SKIN: No jaundice, rashes, or lesions. No wounds seen anteriorly. Skin temperature appropriate. Not diaphoretic. HEAD: Atraumatic. Normocephalic. EYES: Pupils equal and round and reactive. Extraocular motions intact. No scleral icterus. No injection or drainage. Fundi not examined. ENT: Hearing grossly normal. Nose without bleeding or purulent drainage. Throat without visible erythema, exudates, masses, or lesions. NECK: Trachea midline. Supple, nontender. No palpable thyroid enlargement or nodularity. CARDIOVASCULAR: S1, S2 irregular rhythm, controlled rate, no rub, murmur or gallop. RESPIRATORY/CHEST: Symmetric, unlabored respirations. Clear to auscultation. Breath sounds equal bilaterally. No wheezes, rales, or rhonchi. GASTROINTESTINAL: Abdomen soft, non-tender, nondistended. No hepato-splenomegaly , or palpable masses. No guarding. Bowel sounds present. GENITOURINARY: Without palpable bladder distension. MUSCULOSKELETAL: Extremities without clubbing, cyanosis, or edema. No joint tenderness or effusion noted. No calf tenderness. No mottling or clubbing. Left hallux with hyperpigmentation, nontender to palpation. LYMPHATICS: No palpable cervical or supraclavicular adenopathy. NEUROLOGICAL: Awake and alert. Motor and sensory grossly within normal limits. Follows commands. Moves all extremities. PSYCHIATRIC: No obvious anxiety/depression. no apparent hallucinations or other psychotic thought process. . Diagnostic Tests Laboratory: Laboratory Results - last 72 hr 04/01/18 04/01/18 04/02/18 08:23 08:23 17:15 WBC 9.4 RBC 5.02 Hgb 12.3 L Hct 38.2 L MCV 76.2 L MCH 24.6 L MCHC 32.2 RDW 17.7 H Plt Count 241 MPV 7.8 Neut % (Auto) 62.2 Lymph % (Auto) 26.5 [place] % (Auto) 9.2 H Eos % (Auto) 1.2 Baso % (Auto) 0.9 Neut # (Auto) 5.8 Lymph # (Auto) 2.5 [place] # (Auto) 0.9 Eos # (Auto) 0.1 Baso # (Auto) 0.1 WBC Differential . Differential Comment Auto diff final Sodium 144 Potassium 3.9 Chloride 111 H Carbon Dioxide 25.3 Anion Gap 8 BUN 17 Creatinine 0.91 Estimated GFR Greater than 89 Random Glucose 79 Lactic Acid 2.0 Calcium 9.0 04/03/18 04/03/18 12:07 12:07 WBC 9.2 RBC 4.70 Hgb 11.5 L Hct 36.1 L MCV 76.8 L MCH 24.4 L MCHC 31.8 L RDW 17.3 H Plt Count 217 MPV 7.6 Neut % (Auto) 66.5 Lymph % (Auto) 25.0 [place] % (Auto) 6.4 Eos % (Auto) 1.1 Baso % (Auto) 1.0 Neut # (Auto) 6.1 Lymph # (Auto) 2.3 [place] # (Auto) 0.6 Eos # (Auto) 0.1 Baso # (Auto) 0.1 WBC Differential . Differential Comment Auto diff final Sodium 145 Potassium 3.9 Chloride 112 H Carbon Dioxide 28.1 Anion Gap 5 BUN 11 Creatinine 0.95 Estimated GFR Greater than 89 Random Glucose 86 Lactic Acid Calcium 9.0 Result Diagrams: 04/03/18 12:07 04/03/18 12:07 Microbiology: Microbiology 04/02/18 17:09 Aerobic Blood Culture - Preliminary Blood - Peripheral No growth in 1 day Anaerobic Blood Culture - Preliminary No growth in 1 day 04/02/18 17:15 Aerobic Blood Culture - Preliminary Blood - Peripheral No growth in 1 day Anaerobic Blood Culture - Preliminary No growth in 1 day Imaging: Chest X-Ray 03/24/18 15:37 CONCLUSION: Negative examination. Gallbladder Ultrasound 03/24/18 15:37 CONCLUSION: Negative right quadrant ultrasound examination. The gallbladder is free of stones. Carotid Doppler Study 03/25/18 09:58 CONCLUSION: High-grade stenosis in the left internal carotid artery of greater than 70% by velocity criteria. The peak systolic velocity was 473.5 cm/ s and the peak diastolic velocities was 171.8 cm/s. Chest X-Ray 03/25/18 09:58 CONCLUSION: No acute cardiopulmonary disease. Lower Extremity Ultrasound 03/25/18 09:58 CONCLUSION: 1. Venous mapping study as described above. Venous Doppler Study 03/25/18 09:58 CONCLUSION: 1. Negative exam with no evidence of deep venous thrombosis. Foot MRI 03/26/18 00:00 CONCLUSION: 1. Findings of stress type injury involving the base of the first metatarsal and metatarsal head similar to the prior study. No evidence of osteomyelitis Neck CTA 03/26/18 00:00 CONCLUSION: Bone Scan Nuclear Medicine 03/28/18 00:00 CONCLUSION: 1. Limited suboptimal study secondary to patient termination of the study prematurely. 2. Abnormal blood flow and blood pool activity which is nonspecific. Procedures: 03/24: Cardiac catheterization Assessment and Plan Pertinent Non-Medical Issues: Psychosocial: He was born in [place] and joined the [employer] as a young man serving 23 years and retiring. He was active during the [place] conflict but denies any service related injury. 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 He was and had 3 children but is close to his daughter Karol, and wishes for her to be his healthcare surrogate, should he be unable to make decisions for himself. Spiritual: Health Information Specialist available. Legal: Healthcare surrogate form completed, pending patient's signature. Ethical issues impacting care: None known. . Important Contacts: Daughter: Karol Sister: Paty Machado Prognosis: His prognosis is guarded. He is 62 years old with a long history of tobacco, alcohol and cocaine use. He has peripheral artery disease with a 90% carotid stenosis, triple-vessel disease, possible osteomyelitis of the left foot, Clostridium difficile infection and general debility. He is at elevated risk for cardiovascular complications and compromise but at this time wishes to be an FULL CODE. He has had a prior hemorrhagic stroke, and given his substance abuse history and peripheral artery disease, is at risk for recurrent complications and decline. . Code Status: Full Code Plan: PLAN: Legal decision maker: At this time the patient is oriented but has slightly limited insight. He cooperates with his daughter, Karol, for decision-making and has requested that Karol been named as his healthcare surrogate. Goals: Aggressive. CODE STATUS: FULL CODE SYMPTOMS: * Dyspnea: Multifactorial to include history of tobacco use, smoking crack cocaine, coronary artery disease and debility. It primarily occurs with activity and resolves with rest. Patient's blood pressure had previously been borderline and not amenable to the addition of a long-acting nitrate, however at this time he is now become borderline hypertensive and would likely benefit from the addition of a long-acting nitrate. * Chest pain: He has chest discomfort with activity, described as pressure, occurring with exertion, resolving with rest, located at the center of his chest. He has a history of atrial fibrillation and is seen on telemetry to have episodes of paroxysmal A. fib which may be contributing to his symptoms of chest pain and dyspnea. Drug screen was positive for benzodiazepines and cocaine metabolites on admission, so beta-blockade was held. His blood pressure was initially borderline low so ROXANE inhibitors were also not initiated. At this time as he is now borderline hypertensive he may benefit from the initiation of ACEI and beta-blockade. Palliative care will continue to follow the patient during hospital course as condition evolves, to assist patient/decision-maker with understanding of their medical conditions, weighing benefits/burdens of treatment options, for clarification of goals of treatment. Additionally will assist with any symptoms of palliative concern. . Attestation Attestation: To help prompt me to consider important information that might be impacting today's encounter and assessment, information from prior notes written by myself or my colleagues may have been "brought forward" into today's note. My signature on this note, however, is an attestation that I personally performed the exam, history, and/or decision-making noted today, and, unless otherwise indicated, the interactions with patient, family, and staff as well as the review of records all occurred today. I also attest that the listed assessment and stated plan reflect my best clinical judgment today based on the combination of historical information, prior notes, and today's exam/ interactions. When time spent is documented, it refers only to time spent today by the signer, or if indicated, combined time spent today by collaborating physician/nurse practitioner. .
[2018-04-04] MEDS: Enoxaparin Inj 40 MG/0.4 ML Syringe SQ SCH (08:45)
--- NOTE | 2018-04-04 10:53 | P.PNIM ---
Subjective Interval history: He still having diarrhea, denies any chest pain or shortness of breath. No fever, no abdominal pain. Physical Exam Vital signs: Vital Signs 04/03/18 12:00 04/03/18 16:00 04/03/18 19:48 Temperature 98.0 F 98.3 F Pulse Rate 85 98 H 84 Respiratory Rate 18 18 Blood Pressure 137/87 142/109 H Pulse Oximetry 99 96 04/03/18 20:00 04/03/18 23:54 04/04/18 00:00 Temperature 98.1 F 98 F Pulse Rate 68 83 76 Respiratory Rate 18 18 Blood Pressure 124/73 150/75 H Pulse Oximetry 99 100 04/04/18 03:58 04/04/18 04:00 04/04/18 08:00 Temperature 97.7 F 97.8 F Pulse Rate 74 81 115 H Respiratory Rate 18 20 Blood Pressure 135/93 H Pulse Oximetry 99 99 Intake & Output 04/03/18 04/04/18 04/04/18 18:59 06:59 18:59 Intake Total 580 / 580 200 / 200 Output Total 500 / 500 Balance 80 / 80 200 / 200 Intake: IV 100 / 100 200 / 200 Maxipime Inj 1,000 MG In NS Inj 100 / 100 200 / 200 100 ML @ 200 mls/hr IV.SIG Q8H GLENROY Rx#:[id number] Oral 480 / 480 Output: Urine 500 / 500 Other: # Bowel Movements 3 Narrative: GENERAL: Well-nourished, well-developed pleasant male patient in [facility]. CARDIOVASCULAR: Regular rate and rhythm. No murmur appreciated. RESPIRATORY: No accessory muscle use. Clear to auscultation. Breath sounds equal bilaterally. GASTROINTESTINAL: Abdomen soft, non-tender, nondistended. Normoactive bowel sounds x4. MUSCULOSKELETAL: No obvious deformities. Extremities without clubbing, cyanosis , or edema. NEUROLOGICAL: Awake and alert. No obvious cranial nerve deficits. Motor grossly within normal limits. Moving all extremities spontaneously. Normal speech. - Urinary Catheter Management Indwelling Urethral Catheter Cath placed during this visit: yes, but has since been removed by the nurse Reason for continuing: Not indwelling catheter Removal date: 03/27/18 Removal time: 18:00 Results - Labs CBC & Chem 7: 04/03/18 12:07 04/04/18 10:50 Laboratory Results - last 24 hr 04/03/18 04/03/18 12:07 12:07 WBC 9.2 RBC 4.70 Hgb 11.5 L Hct 36.1 L MCV 76.8 L MCH 24.4 L MCHC 31.8 L RDW 17.3 H Plt Count 217 MPV 7.6 Neut % (Auto) 66.5 Lymph % (Auto) 25.0 [place] % (Auto) 6.4 Eos % (Auto) 1.1 Baso % (Auto) 1.0 Neut # (Auto) 6.1 Lymph # (Auto) 2.3 [place] # (Auto) 0.6 Eos # (Auto) 0.1 Baso # (Auto) 0.1 WBC Differential . Differential Comment Auto diff final Sodium 145 Potassium 3.9 Chloride 112 H Carbon Dioxide 28.1 Anion Gap 5 BUN 11 Creatinine 0.95 Estimated GFR Greater than 89 Random Glucose 86 Calcium 9.0 Microbiology 04/02/18 17:09 Blood - Peripheral Aerobic Blood Culture - Preliminary No growth in 1 day 04/02/18 17:09 Blood - Peripheral Anaerobic Blood Culture - Preliminary No growth in 1 day 04/02/18 17:15 Blood - Peripheral Aerobic Blood Culture - Preliminary No growth in 1 day 04/02/18 17:15 Blood - Peripheral Anaerobic Blood Culture - Preliminary No growth in 1 day Assessment and Plan - Plan 62-year-old male initially presented to the hospital with chest pain. Coronary artery disease- multivessel disease S/P cardiac cath presenting with atypical right sided chest pain -will hold off on BB- patient has recent cocaine use, CTS consulted for evaluation or CABG, patient refusing surgery, if is not a candidate and continues to refuse, continue medical therapy with aspirin and Lipitor per cardiology. Patient will need CABG after C. difficile has resolved if patient agrees. C-diff colitis- acute, hypervirulent strain -ID consulted, appreciate recommendations -Continue oral vancomycin to 500mg QID, per Dr. Stokes, still having diarrhea Hypotension secondary to hypovolemia from diarrhea, resolved-blood pressure more stable, in fact increasing. Blood culture unremarkable. CBC and BMP stable. UTI - Urine culture with Klebsiella pneumoniae -ID changed cipro to cefepime (will avoid fluoroquinolones in C.diff settings) Carotid artery disease with > 90% stenosis left ICA -vascular surgery consult appreciated and recommended medical treatment at this time -continue aspirin and statin. -outpatient f/up History of obstructive uropathy secondary to enlarged prostate History of UTI PSAE -Quesada catheter -per patient this was placed and changed 2 weeks ago at the rehab facility [facility] -cont Flomax 0.4 mg daily Status post treatment course for osteomyelitis of the left metatarsal area. History of peripheral artery disease -Per report status post course of IV cefazolin plus p.o. Levaquin. -started on Cefepime per ID -bone scan done, Limited suboptimal study secondary to patient termination of the study prematurely - PT consulted. Tobacco abuse- still smokes half pack a day patient counseled History of alcohol use drinks 3-4 beers daily patient counseled History of cocaine use, counseled on cessation. 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 -Continue aspirin. PT consulted. palliative care following. Discharge Planning: Not yet ready for discharge. CABG if patient agrees after clearance of C diff
[2018-04-04 11:39] LABS: Anion Gap 7 meq/L (5-15); Blood Urea Nitrogen 13 mg/dL (7-18); Calcium 8.9 mg/dL (8.5-10.1); Carbon Dioxide 27.5 meq/L (21.0-32.0); Chloride 108 meq/L (98-107); Glomerular Filtration Rate Greater Than 89 mL/min (>89); Glucose,Random 97 mg/dL (74-106); Potassium 3.8 meq/L (3.5-5.1); Sodium 142 meq/L (136-145)
[2018-04-05] MEDS: Enoxaparin Inj 40 MG/0.4 ML Syringe SQ SCH (08:44)
--- NOTE | 2018-04-05 12:40 | P.PN ---
Subjective Interval history: awake and alert no complains of pain still having diarrhea per patient voiding well- no dysuria no nausea or vomiting, good po on telemetry- reviewed - sinus with parozxsymal a fib vs Parioxysmnal atrial tachycardia Physical Exam Vital signs: Vital Signs 04/04/18 13:31 04/04/18 16:00 04/04/18 20:00 Temperature 98.1 F 97.9 F Pulse Rate 84 89 79 Respiratory Rate 21 18 Blood Pressure 110/75 158/88 H Pulse Oximetry 100 100 04/05/18 00:00 04/05/18 04:00 04/05/18 04:01 Temperature 98.0 F 97.5 F L Pulse Rate 75 77 43 L Respiratory Rate 16 20 Blood Pressure 119/66 137/90 Pulse Oximetry 100 99 04/05/18 08:00 Temperature 97.9 F Pulse Rate 76 Respiratory Rate 20 Blood Pressure 102/68 Pulse Oximetry 100 Intake & Output 04/04/18 04/05/18 04/05/18 18:59 06:59 18:59 Intake Total 580 / 580 340 / 340 Balance 580 / 580 340 / 340 Weight 60.6 kg Intake: IV 100 / 100 100 / 100 Maxipime Inj 1,000 MG In NS Inj 100 / 100 100 / 100 100 ML @ 200 mls/hr IV.SIG Q8H GLENROY Rx#:[id number] Oral 480 / 480 240 / 240 Other: # Voids 2 2 Date of Last Bowel Movement 04/05/18 # Bowel Movements 2 4 Narrative: well-developed pleasant male patient in [facility]. CARDIOVASCULAR: irregularly irregular rhythm. No murmur appreciated. rate variable RESPIRATORY: No accessory muscle use. Clear to auscultation. Breath sounds equal bilaterally. GASTROINTESTINAL: Abdomen soft, non-tender, nondistended. Normoactive bowel sounds x4. MUSCULOSKELETAL: No obvious deformities. Extremities without clubbing, cyanosis , or edema. NEUROLOGICAL: Awake and alert. No obvious cranial nerve deficits. Motor grossly within normal limits. Moving all extremities spontaneously. Normal speech. - Urinary Catheter Management Indwelling Urethral Catheter Cath placed during this visit: yes, but has since been removed by the nurse Reason for continuing: Not indwelling catheter Removal date: 03/27/18 Removal time: 18:00 Results - Labs CBC & Chem 7: 04/03/18 12:07 04/04/18 10:50 Microbiology 04/02/18 17:09 Blood - Peripheral Aerobic Blood Culture - Preliminary No growth in 3 days 04/02/18 17:09 Blood - Peripheral Anaerobic Blood Culture - Preliminary No growth in 3 days 04/02/18 17:15 Blood - Peripheral Aerobic Blood Culture - Preliminary No growth in 3 days 04/02/18 17:15 Blood - Peripheral Anaerobic Blood Culture - Preliminary No growth in 3 days Assessment and Plan - Plan 62-year-old male initially presented to the hospital with chest pain. Coronary artery disease- multivessel disease S/P cardiac cath presenting with atypical right sided chest pain Paroxsymal Atrial fibrillation vs frequent PACs -BB was not restarted- patient has recent cocaine use, CTS consulted for evaluation or CABG, patient refusing surgery, if is not a candidate and continues to refuse, continue medical therapy with aspirin and Lipitor per cardiology. Patient will need CABG after C. difficile has resolved if patient agrees. - resstart BB- LOpressor 12.5 mg po q 8 today 04/05 - check 12 LEKG C-diff colitis- acute, hypervirulent strain -ID consulted, appreciate recommendations -Continue oral vancomycin to 500mg QID, -d/w Dr. Stokes- still having diarrhea - BP improved UTI - Urine culture with Klebsiella pneumoniae -ID changed cipro to cefepime (will avoid fluoroquinolones in C.diff settings) - d/w Dr. Stokes- duration of Cefepime - paitnet iwth c diff Carotid artery disease with > 90% stenosis left ICA -vascular surgery consult appreciated and recommended medical treatment at this time -continue aspirin and statin. -outpatient f/up History of obstructive uropathy secondary to enlarged prostate History of UTI PSAE -Quesada catheter -per patient this was placed and changed 2 weeks ago at the rehab facility [facility] -cont Flomax 0.4 mg daily Status post treatment course for osteomyelitis of the left metatarsal area. History of peripheral artery disease -Per report status post course of IV cefazolin plus p.o. Levaquin. -bone scan done, Limited suboptimal study secondary to patient termination of the study prematurely - PT consulted. Tobacco abuse- still smokes half pack a day patient counseled History of alcohol use drinks 3-4 beers daily patient counseled History of cocaine use, counseled on cessation. 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 -Continue aspirin. PT consulted. palliative care following. Lovenox for DVT prophylaxis
--- NOTE | 2018-04-05 15:30 | P.PNID ---
Subjective Remarks: cont to have diarrhea with 3-4 liquid BMs incontinent no fever pt was non cooperatve on nuclear med scan and it was cancelled MRI neg for osteo Antibiotics: cefepie oral vancomycin Allergies/Adverse Reactions: Allergies No Known Allergies Allergy (Unknown, Uncoded 11/04/17 18:48) Objective Vital Signs 04/04/18 16:00 04/04/18 20:00 04/05/18 00:00 Temperature 98.1 F 97.9 F 98.0 F Pulse Rate 89 79 75 Respiratory Rate 21 18 16 Blood Pressure 110/75 158/88 H 119/66 Pulse Oximetry 100 100 100 04/05/18 04:00 04/05/18 04:01 04/05/18 08:00 Temperature 97.5 F L 97.9 F Pulse Rate 77 43 L 76 Respiratory Rate 20 20 Blood Pressure 137/90 102/68 Pulse Oximetry 99 100 04/05/18 12:00 Temperature 98.0 F Pulse Rate 68 Respiratory Rate 20 Blood Pressure 104/66 Pulse Oximetry 100 Intake & Output 04/04/18 04/05/18 04/05/18 18:59 06:59 18:59 Intake Total 580 / 580 340 / 340 Balance 580 / 580 340 / 340 Weight 60.6 kg Intake: IV 100 / 100 100 / 100 Maxipime Inj 1,000 MG In NS Inj 100 / 100 100 / 100 100 ML @ 200 mls/hr IV.SIG Q8H [facility] Rx#:[id number] Oral 480 / 480 240 / 240 Other: # Voids 2 2 Date of Last Bowel Movement 04/05/18 # Bowel Movements 2 4 04/02/18 17:09 Blood - Peripheral Aerobic Blood Culture - Preliminary No growth in 3 days 04/02/18 17:09 Blood - Peripheral Anaerobic Blood Culture - Preliminary No growth in 3 days 04/02/18 17:15 Blood - Peripheral Aerobic Blood Culture - Preliminary No growth in 3 days 04/02/18 17:15 Blood - Peripheral Anaerobic Blood Culture - Preliminary No growth in 3 days Lab - Chemistry Results 04/04/18 10:50 Sodium 142 Potassium 3.8 Chloride 108 H Carbon Dioxide 27.5 Anion Gap 7 BUN 13 Creatinine 0.96 Estimated GFR Greater than 89 Random Glucose 97 Calcium 8.9 Imaging: ITS Impressions Gallbladder Ultrasound 03/24/18 15:37 CONCLUSION: Negative right quadrant ultrasound examination. The gallbladder is free of stones. Carotid Doppler Study 03/25/18 09:58 CONCLUSION: High-grade stenosis in the left internal carotid artery of greater than 70% by velocity criteria. The peak systolic velocity was 473.5 cm/ s and the peak diastolic velocities was 171.8 cm/s. Chest X-Ray 03/25/18 09:58 CONCLUSION: No acute cardiopulmonary disease. Lower Extremity Ultrasound 03/25/18 09:58 CONCLUSION: 1. Venous mapping study as described above. Venous Doppler Study 03/25/18 09:58 CONCLUSION: 1. Negative exam with no evidence of deep venous thrombosis. Foot MRI 03/26/18 00:00 CONCLUSION: 1. Findings of stress type injury involving the base of the first metatarsal and metatarsal head similar to the prior study. No evidence of osteomyelitis Neck CTA 03/26/18 00:00 CONCLUSION: Bone Scan Nuclear Medicine 03/28/18 00:00 CONCLUSION: 1. Limited suboptimal study secondary to patient termination of the study prematurely. 2. Abnormal blood flow and blood pool activity which is nonspecific. Physical Exam: GENERAL: NAD SKIN: Warm and dry. HEAD: Atraumatic. Normocephalic. EYES: Pupils equal and round. No scleral icterus. No injection or drainage. ENT: No nasal bleeding or discharge. Mucous membranes pink and moist. NECK: Trachea midline. No JVD. CARDIOVASCULAR: Regular rate and rhythm. RESPIRATORY: No accessory muscle use. Clear to auscultation. Breath sounds equal bilaterally. GASTROINTESTINAL: Abdomen soft, mildly tender, mildly distended. Hepatic and splenic margins not palpable. MUSCULOSKELETAL: Extremities without clubbing, cyanosis, or edema. No obvious deformities. L hallux with hyperpigmentation, no redness, no tenderness to palpation essentially unchanged : nopalpable bladder sistention NEUROLOGICAL: Awake and alert. Seems however somewhat confused today No obvious cranial nerve deficits. Motor grossly within normal limits. Five out of 5 muscle strength in the arms and legs. Normal speech. PSYCHIATRIC: cooperative Assessment and Plan - Plan Sp STEMI needs bypass L hallux osteo sp treatment in January - Cdiff, hypervirulent strain, clinically moderate - increase vanco to 500 UTI, e.coli post void s 200-250 Rec's dc cefepime cont oral vanco for C.diff edin jesus RN
[2018-04-05] MEDS: Metoprolol Tartrate 25 MG Tablet PO SCH ×2 (15:59→17:14)
[2018-04-06] MEDS: Enoxaparin Inj 40 MG/0.4 ML Syringe SQ SCH (09:02)
[2018-04-06] MEDS: Metoprolol Tartrate 25 MG Tablet PO SCH ×4 (09:02→17:28)
--- NOTE | 2018-04-06 13:53 | P.PN ---
Subjective Interval history: still having frequemnt BM- less liquid no abdominla pain nausea or vomiting telemetry- goes into paroxysmal a fib Physical Exam Vital signs: Vital Signs 04/05/18 16:00 04/05/18 20:00 04/06/18 00:00 Temperature 98.2 F 98.3 F 98.2 F Pulse Rate 83 102 H 112 H Respiratory Rate 20 18 18 Blood Pressure 90/54 L 118/68 134/98 H Pulse Oximetry 100 99 99 04/06/18 04:00 04/06/18 08:00 Temperature 98.3 F 98.6 F Pulse Rate 94 H 62 Respiratory Rate 18 19 Blood Pressure 142/87 H 107/61 Pulse Oximetry 99 95 Intake & Output 04/05/18 04/06/18 04/06/18 18:59 06:59 18:59 Intake Total 420 / 420 Balance 420 / 420 Weight 61.51 kg Intake: Oral 420 / 420 Other: # Voids 6 0 Date of Last Bowel Movement 04/05/18 04/05/18 04/05/18 # Bowel Movements 3 Narrative: in NAD. CARDIOVASCULAR: telemetry reviewd- goes into intermittent a fib No murmur appreciated. rate variable RESPIRATORY: No accessory muscle use. Clear to auscultation. Breath sounds equal bilaterally. GASTROINTESTINAL: Abdomen soft, non-tender, nondistended. Normoactive bowel sounds x4. MUSCULOSKELETAL: No obvious deformities. Extremities without clubbing, cyanosis , or edema. NEUROLOGICAL: Awake and alert. No obvious cranial nerve deficits. Motor grossly within normal limits. Moving all extremities spontaneously. Normal speech. - Urinary Catheter Management Indwelling Urethral Catheter Cath placed during this visit: yes, but has since been removed by the nurse Reason for continuing: Not indwelling catheter Removal date: 03/27/18 Removal time: 18:00 Results - Labs CBC & Chem 7: 04/06/18 14:30 04/06/18 14:30 Microbiology 04/02/18 17:09 Blood - Peripheral Aerobic Blood Culture - Preliminary No growth in 4 days 04/02/18 17:09 Blood - Peripheral Anaerobic Blood Culture - Preliminary No growth in 4 days 04/02/18 17:15 Blood - Peripheral Aerobic Blood Culture - Preliminary No growth in 4 days 04/02/18 17:15 Blood - Peripheral Anaerobic Blood Culture - Preliminary No growth in 4 days Assessment and Plan - Plan 62-year-old male initially presented to the hospital with chest pain. Coronary artery disease- multivessel disease S/P cardiac cath presenting with atypical right sided chest pain Paroxsymal Atrial fibrillation -BB was not restarted- patient has recent cocaine use, CTS consulted for evaluation or CABG, patient refusing surgery, if is not a candidate and continues to refuse, continue medical therapy with aspirin and Lipitor per cardiology. Patient will need CABG after C. difficile has resolved if patient agrees. - restarted BB- LOpressor 12.5 mg po q 8 04/05- monitor and adjust - ASA dialy - check electrolytes now C-diff colitis- acute, hypervirulent strain -ID consulted, appreciate recommendations -Continue oral vancomycin to 500mg QID, -d/w Dr. Stokes- still having diarrhea - BP improved UTI - Urine culture with Klebsiella pneumoniae -ID changed cipro to cefepime (will avoid fluoroquinolones in C.diff settings) - d/w Dr. Stokes- Cefepime DC 04/05 Carotid artery disease with > 90% stenosis left ICA -vascular surgery consult appreciated and recommended medical treatment at this time -continue aspirin and statin. -outpatient f/up History of obstructive uropathy secondary to enlarged prostate History of UTI PSAE -Quesada catheter -per patient this was placed and changed 2 weeks ago at the rehab facility [facility] -cont Flomax 0.4 mg daily Status post treatment course for osteomyelitis of the left metatarsal area. History of peripheral artery disease -Per report status post course of IV cefazolin plus p.o. Levaquin. -bone scan done, Limited suboptimal study secondary to patient termination of the study prematurely - PT consulted. Tobacco abuse- still smokes half pack a day patient counseled History of alcohol use drinks 3-4 beers daily patient counseled History of cocaine use, counseled on cessation. 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 -Continue aspirin. PT consulted palliative care following. Lovenox for DVT prophylaxis
[2018-04-06 14:38] LABS: Hematocrit 34.8 % (39.0-51.0); Hemoglobin 11.2 gm/dL (13.0-17.0); Mean Corpuscular HGB Conc 32.3 % (32.0-36.0); Mean Corpuscular Hemoglobin 24.4 pg (27.0-34.0); Mean Corpuscular Volume 75.6 fL (80.0-100.0); Mean Platelet Volume 7.6 fL (7.0-11.0); Platelet Count 232 th/mm3 (150-450); Red Cell Distribution Width 17.6 % (11.6-17.2); White Blood Count 9.8 th/mm3 (4.0-11.0)
[2018-04-06 15:08] LABS: Anion Gap 5 meq/L (5-15); Blood Urea Nitrogen 11 mg/dL (7-18); Carbon Dioxide 32.2 meq/L (21.0-32.0); Chloride 108 meq/L (98-107); Glomerular Filtration Rate Greater Than 89 mL/min (>89); Glucose,Random 88 mg/dL (74-106); Potassium 3.9 meq/L (3.5-5.1); Sodium 145 meq/L (136-145)
[2018-04-07] MEDS: Metoprolol Tartrate 25 MG Tablet PO SCH ×3 (08:59→17:35)
[2018-04-07] MEDS: Enoxaparin Inj 40 MG/0.4 ML Syringe SQ SCH (08:59)
--- NOTE | 2018-04-07 12:06 | P.PNCA ---
Subjective Interval history: Asked to see by Dr. Koroma for tachyarrhythmias Telemetry showing short burst of probable AFib with RVR for a few seconds, although they are somewhat regular so possibly PAT Asymptomatic Physical Exam Vital signs: Vital Signs 04/06/18 12:00 04/06/18 16:00 04/06/18 20:00 Temperature 98.5 F 98.5 F 98.1 F Pulse Rate 72 78 73 Respiratory Rate 19 18 18 Blood Pressure 118/60 133/59 L 92/51 L Pulse Oximetry 96 98 100 04/06/18 23:25 04/07/18 00:00 04/07/18 04:00 Temperature 97.2 F L 97.3 F L Pulse Rate 78 66 87 Respiratory Rate 18 18 Blood Pressure 115/58 L 108/72 Pulse Oximetry 98 99 04/07/18 08:00 Temperature 98.0 F Pulse Rate 100 H Respiratory Rate 20 Blood Pressure 99/52 L Pulse Oximetry 99 Intake & Output 04/06/18 04/07/18 04/07/18 18:59 06:59 18:59 Intake Total 440 / 440 Output Total 1000 / 1000 Balance 440 / 440 -1000 / -1000 Weight 62.3 kg Intake: Oral 440 / 440 Output: Urine 1000 / 1000 Other: # Voids 4 Date of Last Bowel Movement 04/05/18 04/06/18 04/07/18 # Bowel Movements 1 Narrative: GENERAL: NAD, alert and awake SKIN: Warm and dry. HEAD: Atraumatic. Normocephalic. EYES: Pupils equal and round. No scleral icterus. No injection or drainage. ENT: No nasal bleeding or discharge. Mucous membranes pink and moist. NECK: Trachea midline. No JVD. CARDIOVASCULAR: Regular rate and rhythm. RESPIRATORY: No accessory muscle use. Clear to auscultation. Breath sounds equal bilaterally. GASTROINTESTINAL: Abdomen soft, non-tender, nondistended. Hepatic and splenic margins not palpable. MUSCULOSKELETAL: Extremities without clubbing, cyanosis, or edema. No obvious deformities. NEUROLOGICAL: Awake and alert. Chronic slurred speech, no other focal deficits - Urinary Catheter Management Indwelling Urethral Catheter Cath placed during this visit: yes, but has since been removed by the nurse Reason for continuing: Not indwelling catheter Removal date: 03/27/18 Removal time: 18:00 Assessment and Plan - Assessment (1) CAD (coronary artery disease) Code(s): I25.10 - Atherosclerotic heart disease of [place] coronary artery without angina pectoris Status: Acute (2) Crack cocaine use Code(s): F14.90 - Cocaine use, unspecified, uncomplicated Status: Acute (3) Tobacco dependence Code(s): F17.200 - Nicotine dependence, unspecified, uncomplicated Status: Acute - Plan 1) CAD/NSTEMI MVCAD CT surgery evaluation Not a PCI candidate overall Debating on surgery, but currently needs to get over diarrhea/Cdiff 2) EF 55-60% 3) Tobacco cessation 4) Crack cocaine cessation 5) If he decides against surgery, or if he's not a candidate, then would con't on medical therapy ASA 81 mg daily Lipitor 80mg daily 6) Tachyarrhythmia in short bursts, possible AFib vs PAT Does not want to be on anti-coagulation Will continue to discuss with the patient Ultimately does have risk of intracranial bleed as previously had one while not on anti-coagulation as well as crack-cocaine abuse, would not plan on starting [facility]
--- NOTE | 2018-04-07 12:45 | P.PN ---
Subjective Interval history: denies any pain good po, no nausea or vomiting or abdominal apin states stools getting "harder"and less frequent- since last evening 1x so far Physical Exam Vital signs: Vital Signs 04/06/18 16:00 04/06/18 20:00 04/06/18 23:25 Temperature 98.5 F 98.1 F 97.2 F L Pulse Rate 78 73 78 Respiratory Rate 18 18 18 Blood Pressure 133/59 L 92/51 L 115/58 L Pulse Oximetry 98 100 98 04/07/18 00:00 04/07/18 04:00 04/07/18 08:00 Temperature 97.3 F L 98.0 F Pulse Rate 66 87 100 H Respiratory Rate 18 20 Blood Pressure 108/72 99/52 L Pulse Oximetry 99 99 Intake & Output 04/06/18 04/07/18 04/07/18 18:59 06:59 18:59 Intake Total 440 / 440 Output Total 1000 / 1000 Balance 440 / 440 -1000 / -1000 Weight 62.3 kg Intake: Oral 440 / 440 Output: Urine 1000 / 1000 Other: # Voids 4 Date of Last Bowel Movement 04/05/18 04/06/18 04/07/18 # Bowel Movements 1 Narrative: in NAD. CARDIOVASCULAR: a fib- intermittent- rate variable - from70- low 100s RESPIRATORY: No accessory muscle use. Clear to auscultation. Breath sounds equal bilaterally. GASTROINTESTINAL: Abdomen soft, non-tender, nondistended. Normoactive bowel sounds x4. MUSCULOSKELETAL: No obvious deformities. Extremities without clubbing, cyanosis , or edema. NEUROLOGICAL: Awake and alert. No obvious cranial nerve deficits. Motor grossly within normal limits. Moving all extremities spontaneously. Normal speech. - Urinary Catheter Management Indwelling Urethral Catheter Cath placed during this visit: yes, but has since been removed by the nurse Reason for continuing: Not indwelling catheter Removal date: 03/27/18 Removal time: 18:00 Results - Labs CBC & Chem 7: 04/06/18 14:30 04/06/18 14:30 Laboratory Results - last 24 hr 04/06/18 04/06/18 14:30 14:30 WBC 9.8 RBC 4.60 Hgb 11.2 L Hct 34.8 L MCV 75.6 L MCH 24.4 L MCHC 32.3 RDW 17.6 H Plt Count 232 MPV 7.6 Sodium 145 Potassium 3.9 Chloride 108 H Carbon Dioxide 32.2 H Anion Gap 5 BUN 11 Creatinine 0.99 Estimated GFR Greater than 89 Random Glucose 88 Calcium 9.0 Microbiology 04/02/18 17:09 Blood - Peripheral Aerobic Blood Culture - Final No growth in 5 days 04/02/18 17:09 Blood - Peripheral Anaerobic Blood Culture - Final No growth in 5 days 04/02/18 17:15 Blood - Peripheral Aerobic Blood Culture - Final No growth in 5 days 04/02/18 17:15 Blood - Peripheral Anaerobic Blood Culture - Final No growth in 5 days Assessment and Plan - Plan 62-year-old male initially presented to the hospital with chest pain. Coronary artery disease- multivessel disease S/P cardiac cath presenting with atypical right sided chest pain Paroxsymal Atrial fibrillation -BB was not restarted- patient has recent cocaine use, CTS consulted for evaluation or CABG, patient refusing surgery, if is not a candidate and continues to refuse, continue medical therapy with aspirin and Lipitor per cardiology. Patient will need CABG after C. difficile has resolved if patient agrees. - restarted BB- LOpressor 12.5 mg po q 8 04/05- monitor and adjust - ASA daily C-diff colitis- acute, hypervirulent strain -ID consulted, appreciate recommendations -Continue oral vancomycin to 500mg QID, -d/w Dr. Stokes- -per patient- stools- getting mroe fomed UTI - Urine culture with Klebsiella pneumoniae -ID changed cipro to cefepime (will avoid fluoroquinolones in C.diff settings) - d/w Dr. Stokes- Cefepime DC 04/05 Carotid artery disease with > 90% stenosis left ICA -vascular surgery consult appreciated and recommended medical treatment at this time -continue aspirin and statin. 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 History of peripheral artery disease -Per report status post course of IV cefazolin plus p.o. Levaquin. -bone scan done, Limited suboptimal study secondary to patient termination of the study prematurely - PT consulted. Tobacco abuse- still smokes half pack a day patient counseled History of alcohol use drinks 3-4 beers daily patient counseled History of cocaine use, counseled on cessation. 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 -Continue aspirin. PT consulted palliative care following. Lovenox for DVT prophylaxis
--- NOTE | 2018-04-07 13:39 | P.PNPAL ---
Reason for Visit Reason for visit: a. To assist with evaluation and management of symptoms including: Dyspnea, chest pain b. To assist medical decision maker(s) with: better understanding of current medical conditions; weighing benefits/burdens of medical treatment options; making medical treatment decisions. Subjective Subjective/Interval History: Patient seen to follow-up on symptom management of chest pain and dyspnea. Stable over the weekend. Some episodes of tachyarrhythmia, Cardio following. possible afib, could consider anticoagulation, though pt at risk for hemorrhage. CBC over weekend unremarkable. ID cont to follow, pt continues on PO vancomycin. Pt endorses chest pain better- says he feels a bit of pain/tightness if he " does too much" like walks to far to restroom. He also feels shortness of breath with this level of activity-- reports pain and SOB improve once he rests. Denies edema. Denies GI complaints. Endorses eating well, had cake for his birthday yesterday. Reports feels stool is improving has only gone x1 indicates is formed. Visibly short of breath with conversation. He asks about cardiac medications vs recommended bypass surgery, and if the "medications will do the same thing ". Reviewed that medications may attempt to medically stabilize, and manage underlying conditions however they will not reverse damage , blockage etc. and that generally if surgery is indicated by cardiovascular surgery that is usually the best treatment option. He asks why they cannot do surgery with active infection, review with him needed to be in optimal health to undergo major heart surgery, as well as need for optimal healing post surgery. All questions answered to the best my ability. His daughter calls during my exam he briefly speaks with her and she asks if I call when completed. Following exam call to daughter updated her on current assessment, current conditions. Review with her tachyarrhythmias. She asks about any tentative plans for surgery at this time. Review with her cardiology following no surgery planned as of yet pending clearance of C. difficile. All questions answered to the best of my ability. Palliative contact information left at bedside. . Objective Vital Signs: Vital Signs 04/06/18 16:00 04/06/18 20:00 04/06/18 23:25 Temperature 98.5 F 98.1 F 97.2 F L Pulse Rate 78 73 78 Respiratory Rate 18 18 18 Blood Pressure 133/59 L 92/51 L 115/58 L Pulse Oximetry 98 100 98 04/07/18 00:00 04/07/18 04:00 04/07/18 08:00 Temperature 97.3 F L 98.0 F Pulse Rate 66 87 100 H Respiratory Rate 18 20 Blood Pressure 108/72 99/52 L Pulse Oximetry 99 99 04/07/18 12:00 Temperature Pulse Rate 121 H Respiratory Rate Blood Pressure Pulse Oximetry Intake & Output 04/06/18 04/07/18 04/07/18 18:59 06:59 18:59 Intake Total 440 / 440 Output Total 1000 / 1000 Balance 440 / 440 -1000 / -1000 Weight 62.3 kg Intake: Oral 440 / 440 Output: Urine 1000 / 1000 Other: # Voids 4 Date of Last Bowel Movement 04/05/18 04/06/18 04/07/18 # Bowel Movements 1 Physical Exam: CONSTITUTIONAL/GENERAL: This is an adequately nourished patient, in no apparent distress. TUBES/LINES/DRAINS: PIV upper extremity SKIN: No jaundice, rashes, or lesions. No wounds seen anteriorly. Skin temperature appropriate. Not diaphoretic. NECK: Trachea midline. Supple, nontender. No palpable thyroid enlargement or nodularity. CARDIOVASCULAR: irregular rhythm, controlled rate, no murmur. No peripheral edema. RESPIRATORY/CHEST: Symmetric, unlabored respirations. on room air. Clear to auscultation. Breath sounds equal bilaterally. GASTROINTESTINAL: Abdomen soft, flat, non-tender, nondistended. No palpable masses. No guarding. Bowel sounds present. MUSCULOSKELETAL: Extremities without clubbing, cyanosis, or edema. No joint tenderness or effusion noted. No calf tenderness. NEUROLOGICAL: Awake and alert. oriented x2-3, forgetful at times. Motor and sensory grossly within normal limits. Follows commands. Moves all extremities. PSYCHIATRIC: No obvious anxiety/depression. no apparent hallucinations or other psychotic thought process. . Diagnostic Tests Laboratory: Laboratory Results - last 72 hr 04/06/18 04/06/18 14:30 14:30 WBC 9.8 RBC 4.60 Hgb 11.2 L Hct 34.8 L MCV 75.6 L MCH 24.4 L MCHC 32.3 RDW 17.6 H Plt Count 232 MPV 7.6 Sodium 145 Potassium 3.9 Chloride 108 H Carbon Dioxide 32.2 H Anion Gap 5 BUN 11 Creatinine 0.99 Estimated GFR Greater than 89 Random Glucose 88 Calcium 9.0 Result Diagrams: 04/06/18 14:30 04/06/18 14:30 Microbiology: Microbiology 04/02/18 17:09 Aerobic Blood Culture - Final Blood - Peripheral No growth in 5 days Anaerobic Blood Culture - Final No growth in 5 days 04/02/18 17:15 Aerobic Blood Culture - Final Blood - Peripheral No growth in 5 days Anaerobic Blood Culture - Final No growth in 5 days Procedures: 03/24: Cardiac catheterization Assessment and Plan Pertinent Non-Medical Issues: Psychosocial: He was born in [place] and joined the [email or web address] as a young man serving 23 years and retiring. He was active during the [email or web address] conflict but denies any service related injury. 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 He was and had 3 children but is close to his daughter Karol, and wishes for her to be his healthcare surrogate, should he be unable to make decisions for himself. 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 Legal: Healthcare surrogate form completed, pending patient's signature. Ethical issues impacting care: None known. . Important Contacts: Daughter: Karol Sister: Paty Machado Prognosis: His prognosis is guarded. He is 62 years old with a long history of tobacco, alcohol and cocaine use. He has peripheral artery disease with a 90% carotid stenosis, triple-vessel disease, possible osteomyelitis of the left foot, Clostridium difficile infection and general debility. He is at elevated risk for cardiovascular complications and compromise but at this time wishes to be an FULL CODE. He has had a prior hemorrhagic stroke, and given his substance abuse history and peripheral artery disease, is at risk for recurrent complications and decline. . Code Status: Full Code Plan: PLAN: Legal decision maker: At this time the patient is oriented but has slightly limited insight. He cooperates with his daughter, Karol, for decision-making and has requested that Karol been named as his healthcare surrogate. Goals: Aggressive. Still discussing possibility of proceeding with heart surgery once infection clear. CODE STATUS: FULL CODE SYMPTOMS: * Dyspnea: Multifactorial to include history of tobacco use, smoking crack cocaine, coronary artery disease and debility. It primarily occurs with activity and resolves with rest. * Chest pain: He has chest discomfort with activity, described as pressure, occurring with exertion, resolving with rest, located at the center of his chest. He has a history of atrial fibrillation and is seen on telemetry to have episodes of paroxysmal A. fib which may be contributing to his symptoms of chest pain and dyspnea. Drug screen was positive for benzodiazepines and cocaine metabolites on admission, so beta-blockade was held. His blood pressure was initially borderline low so ROXANE inhibitors were also not initiated. Still experiencing some mild discomfort with activity, relieved by rest. has not required PRN pain med for. Lopressor started 04/05. Palliative care will continue to follow the patient during hospital course as condition evolves, to assist patient/decision-maker with understanding of their medical conditions, weighing benefits/burdens of treatment options, for clarification of goals of treatment. Additionally will assist with any symptoms of palliative concern. . Time Spent Total Floor Time (mins): 20 (chart review, pe, d/w family ) Attestation Attestation: To help prompt me to consider important information that might be impacting today's encounter and assessment, information from prior notes written by myself or my colleagues may have been "brought forward" into today's note. My signature on this note, however, is an attestation that I personally performed the exam, history, and/or decision-making noted today, and, unless otherwise indicated, the interactions with patient, family, and staff as well as the review of records all occurred today. I also attest that the listed assessment and stated plan reflect my best clinical judgment today based on the combination of historical information, prior notes, and today's exam/ interactions. When time spent is documented, it refers only to time spent today by the signer, or if indicated, combined time spent today by collaborating physician/nurse practitioner.
[2018-04-08] MEDS: Enoxaparin Inj 40 MG/0.4 ML Syringe SQ SCH (09:05)
[2018-04-08] MEDS: Metoprolol Tartrate 25 MG Tablet PO SCH ×3 (09:06→18:12)
--- NOTE | 2018-04-08 12:21 | P.PNCA ---
Subjective Interval history: No events overnight Still with soft stools Physical Exam Vital signs: Vital Signs 04/07/18 16:00 04/07/18 20:00 04/08/18 00:00 Temperature 98.4 F 98.7 F 97.9 F Pulse Rate 69 80 56 L Respiratory Rate 20 18 18 Blood Pressure 110/49 L 101/69 131/76 Pulse Oximetry 100 98 100 04/08/18 04:00 04/08/18 08:00 Temperature 98.1 F 97.8 F Pulse Rate 69 87 Respiratory Rate 18 20 Blood Pressure 132/78 110/70 Pulse Oximetry 99 100 Intake & Output 04/07/18 04/08/18 04/08/18 18:59 06:59 18:59 Intake Total 720 / 720 480 / 480 Balance 720 / 720 480 / 480 Weight 60.2 kg Intake: Oral 720 / 720 480 / 480 Other: # Voids 4 3 Date of Last Bowel Movement 04/07/18 04/07/18 # Bowel Movements 4 1 Narrative: GENERAL: NAD SKIN: Warm and dry. HEAD: Atraumatic. Normocephalic. EYES: Pupils equal and round. No scleral icterus. No injection or drainage. ENT: No nasal bleeding or discharge. Mucous membranes pink and moist. NECK: Trachea midline. No JVD. CARDIOVASCULAR: Regular rate and rhythm. RESPIRATORY: No accessory muscle use. Clear to auscultation. Breath sounds equal bilaterally. GASTROINTESTINAL: Abdomen soft, non-tender, nondistended. Hepatic and splenic margins not palpable. MUSCULOSKELETAL: Extremities without clubbing, cyanosis, or edema. No obvious deformities. NEUROLOGICAL: Awake and alert. No obvious cranial nerve deficits. Motor grossly within normal limits. Five out of 5 muscle strength in the arms and legs. Normal speech. PSYCHIATRIC: Appropriate mood and affect; insight and judgment normal. - Urinary Catheter Management Indwelling Urethral Catheter Cath placed during this visit: yes, but has since been removed by the nurse Reason for continuing: Not indwelling catheter Removal date: 03/27/18 Removal time: 18:00 Assessment and Plan - Assessment (1) CAD (coronary artery disease) Code(s): I25.10 - Atherosclerotic heart disease of [place] coronary artery without angina pectoris Status: Acute (2) Crack cocaine use Code(s): F14.90 - Cocaine use, unspecified, uncomplicated Status: Acute (3) Tobacco dependence Code(s): F17.200 - Nicotine dependence, unspecified, uncomplicated Status: Acute - Plan 1) CAD/NSTEMI MVCAD CT surgery evaluation Not a PCI candidate overall Debating on surgery, but currently needs to get over diarrhea/Cdiff 2) EF 55-60% 3) Tobacco cessation 4) Crack cocaine cessation 5) If he decides against surgery, or if he's not a candidate, then would con't on medical therapy ASA 81 mg daily Lipitor 80mg daily 6) Tachyarrhythmia in short bursts, possible AFib vs PAT Does not want to be on anti-coagulation Will continue to discuss with the patient Ultimately does have risk of intracranial bleed as previously had one while not on anti-coagulation as well as crack-cocaine abuse, would not plan on starting mcc
--- NOTE | 2018-04-08 12:26 | P.PN ---
Subjective Interval history: telemetry- intermittent a fib- paroxysmal noncomplains of pain states BM x 1 so far- formed Physical Exam Vital signs: Vital Signs 04/07/18 16:00 04/07/18 20:00 04/08/18 00:00 Temperature 98.4 F 98.7 F 97.9 F Pulse Rate 69 80 56 L Respiratory Rate 20 18 18 Blood Pressure 110/49 L 101/69 131/76 Pulse Oximetry 100 98 100 04/08/18 04:00 04/08/18 08:00 Temperature 98.1 F 97.8 F Pulse Rate 69 87 Respiratory Rate 18 20 Blood Pressure 132/78 110/70 Pulse Oximetry 99 100 Intake & Output 04/07/18 04/08/18 04/08/18 18:59 06:59 18:59 Intake Total 720 / 720 480 / 480 Balance 720 / 720 480 / 480 Weight 60.2 kg Intake: Oral 720 / 720 480 / 480 Other: # Voids 4 3 Date of Last Bowel Movement 04/07/18 04/07/18 # Bowel Movements 4 1 - Urinary Catheter Management Indwelling Urethral Catheter Cath placed during this visit: yes, but has since been removed by the nurse Reason for continuing: Not indwelling catheter Removal date: 03/27/18 Removal time: 18:00 Results - Labs CBC & Chem 7: 04/06/18 14:30 04/06/18 14:30 Microbiology 04/02/18 17:09 Blood - Peripheral Aerobic Blood Culture - Final No growth in 5 days 04/02/18 17:09 Blood - Peripheral Anaerobic Blood Culture - Final No growth in 5 days 04/02/18 17:15 Blood - Peripheral Aerobic Blood Culture - Final No growth in 5 days 04/02/18 17:15 Blood - Peripheral Anaerobic Blood Culture - Final No growth in 5 days Assessment and Plan - Plan 62-year-old male initially presented to the hospital with chest pain. Coronary artery disease- multivessel disease S/P cardiac cath presenting with atypical right sided chest pain Paroxsymal Atrial fibrillation -BB was not restarted- patient has recent cocaine use, CTS consulted for evaluation or CABG, patient refusing surgery, if is not a candidate and continues to refuse, continue medical therapy with aspirin and Lipitor per cardiology. Patient will need CABG after C. difficile has resolved if patient agrees. - restarted BB- LOpressor 12.5 mg po q 8 04/05- monitor and adjust - ASA daily consulted - [facility] saw patient- will need surgery eventually- not a PCI candidate C-diff colitis- acute, hypervirulent strain -ID consulted, appreciate recommendations -Continue oral vancomycin to 500mg QID, -d/w Dr. Stokes- -per patient- stools- improving UTI - Urine culture with Klebsiella pneumoniae -ID changed cipro to cefepime (will avoid fluoroquinolones in C.diff settings) - d/w Dr. Stokes- Cefepime DC 04/05 Carotid artery disease with > 90% stenosis left ICA -vascular surgery consult appreciated and recommended medical treatment at this time -continue aspirin and statin. 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 History of peripheral artery disease -Per report status post course of IV cefazolin plus p.o. Levaquin. -bone scan done, Limited suboptimal study secondary to patient termination of the study prematurely - PT consulted. Tobacco abuse- still smokes half pack a day patient counseled History of alcohol use drinks 3-4 beers daily patient counseled History of cocaine use, counseled on cessation. 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 -Continue aspirin. PT consulted palliative care following. Lovenox for DVT prophylaxis
[2018-04-09] MEDS: Enoxaparin Inj 40 MG/0.4 ML Syringe SQ SCH (09:06)
[2018-04-09] MEDS: Metoprolol Tartrate 25 MG Tablet PO SCH ×3 (09:06→18:15)
--- NOTE | 2018-04-09 11:56 | P.PN ---
Subjective Interval history: no complains state stools better- small one - points to his forefinger- this much- soft no nausea or vomiting Physical Exam Vital signs: Vital Signs 04/08/18 12:00 04/08/18 16:00 04/08/18 20:00 Temperature 98.1 F 97.7 F Pulse Rate 66 99 H 71 Respiratory Rate 20 20 Blood Pressure 90/68 L 125/69 Pulse Oximetry 100 98 04/09/18 00:00 04/09/18 04:00 04/09/18 08:00 Temperature 97.8 F 97.8 F 97.3 F L Pulse Rate 57 L 87 63 Respiratory Rate 20 20 18 Blood Pressure 147/92 H 128/83 101/61 Pulse Oximetry 100 100 99 Intake & Output 04/08/18 04/09/18 04/09/18 18:59 06:59 18:59 Intake Total 480 / 480 120 / 120 Balance 480 / 480 120 / 120 Weight 58.8 kg Intake: Oral 480 / 480 120 / 120 Other: # Voids 4 2 Date of Last Bowel Movement 04/08/18 04/08/18 # Bowel Movements 4 1 - Urinary Catheter Management Indwelling Urethral Catheter Cath placed during this visit: yes, but has since been removed by the nurse Reason for continuing: Not indwelling catheter Removal date: 03/27/18 Removal time: 18:00 Results - Labs CBC & Chem 7: 04/06/18 14:30 04/06/18 14:30 Assessment and Plan - Plan 62-year-old male initially presented to the hospital with chest pain. Coronary artery disease- multivessel disease S/P cardiac cath presenting with atypical right sided chest pain Paroxsymal Atrial fibrillation -BB was not restarted- patient has recent cocaine use, CTS consulted for evaluation or CABG, patient refusing surgery, if is not a candidate and continues to refuse, continue medical therapy with aspirin and Lipitor per cardiology. Patient will need CABG after C. difficile has resolved if patient agrees. - restarted BB- LOpressor 12.5 mg po q 8 04/05- monitor and adjust - ASA daily consulted - [facility] saw patient- will need surgery eventually- not a PCI candidate Carotid artery disease with > 90% stenosis left ICA -vascular surgery consult appreciated and recommended medical treatment at this time -continue aspirin and statin. -outpatient f/up C-diff colitis- acute, hypervirulent strain -ID consulted, appreciate recommendations -Continue oral vancomycin to 500mg QID, -d/w Dr. Stokes- - stools- improving S/P Tx for UTI - Urine culture with Klebsiella pneumoniae -ID changed cipro to cefepime (will avoid fluoroquinolones in C.diff settings) - d/w Dr. 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 History of peripheral artery disease -Per report status post course of IV cefazolin plus p.o. Levaquin. -bone scan done, Limited suboptimal study secondary to patient termination of the study prematurely - PT consulted. Tobacco abuse- still smokes half pack a day patient counseled History of alcohol use drinks 3-4 beers daily patient counseled History of cocaine use, counseled on cessation. 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 -Continue aspirin. PT consulted palliative care following. Lovenox for DVT prophylaxis
--- NOTE | 2018-04-09 13:02 | P.PNCV ---
- Note Subjective/Hospital Course: A 62-year-old male from the [place]. Apparently was there yesterday, it was mentioned that he was having some chest discomfort, then he was sent immediately to the emergency room. The patient is a very poor historian; however, he did admit to having some intermittent left-sided chest discomfort. On arrival, there were some EKG changes thought to be elevation of the AVR. A STEMI alert was called. However, he did have ST depression in the inferior lateral leads. His troponin was 0.08. He underwent cardiac catheterization by Dr. Goel which showed the LAD had a 70% stenosis in the mid and distal portion. The small obtuse marginals had a 50% stenosis. The left circumflex was moderately sized with diffuse 70% stenosis and 90% in the proximal portion and a 90% lesion in the mid portion. The RCA had diffuse 80-90% throughout the proximal. LVEDP was 20. A 2D echo is pending to evaluate for valvulopathy and for ejection fraction. We were consulted to evaluate for coronary artery bypass graft. Note, the patient was recently released from the hospital on 02/05/2018. He was hospitalized from 01/18/2018- 02/05/2018 for osteomyelitis of the left foot. He was also found to have significant bilateral lower extremity peripheral arterial disease and underwent left common iliac, external iliac balloon angioplasty and stenting, left common femoral endarterectomy and patch angioplasty on 01/22/[address] Lamb. PMH: hypertension, hyperlipidemia, benign prostatic hypertrophy. The patient had significant enlarged prostate and urinary retention and was seen by Dr. Arroyo on his last admission.He has had a Quesada catheter in place and was supposed to have voiding trials in the long term, but was discharged 2017. Apparently per the home care nurse, the [place] stopped his Flomax. It is uncertain when he had his Quesada catheter changed. He was treated with IV antibiotics, cefazolin with his last dose being 02/14/2018 and also Levaquin p.o. for the left foot cellulitis and osteomyelitis. Chronic kidney disease, stage II, CVA about 4 years ago that left him with some left-sided weakness and chronic slurred speech. 03/26 stool + for cdiff/ on po vanc ID following UTI on cefepime 03/27 two loose stools yesterday, no stool this am feels weak CTA neck noted : 90% stenosis proximal left internal carotid artery / need to consult vascular sx consult PT high risk for surgery 03/28 sts data discussed with pt RISK SCORES About the STS Risk Calculator Procedure: CAB Only Risk of Mortality: 3.249% Morbidity or Mortality: 29.479% Long Length of Stay: 13.425% Short Length of Stay: 27.813% Permanent Stroke: 3.9% Prolonged Ventilation: 22.004% DSW Infection: 0.477% Renal Failure: 4.812% Reoperation: 10.666% 03/28 pt is still unclear of surgery, does want to have done if he " is feeling Sick" still having loose diarrhea stools , refused gallium bone scan today , not feeling well pt has limited mobility 2/2 hx of CVA , 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 Limited suboptimal study secondary to patient termination of the study prematurely. 2. Abnormal blood flow and blood pool activity which is nonspecific. ID following / may need rehab then bring back at later date to office to discuss possible surgery 04/08 spoke with pt again regarding any potential surgery he feels he is not prepared to undergo CABG at this time, if he should feel better in next couple of months or a year he will then consider. Will sign off at this time Objective: Vital Signs - 24 hr 04/08/18 16:00 04/08/18 20:00 04/09/18 00:00 Temperature 98.1 F 97.7 F 97.8 F Pulse Rate 99 H 71 57 L Respiratory Rate 20 20 20 Blood Pressure 90/68 L 125/69 147/92 H Pulse Oximetry 100 98 100 04/09/18 04:00 04/09/18 08:00 Temperature 97.8 F 97.3 F L Pulse Rate 87 63 Respiratory Rate 20 18 Blood Pressure 128/83 101/61 Pulse Oximetry 100 99 Result Diagrams: 04/06/18 14:30 04/06/18 14:30 - Plan (1) History of CVA with residual deficit Plan: on ASA, CTA neck noted, consult vascular surgery (2) ST elevation myocardial infarction (STEMI) Plan: ASA, statin , no BB for now (4) Crack cocaine use Plan: substance abuse counseling (5) Tobacco dependence Plan: tobacco cessation counseling (6) Clostridial gastroenteritis Plan: po vancomycin (7) Hx of osteomyelitis Plan: MRI left foot , no evidence of osteomyelitis infection (2) ST elevation myocardial infarction (STEMI) Qualifiers: Involved coronary artery: unspecified coronary artery Qualified Code(s): I21.3 - ST elevation (STEMI) myocardial infarction of unspecified site
--- NOTE | 2018-04-09 16:03 | P.PNCA ---
Subjective Interval history: No events overnight No complaints Physical Exam Vital signs: Vital Signs 04/08/18 20:00 04/09/18 00:00 04/09/18 04:00 Temperature 97.7 F 97.8 F 97.8 F Pulse Rate 71 57 L 87 Respiratory Rate 20 20 20 Blood Pressure 125/69 147/92 H 128/83 Pulse Oximetry 98 100 100 04/09/18 08:00 04/09/18 12:00 Temperature 97.3 F L Pulse Rate 63 79 Respiratory Rate 18 Blood Pressure 101/61 Pulse Oximetry 99 Intake & Output 04/08/18 04/09/18 04/09/18 18:59 06:59 18:59 Intake Total 480 / 480 120 / 120 Balance 480 / 480 120 / 120 Weight 58.8 kg Intake: Oral 480 / 480 120 / 120 Other: # Voids 4 2 Date of Last Bowel Movement 04/08/18 04/08/18 # Bowel Movements 4 1 Narrative: GENERAL: NAD SKIN: Warm and dry. HEAD: Atraumatic. Normocephalic. EYES: Pupils equal and round. No scleral icterus. No injection or drainage. ENT: No nasal bleeding or discharge. Mucous membranes pink and moist. NECK: Trachea midline. No JVD. CARDIOVASCULAR: Regular rate and rhythm. RESPIRATORY: No accessory muscle use. Clear to auscultation. Breath sounds equal bilaterally. GASTROINTESTINAL: Abdomen soft, non-tender, nondistended. Hepatic and splenic margins not palpable. MUSCULOSKELETAL: Extremities without clubbing, cyanosis, or edema. No obvious deformities. NEUROLOGICAL: Awake and alert. No obvious cranial nerve deficits. Motor grossly within normal limits. Five out of 5 muscle strength in the arms and legs. Normal speech. PSYCHIATRIC: Appropriate mood and affect; insight and judgment normal. - Urinary Catheter Management Indwelling Urethral Catheter Cath placed during this visit: yes, but has since been removed by the nurse Reason for continuing: Not indwelling catheter Removal date: 03/27/18 Removal time: 18:00 Assessment and Plan - Assessment (1) CAD (coronary artery disease) Code(s): I25.10 - Atherosclerotic heart disease of [place] coronary artery without angina pectoris Status: Acute (2) Crack cocaine use Code(s): F14.90 - Cocaine use, unspecified, uncomplicated Status: Acute (3) Tobacco dependence Code(s): F17.200 - Nicotine dependence, unspecified, uncomplicated Status: Acute - Plan 1) CAD/NSTEMI MVCAD CT surgery evaluation Not a PCI candidate overall Wants to hold off on surgery for now, CT surgery has signed off 2) EF 55-60% 3) Tobacco cessation 4) Crack cocaine cessation 5) Con't on medical therapy ASA 81 mg daily Lipitor 80mg daily 6) Tachyarrhythmia in short bursts, possible AFib vs PAT Does not want to be on anti-coagulation Ultimately does have risk of intracranial bleed as previously had one while not on anti-coagulation as well as crack-cocaine abuse, would not plan on starting chcf
[2018-04-10] MEDS: Enoxaparin Inj 40 MG/0.4 ML Syringe SQ SCH (10:09)
[2018-04-10] MEDS: Metoprolol Tartrate 25 MG Tablet PO SCH ×2 (10:10→22:01)
--- NOTE | 2018-04-10 12:35 | P.PN ---
Subjective Interval history: no complains stools much better- no diarrhea Physical Exam Vital signs: Vital Signs 04/09/18 16:00 04/09/18 20:00 04/09/18 21:35 Temperature 97.7 F 98.2 F Pulse Rate 77 71 Respiratory Rate 18 17 Blood Pressure 92/56 L 88/62 L 96/66 L Pulse Oximetry 99 96 04/10/18 00:00 04/10/18 04:00 04/10/18 08:00 Temperature 97.8 F 97.8 F 98.0 F Pulse Rate 68 53 L 70 Respiratory Rate 16 18 17 Blood Pressure 106/53 L 108/50 L 96/69 L Pulse Oximetry 100 100 97 04/10/18 11:18 04/10/18 12:00 Temperature 98.1 F Pulse Rate 70 71 Respiratory Rate 17 Blood Pressure 102/67 Pulse Oximetry 100 Intake & Output 04/09/18 04/10/18 04/10/18 18:59 06:59 18:59 Intake Total 720 / 720 360 / 360 Output Total 2 / 2 Balance 718 / 718 360 / 360 Weight 59.1 kg Intake: Oral 720 / 720 360 / 360 Output: Urine 2 / 2 Other: # Voids 2 Date of Last Bowel Movement 04/08/18 04/10/18 04/10/18 # Bowel Movements 1 1 - Urinary Catheter Management Indwelling Urethral Catheter Cath placed during this visit: yes, but has since been removed by the nurse Reason for continuing: Not indwelling catheter Removal date: 03/27/18 Removal time: 18:00 Results - Labs CBC & Chem 7: 04/06/18 14:30 04/06/18 14:30 Assessment and Plan - Plan 62-year-old male initially presented to the hospital with chest pain. Coronary artery disease- multivessel disease S/P cardiac cath presenting with atypical right sided chest pain Paroxsymal Atrial fibrillation -BB was not restarted- patient has recent cocaine use, CTS consulted for evaluation or CABG, patient refusing surgery, if is not a candidate and continues to refuse, continue medical therapy with aspirin and Lipitor per cardiology. Patient will need CABG after C. difficile has resolved if patient agrees. - restarted BB- LOpressor 12.5 mg po q 8 - HR and BP reviewed- decrease to 12.5 mg po bid - ASA daily consulted - [facility] saw patient- will need surgery eventually- not a PCI candidate Carotid artery disease with > 90% stenosis left ICA -vascular surgery consult appreciated and recommended medical treatment at this time -continue aspirin and statin. -outpatient f/up C-diff colitis- acute, hypervirulent strain -ID consulted, appreciate recommendations -Continue oral vancomycin to 500mg QID, -d/w Dr. Stokes- - stools- improving S/P Tx for UTI - Urine culture with Klebsiella pneumoniae -ID changed cipro to cefepime (will avoid fluoroquinolones in C.diff settings) - d/w Dr. 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 History of peripheral artery disease -Per report status post course of IV cefazolin plus p.o. Levaquin. -bone scan done, Limited suboptimal study secondary to patient termination of the study prematurely - PT consulted. Tobacco abuse- still smokes half pack a day patient counseled History of alcohol use drinks 3-4 beers daily patient counseled History of cocaine use, counseled on cessation. 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 -Continue aspirin. PT consulted palliative care following. Lovenox for DVT prophylaxis
--- NOTE | 2018-04-10 13:09 | P.PNCA ---
Subjective Interval history: No events overnight Up to the chair Physical Exam Vital signs: Vital Signs 04/09/18 16:00 04/09/18 20:00 04/09/18 21:35 Temperature 97.7 F 98.2 F Pulse Rate 77 71 Respiratory Rate 18 17 Blood Pressure 92/56 L 88/62 L 96/66 L Pulse Oximetry 99 96 04/10/18 00:00 04/10/18 04:00 04/10/18 08:00 Temperature 97.8 F 97.8 F 98.0 F Pulse Rate 68 53 L 70 Respiratory Rate 16 18 17 Blood Pressure 106/53 L 108/50 L 96/69 L Pulse Oximetry 100 100 97 04/10/18 11:18 04/10/18 12:00 Temperature 98.1 F Pulse Rate 70 71 Respiratory Rate 17 Blood Pressure 102/67 Pulse Oximetry 100 Intake & Output 04/09/18 04/10/18 04/10/18 18:59 06:59 18:59 Intake Total 720 / 720 360 / 360 Output Total 2 / 2 Balance 718 / 718 360 / 360 Weight 59.1 kg Intake: Oral 720 / 720 360 / 360 Output: Urine 2 / 2 Other: # Voids 2 Date of Last Bowel Movement 04/08/18 04/10/18 04/10/18 # Bowel Movements 1 1 Narrative: GENERAL: NAD SKIN: Warm and dry. HEAD: Atraumatic. Normocephalic. EYES: Pupils equal and round. No scleral icterus. No injection or drainage. ENT: No nasal bleeding or discharge. Mucous membranes pink and moist. NECK: Trachea midline. No JVD. CARDIOVASCULAR: Regular rate and rhythm. RESPIRATORY: No accessory muscle use. Clear to auscultation. Breath sounds equal bilaterally. GASTROINTESTINAL: Abdomen soft, non-tender, nondistended. Hepatic and splenic margins not palpable. MUSCULOSKELETAL: Extremities without clubbing, cyanosis, or edema. No obvious deformities. NEUROLOGICAL: Awake and alert. No obvious cranial nerve deficits. Motor grossly within normal limits. Five out of 5 muscle strength in the arms and legs. Normal speech. PSYCHIATRIC: Appropriate mood and affect; insight and judgment normal. - Urinary Catheter Management Indwelling Urethral Catheter Cath placed during this visit: yes, but has since been removed by the nurse Reason for continuing: Not indwelling catheter Removal date: 03/27/18 Removal time: 18:00 Assessment and Plan - Assessment (1) CAD (coronary artery disease) Code(s): I25.10 - Atherosclerotic heart disease of [place] coronary artery without angina pectoris Status: Acute (2) Crack cocaine use Code(s): F14.90 - Cocaine use, unspecified, uncomplicated Status: Acute (3) Tobacco dependence Code(s): F17.200 - Nicotine dependence, unspecified, uncomplicated Status: Acute - Plan 1) CAD/NSTEMI MVCAD CT surgery evaluation Not a PCI candidate overall Wants to hold off on surgery for now, CT surgery has signed off 2) EF 55-60% 3) Tobacco cessation 4) Crack cocaine cessation 5) Con't on medical therapy ASA 81 mg daily Lipitor 80mg daily 6) Tachyarrhythmia in short bursts, possible AFib vs PAT Does not want to be on anti-coagulation Ultimately does have risk of intracranial bleed as previously had one while not on anti-coagulation as well as crack-cocaine abuse, would not plan on starting fdc 7) Will see PRN, call with questions
[2018-04-11] MEDS: Metoprolol Tartrate 25 MG Tablet PO SCH (09:15)
[2018-04-11] MEDS: Enoxaparin Inj 40 MG/0.4 ML Syringe SQ SCH (09:15)
--- NOTE | 2018-04-11 12:05 | P.PN ---
Subjective Interval history: stools- denies diarrhea- "good" good po telemetry- sinus- reviewed goes in andnout of a fib- patient asymtpomatic Physical Exam Vital signs: Vital Signs 04/10/18 15:26 04/10/18 16:00 04/10/18 20:00 Temperature 98.1 F 98.4 F Pulse Rate 71 73 74 Respiratory Rate 17 16 Blood Pressure 90/50 L 109/61 Pulse Oximetry 100 90 L 04/10/18 20:11 04/10/18 23:08 04/11/18 00:00 Temperature 97.8 F Pulse Rate 85 86 Respiratory Rate 18 16 Blood Pressure 116/66 Pulse Oximetry 96 04/11/18 00:08 04/11/18 04:00 04/11/18 08:00 Temperature 97.7 F 98.0 F Pulse Rate 88 81 95 H Respiratory Rate 17 18 Blood Pressure 118/73 156/95 H Pulse Oximetry 93 L 100 Intake & Output 04/10/18 04/11/18 04/11/18 18:59 06:59 18:59 Intake Total 960 / 960 240 / 240 Balance 960 / 960 240 / 240 Weight 59.1 kg Intake: Oral 960 / 960 240 / 240 Other: # Voids 3 3 Date of Last Bowel Movement 04/10/18 04/11/18 # Bowel Movements 1 - Urinary Catheter Management Indwelling Urethral Catheter Cath placed during this visit: yes, but has since been removed by the nurse Reason for continuing: Not indwelling catheter Removal date: 03/27/18 Removal time: 18:00 Results - Labs CBC & Chem 7: 04/06/18 14:30 04/06/18 14:30 Assessment and Plan - Plan 62-year-old male initially presented to the hospital with chest pain. Coronary artery disease- multivessel disease S/P cardiac cath presenting with atypical right sided chest pain Paroxsymal Atrial fibrillation -BB was not restarted- patient has recent cocaine use, CTS consulted for evaluation or CABG, patient refusing surgery, if is not a candidate and continues to refuse, continue medical therapy with aspirin and Lipitor per cardiology. Patient will need CABG after C. difficile has resolved if patient agrees. - restarted BB- LOpressor 12.5 mg po q 8 up it again to 12.5 mg po q 8 today - monitor - ASA daily consulted - [facility] saw patient- will need surgery eventually- not a PCI candidate Carotid artery disease with > 90% stenosis left ICA -vascular surgery consult appreciated and recommended medical treatment at this time -continue aspirin and statin. -outpatient f/up C-diff colitis- acute, hypervirulent strain -ID consulted, appreciate recommendations -Continue oral vancomycin to 500mg QID, -d/w Dr. Stokes- - stools- improving S/P Tx for UTI - Urine culture with Klebsiella pneumoniae -ID changed cipro to cefepime (will avoid fluoroquinolones in C.diff settings) - d/w Dr. 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 History of peripheral artery disease -Per report status post course of IV cefazolin plus p.o. Levaquin. -bone scan done, Limited suboptimal study secondary to patient termination of the study prematurely - PT consulted. Tobacco abuse- still smokes half pack a day patient counseled History of alcohol use drinks 3-4 beers daily patient counseled History of cocaine use, counseled on cessation. 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 -Continue aspirin. PT consulted palliative care following. Lovenox for DVT prophylaxis
--- NOTE | 2018-04-11 12:46 | P.PNPAL ---
Reason for Visit Reason for visit: a. To assist with evaluation and management of symptoms including: Dyspnea, chest pain b. To assist medical decision maker(s) with: better understanding of current medical conditions; weighing benefits/burdens of medical treatment options; making medical treatment decisions. Subjective Subjective/Interval History: Patient seen to follow-up on symptom management of chest pain and dyspnea. Remained stable. No new labs or imaging. Getting out of bed with PT ambulating well with some standby assist, walker. Diarrhea has improved having 1 formed BM a day. Still with some episodes A. fib training with sinus rhythm. Eating well. CV surgery has signed off. Patient seen in room after he has completed some ambulation around the room. SEARCH MARKETING COORDINATOR is vital signs. He is alert, oriented reasonable insight into hospitalization. Me his stool is improving he is having 1 formed BM a day. Denies any chest pain for the past 2 days. Denies any dyspnea with ambulation. No swelling reported. Denies nausea or GI complaints. No other complaints of pain. He has been in touch with his family. Review with him healthcare surrogate designation that was previously discussed with other palliative provider he again indicates he would want his daughter Karol he is in agreement to sign this form today review with him that this would name her as a healthcare surrogate in the event that he is incapacitated, he wishes to sign this today. 2 copies left at bedside for him and daughter, as well as faxed to medical records. . Advance Directives Advance Directives Date on File: 04/11/18 Health Care Surrogate Name and Number: Daughter Karol Objective Vital Signs: Vital Signs 04/10/18 15:26 04/10/18 16:00 04/10/18 20:00 Temperature 98.1 F 98.4 F Pulse Rate 71 73 74 Respiratory Rate 17 16 Blood Pressure 90/50 L 109/61 Pulse Oximetry 100 90 L 04/10/18 20:11 04/10/18 23:08 04/11/18 00:00 Temperature 97.8 F Pulse Rate 85 86 Respiratory Rate 18 16 Blood Pressure 116/66 Pulse Oximetry 96 04/11/18 00:08 04/11/18 04:00 04/11/18 08:00 Temperature 97.7 F 98.0 F Pulse Rate 88 81 95 H Respiratory Rate 17 18 Blood Pressure 118/73 156/95 H Pulse Oximetry 93 L 100 Intake & Output 04/10/18 04/11/18 04/11/18 18:59 06:59 18:59 Intake Total 960 / 960 240 / 240 Balance 960 / 960 240 / 240 Weight 59.1 kg Intake: Oral 960 / 960 240 / 240 Other: # Voids 3 3 Date of Last Bowel Movement 04/10/18 04/11/18 # Bowel Movements 1 Physical Exam: CONSTITUTIONAL/GENERAL: This is an adequately nourished patient, in no apparent distress. TUBES/LINES/DRAINS: PIV upper extremity SKIN: No jaundice, rashes, or lesions. No wounds seen anteriorly. Skin temperature appropriate. Not diaphoretic. NECK: Trachea midline. Supple, nontender. No palpable thyroid enlargement or nodularity. CARDIOVASCULAR: regular rhythm, no murmur. No peripheral edema. RESPIRATORY/CHEST: Symmetric, unlabored respirations. on room air. Clear to auscultation. Breath sounds equal bilaterally. GASTROINTESTINAL: Abdomen soft, flat, non-tender, nondistended. No palpable masses. No guarding. Bowel sounds present. MUSCULOSKELETAL: Extremities without clubbing, cyanosis, or edema. No joint tenderness or effusion noted. No calf tenderness. NEUROLOGICAL: Awake and alert. oriented x2-3, forgetful at times. Motor and sensory grossly within normal limits. Follows commands. Moves all extremities. PSYCHIATRIC: No obvious anxiety/depression. no apparent hallucinations or other psychotic thought process. . Diagnostic Tests Result Diagrams: 04/06/18 14:30 04/06/18 14:30 Procedures: 03/24: Cardiac catheterization Assessment and Plan Pertinent Non-Medical Issues: Psychosocial: He was born in [place] and joined the [employer] as a young man serving 23 years and retiring. He was active during the [employer] conflict but denies any service related injury. 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 He was and had 3 children but is close to his daughter Karol, and wishes for her to be his healthcare surrogate, should he be unable to make decisions for himself. Spiritual: Operations Specialist available. Legal: Healthcare surrogate form completed 04/11/18, names daughter Karol. Ethical issues impacting care: None known. . Important Contacts: Daughter: Karol Sister: Paty Machado Prognosis: His prognosis is guarded. He is 62 years old with a long history of tobacco, alcohol and cocaine use. He has peripheral artery disease with a 90% carotid stenosis, triple-vessel disease, possible osteomyelitis of the left foot, Clostridium difficile infection and general debility. He is at elevated risk for cardiovascular complications and compromise but at this time wishes to be an FULL CODE. He has had a prior hemorrhagic stroke, and given his substance abuse history and peripheral artery disease, is at risk for recurrent complications and decline. . Code Status: Full Code Plan: PLAN: Legal decision maker: At this time the patient is oriented but has slightly limited insight. He cooperates with his daughter, Karol, for decision-making is named daughter Karol as healthcare surrogate . Goals: Aggressive. Still discussing possibility of proceeding with heart surgery once infection clear. CODE STATUS: FULL CODE SYMPTOMS: * Dyspnea: Multifactorial to include history of tobacco use, smoking crack cocaine, coronary artery disease and debility. It primarily occurs with activity and resolves with rest. He denies dyspnea today indicates ambulated about around the room without limiting dyspnea * Chest pain: He has chest discomfort with activity, described as pressure, occurring with exertion, resolving with rest, located at the center of his chest. He has a history of atrial fibrillation and is seen on telemetry to have episodes of paroxysmal A. fib which may be contributing to his symptoms of chest pain and dyspnea. Drug screen was positive for benzodiazepines and cocaine metabolites on admission, so beta-blockade was held. His blood pressure was initially borderline low so ROXANE inhibitors were also not initiated. Lopressor started 04/05. He indicates no chest pain today or yesterday. Palliative care will continue to follow the patient during hospital course as condition evolves, to assist patient/decision-maker with understanding of their medical conditions, weighing benefits/burdens of treatment options, for clarification of goals of treatment. Additionally will assist with any symptoms of palliative concern. . Attestation Attestation: To help prompt me to consider important information that might be impacting today's encounter and assessment, information from prior notes written by myself or my colleagues may have been "brought forward" into today's note. My signature on this note, however, is an attestation that I personally performed the exam, history, and/or decision-making noted today, and, unless otherwise indicated, the interactions with patient, family, and staff as well as the review of records all occurred today. I also attest that the listed assessment and stated plan reflect my best clinical judgment today based on the combination of historical information, prior notes, and today's exam/ interactions. When time spent is documented, it refers only to time spent today by the signer, or if indicated, combined time spent today by collaborating physician/nurse practitioner.
[2018-04-11] MEDS ORDERED: Metoprolol Tartrate 25 MG Tablet PO SCH (13:00)
[2018-04-11 13:43] LABS: Anion Gap 6 meq/L (5-15); Blood Urea Nitrogen 17 mg/dL (7-18); Calcium 9.1 mg/dL (8.5-10.1); Carbon Dioxide 28.8 meq/L (21.0-32.0); Chloride 107 meq/L (98-107); Glomerular Filtration Rate Greater Than 89 mL/min (>89); Glucose,Random 72 mg/dL (74-106); Potassium 3.9 meq/L (3.5-5.1); Sodium 142 meq/L (136-145)
--- NOTE | 2018-04-11 13:51 | P.PNCA ---
Subjective Interval history: No events overnight No complaints Physical Exam Vital signs: Vital Signs 04/10/18 15:26 04/10/18 16:00 04/10/18 20:00 Temperature 98.1 F 98.4 F Pulse Rate 71 73 74 Respiratory Rate 17 16 Blood Pressure 90/50 L 109/61 Pulse Oximetry 100 90 L 04/10/18 20:11 04/10/18 23:08 04/11/18 00:00 Temperature 97.8 F Pulse Rate 85 86 Respiratory Rate 18 16 Blood Pressure 116/66 Pulse Oximetry 96 04/11/18 00:08 04/11/18 04:00 04/11/18 08:00 Temperature 97.7 F 98.0 F Pulse Rate 88 81 95 H Respiratory Rate 17 18 Blood Pressure 118/73 156/95 H Pulse Oximetry 93 L 100 04/11/18 12:00 Temperature 97.4 F L Pulse Rate 71 Respiratory Rate 17 Blood Pressure 137/62 Pulse Oximetry 98 Intake & Output 04/10/18 04/11/18 04/11/18 18:59 06:59 18:59 Intake Total 960 / 960 240 / 240 Balance 960 / 960 240 / 240 Weight 59.1 kg Intake: Oral 960 / 960 240 / 240 Other: # Voids 3 3 Date of Last Bowel Movement 04/10/18 04/11/18 # Bowel Movements 1 Narrative: GENERAL: NAD SKIN: Warm and dry. HEAD: Atraumatic. Normocephalic. EYES: Pupils equal and round. No scleral icterus. No injection or drainage. ENT: No nasal bleeding or discharge. Mucous membranes pink and moist. NECK: Trachea midline. No JVD. CARDIOVASCULAR: Regular rate and rhythm. RESPIRATORY: No accessory muscle use. Clear to auscultation. Breath sounds equal bilaterally. GASTROINTESTINAL: Abdomen soft, non-tender, nondistended. Hepatic and splenic margins not palpable. MUSCULOSKELETAL: Extremities without clubbing, cyanosis, or edema. No obvious deformities. NEUROLOGICAL: Awake and alert. No obvious cranial nerve deficits. Motor grossly within normal limits. Five out of 5 muscle strength in the arms and legs. Normal speech. PSYCHIATRIC: Appropriate mood and affect; insight and judgment normal. - Urinary Catheter Management Indwelling Urethral Catheter Cath placed during this visit: yes, but has since been removed by the nurse Reason for continuing: Not indwelling catheter Removal date: 03/27/18 Removal time: 18:00 Assessment and Plan - Assessment (1) CAD (coronary artery disease) Code(s): I25.10 - Atherosclerotic heart disease of [place] coronary artery without angina pectoris Status: Acute (2) Crack cocaine use Code(s): F14.90 - Cocaine use, unspecified, uncomplicated Status: Acute (3) Tobacco dependence Code(s): F17.200 - Nicotine dependence, unspecified, uncomplicated Status: Acute - Plan 1) CAD/NSTEMI MVCAD CT surgery evaluation Not a PCI candidate overall Wants to hold off on surgery for now, CT surgery has signed off 2) EF 55-60% 3) Tobacco cessation 4) Crack cocaine cessation 5) Con't on medical therapy ASA 81 mg daily Lipitor 80mg daily 6) Tachyarrhythmia in short bursts, possible AFib vs PAT Does not want to be on anti-coagulation Ultimately does have risk of intracranial bleed as previously had one while not on anti-coagulation as well as crack-cocaine abuse, would not plan on starting usp Will plan to change Lopressor to Cardizem to help heart rate control as well avoiding BB therapy
[2018-04-11] MEDS: dilTIAZem 30 MG Tablet PO SCH ×2 (17:59→21:05)
[2018-04-12] MEDS: Enoxaparin Inj 40 MG/0.4 ML Syringe SQ SCH (08:53)
[2018-04-12] MEDS: dilTIAZem 30 MG Tablet PO SCH ×2 (08:53→12:40)
--- NOTE | 2018-04-12 10:00 | P.PN ---
Subjective Interval history: d/w staff nurse and patient- stools more formed good po telemetry- patient foes into burst of a fib, PAT - then sinus asymptomatic Physical Exam Vital signs: Vital Signs 04/11/18 12:00 04/11/18 16:00 04/11/18 20:00 Temperature 97.4 F L 98.3 F 98.1 F Pulse Rate 71 69 86 Respiratory Rate 17 17 18 Blood Pressure 137/62 92/55 L 108/57 L Pulse Oximetry 98 98 100 04/12/18 00:00 04/12/18 04:00 04/12/18 08:00 Temperature 97.9 F 97.5 F L Pulse Rate 67 61 64 Respiratory Rate 18 18 Blood Pressure 95/63 L 133/66 Pulse Oximetry 100 91 L Intake & Output 04/11/18 04/12/18 04/12/18 18:59 06:59 18:59 Intake Total 480 / 480 Output Total 460 / 460 Balance Weight 60.8 kg Intake: Oral 480 / 480 Output: Urine 460 / 460 Other: # Voids 3 Date of Last Bowel Movement 04/11/18 04/11/18 04/11/18 - Urinary Catheter Management Indwelling Urethral Catheter Cath placed during this visit: yes, but has since been removed by the nurse Reason for continuing: Not indwelling catheter Removal date: 03/27/18 Removal time: 18:00 Results - Labs CBC & Chem 7: 04/06/18 14:30 04/11/18 13:08 Laboratory Results - last 24 hr 04/11/18 13:08 Sodium 142 Potassium 3.9 Chloride 107 Carbon Dioxide 28.8 Anion Gap 6 BUN 17 Creatinine 1.00 Estimated GFR Greater than 89 Random Glucose 72 L Calcium 9.1 Assessment and Plan - Plan 62-year-old male initially presented to the hospital with chest pain. Coronary artery disease- multivessel disease S/P cardiac cath presenting with atypical right sided chest pain Paroxsymal Atrial fibrillation- rate variable EF 55-60% -BB was not restarted- patient has recent cocaine use, CTS consulted for evaluation or CABG, patient refusing surgery, if is not a candidate and continues to refuse, continue medical therapy with aspirin and Lipitor per cardiology. Patient will need CABG after C. difficile has resolved if patient agrees. - ASA daily consulted - [facility]- will need surgery eventually- not a PCI candidate - seen by Cardiology- 8/10- BB- discontinued- started on Cardizem 60 mg po qid- monitor and adjust Carotid artery disease with > 90% stenosis left ICA -vascular surgery consult appreciated and recommended medical treatment at this time -continue aspirin and statin. -outpatient f/up C-diff colitis- acute, hypervirulent strain -ID consulted, appreciate recommendations -Continue oral vancomycin - 500mg QID - Dr. Stokes-ID ff - stools- improving - less and more formed - BMP good 04/11 S/P Tx for UTI - Urine culture with Klebsiella pneumoniae -ID changed cipro to cefepime (will avoid fluoroquinolones in C.diff settings) - d/w Dr. Stokes- Cefepime DC 04/05 History of obstructive uropathy secondary to enlarged prostate History of UTI PSAE -Quesada catheter -removed- voiding well -cont Flomax 0.4 mg daily - BMP 04/11- good Status post treatment course for osteomyelitis of the left metatarsal area. History of peripheral artery disease -Per report status post course of IV cefazolin plus p.o. Levaquin. -bone scan done, Limited suboptimal study secondary to patient termination of the study prematurely - PT consulted. Tobacco abuse- still smokes half pack a day patient counseled History of alcohol use drinks 3-4 beers daily patient counseled History of cocaine use, counseled on cessation. 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 -Continue aspirin. PT consulted palliative care following. Lovenox for DVT prophylaxis
[2018-04-12] MEDS ORDERED: dilTIAZem 30 MG Tablet PO ONE (14:39)
--- NOTE | 2018-04-12 14:39 | P.PNCA ---
Subjective Interval history: No events overnight Heart rates mostly controlled with some episodes of Afib in short bursts Physical Exam Vital signs: Vital Signs 04/11/18 16:00 04/11/18 20:00 04/12/18 00:00 Temperature 98.3 F 98.1 F 97.9 F Pulse Rate 69 86 67 Respiratory Rate 17 18 18 Blood Pressure 92/55 L 108/57 L 95/63 L Pulse Oximetry 98 100 100 04/12/18 04:00 04/12/18 08:00 04/12/18 12:00 Temperature 97.5 F L 98.0 F Pulse Rate 61 99 H 72 Respiratory Rate 18 20 Blood Pressure 133/66 164/103 H Pulse Oximetry 91 L 98 04/12/18 14:10 04/12/18 14:30 Temperature Pulse Rate Respiratory Rate Blood Pressure 86/54 L 86/58 L Pulse Oximetry Intake & Output 04/11/18 04/12/18 04/12/18 18:59 06:59 18:59 Intake Total 480 / 480 Output Total 460 / 460 Balance Weight 60.8 kg Intake: Oral 480 / 480 Output: Urine 460 / 460 Other: # Voids 3 Date of Last Bowel Movement 04/11/18 04/11/18 04/11/18 Narrative: GENERAL: NAD SKIN: Warm and dry. HEAD: Atraumatic. Normocephalic. EYES: Pupils equal and round. No scleral icterus. No injection or drainage. ENT: No nasal bleeding or discharge. Mucous membranes pink and moist. NECK: Trachea midline. No JVD. CARDIOVASCULAR: Regular rate and rhythm. RESPIRATORY: No accessory muscle use. Clear to auscultation. Breath sounds equal bilaterally. GASTROINTESTINAL: Abdomen soft, non-tender, nondistended. Hepatic and splenic margins not palpable. MUSCULOSKELETAL: Extremities without clubbing, cyanosis, or edema. No obvious deformities. NEUROLOGICAL: Awake and alert. No obvious cranial nerve deficits. Motor grossly within normal limits. Five out of 5 muscle strength in the arms and legs. Normal speech. PSYCHIATRIC: Appropriate mood and affect; insight and judgment normal. - Urinary Catheter Management Indwelling Urethral Catheter Cath placed during this visit: yes, but has since been removed by the nurse Reason for continuing: Not indwelling catheter Removal date: 03/27/18 Removal time: 18:00 Assessment and Plan - Assessment (1) CAD (coronary artery disease) Code(s): I25.10 - Atherosclerotic heart disease of [place] coronary artery without angina pectoris Status: Acute (2) Crack cocaine use Code(s): F14.90 - Cocaine use, unspecified, uncomplicated Status: Acute (3) Tobacco dependence Code(s): F17.200 - Nicotine dependence, unspecified, uncomplicated Status: Acute - Plan 1) CAD/NSTEMI MVCAD CT surgery evaluation Not a PCI candidate overall Wants to hold off on surgery for now, CT surgery has signed off 2) EF 55-60% 3) Tobacco cessation 4) Crack cocaine cessation 5) Con't on medical therapy ASA 81 mg daily Lipitor 80mg daily 6) Tachyarrhythmia in short bursts, possible AFib vs PAT Does not want to be on anti-coagulation Ultimately does have risk of intracranial bleed as previously had one while not on anti-coagulation as well as crack-cocaine abuse, would not plan on starting care home Will plan to change Lopressor to Cardizem to help heart rate control as well avoiding BB therapy Increase Cardizem
[2018-04-12] MEDS ORDERED: Sod Chloride 0.9% Inj 1,000 ML IV.SIG ONE (14:58)
[2018-04-12 16:51] LABS: Baso # (Auto) 0.1 th/mm3 (0.0-0.2); Baso % (Auto) 1.5 % (0.0-2.0); Eos # (Auto) 0.1 th/mm3 (0.0-0.4); Eos % (Auto) 1.1 % (0.0-4.0); Hematocrit 33.7 % (39.0-51.0); Lymph # (Auto) 2.2 th/mm3 (1.0-4.8); Lymph % (Auto) 22.1 % (9.0-44.0); Mean Corpuscular HGB Conc 32.7 % (32.0-36.0); Mean Corpuscular Hemoglobin 24.9 pg (27.0-34.0); Mean Corpuscular Volume 76.3 fL (80.0-100.0); Mono # (Auto) 0.8 th/mm3 (0.0-0.9); Mono % (Auto) 8.2 % (0.0-8.0); Neut # (Auto) 6.7 th/mm3 (1.8-7.7); Neut % (Auto) 67.1 % (16.0-70.0); Platelet Count 199 th/mm3 (150-450); Red Blood Count 4.42 mil/mm3 (4.50-5.90); Red Cell Distribution Width 17.2 % (11.6-17.2); White Blood Count 10.1 th/mm3 (4.0-11.0)
[2018-04-12] MEDS: dilTIAZem 60 MG Tablet PO SCH ×2 (18:01→20:40)
[2018-04-13] MEDS: dilTIAZem 60 MG Tablet PO SCH ×3 (09:45→18:24)
[2018-04-13] MEDS: Enoxaparin Inj 40 MG/0.4 ML Syringe SQ SCH (09:46)
--- NOTE | 2018-04-13 10:47 | P.PNIM ---
Subjective Interval history: f/u; CAD resting comfortably with no distress. no chest pain or sob. stool is still soft. no fever. BP trend noted. d/w the RN. Physical Exam Vital signs: Vital Signs 04/12/18 12:00 04/12/18 14:10 04/12/18 14:30 Temperature 98.1 F Pulse Rate 76 Respiratory Rate 20 Blood Pressure 88/50 L 86/54 L 86/58 L Pulse Oximetry 97 04/12/18 16:00 04/12/18 17:40 04/12/18 18:00 Temperature 98.3 F Pulse Rate 63 Respiratory Rate 20 Blood Pressure 110/70 90/60 L 110/70 Pulse Oximetry 98 04/12/18 20:00 04/13/18 00:00 04/13/18 04:00 Temperature 98.0 F 98.1 F 97.6 F Pulse Rate 65 114 H 98 H Respiratory Rate 16 18 16 Blood Pressure 87/52 L 123/65 148/109 H Pulse Oximetry 98 100 100 04/13/18 08:00 Temperature 97.6 F Pulse Rate 86 Respiratory Rate 20 Blood Pressure 100/62 Pulse Oximetry 99 Intake & Output 04/12/18 04/13/18 04/13/18 18:59 06:59 18:59 Intake Total 120 / 120 720 / 720 Balance 120 / 120 720 / 720 Weight 61.2 kg Intake: Oral 120 / 120 720 / 720 Other: # Voids 1 3 Date of Last Bowel Movement 04/11/18 04/13/18 04/13/18 # Bowel Movements 2 1 - Constitutional no acute distress - Routine Respiratory Exam Present: CTA bilaterally - Routine Cardiovascular Exam Present: RRR - Routine Abdominal Exam Present: soft - Routine Extremities Exam Comments: no pedal edema. - Routine Neurological Exam Present: alert, oriented X3 - Urinary Catheter Management Indwelling Urethral Catheter Cath placed during this visit: yes, but has since been removed by the nurse Reason for continuing: Not indwelling catheter Removal date: 03/27/18 Removal time: 18:00 Results - Labs CBC & Chem 7: 04/12/18 16:18 04/11/18 13:08 Laboratory Results - last 24 hr 04/12/18 16:18 WBC 10.1 RBC 4.42 L Hgb 11.0 L Hct 33.7 L MCV 76.3 L MCH 24.9 L MCHC 32.7 RDW 17.2 Plt Count 199 MPV 8.0 Neut % (Auto) 67.1 Lymph % (Auto) 22.1 [place] % (Auto) 8.2 H Eos % (Auto) 1.1 Baso % (Auto) 1.5 Neut # (Auto) 6.7 Lymph # (Auto) 2.2 [place] # (Auto) 0.8 Eos # (Auto) 0.1 Baso # (Auto) 0.1 WBC Differential . Differential Comment Auto diff final Assessment and Plan - Plan Coronary artery disease- multivessel disease S/P cardiac cath presenting with atypical right sided chest pain Paroxsymal Atrial fibrillation- rate variable EF 55-60% -BB was not restarted- patient has recent cocaine use, CTS consulted for evaluation or CABG, patient refusing surgery, if is not a candidate and continues to refuse, continue medical therapy with aspirin and Lipitor per cardiology. Patient will need CABG after C. difficile has resolved if patient agrees. - ASA daily consulted - [facility]- will need surgery eventually- not a PCI candidate- patient is not willing to have the surgery done at this time- [facility] has signed off. - seen by Cardiology- 04/11- BB- discontinued- started on Cardizem 60 mg po qid- will change to tid due to low-normal BP's- continue to monitor and adjust Carotid artery disease with > 90% stenosis left ICA -vascular surgery consult appreciated and recommended medical treatment at this time -continue aspirin and statin. -outpatient f/up C-diff colitis- acute, hypervirulent strain -ID consulted, appreciate recommendations -Continue oral vancomycin - 500mg QID - Dr. Stokes-ID ff S/P Tx for UTI - Urine culture with Klebsiella pneumoniae -ID changed cipro to cefepime (will avoid fluoroquinolones in C.diff settings) - d/w Dr. Stokes- Cefepime DC'ed 04/05 History of obstructive uropathy secondary to enlarged prostate History of UTI PSAE -[place]ues[place] catheter -removed- voiding well -cont Flomax 0.4 mg daily - BMP 04/11- good Status post treatment course for osteomyelitis of the left metatarsal area. History of peripheral artery disease -Per report status post course of IV cefazolin plus p.o. Levaquin. -bone scan done, Limited suboptimal study secondary to patient termination of the study prematurely - PT consulted. Tobacco abuse- still smokes half pack a day patient counseled History of alcohol use drinks 3-4 beers daily patient counseled History of cocaine use, counseled on cessation. 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 -Continue aspirin. PT consulted palliative care following. Discharge Planning: *
--- NOTE | 2018-04-13 16:09 | P.PNCA ---
Subjective Interval history: No complaints Heart rates mostly controlled, still with occasional AFib with RVR Physical Exam Vital signs: Vital Signs 04/12/18 17:40 04/12/18 18:00 04/12/18 20:00 Temperature 98.0 F Pulse Rate 65 Respiratory Rate 16 Blood Pressure 90/60 L 110/70 87/52 L Pulse Oximetry 98 04/13/18 00:00 04/13/18 04:00 04/13/18 08:00 Temperature 98.1 F 97.6 F 97.6 F Pulse Rate 114 H 98 H 80 Respiratory Rate 18 16 20 Blood Pressure 123/65 148/109 H 100/62 Pulse Oximetry 100 100 99 04/13/18 12:00 Temperature Pulse Rate 101 H Respiratory Rate Blood Pressure Pulse Oximetry Intake & Output 04/12/18 04/13/18 04/13/18 18:59 06:59 18:59 Intake Total 120 / 120 720 / 720 Balance 120 / 120 720 / 720 Weight 61.2 kg Intake: Oral 120 / 120 720 / 720 Other: # Voids 1 3 Date of Last Bowel Movement 04/11/18 04/13/18 04/13/18 # Bowel Movements 2 1 Narrative: GENERAL: NAD SKIN: Warm and dry. HEAD: Atraumatic. Normocephalic. EYES: Pupils equal and round. No scleral icterus. No injection or drainage. ENT: No nasal bleeding or discharge. Mucous membranes pink and moist. NECK: Trachea midline. No JVD. CARDIOVASCULAR: Regular rate and rhythm. RESPIRATORY: No accessory muscle use. Clear to auscultation. Breath sounds equal bilaterally. GASTROINTESTINAL: Abdomen soft, non-tender, nondistended. Hepatic and splenic margins not palpable. MUSCULOSKELETAL: Extremities without clubbing, cyanosis, or edema. No obvious deformities. NEUROLOGICAL: Awake and alert. No obvious cranial nerve deficits. Motor grossly within normal limits. Five out of 5 muscle strength in the arms and legs. Normal speech. PSYCHIATRIC: Appropriate mood and affect; insight and judgment normal. - Urinary Catheter Management Indwelling Urethral Catheter Cath placed during this visit: yes, but has since been removed by the nurse Reason for continuing: Not indwelling catheter Removal date: 03/27/18 Removal time: 18:00 Assessment and Plan - Assessment (1) CAD (coronary artery disease) Code(s): I25.10 - Atherosclerotic heart disease of [place] coronary artery without angina pectoris Status: Acute (2) Crack cocaine use Code(s): F14.90 - Cocaine use, unspecified, uncomplicated Status: Acute (3) Tobacco dependence Code(s): F17.200 - Nicotine dependence, unspecified, uncomplicated Status: Acute - Plan 1) CAD/NSTEMI MVCAD CT surgery evaluation Not a PCI candidate overall Wants to hold off on surgery for now, CT surgery has signed off 2) EF 55-60% 3) Tobacco cessation 4) Crack cocaine cessation 5) Con't on medical therapy ASA 81 mg daily Lipitor 80mg daily 6) Tachyarrhythmia in short bursts, possible AFib vs PAT Does not want to be on anti-coagulation Ultimately does have risk of intracranial bleed as previously had one while not on anti-coagulation as well as crack-cocaine abuse, would not plan on starting prison Will plan to change Lopressor to Cardizem to help heart rate control as well avoiding BB therapy Cardizem increased to 60mg QID but mild hypotension so changed to TID
[2018-04-14] MEDS: dilTIAZem 60 MG Tablet PO SCH ×3 (09:14→17:17)
[2018-04-14] MEDS: Enoxaparin Inj 40 MG/0.4 ML Syringe SQ SCH (09:15)
--- NOTE | 2018-04-14 11:59 | P.PNIM ---
Subjective Interval history: in no acute distress. no chest pain or sob. BP trend noted. d/w the RN and no acute issues over night. Physical Exam Vital signs: Vital Signs 04/13/18 12:00 04/13/18 16:00 04/13/18 20:00 Temperature 98.0 F 97.9 F 97.6 F Pulse Rate 87 66 73 Respiratory Rate 20 20 20 Blood Pressure 129/74 136/95 H 100/51 L Pulse Oximetry 100 100 99 04/14/18 00:00 04/14/18 04:00 04/14/18 08:00 Temperature 98.0 F 97.8 F 97.7 F Pulse Rate 74 78 66 Respiratory Rate 18 18 20 Blood Pressure 113/66 146/80 H 124/71 Pulse Oximetry 99 100 99 Intake & Output 04/13/18 04/14/18 04/14/18 18:59 06:59 18:59 Intake Total 240 / 240 120 / 120 Balance 240 / 240 120 / 120 Weight 60.2 kg Intake: Oral 240 / 240 120 / 120 Other: # Voids 3 2 Date of Last Bowel Movement 04/13/18 04/13/18 # Bowel Movements 2 - Constitutional no acute distress - Routine Respiratory Exam Present: CTA bilaterally - Routine Cardiovascular Exam Present: RRR - Routine Abdominal Exam Present: soft - Routine Extremities Exam Comments: no pedal edema. - Routine Neurological Exam Present: alert, oriented X3 - Urinary Catheter Management Indwelling Urethral Catheter Cath placed during this visit: yes, but has since been removed by the nurse Reason for continuing: Not indwelling catheter Removal date: 03/27/18 Removal time: 18:00 Results - Labs CBC & Chem 7: 04/12/18 16:18 04/11/18 13:08 Assessment and Plan - Plan Coronary artery disease- multivessel disease S/P cardiac cath presenting with atypical right sided chest pain Paroxysmal Atrial fibrillation- rate variable EF 55-60% -BB was not restarted- patient has recent cocaine use, CTS consulted for evaluation or CABG, patient refusing surgery, if is not a candidate and continues to refuse, continue medical therapy with aspirin and Lipitor per cardiology. Patient will need CABG after C. difficile has resolved if patient agrees. - ASA daily - [facility]- will need surgery eventually- not a PCI candidate- patient is not willing to have the surgery done at this time- [facility] has signed off. - seen by Cardiology- 04/11- BB- discontinued- started on Cardizem 60 mg po qid- changed to tid due to low-normal BP's- continue to monitor and adjust as needed. Carotid artery disease with > 90% stenosis left ICA -vascular surgery consult appreciated and recommended medical treatment at this time -continue aspirin and statin. -outpatient f/up C-diff colitis- acute, hypervirulent strain -ID consulted, appreciate recommendations -Continue oral vancomycin - 500mg QID - Dr. Stokes-ID ff S/P Tx for UTI - Urine culture with Klebsiella pneumoniae -ID changed cipro to cefepime (will avoid fluoroquinolones in C.diff settings) - d/w Dr. Stokes- Cefepime DC'ed 04/05 History of obstructive uropathy secondary to enlarged prostate History of UTI PSAE -Quesada catheter -removed- voiding well -cont Flomax 0.4 mg daily - [facility] 04/11- good Status post treatment course for osteomyelitis of the left metatarsal area. History of peripheral artery disease -Per report status post course of IV cefazolin plus p.o. Levaquin. -bone scan done, Limited suboptimal study secondary to patient termination of the study prematurely - PT consulted. Tobacco abuse- still smokes half pack a day patient counseled History of alcohol use drinks 3-4 beers daily patient counseled History of cocaine use, counseled on cessation. 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 -Continue aspirin. PT consulted palliative care following. Discharge Planning: dc planning to rehab vs home.
--- NOTE | 2018-04-14 16:17 | P.PNCA ---
Subjective Interval history: No events overnight Heart rates elevated intermittently Did have episodes of hypotension Physical Exam Vital signs: Vital Signs 04/13/18 20:00 04/14/18 00:00 04/14/18 04:00 Temperature 97.6 F 98.0 F 97.8 F Pulse Rate 73 74 78 Respiratory Rate 20 18 18 Blood Pressure 100/51 L 113/66 146/80 H Pulse Oximetry 99 99 100 04/14/18 08:00 04/14/18 12:00 Temperature 97.7 F 97.8 F Pulse Rate 66 82 Respiratory Rate 20 20 Blood Pressure 124/71 92/52 L Pulse Oximetry 99 97 Intake & Output 04/13/18 04/14/18 04/14/18 18:59 06:59 18:59 Intake Total 240 / 240 120 / 120 Output Total Balance 240 / 240 120 / 120 -1 / -1 Weight 60.2 kg Intake: Oral 240 / 240 120 / 120 Output: Stool Other: # Voids 3 2 Date of Last Bowel Movement 04/13/18 04/13/18 04/14/18 # Bowel Movements 2 Narrative: GENERAL: NAD SKIN: Warm and dry. HEAD: Atraumatic. Normocephalic. EYES: Pupils equal and round. No scleral icterus. No injection or drainage. ENT: No nasal bleeding or discharge. Mucous membranes pink and moist. NECK: Trachea midline. No JVD. CARDIOVASCULAR: Regular rate and rhythm. RESPIRATORY: No accessory muscle use. Clear to auscultation. Breath sounds equal bilaterally. GASTROINTESTINAL: Abdomen soft, non-tender, nondistended. Hepatic and splenic margins not palpable. MUSCULOSKELETAL: Extremities without clubbing, cyanosis, or edema. No obvious deformities. NEUROLOGICAL: Awake and alert. No obvious cranial nerve deficits. Motor grossly within normal limits. Five out of 5 muscle strength in the arms and legs. Normal speech. PSYCHIATRIC: Appropriate mood and affect; insight and judgment normal. - Urinary Catheter Management Indwelling Urethral Catheter Cath placed during this visit: yes, but has since been removed by the nurse Reason for continuing: Not indwelling catheter Removal date: 03/27/18 Removal time: 18:00 Assessment and Plan - Assessment (1) CAD (coronary artery disease) Code(s): I25.10 - Atherosclerotic heart disease of [place] coronary artery without angina pectoris Status: Acute (2) Crack cocaine use Code(s): F14.90 - Cocaine use, unspecified, uncomplicated Status: Acute (3) Tobacco dependence Code(s): F17.200 - Nicotine dependence, unspecified, uncomplicated Status: Acute - Plan 1) CAD/NSTEMI MVCAD CT surgery evaluation Not a PCI candidate overall Wants to hold off on surgery for now, CT surgery has signed off 2) EF 55-60% 3) Tobacco cessation 4) Crack cocaine cessation 5) Con't on medical therapy ASA 81 mg daily Lipitor 80mg daily 6) Tachyarrhythmia in short bursts, possible AFib vs PAT Does not want to be on anti-coagulation Ultimately does have risk of intracranial bleed as previously had one while not on anti-coagulation as well as crack-cocaine abuse, would not plan on starting detention Episodes of hypotension while on Cardizem Will load with digoxin
[2018-04-14] MEDS ORDERED: Digoxin Inj 500 MCG/2 ML Ampul IV.PUSH ONE (17:00)
[2018-04-14] MEDS: Digoxin Inj 500 MCG/2 ML Ampul IV.PUSH SCH (23:07)
[2018-04-15] MEDS: Digoxin Inj 500 MCG/2 ML Ampul IV.PUSH SCH (05:13)
[2018-04-15] MEDS: Enoxaparin Inj 40 MG/0.4 ML Syringe SQ SCH (10:05)
[2018-04-15] MEDS: dilTIAZem 60 MG Tablet PO SCH ×3 (10:06→18:48)
--- NOTE | 2018-04-15 11:53 | P.PNIM ---
Subjective Interval history: in no acute distress. no chest pain or sob. no fever. Physical Exam Vital signs: Vital Signs 04/14/18 12:00 04/14/18 16:00 04/14/18 17:00 Temperature 97.8 F 98.2 F Pulse Rate 82 85 Respiratory Rate 20 20 Blood Pressure 92/52 L 80/51 L 107/59 L Pulse Oximetry 97 100 04/14/18 20:00 04/14/18 23:11 04/15/18 00:00 Temperature 97.6 F Pulse Rate 72 68 77 Respiratory Rate 18 Blood Pressure 109/70 139/87 Pulse Oximetry 95 04/15/18 04:00 04/15/18 08:00 Temperature 97.3 F L 97.6 F Pulse Rate 86 79 Respiratory Rate 18 20 Blood Pressure 113/51 L 146/75 H Pulse Oximetry 91 L 100 Intake & Output 04/14/18 04/15/18 04/15/18 18:59 06:59 18:59 Intake Total 240 / 240 Output Total Balance 239 / 239 Weight 60.2 kg Intake: Oral 240 / 240 Output: Stool Other: Date of Last Bowel Movement 04/14/18 04/14/18 - Constitutional no acute distress - Routine Respiratory Exam Present: CTA bilaterally - Routine Cardiovascular Exam Present: RRR - Routine Abdominal Exam Present: soft - Routine Extremities Exam Comments: no pedal edema. - Routine Neurological Exam Present: alert - Urinary Catheter Management Indwelling Urethral Catheter Cath placed during this visit: yes, but has since been removed by the nurse Reason for continuing: Not indwelling catheter Removal date: 03/27/18 Removal time: 18:00 Results - Labs CBC & Chem 7: 04/12/18 16:18 04/11/18 13:08 Assessment and Plan - Plan Coronary artery disease- multivessel disease S/P cardiac cath presenting with atypical right sided chest pain Paroxysmal Atrial fibrillation- rate variable EF 55-60% -BB was not restarted- patient has recent cocaine use, CTS consulted for evaluation or CABG, patient refusing surgery, if is not a candidate and continues to refuse, continue medical therapy with aspirin and Lipitor per cardiology. Patient will need CABG after C. difficile has resolved if patient agrees. - ASA daily - [facility] saw [facility]- will need surgery eventually- not a PCI candidate- patient is not willing to have the surgery done at this time- [facility] - seen by Cardiology- 04/11- BB- discontinued- started on Cardizem 60 mg po qid- changed to tid due to low-normal BP's- -started on Digoxin. continue to monitor and adjust as needed. Carotid artery disease with > 90% stenosis left ICA -vascular surgery consult appreciated and recommended medical treatment at this time -continue aspirin and statin. -outpatient f/up C-diff colitis- acute, hypervirulent strain -ID consulted, appreciate recommendations -Continue oral vancomycin - 500mg QID - Dr. Stokes-ID ff S/P Tx for UTI - Urine culture with Klebsiella pneumoniae -ID changed cipro to cefepime (will avoid fluoroquinolones in C.diff settings) - d/w Dr. Stokes- Cefepime DC'ed 04/05 History of obstructive uropathy secondary to enlarged prostate History of UTI PSAE -Quesada catheter -removed- voiding well -cont Flomax 0.4 mg daily - [facility] 04/11- good Status post treatment course for osteomyelitis of the left metatarsal area. History of peripheral artery disease -Per report status post course of IV cefazolin plus p.o. Levaquin. -bone scan done, Limited suboptimal study secondary to patient termination of the study prematurely - PT consulted. Tobacco abuse- still smokes half pack a day patient counseled History of alcohol use drinks 3-4 beers daily patient counseled History of cocaine use, counseled on cessation. 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 -Continue aspirin. PT consulted palliative care following. Discharge Planning: dc planning to rehab vs home. [facility] is following.
--- NOTE | 2018-04-15 13:27 | P.PNPAL ---
Reason for Visit Reason for visit: a. To assist with evaluation and management of symptoms including: Dyspnea, chest pain b. To assist medical decision maker(s) with: better understanding of current medical conditions; weighing benefits/burdens of medical treatment options; making medical treatment decisions. Subjective Subjective/Interval History: Patient seen to follow-up on symptom management of chest pain and dyspnea. Patient has remained stable, awaiting placement. Case management assisting possible he may be able to go home with home health. PT working with patient he is tolerating ambulating with a walker. PT recommends occupational therapy to assist with functional improvements. No new labs or imaging. Most recent CBC, BMP a few days ago remarkable. Cardiology continues to follow. Patient with some hypotension, as well as episodes of tachycardia. BB was discontinued , patient started on Cardizem 4 times a day, and has been decreased to 3 times per day now, started on digoxin per cardiology. Continues on oral vancomycin 4 times a day for C. difficile, patient endorsing he is having 2-3 soft but formed BMs a day of the recording by nursing indicates 1-2 BMs a day. Patient seen in room no visitors present. He is alert and finishing breakfast though it is late in the day. He says he was sleeping and did not see breakfast at breakfast time. He endorses good appetite. He denies nausea or any GI complaints. Indicates voiding adequately moving his bowels adequately. Denies any swelling to his extremities. He denies any chest pain at rest however tells me when he gets up to use the restroom occasionally he feels like his "heart is racing "and this is accompanied by a brief episode of chest pain, as well as mild shortness of breath, which then resolves once he rests. He indicates he has not required any medication for pain for this and that the symptoms resolve when he limits his activity level. Review with him his conditions, he understands that he is in the hospital for "a heart attack", and he tells me that he may consider surgery at some point in the future but right now he is fine with just taking medicines to help. He indicates his family has been coming to see him nearly every day. He tells me he feels like he "might be getting a cold" endorses nonprod occasional cough, no nasal congestion. No fever or chills. Feels as if his upper chest is congested. (breath sounds clear. ) . Advance Directives Advance Directives Date on File: 04/11/18 Health Care Surrogate Name and Number: Daughter Karol Objective Vital Signs: Vital Signs 04/14/18 16:00 04/14/18 17:00 04/14/18 20:00 Temperature 98.2 F Pulse Rate 85 72 Respiratory Rate 20 Blood Pressure 80/51 L 107/59 L Pulse Oximetry 100 04/14/18 23:11 04/15/18 00:00 04/15/18 04:00 Temperature 97.6 F 97.3 F L Pulse Rate 68 77 86 Respiratory Rate 18 18 Blood Pressure 109/70 139/87 113/51 L Pulse Oximetry 95 91 L 04/15/18 08:00 Temperature 97.6 F Pulse Rate 79 Respiratory Rate 20 Blood Pressure 146/75 H Pulse Oximetry 100 Intake & Output 04/14/18 04/15/18 04/15/18 18:59 06:59 18:59 Intake Total 240 / 240 Output Total Balance 239 / 239 Weight 60.2 kg Intake: Oral 240 / 240 Output: Stool Other: Date of Last Bowel Movement 04/14/18 04/14/18 Physical Exam: CONSTITUTIONAL/GENERAL: This is an adequately nourished patient, in no apparent distress. TUBES/LINES/DRAINS: PIV upper extremity SKIN: No jaundice, rashes, or lesions. No wounds seen anteriorly. Skin warm/dry CARDIOVASCULAR: regular rhythm, no murmur. No peripheral edema. RESPIRATORY/CHEST: Symmetric, unlabored respirations. on room air. Clear to auscultation. Breath sounds equal bilaterally. GASTROINTESTINAL: Abdomen soft, flat, non-tender, nondistended. No palpable masses. No guarding. Bowel sounds present. MUSCULOSKELETAL: Extremities without clubbing, cyanosis, or edema. No joint tenderness or effusion noted. No calf tenderness. NEUROLOGICAL: Awake and alert. oriented x2-3, forgetful at times. follows commands. Moves all extremities. PSYCHIATRIC: No obvious anxiety/depression. no apparent hallucinations or other psychotic thought process. . Diagnostic Tests Laboratory: Laboratory Results - last 72 hr 04/12/18 16:18 WBC 10.1 RBC 4.42 L Hgb 11.0 L Hct 33.7 L MCV 76.3 L MCH 24.9 L MCHC 32.7 RDW 17.2 Plt Count 199 MPV 8.0 Neut % (Auto) 67.1 Lymph % (Auto) 22.1 [place] % (Auto) 8.2 H Eos % (Auto) 1.1 Baso % (Auto) 1.5 Neut # (Auto) 6.7 Lymph # (Auto) 2.2 [place] # (Auto) 0.8 Eos # (Auto) 0.1 Baso # (Auto) 0.1 WBC Differential . Differential Comment Auto diff final Result Diagrams: 04/12/18 16:18 04/11/18 13:08 Procedures: 03/24: Cardiac catheterization Assessment and Plan Pertinent Non-Medical Issues: Psychosocial: He was born in [place] and joined the [employer] as a young man serving 23 years and retiring. He was active during the [place] conflict but denies any service related injury. He worked in [employer]. He was and had 3 children but is close to his daughter Karol, and wishes for her to be his healthcare surrogate, should he be unable to make decisions for himself. Spiritual: Periodontist available. Legal: Healthcare surrogate form completed 04/11/18, names daughter Karol. Ethical issues impacting care: None known. . Important Contacts: Daughter: Karol Sister: Paty Machado Prognosis: His prognosis is guarded. He is 62 years old with a long history of tobacco, alcohol and cocaine use. He has peripheral artery disease with a 90% carotid stenosis, triple-vessel disease, possible osteomyelitis of the left foot, Clostridium difficile infection and general debility. He is at elevated risk for cardiovascular complications and compromise but at this time wishes to be an FULL CODE. He has had a prior hemorrhagic stroke, and given his substance abuse history and peripheral artery disease, is at risk for recurrent complications and decline. . Code Status: Full Code Plan: PLAN: Legal decision maker: At this time the patient is oriented but has slightly limited insight. He cooperates with his daughter, Karol, for decision-making is named daughter Karol as healthcare surrogate . Goals: Aggressive. Still discussing possibility of proceeding with heart surgery in the future. CODE STATUS: FULL CODE SYMPTOMS: * Dyspnea: Multifactorial to include history of tobacco use, smoking crack cocaine, coronary artery disease and debility. It primarily occurs with activity and resolves with rest. He denies dyspnea at rest, however does indicate some mild shortness of breath with ambulation to restroom which is accompanied by elevated heart rate. Self-limited, resolves with cessation of activity. Cardiology adding additional medication for rate control which may improve his dyspnea. * Chest pain: He has chest discomfort with activity, described as pressure, occurring with exertion, resolving with rest, located at the center of his chest. He has a history of atrial fibrillation and is seen on telemetry to have episodes of paroxysmal A. fib which may be contributing to his symptoms of chest pain and dyspnea. Drug screen was positive for benzodiazepines and cocaine metabolites on admission, so beta-blockade was held. His blood pressure was initially borderline low so ROXANE inhibitors were also not initiated. Lopressor started 04/05. Has been having some hypotension in the past few days, beta-venkatesh was discontinued he was started on Cardizem 4 times a day, this is since been decreased to 3 times a day. Still with some episodes of elevated heart rate, digoxin added per cardiology. He continues to endorse what he describes as mild chest pain and feeling of heart racing with activity such as ambulating of bed to restroom. (10 -12 feet distance) * Functional status: PT recommends occupational therapy consultation to assist with rehabilitation efforts, I will place order Palliative care will continue to follow the patient during hospital course as condition evolves, to assist patient/decision-maker with understanding of their medical conditions, weighing benefits/burdens of treatment options, for clarification of goals of treatment. Additionally will assist with any symptoms of palliative concern. . Attestation Attestation: To help prompt me to consider important information that might be impacting today's encounter and assessment, information from prior notes written by myself or my colleagues may have been "brought forward" into today's note. My signature on this note, however, is an attestation that I personally performed the exam, history, and/or decision-making noted today, and, unless otherwise indicated, the interactions with patient, family, and staff as well as the review of records all occurred today. I also attest that the listed assessment and stated plan reflect my best clinical judgment today based on the combination of historical information, prior notes, and today's exam/ interactions. When time spent is documented, it refers only to time spent today by the signer, or if indicated, combined time spent today by collaborating physician/nurse practitioner.
--- NOTE | 2018-04-15 17:23 | P.PNCA ---
Subjective Interval history: No events overnight Heart rates better controlled Physical Exam Vital signs: Vital Signs 04/14/18 20:00 04/14/18 23:11 04/15/18 00:00 Temperature 97.6 F Pulse Rate 72 68 77 Respiratory Rate 18 Blood Pressure 109/70 139/87 Pulse Oximetry 95 04/15/18 04:00 04/15/18 08:00 04/15/18 12:00 Temperature 97.3 F L 97.6 F 97.9 F Pulse Rate 86 79 79 Respiratory Rate 18 20 20 Blood Pressure 113/51 L 146/75 H 124/53 L Pulse Oximetry 91 L 100 100 04/15/18 16:00 Temperature 97.2 F L Pulse Rate 79 Respiratory Rate 20 Blood Pressure 99/61 L Pulse Oximetry 96 Intake & Output 04/14/18 04/15/18 04/15/18 18:59 06:59 18:59 Intake Total 240 / 240 Output Total Balance 239 / 239 Weight 60.2 kg Intake: Oral 240 / 240 Output: Stool Other: Date of Last Bowel Movement 04/14/18 04/14/18 Narrative: GENERAL: NAD SKIN: Warm and dry. HEAD: Atraumatic. Normocephalic. EYES: Pupils equal and round. No scleral icterus. No injection or drainage. ENT: No nasal bleeding or discharge. Mucous membranes pink and moist. NECK: Trachea midline. No JVD. CARDIOVASCULAR: Regular rate and rhythm. RESPIRATORY: No accessory muscle use. Clear to auscultation. Breath sounds equal bilaterally. GASTROINTESTINAL: Abdomen soft, non-tender, nondistended. Hepatic and splenic margins not palpable. MUSCULOSKELETAL: Extremities without clubbing, cyanosis, or edema. No obvious deformities. NEUROLOGICAL: Awake and alert. No obvious cranial nerve deficits. Motor grossly within normal limits. Five out of 5 muscle strength in the arms and legs. Normal speech. PSYCHIATRIC: Appropriate mood and affect; insight and judgment normal. - Urinary Catheter Management Indwelling Urethral Catheter Cath placed during this visit: yes, but has since been removed by the nurse Reason for continuing: Not indwelling catheter Removal date: 03/27/18 Removal time: 18:00 Assessment and Plan - Assessment (1) CAD (coronary artery disease) Code(s): I25.10 - Atherosclerotic heart disease of [place] coronary artery without angina pectoris Status: Acute (2) Crack cocaine use Code(s): F14.90 - Cocaine use, unspecified, uncomplicated Status: Acute (3) Tobacco dependence Code(s): F17.200 - Nicotine dependence, unspecified, uncomplicated Status: Acute - Plan 1) CAD/NSTEMI MVCAD CT surgery evaluation Not a PCI candidate overall Wants to hold off on surgery for now, CT surgery has signed off 2) EF 55-60% 3) Tobacco cessation 4) Crack cocaine cessation 5) Con't on medical therapy ASA 81 mg daily Lipitor 80mg daily 6) Tachyarrhythmia in short bursts, possible AFib vs PAT Does not want to be on anti-coagulation Ultimately does have risk of intracranial bleed as previously had one while not on anti-coagulation as well as crack-cocaine abuse, 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
[2018-04-16] MEDS: Enoxaparin Inj 40 MG/0.4 ML Syringe SQ SCH (09:04)
[2018-04-16] MEDS: dilTIAZem 60 MG Tablet PO SCH ×3 (09:05→17:41)
[2018-04-16] MEDS: Digoxin 125 MCG Tablet PO SCH (09:05)
--- NOTE | 2018-04-16 11:27 | P.PNIM ---
Subjective Interval history: in no acute distress. no chest pain or sob. no fever. stool now is formed. d/w the RN. Physical Exam Vital signs: Vital Signs 04/15/18 12:00 04/15/18 16:00 04/15/18 18:49 Temperature 97.9 F 97.2 F L Pulse Rate 60 60 Respiratory Rate 20 20 Blood Pressure 124/53 L 99/61 L 99/55 L Pulse Oximetry 100 96 04/15/18 20:00 04/16/18 00:00 04/16/18 03:45 Temperature 97.5 F L 97.8 F 98.1 F Pulse Rate 74 128 H 79 Respiratory Rate 15 18 17 Blood Pressure 111/50 L 105/54 L 130/62 Pulse Oximetry 95 100 99 04/16/18 04:00 04/16/18 08:00 Temperature 98.1 F Pulse Rate 75 77 Respiratory Rate 20 Blood Pressure 124/69 Pulse Oximetry 98 Intake & Output 04/15/18 04/16/18 04/16/18 18:59 06:59 18:59 Intake Total 480 / 480 200 / 200 Output Total Balance 479 / 479 200 / 200 Weight 59.4 kg Intake: Oral 480 / 480 200 / 200 Output: Stool Other: # Voids 3 Date of Last Bowel Movement 04/15/18 04/16/18 - Constitutional no acute distress - Routine Respiratory Exam Present: CTA bilaterally - Routine Cardiovascular Exam Present: RRR - Routine Abdominal Exam Present: soft - Routine Extremities Exam Comments: no pedal edema. - Routine Neurological Exam Present: alert, oriented X3 - Urinary Catheter Management Indwelling Urethral Catheter Cath placed during this visit: yes, but has since been removed by the nurse Reason for continuing: Not indwelling catheter Removal date: 03/27/18 Removal time: 18:00 Results - Labs CBC & Chem 7: 04/12/18 16:18 04/11/18 13:08 Assessment and Plan - Plan Coronary artery disease- multivessel disease S/P cardiac cath presenting with atypical right sided chest pain Paroxysmal Atrial fibrillation- rate variable EF 55-60% -BB was not restarted- patient has recent cocaine use, CTS consulted for evaluation or CABG, patient refusing surgery, if is not a candidate and continues to refuse, continue medical therapy with aspirin and Lipitor per cardiology. Patient will need CABG after C. difficile has resolved if patient agrees. - ASA daily - [facility]- will need surgery eventually- not a PCI candidate- patient is not willing to have the surgery done at this time- [facility] has signed off. - seen by Cardiology- 04/11- BB- discontinued- started on Cardizem 60 mg po qid- changed to tid due to low-normal BP's- -started on Digoxin. continue to monitor and adjust as needed. Carotid artery disease with > 90% stenosis left ICA -vascular surgery consult appreciated and recommended medical treatment at this time -continue aspirin and statin. -outpatient f/up C-diff colitis- acute, hypervirulent strain- clinically better. -ID consulted, appreciate recommendations -will dc Vancomycin. S/P Tx for UTI - Urine culture with Klebsiella pneumoniae -ID changed cipro to cefepime (will avoid fluoroquinolones in C.diff settings) - d/w Dr. Stokes- Cefepime DC'ed 04/05 History of obstructive uropathy secondary to enlarged prostate History of UTI PSAE -Quesada catheter -removed- voiding well -cont Flomax 0.4 mg daily - [facility] 04/11- good Status post treatment course for osteomyelitis of the left metatarsal area. History of peripheral artery disease -Per report status post course of IV cefazolin plus p.o. Levaquin. -bone scan done, Limited suboptimal study secondary to patient termination of the study prematurely - PT consulted. Tobacco abuse- still smokes half pack a day patient counseled History of alcohol use drinks 3-4 beers daily patient counseled History of cocaine use, counseled on cessation. 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 -Continue aspirin. PT consulted palliative care following. Discharge Planning: dc planning ; soon; to rehab vs home. Michael is following.
--- NOTE | 2018-04-16 14:23 | P.DCO ---
- Physical Therapy Order: Evaluate and treat - Home Health Nursing Order: Medical education, Signs/symptoms of disease process, Medication education-adverse effect, Nursing assessment with vital signs - Certification I have seen patient Maxim Frank on 04/16/18. My clinical findings support the need for the requested home health care services because: Patient has SOB I certify that my clinical findings support that this patient is homebound because: Poor cardiac reserve
[2018-04-17 09:03] VITALS: BP 110/56; RESP 16; TEMP 97.8; O2SAT 100
[2018-04-17] MEDS: Enoxaparin Inj 40 MG/0.4 ML Syringe SQ SCH (09:08)
[2018-04-17] MEDS: dilTIAZem 60 MG Tablet PO SCH (09:08)
[2018-04-17] MEDS: Digoxin 125 MCG Tablet PO SCH (09:09)
[2018-04-17 09:55] VITALS: PULSE 59
--- NOTE | 2018-04-17 10:01 | P.PNIM ---
Subjective Interval history: f/u; CAD in no acute distress. denies chest pain or sob. stool is now formed. no fever. wants to go home. Physical Exam Vital signs: Vital Signs 04/16/18 12:00 04/16/18 16:00 04/16/18 20:00 Temperature 98.1 F 98.5 F 98.2 F Pulse Rate 73 84 77 Respiratory Rate 20 20 18 Blood Pressure 96/52 L 100/54 L 122/77 Pulse Oximetry 99 100 100 04/17/18 00:00 04/17/18 04:00 04/17/18 08:00 Temperature 98.1 F 98.3 F 97.8 F Pulse Rate 86 68 59 L Respiratory Rate 18 18 16 Blood Pressure 160/79 H 112/60 110/56 L Pulse Oximetry 100 98 100 Intake & Output 04/16/18 04/17/18 04/17/18 18:59 06:59 18:59 Intake Total 720 / 720 480 / 480 Balance 720 / 720 480 / 480 Weight 60.2 kg Intake: Oral 720 / 720 480 / 480 Other: # Voids 3 4 # Bowel Movements 1 4 - Constitutional no acute distress - Routine Respiratory Exam Present: CTA bilaterally - Routine Cardiovascular Exam Present: RRR - Routine Abdominal Exam Present: soft - Routine Extremities Exam Comments: no pedal edema. - Routine Neurological Exam Present: alert, oriented X3 - Urinary Catheter Management Indwelling Urethral Catheter Cath placed during this visit: yes, but has since been removed by the nurse Reason for continuing: Not indwelling catheter Removal date: 03/27/18 Removal time: 18:00 Results - Labs CBC & Chem 7: 04/12/18 16:18 04/11/18 13:08 - Procedures none Assessment and Plan - Plan Coronary artery disease- multivessel disease S/P cardiac cath presenting with atypical right sided chest pain Paroxysmal Atrial fibrillation- rate variable EF 55-60% -BB was not restarted- patient has recent cocaine use, CTS consulted for evaluation or CABG, patient refusing surgery, if is not a candidate and continues to refuse, continue medical therapy with aspirin and Lipitor per cardiology. Patient will need CABG after C. difficile has resolved if patient agrees. - ASA daily - [facility]- will need surgery eventually- not a PCI candidate- patient is not willing to have the surgery done at this time- [facility] has signed off. - seen by Cardiology- 04/11- BB- discontinued- started on Cardizem 60 mg po qid- changed to tid due to low-normal BP's- -started on Digoxin. -cleared by cardiology for discharge. Carotid artery disease with > 90% stenosis left ICA -vascular surgery consult appreciated and recommended medical treatment at this time -continue aspirin and statin. -outpatient f/up C-diff colitis- acute, hypervirulent strain- clinically better. -ID consulted, appreciate recommendations -treated with Vancomycin. S/P Tx for UTI - Urine culture with Klebsiella pneumoniae -ID changed cipro to cefepime (will avoid fluoroquinolones in C.diff settings) - d/w Dr. Stokes- Cefepime DC'ed 04/05 History of obstructive uropathy secondary to enlarged prostate History of UTI PSAE -Quesada catheter -removed- voiding well -cont Flomax 0.4 mg daily - [facility] 04/11- good Status post treatment course for osteomyelitis of the left metatarsal area. History of peripheral artery disease -Per report status post course of IV cefazolin plus p.o. Levaquin. -bone scan done, Limited suboptimal study secondary to patient termination of the study prematurely - PT consulted. Tobacco abuse- still smokes half pack a day patient counseled History of alcohol use drinks 3-4 beers daily patient counseled History of cocaine use, counseled on cessation. 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 -Continue aspirin. PT consulted Discharge Planning: dc home with [facility] today. see med list. f/u; pcp, cardiology, CT surgery and vascular surgery. d/w the patient and case management. time spent 35 min.
--- NOTE | 2018-04-17 10:06 | P.DS ---
Date of admission: 03/24/18 18:52 Primary care physician: [facility] Brief History from admission: Patient is a 62-year-old male who has a rather complex medical history who presented to the ER complaining of right-sided shoulder pain. Patient lives by himself with 24 hour caregiver. 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 He was sent here from [place] [facility] when patient was in there yesterday for regular routine follow-up when he mentioned to the [place] physician that he was having right -sided chest pain/shoulder pain he described as "gas" almost daily basis occurring usually at night for the past 3-4 days. Patient denies any diaphoresis, no nausea no vomiting. patient was sent here. An EKG was done which sinus rhythm with T-wave inversion in 2 3 aVF, mild ST elevation in V1 to V3 with ST-T wave lateral changes/ inversion in V4 to V6. Troponin was 0.08. Cardiology service was consulted and patient underwent left cardiac catheterization which shows multivessel disease. Patient currently is chest pain-free. On review of records he was actually here sometime in January for left foot metatarsal infection/osteomyelitis by bone biopsy. Seen then by podiatry and infectious disease service. He was discharged on IV cefazolin which the caregiver said he completed at the skilled rehab facility in the [facility] + po Levaquin course.. Patient denies any fever, complains of some pain on the left metatarsal area. But no fever or redness. During that hospital stay patient also had urinary retention and was noted to have obstructive uropathy secondary to enlarged prostate. He was discharged with Quesada catheter. With Flomax 0.4 mg daily. On discussion with caregiver he was supposed to have a voiding trial sometime this week as OP. However -- caregiver states he was not sent home with Flomax from the [facility]. DS: Medications - Discharge Medications Prescriptions: aspirin 81 mg PO DAILY #30 tab atorvastatin 20 mg PO HS #30 tab digoxin 125 mcg PO DAILY #30 tab diltiazem HCl 60 mg PO TID 30 Days #90 tab tamsulosin 0.4 mg PO DAILY #30 cap DS: Summary Hospital Course: patient was seen by cardiology. since he was not considered a good candidate for PCI, CT surgery consulted however the patient refused CABG at this time- he will continue on his medical treatment including aspirin,and statin. he was started on Cardizem and Digoxin for possible a-fib - he's not a good candidate for anticoagulation. he was found to have left ICA stenosis; vascular surgery consulted and recommended medical treatment with outpatient follow-up. he had C- diff colitis which was treated with oral Vancomycin. he was cleared by Cardiology for discharge. he will be discharged home with [facility] with outpatient follow-up with the above-noted consultants. - Time Spent with Patient Total time spent providing and/or coordinating discharge services: Greater than 30 minutes (35 min.) - Quality: VTE Deep Vein Thrombosis/Pulmonary Embolism Present on Admission: No Exam Vital signs: Vital Signs 04/16/18 12:00 04/16/18 16:00 04/16/18 20:00 Temperature 98.1 F 98.5 F 98.2 F Pulse Rate 73 84 77 Respiratory Rate 20 20 18 Blood Pressure 96/52 L 100/54 L 122/77 Pulse Oximetry 99 100 100 04/17/18 00:00 04/17/18 04:00 04/17/18 08:00 Temperature 98.1 F 98.3 F 97.8 F Pulse Rate 86 68 59 L Respiratory Rate 18 18 16 Blood Pressure 160/79 H 112/60 110/56 L Pulse Oximetry 100 98 100 Intake & Output 04/16/18 04/17/18 04/17/18 18:59 06:59 18:59 Intake Total 720 / 720 480 / 480 Balance 720 / 720 480 / 480 Weight 60.2 kg Intake: Oral 720 / 720 480 / 480 Other: # Voids 3 4 # Bowel Movements 1 4 - Constitutional no acute distress - Routine Respiratory Exam Present: CTA bilaterally - Routine Cardiovascular Exam Present: RRR - Routine Abdominal Exam Present: soft - Routine Extremities Exam Comments: no pedal edema. - Routine Neurological Exam Present: alert, oriented X3 Results Procedures completed during hospitalization: none - Impressions ITS Impressions Gallbladder Ultrasound 03/24/18 15:37 CONCLUSION: Negative right quadrant ultrasound examination. The gallbladder is free of stones. Carotid Doppler Study 03/25/18 09:58 CONCLUSION: High-grade stenosis in the left internal carotid artery of greater than 70% by velocity criteria. The peak systolic velocity was 473.5 cm/ s and the peak diastolic velocities was 171.8 cm/s. Chest X-Ray 03/25/18 09:58 CONCLUSION: No acute cardiopulmonary disease. Lower Extremity Ultrasound 03/25/18 09:58 CONCLUSION: 1. Venous mapping study as described above. Venous Doppler Study 03/25/18 09:58 CONCLUSION: 1. Negative exam with no evidence of deep venous thrombosis. Foot MRI 03/26/18 00:00 CONCLUSION: 1. Findings of stress type injury involving the base of the first metatarsal and metatarsal head similar to the prior study. No evidence of osteomyelitis Neck CTA 03/26/18 00:00 CONCLUSION: Bone Scan Nuclear Medicine 03/28/18 00:00 CONCLUSION: 1. Limited suboptimal study secondary to patient termination of the study prematurely. 2. Abnormal blood flow and blood pool activity which is nonspecific. Discharge Plan - Discharge Disposition Patient Disposition: /Home Health Service - Discharge Condition Condition: Serious - Discharge Order Discharge Orders: Vascular Surgery Clear for Discharge (Routine); Ordered 03/31/18 Ordered By: Juany Stewart - Physicians Team Primary Care Provider: [facility],Physician 's Attending Provider: Marybeth Cabrera Other Providers: Dustin Espino MD ; Mark Goel DO ; Olya Stokes MD ; Chris Monroy MD ; Julio Mercado MD ; [facility], [place]
== END 2018-04-17 12:41 | disposition home health service (06) ==
LOC: NEPC 15:28 → NEDA 15:28 → NEPC 16:45 → HCPC 18:52 → HCIS 03-25 21:37 → N04 03-27 19:09
PROVIDERS: ADMIT Internal Medicine; ATTEND Internal Medicine

== ENCOUNTER 2018-04-24 10:36 | Observation (INO) ==
[2018-04-24] MEDS ORDERED: Sodium Chlor 0.9% Inj 500 ML IV.SIG ONE (11:19)
--- NOTE | 2018-04-24 11:26 | ED ---
HPI General Chief complaint: Recheck/Abnormal Lab/Rx Stated complaint: Va sent/ Low Blood pressure Time Seen by Provider: 04/24/18 10:58 Source: patient, family and old records reviewed Mode of arrival: wheelchair Limitations: other (residual effects of CVA) History of Present Illness HPI narrative: Pt is a 63-year-old male presenting to the emergency department for evaluation of low blood pressure. Patient was seen at the [place] [facility] this morning and per report it was noted that his systolic blood pressure was in the 70s. Patient was sent to emergency department for evaluation. Patient states that his blood pressure was low yesterday and his caregiver wanted him to come to emergency department then. Patient denies any chest pain, shortness of breath, abdominal pain, dizziness, nausea, vomiting. Medical records reviewed. Patient was started on Cardizem 60 mg 3 times daily as well as digoxin during his last admission. Patient reports that he last took Cardizem yesterday. Medical records reviewed, patient has historically low blood pressure readings. Patient has no complaints at this time. Past medical history significant for coronary artery disease, CVA with residual left-sided weakness, BPH, hyperlipidemia, CDT. Pt denies any diarrhea as well. MD complaint: hypotension Related Data Home Medications Medication Instructions Recorded Confirmed No Known Home Medications 03/24/18 03/24/18 Previous Rx's Medication Instructions Recorded aspirin 81 mg PO DAILY #30 tab 04/17/18 atorvastatin [Lipitor] 80 mg PO DAILY 30 Days #30 tab 04/17/18 digoxin 125 mcg PO DAILY #30 tab 04/17/18 diltiazem HCl 60 mg PO TID 30 Days #90 tab 04/17/18 tamsulosin 0.4 mg PO DAILY #30 cap 04/17/18 Allergies Allergy/AdvReac Type Severity Reaction Status Date / Time No Known Allergies Allergy Unknown Uncoded 11/04/17 18:48 Review of Systems ROS: all other systems reviewed are negative [facility] Medical History Medical History Peripheral artery disease (Chronic) Stroke, 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) BPH (benign prostatic hyperplasia) (Chronic) Hyperlipidemia (Chronic) Hypertension (Chronic) Alcohol abuse (Chronic) Atrial fibrillation (Chronic) Coronary artery disease (Chronic) Degenerative disc disease, cervical (Chronic) Left ulnar fracture (Chronic) Right rib fracture (Chronic) Surgical History Surgical History History of bunionectomy of left great toe (Chronic) H/O heart artery stent (Chronic) Status post peripheral artery angioplasty (Chronic) Family History Family History Mother Family history of diabetes mellitus Social History Social History Substance History: Past History Second Hand Smoke Exposure: No Smoking Status: Former smoker Tobacco Type: Cigarettes How Often Do You Have a Drink Containing Alcohol: Never Recent Travel in [facility] within the Last 8 Weeks: No Recent Out of Country Travel within the Last 8 Weeks: No Immunization History Tetanus Immunization: <5 Years Hx Influenza Vaccine This Season: Yes Exam Narrative Exam Narrative: GENERAL: Thin, well-developed, alert -[place] male. Presenting in no acute distress. SKIN: Focused skin assessment warm/dry. HEAD: Atraumatic. Normocephalic. EYES: Pupils equal and round. No scleral icterus. No injection or drainage. ENT: No nasal bleeding or discharge. Mucous membranes pink and moist. NECK: Trachea midline. No JVD. CARDIOVASCULAR: Regular rate and rhythm. No murmur appreciated. RESPIRATORY: No accessory muscle use. Clear to auscultation. Breath sounds equal bilaterally. GASTROINTESTINAL: Abdomen soft, non-tender, nondistended. Hepatic and splenic margins not palpable. MUSCULOSKELETAL: No obvious deformities. No clubbing. No cyanosis. No edema. NEUROLOGICAL: Awake and alert. Residual left-sided weakness. Motor grossly within normal limits. Normal speech. PSYCHIATRIC: Appropriate mood and affect; insight and judgment normal. Course Initial Documented Vital Signs Temperature 98.1 F 04/24/18 10:43 Pulse Rate 88 04/24/18 10:43 Respiratory Rate 18 04/24/18 10:43 Blood Pressure 83/51 L 04/24/18 10:43 Pulse Oximetry 100 04/24/18 10:43 Last Documented Vital Signs Temperature 98.1 F 04/24/18 10:43 Pulse Rate 75 04/24/18 15:54 Respiratory Rate 18 04/24/18 15:54 Blood Pressure 88/61 L 04/24/18 15:54 Pulse Oximetry 99 04/24/18 15:54 Medical Decision Making JOEL Attestation JOEL supervised visit: Yes Attestation: I, Dr. Keene, have reviewed the advance practice practitioner's documentation and am in agreement, met with the patient face to face, made the diagnosis, and the medical decision making was done by me. *My assessment and Findings: Patient seen and evaluated with PA, please see PA notes for further details.Patient's blood pressure was initially low, patient always has a low blood pressure.It came up in the ER and its own. EKG did not show any significant dysrhythmias. He is not having any chest pains or trouble breathing, does not have any signs of focal neurological deficits. Lab work was fairly unremarkable. Patient apparently has had a recent change in his Cardizem which I think could be contributing. His heart rate is still fairly unstable however, at this point, plan would be to admit him as an observation for further evaluation and medication management. [facility] Narrative Medical decision making narrative: Patient is a well-appearing 63-year-old male presenting for evaluation of low blood pressure readings. Patient is asymptomatic. Blood pressure is 102/56 currently. Patient has no physical complaints at this time. We will check basic labs and chest x-ray. Patient will be given 500 cc bolus of normal saline. IV access was established, patient was placed on telemetry monitoring continuous pulse oximetry. Caregiver is at bedside. Labs reviewed, no acute findings identified. Urinalysis resulted with yeast, reflex culture is pending. Patient was given Diflucan 150 mg p.o. 1 dose. Patient's heart rate has been fluctuating between 60s up to 130s. At this time patient will be admitted for symptomatic hypotension, patient does report fatigue. Medical Screen Exam Complete: Yes Emergency Medical Condition: Yes Medical Records Medical records reviewed: Yes I reviewed the patient's medical records. Upon review of medical records, patient was started on Cardizem and digoxin due to bursts of atrial fibrillation. His blood pressure was systolically low throughout his admission at the end of March through mid April. Patient is not a candidate for anticoagulation. During his last admission patient refused CABG. Lab Data Result diagrams: 04/24/18 11:20 04/24/18 11:20 Lab Results 04/24/18 04/24/18 04/24/18 Range/Units 11:20 11:20 11:20 WBC 7.4 (4.0-11.0) th/mm3 RBC 5.26 (4.50-5.90) mil/mm3 Hgb 12.8 L (13.0-17.0) gm/dL Hct 40.3 (39.0-51.0) % MCV 76.7 L (80.0-100.0) fL MCH 24.3 L (27.0-34.0) pg MCHC 31.7 L (32.0-36.0) % RDW 17.6 H (11.6-17.2) % Plt Count 211 (150-450) th/mm3 MPV 7.7 (7.0-11.0) fL Neut % (Auto) 61.2 (16.0-70.0) % Lymph % (Auto) 26.6 (9.0-44.0) % Rains % (Auto) 9.1 H (0.0-8.0) % Eos % (Auto) 1.7 (0.0-4.0) % Baso % (Auto) 1.4 (0.0-2.0) % Neut # (Auto) 4.6 (1.8-7.7) th/mm3 Lymph # (Auto) 2.0 (1.0-4.8) th/mm3 Rains # (Auto) 0.7 (0.0-0.9) th/mm3 Eos # (Auto) 0.1 (0.0-0.4) th/mm3 Baso # (Auto) 0.1 (0.0-0.2) th/mm3 WBC Differential . Differential Comment Auto diff final PT 11.1 (9.8-11.6) sec INR 1.1 Ratio APTT 25.9 (24.3-30.1) sec Sodium 142 (136-145) meq/L Potassium 4.6 (3.5-5.1) meq/L Chloride 107 (98-107) meq/L Carbon Dioxide 28.2 (21.0-32.0) meq/L Anion Gap 7 (5-15) meq/L BUN 15 (7-18) mg/dL Creatinine 1.18 (0.60-1.30) mg/dL Estimated GFR 75 L (>89) mL/min Random Glucose 65 L (74-106) mg/dL Calcium 9.2 (8.5-10.1) mg/dL Magnesium 2.3 (1.5-2.5) mg/dL Total Bilirubin 0.6 (0.2-1.0) mg/dL AST 26 (15-37) U/L ALT 29 (12-78) U/L Alkaline Phosphatase 83 (45-117) U/L Total Creatine Kinase 95 (39-308) U/L Troponin I Less than 0.02 L (0.02-0.05) ng/mL Total Protein 8.5 H (6.4-8.2) g/dL Albumin 4.3 (3.4-5.0) g/dL Urine Color (Yellw/Straw) Urine Clarity (Clear) Urine pH (5.0-8.5) Ur Specific [place] (1.002-1.035) Urine Protein (Neg-Trace) mg/dL Urine Glucose (UA) (Negative) mg/dL Urine Ketones (Negative) mg/dL Urine Occult Blood (Negative) Urine Nitrate (Negative) Urine Bilirubin (Negative) Urine Urobilinogen (Less than 2) mg/dL Ur Leukocyte Esterase (Negative) Urine RBC (0-3) /hpf Urine WBC (0-5) /hpf Ur Squamous Epith Cells (0-5) /hpf Urine Yeast (None) /hpf Micro UA Comment Ur Microscopic Review Urine Culture Comments Digoxin 0.5 L (0.8-2.0) ng/mL 04/24/18 Range/Units 14:00 WBC (4.0-11.0) th/mm3 RBC (4.50-5.90) mil/mm3 Hgb (13.0-17.0) gm/dL Hct (39.0-51.0) % MCV (80.0-100.0) fL MCH (27.0-34.0) pg MCHC (32.0-36.0) % RDW (11.6-17.2) % Plt Count (150-450) th/mm3 MPV (7.0-11.0) fL Neut % (Auto) (16.0-70.0) % Lymph % (Auto) (9.0-44.0) % Rains % (Auto) (0.0-8.0) % Eos % (Auto) (0.0-4.0) % Baso % (Auto) (0.0-2.0) % Neut # (Auto) (1.8-7.7) th/mm3 Lymph # (Auto) (1.0-4.8) th/mm3 Rains # (Auto) (0.0-0.9) th/mm3 Eos # (Auto) (0.0-0.4) th/mm3 Baso # (Auto) (0.0-0.2) th/mm3 WBC Differential Differential Comment PT (9.8-11.6) sec INR Ratio APTT (24.3-30.1) sec Sodium (136-145) meq/L Potassium (3.5-5.1) meq/L Chloride (98-107) meq/L Carbon Dioxide (21.0-32.0) meq/L Anion Gap (5-15) meq/L BUN (7-18) mg/dL Creatinine (0.60-1.30) mg/dL Estimated GFR (>89) mL/min Random Glucose (74-106) mg/dL Calcium (8.5-10.1) mg/dL Magnesium (1.5-2.5) mg/dL Total Bilirubin (0.2-1.0) mg/dL AST (15-37) U/L ALT (12-78) U/L Alkaline Phosphatase (45-117) U/L Total Creatine Kinase (39-308) U/L Troponin I (0.02-0.05) ng/mL Total Protein (6.4-8.2) g/dL Albumin (3.4-5.0) g/dL Urine Color Yellow (Yellw/Straw) Urine Clarity Hazy H (Clear) Urine pH 5.0 (5.0-8.5) Ur Specific [place] 1.012 (1.002-1.035) Urine Protein Negative (Neg-Trace) mg/dL Urine Glucose (UA) Negative (Negative) mg/dL Urine Ketones Negative (Negative) mg/dL Urine Occult Blood Negative (Negative) Urine Nitrate Negative (Negative) Urine Bilirubin Negative (Negative) Urine Urobilinogen Less than 2 (Less than 2) mg/dL Ur Leukocyte Esterase Small H (Negative) Urine RBC 2 (0-3) /hpf Urine WBC 12 H (0-5) /hpf Ur Squamous Epith Cells <1 (0-5) /hpf Urine Yeast Moderate H (None) /hpf Micro UA Comment Culture indicated Ur Microscopic Review Not Reportable Urine Culture Comments Culture indicated Digoxin (0.8-2.0) ng/mL Imaging Data Radiologist's impression: Chest X-Ray 08/23/18 11:20 CONCLUSION: No acute cardiopulmonary abnormality is identified. Discharge Plan Discharge Disposition Patient Disposition: 30 Still Patient Discharge Condition Condition: Stable Discharge Details Diagnosis: Hypotension, unspecified, Verna UTI Physicians Team ED Provider: Micah Keene ED Midlevel Provider: Sil Mcgowan Primary Care Provider: [facility],Physician 's Attending Provider: Zachariah Vargas Status ED Status: Admitted Observation Patient
--- NOTE | 2018-04-24 11:44 | XR ---
EXAM DATE: 04/24/2018 11:37 AM EDT AGE/SEX: 63 years / Male INDICATIONS: Low blood pressure; dizziness. CLINICAL DATA: This is the patient's initial encounter. Patient reports that signs and symptoms have been present for 1 day and indicates a pain score of 0/10. MEDICAL/SURGICAL HISTORY: Stroke. None. [place] [facility] [place]. . FINDINGS: Portable AP view of the chest demonstrates a normal-sized cardiac silhouette. No effusion, consolidat ion, or pneumothorax is identified. The bones and soft tissues demonstrate no acute finding. EKG line s overlie the patient. CONCLUSION: No acute cardiopulmonary abnormality is identified. Electronically signed by: Lonnie Caraballo MD 04/24/2018 11:42 AM EDT
[2018-04-24 11:51] LABS: Baso # (Auto) 0.1 th/mm3 (0.0-0.2); Baso % (Auto) 1.4 % (0.0-2.0); Eos # (Auto) 0.1 th/mm3 (0.0-0.4); Eos % (Auto) 1.7 % (0.0-4.0); Hematocrit 40.3 % (39.0-51.0); Hemoglobin 12.8 gm/dL (13.0-17.0); Lymph % (Auto) 26.6 % (9.0-44.0); Mean Corpuscular HGB Conc 31.7 % (32.0-36.0); Mean Corpuscular Hemoglobin 24.3 pg (27.0-34.0); Mean Corpuscular Volume 76.7 fL (80.0-100.0); Mean Platelet Volume 7.7 fL (7.0-11.0); Mono # (Auto) 0.7 th/mm3 (0.0-0.9); Mono % (Auto) 9.1 % (0.0-8.0); Neut # (Auto) 4.6 th/mm3 (1.8-7.7); Neut % (Auto) 61.2 % (16.0-70.0); Platelet Count 211 th/mm3 (150-450); Red Blood Count 5.26 mil/mm3 (4.50-5.90); Red Cell Distribution Width 17.6 % (11.6-17.2); White Blood Count 7.4 th/mm3 (4.0-11.0)
[2018-04-24 12:02] LABS: Activated Partial Thrombo Time 25.9 sec (24.3-30.1); INR 1.1 Ratio; Prothrombin Time 11.1 sec (9.8-11.6)
[2018-04-24 12:38] LABS: Digoxin 0.5 ng/mL (0.8-2.0)
[2018-04-24 12:39] LABS: Alanine Aminotransferase 29 U/L (12-78); Albumin 4.3 g/dL (3.4-5.0); Alkaline Phosphatase 83 U/L (45-117); Anion Gap 7 meq/L (5-15); Blood Urea Nitrogen 15 mg/dL (7-18); Calcium 9.2 mg/dL (8.5-10.1); Carbon Dioxide 28.2 meq/L (21.0-32.0); Chloride 107 meq/L (98-107); Glomerular Filtration Rate 75 mL/min (>89); Glucose,Random 65 mg/dL (74-106); Sodium 142 meq/L (136-145); Total Protein 8.5 g/dL (6.4-8.2)
[2018-04-24 12:40] LABS: Aspartate Aminotransferase 26 U/L (15-37); Creatine Kinase 95 U/L (39-308); Magnesium 2.3 mg/dL (1.5-2.5); Potassium 4.6 meq/L (3.5-5.1)
[2018-04-24 14:44] LABS: Bilirubin,Urine Negative (Negative); Clarity,Urine Hazy (Clear); Color,Urine Yellow (Yellw/Straw); Glucose,Urine (UA) Negative (Negative); Leukocyte Esterase,Urine Small (Negative); Nitrite,Urine Negative (Negative); Specific Gravity,Urine 1.012 (1.002-1.035); Squamous Epithelial Cell,Urine <1 /hpf (0-5)
[2018-04-24] MEDS ORDERED: Fluconazole 100 MG Tablet PO ONE (14:53)
[2018-04-24] MEDS ORDERED: Dextrose 50% in Water 50 ML Vial IV.PUSH PRN (15:40)
[2018-04-24] MEDS: Sod Chloride 0.9% Inj 1,000 ML IV.CONT SCH ×2 (15:46→19:54)
--- NOTE | 2018-04-24 15:53 | P.HPIM ---
History of Present Illness Primary Care Physician: [facility] History of Present Illness: Mr. Frank is a 63 year old male. [facility]. It is reported that he had systolic blood pressures in the 70s. Upon arrival to the ER he had a systolic blood pressure in the 80s. Recently he was admitted for A. fib RVR and digoxin and diltiazem 60 mg p.o. 3 times daily has been started at that time. He tolerated this treatment as an inpatient. The treatment of diltiazem may be contributory to his hypotension. His primary complaint has been weakness and drowsiness. She does not report significant dizziness. No other complaints. Review of Systems Constitutional: No fevers, no chills no night sweats, no fatigue, weakness Eyes: No eye pain, no blurry vision, no loss of vision ENT: No sore throat, no ear pain, no rhinorrhea Cardiovascular: No chest pain, no tachycardia, no palpitations, no shortness of breath, no syncope Respiratory: No wheezing, no cough, no shortness of breath Gastrointestinal: No abdominal pain, no black tarry stools, no bright red blood per rectum, no vomiting, no diarrhea Musculoskeletal: No joint pain, no muscle cramps, no stiffness Integumentary: No rash, no ulcers, no drainage Neurologic: No sensory loss, no loss of motor function, no significant dizziness , weakness, drowsiness Psychiatric: No behavioral changes, no hallucinations, no suicidal ideations [facility] - History History Provided By: Patient - Medical History Medical History: Medical History (Last Updated 04/24/18 @ 11:31 by MIKE Leonard) Peripheral artery disease (Chronic) Stroke, 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) BPH (benign prostatic hyperplasia) (Chronic) Hyperlipidemia (Chronic) Hypertension (Chronic) Alcohol abuse Atrial fibrillation Coronary artery disease Degenerative disc disease, cervical Left ulnar fracture Right rib fracture - Surgical History Surgical History: Surgical History (Last Updated 04/24/18 @ 11:31 by MIKE Leonard) History of bunionectomy of left great toe (Chronic) H/O heart artery stent Status post peripheral artery angioplasty - Family History Family History: Family History (Last Reviewed 04/24/18 @ 11:29 by MIKE Leonard) Mother Family history of diabetes mellitus - Tobacco History Second Hand Smoke Exposure: No Tobacco Use In Past 30 Days: No Smoking Status: Former smoker Tobacco Type: Cigarettes - Alcohol History How Often Do You Have a Drink Containing Alcohol: Never - Substance Use History Substance History: Past History - Travel History Recent Travel in the [place] Within the Last 8 Weeks: No Recent Travel Out of the Country Within the Last 8 Weeks: No - Immunization History Tetanus Immunization: <5 Years Hx Influenza Vaccine This Season: Yes Medications and Allergies Active Medications: Active Medications Al Hydroxide/Mg Hydroxide (Milk Of Philip Lishiraz) 30 ml PO Q12H PRN PRN Reason: Mild Constipation Aspirin (Ecotrin) 81 mg PO DAILY [facility] Dextrose (D50w Vial) 50 ml IV.PUSH UNSCH PRN PRN Reason: PER HYPOGLYCEMIA PROTOCOL Digoxin (Lanoxin) 125 mcg PO DAILY [facility] Glucagon (Glucagon Inj) 1 mg OTHER PRN PRN PRN Reason: for Hypoglycemia Protocol Sodium Chloride (Ns Inj) 1,000 mls @ 100 mls/hr IV.CONT .Q10H [facility] Ondansetron HCl (Zofran Inj) 4 mg IV.PUSH Q6H PRN PRN Reason: NAUSEA OR VOMITING Sodium Chloride (Ns Flush) 2 ml IV.FLUSH UNSCH PRN PRN Reason: FLUSH AFTER USING IV ACCESS Last Admin: 04/24/18 11:38 Dose: 2 ml Tamsulosin HCl (Flomax) 0.4 mg PO DAILY [facility] Allergies Allergy/AdvReac Type Severity Reaction Status Date / Time No Known Allergies Allergy Unknown Uncoded 11/04/17 18:48 Home Medications Medication Instructions Recorded Confirmed Type No Known Home Medications 03/24/18 03/24/18 History Exam Vital signs: Vital Signs 04/24/18 10:43 04/24/18 11:02 04/24/18 11:12 Temperature 98.1 F Pulse Rate 88 68 Respiratory Rate 18 16 Blood Pressure 83/51 L 91/57 L 102/56 L Pulse Oximetry 100 100 04/24/18 12:29 04/24/18 14:00 04/24/18 15:25 Temperature Pulse Rate 55 L 65 73 Respiratory Rate 14 17 16 Blood Pressure 107/74 102/67 132/68 Pulse Oximetry 100 100 100 Intake & Output 04/23/18 04/24/18 04/24/18 18:59 06:59 18:59 Intake Total 500 / 500 Balance 500 / 500 Weight 58.967 kg Intake: IV 500 / 500 NS Inj 500 ML @ Wide Open IV. 500 / 500 SIG ONCE ONE Rx#:[id number] Narrative: GENERAL: NAD, A&Ox3 HEAD: Normocephalic. NECK: Supple, trachea midline. No lymphadenopathy. EYES: No scleral icterus. No injection or drainage. CARDIOVASCULAR: Regular heart rate, irregularly irregular rhythm without murmurs , gallops, or rubs. RESPIRATORY: Breath sounds equal bilaterally. No accessory muscle use. GASTROINTESTINAL: Abdomen soft, non-tender, nondistended. MUSCULOSKELETAL: No cyanosis, or edema. SKIN: Warm and dry. NEURO: No focal neurological deficits. Results - Labs CBC & Chem 7: 04/24/18 11:20 04/24/18 11:20 Labs: Short CBC 04/24/18 Range/Units 11:20 WBC 7.4 (4.0-11.0) th/mm3 Hgb 12.8 L (13.0-17.0) gm/dL Hct 40.3 (39.0-51.0) % Plt Count 211 (150-450) th/mm3 BMP 04/24/18 11:20 Sodium 142 Potassium 4.6 Chloride 107 Carbon Dioxide 28.2 BUN 15 Creatinine 1.18 Calcium 9.2 Cardiac Enzymes 04/24/18 Range/Units 11:20 Total Creatine Kinase 95 (39-308) U/L Troponin I Less than 0.02 L (0.02-0.05) ng/mL Liver Function 04/24/18 Range/Units 11:20 Total Bilirubin 0.6 (0.2-1.0) mg/dL AST 26 (15-37) U/L ALT 29 (12-78) U/L Alkaline Phosphatase 83 (45-117) U/L Albumin 4.3 (3.4-5.0) g/dL Urine 04/24/18 Range/Units 14:00 Urine Color Yellow (Yellw/Straw) Urine Clarity Hazy H (Clear) Urine pH 5.0 (5.0-8.5) Ur Specific [place] 1.012 (1.002-1.035) Urine Protein Negative (Neg-Trace) mg/dL Urine Glucose (UA) Negative (Negative) mg/dL - Imaging Impressions Chest X-Ray 04/24/18 11:20 CONCLUSION: No acute cardiopulmonary abnormality is identified. Caprini VTE Risk Assessment Caprini VTE Risk Assessment: Moderate/High Risk (score >= 2) Caprini Risk Assessment Model: Point Value = 1 Point Value = 2 Point Value = 3 Point Value = 5 Age 41-60 Minor surgery BMI > 25 kg/m2 Swollen legs Varicose veins or History of unexplained or recurrent spontaneous Oral contraceptives or hormone replacement Sepsis (< 1 month) Serious lung disease, including pneumonia (< 1 month) Abnormal pulmonary function Acute myocardial infarction Congestive heart failure (< 1 month) History of inflammatory bowel disease Medical patient at bed rest Age 61-74 Arthroscopic surgery Major open surgery (> 45 min) Laparoscopic surgery (> 45 min) Malignancy Confined to bed (> 72 hours) Immobilizing plaster cast Central venous access Age >= 75 History of VTE Family history of VTE Factor V Leiden Prothrombin [id number] Lupus anticoagulant Anticardiolipin antibodies Elevated serum homocysteine Heparin-induced thrombocytopenia Other congenital or acquired thrombophilia Stroke (< 1 month) Elective arthroplasty Hip, pelvis, or leg fracture Acute spinal cord injury (< 1 month) Prophylaxis Regimen: Total Risk Factor Score Risk Level Prophylaxis Regimen 0-1 Low Early ambulation 2 Moderate Order ONE of the following: *Sequential Compression Device (SCD) *Heparin 5000 units SQ BID 3-4 Higher Order ONE of the following medications: *Heparin 5000 units SQ TID *Enoxaparin/Lovenox 40 mg SQ daily (WT < 150 kg, CrCl > 30 mL/min) *Enoxaparin/Lovenox 30 mg SQ daily (WT < 150 kg, CrCl > 10-29 mL/min) *Enoxaparin/Lovenox 30 mg SQ BID (WT < 150 kg, CrCl > 30 mL/min) AND/OR *Sequential Compression Device (SCD) 5 or more Highest Order ONE of the following medications: *Heparin 5000 units SQ TID (Preferred with Epidurals) *Enoxaparin/Lovenox 40 mg SQ daily (WT < 150 kg, CrCl > 30 mL/min) *Enoxaparin/Lovenox 30 mg SQ daily (WT < 150 kg, CrCl > 10-29 mL/min) *Enoxaparin/Lovenox 30 mg SQ BID (WT < 150 kg, CrCl > 30 mL/min) AND *Sequential Compression Device (SCD) Assessment and Plan - Plan 63-year-old male admitted secondary to hypotension Hypotension Hold diltiazem IV hydration Monitor for stability of blood pressures Monitor for recurrence of A. fib RVR If blood pressures elevate significantly will consider lower dose diltiazem. If A. fib RVR occurs but blood pressures are not elevated amiodarone could be considered. BPH Urinary retention Continue baseline treatment Follow clinically A-fib Diltiazem on hold due to hypotension Monitor on telemetry for recurrence of RVR Continue Digoxin Continue Aspirin Peripheral artery disease History of hemorrhagic stroke Coronary artery disease Follow clinically Continue aspirin, avoid stronger blood thinners Consult cardiothoracic surgeon, per patient request Hyperlipidemia Continue present treatment Follow as an outpatient History of hypertension Holding baseline treatment in light of hypotension Follow blood pressures Adjust treatments as needed History of alcohol abuse Monitor DVT Prophylaxis SCDs
[2018-04-25] MEDS: Sod Chloride 0.9% Inj 1,000 ML IV.CONT SCH ×3 (02:00→11:45)
[2018-04-25] MEDS: Digoxin 125 MCG Tablet PO SCH (09:27)
--- NOTE | 2018-04-25 10:15 | P.PN ---
Subjective Interval history: Follow-up for hypertension. Patient reports feeling much better today. He states he did have some lightheadedness yesterday, but this is now resolved. He denies any chest pain, palpitations, or shortness of breath. He has no other medical complaints at this time. Heart rate remains well controlled currently in the 60s. Blood pressure much improved and stable in the low 100s. Physical Exam Vital signs: Vital Signs 04/24/18 10:43 04/24/18 11:02 04/24/18 11:12 Temperature 98.1 F Pulse Rate 88 68 Respiratory Rate 18 16 Blood Pressure 83/51 L 91/57 L 102/56 L Blood Pressure [Left Arm] Pulse Oximetry 100 100 04/24/18 12:29 04/24/18 14:00 04/24/18 15:25 Temperature Pulse Rate 55 L 65 73 Respiratory Rate 14 17 16 Blood Pressure 107/74 102/67 132/68 Blood Pressure [Left Arm] Pulse Oximetry 100 100 100 04/24/18 15:54 04/24/18 17:31 04/24/18 19:59 Temperature 98.3 F Pulse Rate 75 69 Respiratory Rate 18 18 Blood Pressure 82/60 L 93/52 L Blood Pressure [Left Arm] 88/61 L Pulse Oximetry 98 99 98 04/24/18 20:00 04/24/18 23:46 04/25/18 04:00 Temperature 98.6 F 98.7 F 98.2 F Pulse Rate 83 69 71 Respiratory Rate 20 16 16 Blood Pressure 102/60 119/64 107/55 L Blood Pressure [Left Arm] Pulse Oximetry 96 100 100 04/25/18 08:00 04/25/18 08:25 Temperature 98.0 F Pulse Rate 70 57 L Respiratory Rate 14 Blood Pressure 107/67 Blood Pressure [Left Arm] Pulse Oximetry 100 Intake & Output 04/24/18 04/25/18 04/25/18 18:59 06:59 18:59 Intake Total 740 / 740 1900 / 1900 Output Total 300 / 300 Balance 740 / 740 1900 / 1900 -300 / -300 Weight 58.967 kg Intake: IV 500 / 500 1900 / 1900 NS Inj 1,000 ML @ 100 mls/hr IV 1900 / 1900 .CONT .Q10H [facility] Rx#:[id number] NS Inj 500 ML @ Wide Open IV. 500 / 500 SIG ONCE ONE Rx#:[id number] Oral 240 / 240 Output: Urine 300 / 300 Other: # Voids 5 Date of Last Bowel Movement 04/24/18 # Bowel Movements 3 Weight On Admission 58.967 kg Narrative: GENERAL: Well-nourished, well-developed pleasant male patient in [facility]. SKIN: Warm and dry. No rash. HEENT: Normocephalic. Atraumatic. Mucous membranes pink and moist. CARDIOVASCULAR: Regular rate and rhythm. No murmur appreciated. RESPIRATORY: No accessory muscle use. Clear to auscultation. Breath sounds equal bilaterally. GASTROINTESTINAL: Abdomen soft, non-tender, nondistended. Normoactive bowel sounds x4. MUSCULOSKELETAL: No obvious deformities. Extremities without clubbing, cyanosis , or edema. NEUROLOGICAL: Awake and alert. No obvious cranial nerve deficits. Normal speech. Results - Labs CBC & Chem 7: 04/25/18 09:06 04/25/18 09:06 Laboratory Results - last 24 hr 04/24/18 04/24/18 04/24/18 11:20 11:20 11:20 WBC 7.4 RBC 5.26 Hgb 12.8 L Hct 40.3 MCV 76.7 L MCH 24.3 L MCHC 31.7 L RDW 17.6 H Plt Count 211 MPV 7.7 Neut % (Auto) 61.2 Lymph % (Auto) 26.6 Pope % (Auto) 9.1 H Eos % (Auto) 1.7 Baso % (Auto) 1.4 Neut # (Auto) 4.6 Lymph # (Auto) 2.0 Pope # (Auto) 0.7 Eos # (Auto) 0.1 Baso # (Auto) 0.1 WBC Differential . Differential Comment Auto diff final PT 11.1 INR 1.1 APTT 25.9 Sodium 142 Potassium 4.6 Chloride 107 Carbon Dioxide 28.2 Anion Gap 7 BUN 15 Creatinine 1.18 Estimated GFR 75 L POC Glucose Random Glucose 65 L Calcium 9.2 Magnesium 2.3 Total Bilirubin 0.6 AST 26 ALT 29 Alkaline Phosphatase 83 Total Creatine Kinase 95 Troponin I Less than 0.02 L Total Protein 8.5 H Albumin 4.3 Urine Color Urine Clarity Urine pH Ur Specific [place] Urine Protein Urine Glucose (UA) Urine Ketones Urine Occult Blood Urine Nitrate Urine Bilirubin Urine Urobilinogen Ur Leukocyte Esterase Urine RBC Urine WBC Ur Squamous Epith Cells Urine Yeast Micro UA Comment Ur Microscopic Review Urine Culture Comments Digoxin 0.5 L 04/24/18 04/24/18 04/24/18 14:00 16:14 18:32 WBC RBC Hgb Hct MCV MCH MCHC RDW Plt Count MPV Neut % (Auto) Lymph % (Auto) Pope % (Auto) Eos % (Auto) Baso % (Auto) Neut # (Auto) Lymph # (Auto) Pope # (Auto) Eos # (Auto) Baso # (Auto) WBC Differential Differential Comment PT INR APTT Sodium Potassium Chloride Carbon Dioxide Anion Gap BUN Creatinine Estimated GFR POC Glucose 111 H 107 Random Glucose Calcium Magnesium Total Bilirubin AST ALT Alkaline Phosphatase Total Creatine Kinase Troponin I Total Protein Albumin Urine Color Yellow Urine Clarity Hazy H Urine pH 5.0 Ur Specific [place] 1.012 Urine Protein Negative Urine Glucose (UA) Negative Urine Ketones Negative Urine Occult Blood Negative Urine Nitrate Negative Urine Bilirubin Negative Urine Urobilinogen Less than 2 Ur Leukocyte Esterase Small H Urine RBC 2 Urine WBC 12 H Ur Squamous Epith Cells <1 Urine Yeast Moderate H Micro UA Comment Culture indicated Ur Microscopic Review Not Reportable Urine Culture Comments Culture indicated Digoxin 04/25/18 04/25/18 00:21 06:21 WBC RBC Hgb Hct MCV MCH MCHC RDW Plt Count MPV Neut % (Auto) Lymph % (Auto) Pope % (Auto) Eos % (Auto) Baso % (Auto) Neut # (Auto) Lymph # (Auto) Pope # (Auto) Eos # (Auto) Baso # (Auto) WBC Differential Differential Comment PT INR APTT Sodium Potassium Chloride Carbon Dioxide Anion Gap BUN Creatinine Estimated GFR POC Glucose 92 82 Random Glucose Calcium Magnesium Total Bilirubin AST ALT Alkaline Phosphatase Total Creatine Kinase Troponin I Total Protein Albumin Urine Color Urine Clarity Urine pH Ur Specific [place] Urine Protein Urine Glucose (UA) Urine Ketones Urine Occult Blood Urine Nitrate Urine Bilirubin Urine Urobilinogen Ur Leukocyte Esterase Urine RBC Urine WBC Ur Squamous Epith Cells Urine Yeast Micro UA Comment Ur Microscopic Review Urine Culture Comments Digoxin - Imaging Impressions Chest X-Ray 04/24/18 11:20 CONCLUSION: No acute cardiopulmonary abnormality is identified. Assessment and Plan - Plan 63-year-old male with history of atrial fibrillation, CAD, HTN, HLD, PAD, CVA, [facility]. The patient is status post recent admission for A. fib with RVR, discharged on digoxin and diltiazem 60mg 3 times daily. Hypotension, with Hx of Hypertension: [facility] with systolic blood pressures in the 70s/80s. Suspect secondary to new medications, specifically diltiazem. -Hold diltiazem -Give IV fluid hydration -Monitor on telemetry, so far heart rates well controlled -BP improving with systolic BP in the low 100s -Monitor BP, adjust medications as needed Atrial fibrillation: chronic -Diltiazem on hold as above secondary to hypotension -Monitor on telemetry for recurrence of RVR -Continue patient's digoxin and aspirin (evaluated by cardiology on previous admission, not a good candidate for anticoagulation, also hx of hemorrhagic stroke) PAD/CAD: chronic -continue patient's aspirin -Patient previously declined CABG on prior admission, however requesting to see cardiothoracic surgeon, will consult HLD: chronic -continue patient's statin BPH/urinary retention: Chronic -Continue patient's Flomax DVT Prophylaxis: teds/SCDs
[2018-04-25 10:20] LABS: Albumin 4.1 g/dL (3.4-5.0); Anion Gap 7 meq/L (5-15); Aspartate Aminotransferase 18 U/L (15-37); Blood Urea Nitrogen 14 mg/dL (7-18); Calcium 9.1 mg/dL (8.5-10.1); Carbon Dioxide 26.8 meq/L (21.0-32.0); Chloride 109 meq/L (98-107); Glomerular Filtration Rate Greater Than 89 mL/min (>89); Glucose,Random 83 mg/dL (74-106); Sodium 143 meq/L (136-145)
[2018-04-25 10:21] LABS: Alanine Aminotransferase 25 U/L (12-78)
[2018-04-25 10:22] LABS: Baso # (Auto) 0.1 th/mm3 (0.0-0.2); Baso % (Auto) 0.8 % (0.0-2.0); Eos # (Auto) 0.1 th/mm3 (0.0-0.4); Eos % (Auto) 1.4 % (0.0-4.0); Hematocrit 39.1 % (39.0-51.0); Hemoglobin 12.3 gm/dL (13.0-17.0); Lymph % (Auto) 24.5 % (9.0-44.0); Mean Corpuscular HGB Conc 31.5 % (32.0-36.0); Mean Corpuscular Hemoglobin 24.3 pg (27.0-34.0); Mean Platelet Volume 7.5 fL (7.0-11.0); Mono # (Auto) 0.6 th/mm3 (0.0-0.9); Mono % (Auto) 7.7 % (0.0-8.0); Neut # (Auto) 5.4 th/mm3 (1.8-7.7); Neut % (Auto) 65.6 % (16.0-70.0); Platelet Count 196 th/mm3 (150-450); Red Blood Count 5.08 mil/mm3 (4.50-5.90); Red Cell Distribution Width 16.8 % (11.6-17.2); White Blood Count 8.3 th/mm3 (4.0-11.0)
[2018-04-25 10:23] LABS: Alkaline Phosphatase 78 U/L (45-117); Total Protein 7.6 g/dL (6.4-8.2)
--- NOTE | 2018-04-25 15:17 | P.PNCV ---
- Note Subjective/Hospital Course: Pt well known to me from recent hospitalization. Discussed clinical presentation and known CAD with the patient and the option of proceeding with CABG. At the present time, he is not sure about undergoing coronary revascularization surgery. He remains chest-pain free with improved hypotension. Will standby for now. He wants his foot to heal completely before undertaking surgical therapy. Objective: Vital Signs - 24 hr 04/24/18 15:25 04/24/18 15:54 04/24/18 17:31 Temperature 98.3 F Pulse Rate 73 75 69 Respiratory Rate 16 18 18 Blood Pressure 132/68 82/60 L 93/52 L Blood Pressure [Left Arm] 88/61 L Pulse Oximetry 100 98 99 04/24/18 19:59 04/24/18 20:00 04/24/18 23:46 Temperature 98.6 F 98.7 F Pulse Rate 83 69 Respiratory Rate 20 16 Blood Pressure 102/60 119/64 Blood Pressure [Left Arm] Pulse Oximetry 98 96 100 04/25/18 04:00 04/25/18 08:00 04/25/18 08:25 Temperature 98.2 F 98.0 F Pulse Rate 71 70 57 L Respiratory Rate 16 14 Blood Pressure 107/55 L 107/67 Blood Pressure [Left Arm] Pulse Oximetry 100 100 04/25/18 12:00 Temperature 98.4 F Pulse Rate 62 Respiratory Rate 14 Blood Pressure 111/71 Blood Pressure [Left Arm] Pulse Oximetry 100 Labs: Laboratory Results - last 12 hr 04/25/18 04/25/18 04/25/18 06:21 09:06 09:06 WBC 8.3 RBC 5.08 Hgb 12.3 L Hct 39.1 MCV 77.0 L MCH 24.3 L MCHC 31.5 L RDW 16.8 Plt Count 196 MPV 7.5 Neut % (Auto) 65.6 Lymph % (Auto) 24.5 [place] % (Auto) 7.7 Eos % (Auto) 1.4 Baso % (Auto) 0.8 Neut # (Auto) 5.4 Lymph # (Auto) 2.0 [place] # (Auto) 0.6 Eos # (Auto) 0.1 Baso # (Auto) 0.1 WBC Differential . Differential Comment Auto diff final Sodium 143 Potassium 4.0 Chloride 109 H Carbon Dioxide 26.8 Anion Gap 7 BUN 14 Creatinine 0.96 Estimated GFR Greater than 89 POC Glucose 82 Random Glucose 83 Calcium 9.1 Total Bilirubin 0.6 AST 18 ALT 25 Alkaline Phosphatase 78 Total Protein 7.6 D Albumin 4.1 04/25/18 12:16 WBC RBC Hgb Hct MCV MCH MCHC RDW Plt Count MPV Neut % (Auto) Lymph % (Auto) [place] % (Auto) Eos % (Auto) Baso % (Auto) Neut # (Auto) Lymph # (Auto) Ellis # (Auto) Eos # (Auto) Baso # (Auto) WBC Differential Differential Comment Sodium Potassium Chloride Carbon Dioxide Anion Gap BUN Creatinine Estimated GFR POC Glucose 73 Random Glucose Calcium Total Bilirubin AST ALT Alkaline Phosphatase Total Protein Albumin Result Diagrams: 04/25/18 09:06 04/25/18 09:06
[2018-04-26] MEDS: Digoxin 125 MCG Tablet PO SCH (08:38)
--- NOTE | 2018-04-26 12:16 | P.DS ---
Date of admission: 04/24/18 15:50 Primary care physician: [facility] Anticipated date of discharge: 04/26/18 Brief History from admission: Mr. Frank is a 63 year old male. [facility]. It is reported that he had systolic blood pressures in the 70s. Upon arrival to the ER he had a systolic blood pressure in the 80s. Recently he was admitted for A. fib RVR and digoxin and diltiazem 60 mg p.o. 3 times daily has been started at that time. He tolerated this treatment as an inpatient. The treatment of diltiazem may be contributory to his hypotension. His primary complaint has been weakness and drowsiness. She does not report significant dizziness. No other complaints. DS: Diagnosis - Discharge Diagnosis (1) Atrial fibrillation Status: Acute (2) Hypotension, unspecified Status: Acute DS: Medications - Discharge Medications Prescriptions: digoxin 250 mcg PO DAILY #60 tab DS: Summary Hospital Course: Patient updated on day of discharge: The patient reports feeling much better. He denies any lightheadedness or dizziness. He is ambulating his room without difficulty. Blood pressure and heart rate much improved. Heart rate did increase to the upper 90s on telemetry , discussed with the patient, will increase patient's digoxin dose. He is still wanting to avoid surgery at the moment, does not agree with CABG. He states he will consider this at a later time but not right now. He has no other medical complaints at this time. Hospital course: 63-year-old male with history of atrial fibrillation, CAD, HTN, HLD, PAD, CVA, [facility]. The patient is status post recent admission for A. fib with RVR, discharged on digoxin and diltiazem 60mg 3 times daily. Hypotension, with Hx of Hypertension: Sent by the [facility] with systolic blood pressures in the 70s/80s. Suspect secondary to new medications, specifically diltiazem. Held diltiazem. Given IV fluid hydration. Monitor on telemetry, heart rate remained fairly well controlled until day of discharge, increased to 90s, discussed with the patient, increased digoxin to 250mcg daily. BP much improved with systolic BP in the 120s-130s. Stable for discharge. Discontinued diltiazem, discussed with the patient who verbalized understanding. Atrial fibrillation: chronic. Diltiazem discontinued as above secondary to hypotension. Continued patient's digoxin and aspirin (evaluated by cardiology on previous admission, not a good candidate for anticoagulation, also hx of hemorrhagic stroke). Heart rate in the upper 90s, increased digoxin dosing. Stable for discharge. PAD/CAD: chronic. Continue patient's aspirin. Patient previously declined CABG on prior admission, however requested to see cardiothoracic surgeon, consulted Dr. Espino, patient still declining any surgery. Outpatient f/up. HLD: chronic. Continue patient's statin. BPH/urinary retention: Chronic. Continue patient's Flomax - Time Spent with Patient Total time spent providing and/or coordinating discharge services: Less than 30 minutes Exam Vital signs: Vital Signs 04/25/18 16:00 04/25/18 16:05 04/25/18 20:00 Temperature 98.4 F 98.5 F Pulse Rate 76 94 H 85 Respiratory Rate 16 18 Blood Pressure 107/52 L 109/79 Pulse Oximetry 100 100 04/25/18 23:45 04/26/18 04:00 04/26/18 08:00 Temperature 98 F 98.4 F 98.5 F Pulse Rate 98 H 72 56 L Respiratory Rate 18 16 16 Blood Pressure 142/99 H 133/81 127/79 Pulse Oximetry 99 100 100 Intake & Output 04/25/18 04/26/18 04/26/18 18:59 06:59 18:59 Intake Total 1720 / 1720 480 / 480 Output Total 500 / 500 Balance 1220 / 1220 480 / 480 Intake: IV 1000 / 1000 NS Inj 1,000 ML @ 100 mls/hr IV 1000 / 1000 .CONT .Q10H [facility] Rx#:[id number] Oral 720 / 720 480 / 480 Output: Urine 500 / 500 Other: # Voids 1 # Urine Diapers 2 Date of Last Bowel Movement 04/25/18 04/24/18 04/24/18 # Bowel Movements 1 Narrative: GENERAL: Well-nourished, well-developed male patient in [facility]. SKIN: Warm and dry. No rash. HEENT: Normocephalic. Atraumatic. Pupils equal and round. Mucous membranes pink and moist. NECK: Supple. Trachea midline. CARDIOVASCULAR: Irregular rate and rhythm. No murmur appreciated. RESPIRATORY: No accessory muscle use. Clear to auscultation. Breath sounds equal bilaterally. GASTROINTESTINAL: Abdomen soft, non-tender, nondistended. Normoactive bowel sounds x4. MUSCULOSKELETAL: No obvious deformities. No edema. NEUROLOGICAL: Awake and alert. No obvious cranial nerve deficits. Left sided weakness with LUE contracture. Normal speech. PSYCHIATRIC: Appropriate mood and affect; insight and judgment normal. Results Procedures completed during hospitalization: None. Labs on day of discharge: Labs from last 24 hours 04/26/18 04/26/18 04/25/18 06:36 00:01 18:33 POC Glucose 102 117 H 100 04/25/18 12:16 POC Glucose 73 - Impressions ITS Impressions Chest X-Ray 04/24/18 11:20 CONCLUSION: No acute cardiopulmonary abnormality is identified. Discharge Plan - Discharge Disposition Patient Disposition: 01 Discharge Home - Discharge Condition Condition: Stable - Discharge Order Discharge Orders: Discharge Order (Routine); Ordered 04/26/18 Ordered By: Sofia Forde - Discharge Details Anticipated Discharge Date: 04/26/18 Discharge Comment: Stop taking diliazem. Increase digoxin dose to 250mcg daily. Follow up with Dr. Espino. - Physicians Team Primary Care Provider: [facility] Attending Provider: Marileos Koroma Other Providers: Dustin Espino MD
--- NOTE | 2018-04-26 17:45 | ECG ---
Date Performed: 04/24/2018 Time Performed: 11:05:23 PTAGE: 63 years EKG: Sinus rhythm POSSIBLE LEFT ATRIAL ENLARGEMENT POSSIBLE RIGHT VENTRICULAR CONDUCTION DELAY LEFT ANTERIOR FASCICULA R BLOCK PROBABLE SEPTAL MYOCARDIAL INFARCTION ABNORMAL ECG INTERPRETATION BASED ON A DEFAULT AGE OF 4 0 YEARS PREVIOUS TRACING : 03/24/2018 15.51 DOCTOR: Ginger Lombardi Interpretating Date/Time 04/26/2018 17:38:49
== END 2018-04-26 13:22 | disposition home or self-care (01) ==
LOC: NEPC 10:36 → NEDA 10:36 → NEPHCDU 16:54
PROVIDERS: ADMIT Internal Medicine; ATTEND Internal Medicine